=== PATIENT | female | born 1955 | race Caucasian/White ===

== ENCOUNTER 2016-08-07 13:48 | Inpatient (IN) | payer OTHER ==
[~2016-08-07] VITALS: Ht 152.4 cm; Wt 43.2 kg
[~2016-08-07 13:48] MED LIST: ALLERGY PILL; ARTHRITIS PILL; ASPI81CH2 PO; DIPH25CA65 PO; FLV1 PO; FURO40TA3 PO; LCTX PO; LEVO-459 PO; METO50TA7 PO; PRED-301 PO; VNCS125 PO
[2016-08-07] MEDS ORDERED: ALBUT/IPRATROP 3MG/0.5MG NEB 3 ML VIAL INH STA (14:06)
[2016-08-07] MEDS ORDERED: METHYLPREDNISOLONE 125 MG VIAL IV STA (14:06)
[2016-08-07] MEDS ORDERED: SODIUM CHLORIDE 0.9% 1000ML 250 ML IV STA (14:06)
[2016-08-07] MEDS ORDERED: PRED10TA PO (14:14)
[2016-08-07] MEDS ORDERED: NAPR250T3 PO (14:15)
[2016-08-07 14:49] LABS: BASO % 0.4 %; BASO ABS # 0.04 K/uL (0-0.2); COMPLETE YES; IG% 0.1 %; LYMPH % 15.6 %; MEAN CELL VOLUME 88.6 fL (80-100); MEAN CORPUSCULAR HEMOGLOBIN 26.4 pg (25-34); MEAN CORPUSCULAR HGB CONC 29.8 g/dl (32-36); MEAN PLATELET VOLUME 10.6 fL (7.4-10.4); MONO % 9.7 %; NEUT % 71.2 %; PLATELET COUNT 245 K/uL (130-400); RED BLOOD COUNT 5.08 M/uL (4.2-5.4); WHITE BLOOD COUNT 10.25 K/uL (4.8-10.8)
[2016-08-07 14:58] LABS: INR 1.2 (0.9-1.1); PROTHROMBIN TIME (PATIENT) 12.4 SECONDS (9.0-12.0)
--- NOTE | 2016-08-07 15:02 | DIAGNOSTIC IMAGING REPORT ---
HEAD CT NONCONTRAST CT DOSE: 537.48 mGy.cm HISTORY: EVALUATE ALTERED MENTAL STATUS/WEAKNESS TECHNIQUE: Multiaxial CT images of the head were performed without the use of intravenous contrast. Automated exposure control was utilized for this study. Comparison: None. Findings: The paranasal sinuses and mastoid air cells are clear. The calvarium and skull base are intact. There is no mass, hematoma, midline shift, acute infarct. White matter hypodensity is nonspecific but suggestive of microvascular ischemic change. The ventricles and sulci demonstrate mild age-related involutional changes. 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 Impression: No acute intracranial abnormality. Periventricular white matter hypodensity is nonspecific but can be seen in the setting of moderate microvascular ischemic change. Electronically signed by: Alex Castro M.D. 08/07/2016 3:00 PM Dictated Date/Time: 08/07/2016 2:53 PM
[2016-08-07 15:07] LABS: ALT/SGPT 16 U/L (12-78); AST/SGOT 16 U/L (15-37); BLOOD UREA NITROGEN 19 mg/dl (7-18); BUN/CREATININE RATIO 26.2 (10-20); CALCIUM 8.4 mg/dl (8.5-10.1); CARBON DIOXIDE 34 mmol/L (21-32); CHLORIDE 103 mmol/L (98-107); CREATININE 0.72 mg/dl (0.60-1.20); GLUCOSE 102 mg/dl (70-99); MAGNESIUM 1.8 mg/dl (1.8-2.4); POTASSIUM 4.5 mmol/L (3.5-5.1); SODIUM 140 mmol/L (136-145)
[2016-08-07 15:17] LABS: ALB/GLOB RATIO 0.9 (0.9-2); ALKALINE PHOSPHATASE 51 U/L (45-117); THYROID STIMULATING HORMONE 0.604 uIu/ml (0.300-4.500)
--- NOTE | 2016-08-07 15:23 | DIAGNOSTIC IMAGING REPORT ---
CHEST ONE VIEW PORTABLE HISTORY: EVALUATE ALTERED MENTAL STATUS/WEAKNESS COMPARISON: Chest 11/08/2015. FINDINGS: The lungs remain hyperexpanded with apical predominant emphysematous changes. Mild chronic interstitial thickening persists. No new focal lung consolidations. No evidence for pulmonary edema. No pleural effusions. No pneumothorax. The heart is normal in size. Stable prominence of the main pulmonary artery suggesting pulmonary arterial hypertension. Left basilar linear densities suggestive of scarring or atelectasis. This has slightly improved. IMPRESSION: 1. Emphysema. 2. Improved aeration within the left lung base suggesting resolving atelectasis. 3. No acute process within the chest. Electronically signed by: Alex Castro M.D. 08/07/2016 3:21 PM Dictated Date/Time: 08/07/2016 3:20 PM
--- NOTE | 2016-08-07 15:56 | EMERGENCY ROOM VISIT NOTE ---
History Report prepared by Karen: Reece Rios Under the Supervision of: Dr. Jose Alberto Scott M.D. First contact with patient: 13:59 Chief Complaint: DIZZY Stated Complaint: DIZZY, TINGLING IN HEAD/JAW/ARMS, RAPID HEARTBEAT Nursing Triage Summary: triage note: pt reports "i have had intermittent dizzy spells for the past couple months and it got worse today and i felt like i was going to pass out." pulse ox noted to be 77% on room air in triage. pt denies any shortness of breath. when asked if pt has any hx of breathing problems pt states "the dr says i do but i don't think i do." jn nurse to care for pt called and aware of pt pulse ox reading in triage. History of Present Illness The patient is a 60 year old female who presents to the Emergency Room with complaints of intermittent, worsening episodes of dizziness beginning a couple months ago. The patient states that last night, she had symptoms, and fell asleep. She reports that when she woke up, her symptoms were gone, but then started again soon after she woke up about ten hours ago. The patient reports that movement makes her symptoms worse. She states that her episodes typically last about an hour, she takes aspirin, and her symptoms go away. The patient denies nausea, vomiting, shortness of breath, chest pain, cough, diarrhea, urinary symptoms, and weakness to her extremities. She reports that she smokes, and her PCP has mentioned COPD and emphysema, but she has not been diagnosed with them. The patient states that she takes Advair, but she does not have a nebulizer or rescue inhaler. She denies using oxygen at home, and her O2 Sat is 82% on room air, currently. The patient reports that she does not have a history of a CVA. She states that she goes to her PCP as needed. Source of History: patient Onset: few months ago Position: other (global) Quality: other (dizziness) Timing: intermittent, worsening Modifying Factors (Worsening): movement Associated Symptoms: No cough, No chest pain, No SOB, No nausea, No vomiting , No diarrhea, No urinary symptoms, No weakness Review of Systems See HPI for pertinent positives & negatives. A total of 10 systems reviewed and were otherwise negative. Past Medical & Surgical Medical Problems: (1) Emphysema of lung (2) Hypoxia (3) Paroxysmal a-fib (4) Rheumatoid arthritis (5) Tobacco abuse Surgical Problems: (1) [place] teeth extracted Family History Cancer FHx: gallbladder disease Heart disease Lung disease Social History Smoking Status: Current Every Day Smoker Drug Use: none Marital Status: Housing Status: lives alone Occupation Status: unemployed Current/Historical Medications Scheduled Aspirin (Aspirin), 1 TAB PO DAILY Folic Acid (Folic Acid), 1 MG PO DAILY Metoprolol Succ (Toprol Xl) (Toprol-Xl), 50 MG PO DAILY Naproxen Tab (Naprosyn), 250-500 MG PO QAM Prednisone Tab (Prednisone), 10 MG PO QAM Scheduled PRN Diphenhydramine Hcl (Benadryl Allergy), 1 CAP PO HS PRN for allergies Furosemide (Lasix), 20 MG PO UD PRN for FLUID RETENTION Allergies Coded Allergies: Pork (Verified Allergy, Intermediate, HIVES, 08/07/16) Physical Exam Vital Signs Date Time Temp Pulse Resp B/P (MAP) Pulse Ox O2 Delivery O2 Flow Rate FiO2 08/07/16 14:07 80 08/07/16 14:00 96 Nasal Cannula 4.0 08/07/16 14:00 96 Nasal Cannula 4.0 08/07/16 13:54 36.7 81 20 126/74 77 Room Air Physical Exam GENERAL: Patient is in no acute distress. HEENT: No acute trauma, normocephalic atraumatic, mucous membranes moist, no nasal congestion, no scleral icterus. NECK: No stridor, no adenopathy, no meningismus, trachea is midline. LUNGS: Significantly diminished breath sounds bilaterally, no crackles, breath sounds equal, wheezing bilaterally HEART: Without murmurs gallops or rubs, regular rate and rhythm. ABDOMEN: Soft, nontender, bowel sounds positive, no hernias, no peritonitis. EXTREMITIES: No cyanosis or edema, full range of motion of all the joints without pain or difficulty, no signs for acute trauma. NEUROLOGIC: Oriented x 3, no acute motor or sensory deficits, no focal weakness. No pronator drift or facial droop, no cerebellar dysfunction SKIN: No rash, no jaundice, no diaphoresis. Medical Decision & Procedures ER Provider Diagnostic Interpretation: Radiology results as stated below per my review and radiologist interpretation: CHEST ONE VIEW PORTABLE HISTORY: EVALUATE ALTERED MENTAL STATUS/WEAKNESS COMPARISON: Chest 11/08/2015. FINDINGS: The lungs remain hyperexpanded with apical predominant emphysematous changes. Mild chronic interstitial thickening persists. No new focal lung consolidations. No evidence for pulmonary edema. No pleural effusions. No pneumothorax. The heart is normal in size. Stable prominence of the main pulmonary artery suggesting pulmonary arterial hypertension. Left basilar linear densities suggestive of scarring or atelectasis. This has slightly improved. IMPRESSION: 1. Emphysema. 2. Improved aeration within the left lung base suggesting resolving atelectasis. 3. No acute process within the chest. Electronically signed by: Alex Castro M.D. 08/07/2016 3:21 PM Dictated Date/Time: 08/07/2016 3:[address] CT DOSE: 537.48 mGy.cm HISTORY: EVALUATE ALTERED MENTAL STATUS/WEAKNESS TECHNIQUE: Multiaxial CT images of the head were performed without the use of intravenous contrast. Automated exposure control was utilized for this study. Comparison: None. Findings: The paranasal sinuses and mastoid air cells are clear. The calvarium and skull base are intact. There is no mass, hematoma, midline shift, acute infarct. White matter hypodensity is nonspecific but suggestive of microvascular ischemic change. The ventricles and sulci demonstrate mild age-related involutional changes. 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 Impression: No acute intracranial abnormality. Periventricular white matter hypodensity is nonspecific but can be seen in the setting of moderate microvascular ischemic change. Electronically signed by: Alex Castro M.D. 08/07/2016 3:00 PM Dictated Date/Time: 08/07/2016 2:53 PM Laboratory Results 08/07/16 14:36 Red Blood Count 5.08, Mean Corpuscular Volume 88.6, Mean Corpuscular Hemoglobin 26.4, Mean Corpuscular Hemoglobin Concent 29.8, Mean Platelet Volume 10.6, Neutrophils (%) (Auto) 71.2, Lymphocytes (%) (Auto) 15.6, Monocytes (%) (Auto) 9.7, Eosinophils (%) (Auto) 3.0, Basophils (%) (Auto) 0.4, Neutrophils # (Auto) 7.30, Lymphocytes # (Auto) 1.60, Monocytes # (Auto) 0.99, Eosinophils # (Auto) 0.31, Basophils # (Auto) 0.04 08/07/16 14:36 Test 08/07/16 14:36 White Blood Count 10.25 K/uL (4.8-10.8) Red Blood Count 5.08 M/uL (4.2-5.4) Hemoglobin 13.4 g/dL (12.0-16.0) Hematocrit 45.0 % (37-47) Mean Corpuscular Volume 88.6 fL (80-100) Mean Corpuscular Hemoglobin 26.4 pg (25-34) Mean Corpuscular Hemoglobin Concent 29.8 g/dl (32-36) Platelet Count 245 K/uL (130-400) Mean Platelet Volume 10.6 fL (7.4-10.4) Neutrophils (%) (Auto) 71.2 % Lymphocytes (%) (Auto) 15.6 % Monocytes (%) (Auto) 9.7 % Eosinophils (%) (Auto) 3.0 % Basophils (%) (Auto) 0.4 % Neutrophils # (Auto) 7.30 K/uL (1.4-6.5) Lymphocytes # (Auto) 1.60 K/uL (1.2-3.4) Monocytes # (Auto) 0.99 K/uL (0.11-0.59) Eosinophils # (Auto) 0.31 K/uL (0-0.5) Basophils # (Auto) 0.04 K/uL (0-0.2) RDW Standard Deviation 47.1 fL (36.4-46.3) RDW Coefficient of Variation 14.6 % (11.5-14.5) Immature Granulocyte % (Auto) 0.1 % Immature Granulocyte # (Auto) 0.01 K/uL (0.00-0.02) Prothrombin Time 12.4 SECONDS (9.0-12.0) Prothromb Time International Ratio 1.2 (0.9-1.1) Activated Partial Thromboplast Time 26.2 SECONDS (21.0-31.0) Partial Thromboplastin Ratio 1.0 Anion Gap 3.0 mmol/L (3-11) Est Creatinine Clear Calc Drug Dose 46.6 ml/min Estimated GFR () 104.8 Estimated GFR (Non- 90.4 BUN/Creatinine Ratio 26.2 (10-20) Calcium Level 8.4 mg/dl (8.5-10.1) Magnesium Level 1.8 mg/dl (1.8-2.4) Total Bilirubin 0.5 mg/dl (0.2-1) Aspartate Amino Transf (AST/SGOT) 16 U/L (15-37) Alanine Aminotransferase (ALT/SGPT) 16 U/L (12-78) Alkaline Phosphatase 51 U/L (45-117) Troponin I < 0.015 ng/ml (0-0.045) Total Protein 5.6 gm/dl (6.4-8.2) Albumin 2.7 gm/dl (3.4-5.0) Globulin 2.9 gm/dl (2.5-4.0) Albumin/Globulin Ratio 0.9 (0.9-2) Thyroid Stimulating Hormone (TSH) 0.604 uIu/ml (0.300-4.500) Laboratory results reviewed by me. Medications Administered Medications (Trade) Dose Ordered Sig/Denzel Route Start Time Stop Time Status Last Admin Dose Admin Sodium Chloride 250 ml @ 999 mls/hr Q16M STAT IV 08/07/16 14:06 08/07/16 14:21 DC 08/07/16 14:31 999 MLS/HR Methylprednisolone Sodium Succinate (Solu-Medrol IV) 80 mg NOW STAT IV 08/07/16 14:06 08/07/16 14:09 DC 08/07/16 14:31 80 MG Albuterol/ Ipratropium (Duoneb) 3 ml NOW STAT INH 08/07/16 14:06 08/07/16 14:09 DC 08/07/16 14:31 3 ML ECG Indication: weakness Rate (beats per minute): 77 Rhythm: normal sinus Findings: ST depression, no ectopy, other (T-wave change in the anterior and lateral leads) Comparison ECG Date: 10/30/15 Change: no significant change ED Course 1359: The patient was evaluated in room C02. A complete history and physical exam was performed. 1406 Ordered Duoneb 3ml INH, Solu-Medrol IV 80mg IV, Sodium Chloride 250 ml @ 999 mls/hr IV 1536: I discussed the patients case with Dr[facility] Rothman[facility] The patient will be evaluated for further treatment. 1555: Upon reexamination the patient is resting. I discussed results and treatment plan with the patient. She verbalizes agreement and understanding. The patient will be evaluated for further management. Medical Decision Differential diagnosis includes: hypoxia, pneumonia, bronchitis, COPD exacerbation, UTI, anemia, dehydration, CVA, vertigo, electrolyte imbalance Medication Reconciliation: I attest that I have personally reviewed the patient' s current medication list. Blood Pressure Screening: Patient was found to have normal blood pressure on screening and does not require follow-up. There is no leukocytosis or worrisome anemia. No significant electrolyte abnormality, kidney failure or hepatitis. The patient appears to be in a euthyroid state. Chest x-ray shows COPD; no CHF, pneumonia or pneumothorax. EKG shows a normal sinus rhythm with some ST depressions in the anterior and lateral leads, these are unchanged compared to previous EKGs. Cardiac enzyme testing 1 is not consistent with acute cardiac injury. Brain CT shows no acute bleed or mass effect. Urinalysis result is currently pending. The patient received IV saline, a DuoNeb, IV Solu-Medrol. She was placed on nasal cannula O2 supplementation. She is doing well and her O2 saturations have improved. The patient likely has symptoms secondary to hypoxia. She requires care in the hospital. I did speak with case management, I talked with the patient. The on- call hospitalist was consulted. Consults Time Called: 1523 Consulting Physician[facility] Return[facility] Call: 1536 I discussed the patients case with [facility] The patient will be evaluated for further treatment. Impression Primary Impression: Dizziness Additional Impressions: Weakness Hypoxia Scribe Attestation The scribe's documentation has been prepared under my direction and personally reviewed by me in its entirety. I confirm that the note above accurately reflects all work, treatment, procedures, and medical decision making performed by me. Departure Information Dispostion Being Evaluated By Hospitalist Referrals Irene Puente M.D. (MEDICAL) (PCP) Patient Instructions [facility] Problem Qualifiers
[2016-08-07 16:13] VITALS: Ht 152.4 cm; Wt 43.2 kg
[2016-08-07] MEDS ORDERED: NICOTINE 14 MG/24 HR TDSY TD ONE (16:21)
[2016-08-07] MEDS ORDERED: ONDANSETRON INJ 2 MG/ML 2 ML VIAL IV PRN (16:30)
[2016-08-07] MEDS ORDERED: ACETAMINOPHEN 325 MG TAB PO PRN (16:30)
[2016-08-07 16:45] VITALS: BP 150/79; PULSE 73; TEMP 36.7; O2SAT 92
[2016-08-07 16:49] LABS: URINE APPEARANCE CLEAR (CLEAR); URINE BILIRUBIN NEG (NEG); URINE COLOR YELLOW; URINE NITRITE NEG (NEG); URINE PH 6.5 (4.5-7.5); URINE SPECIFIC GRAVITY 1.014 (1.000-1.030); UROBILINOGEN NEG (NEG); ZZUR CULT IF INDIC CLEAN CATCH NO
[2016-08-07 16:52] LABS: MANUAL MICROSCOPIC REQUIRED? NO; REVIEW REQ? NO
--- NOTE | 2016-08-07 16:52 | History and Physical ---
History & Physical Date & Time of Service: Aug 07, 2016 at 16:32 Chief Complaint: Dizzy, Tingling In Head/Jaw/Arms, Rapid Heartbeat Primary Care Physician: Irene Puente M.D. (MEDICAL) History of Present Illness Source: patient, family, clinic records, hospital records 60 year old female with history of COPD, Smoker, RA on Prednisone, Paroxysmal A fib on Aspirin, Hypertension, presenting with episodes of dizziness. Patient follows with Dr. Puente for Primary Care. Patient was apparently doing well until last night around 11pm, patient was watching TV when she suddenly developed dizziness- lightheadedness associated with palpitations. No dyspnea/chest pain/diaphoresis. The episode lasted about an hour before resolving. A few hours later, the same symptoms returned then resolved. Patient again had the same symptoms this morning and around noon, prompting ER consult. She mentions that this episode also occurred 2 months ago. At the ER, patient was noted to be hypoxic at 77%. She was placed on 4 L O2 by nasal cannula, Solumedrol and nebs with improvement. Trop negative, EKG shows non specific t wave inversions in V1-V3. CXR no pneumonia. On exam, patient seen sitting up in bed, comfortable. States she feels improved compared to admission. Denies active symptoms on my exam. No other symptoms. Past Medical/Surgical History Medical Problems: (1) Emphysema of lung Status: Chronic (2) Paroxysmal a-fib Status: Chronic (3) Rheumatoid arthritis Permanent Comment: chronic steroid use Status: Chronic (4) Tobacco abuse Status: Chronic Surgical Problems: (1) [place] teeth extracted Status: Resolved Family History Cancer FHx: gallbladder disease Heart disease Lung disease Social History Smoking Status: Current Every Day Smoker Smokeless Tobacco Use: No Alcohol Use: none Drug Use: none Marital Status: Housing status: lives alone Occupational Status: unemployed Allergies Coded Allergies: Pork (Verified Allergy, Intermediate, HIVES, 08/07/16) Home Medications Scheduled Aspirin (Aspirin), 1 TAB PO DAILY Folic Acid (Folic Acid), 1 MG PO DAILY Metoprolol Succ (Toprol Xl) (Toprol-Xl), 50 MG PO DAILY Naproxen Tab (Naprosyn), 250-500 MG PO QAM Prednisone Tab (Prednisone), 10 MG PO QAM Scheduled PRN Diphenhydramine Hcl (Benadryl Allergy), 1 CAP PO HS PRN for allergies Furosemide (Lasix), 20 MG PO UD PRN for FLUID RETENTION Review of Systems Constitutional- no fever; no weight loss Eyes- no acute visual changes ENT- no sinus drainage; no pharyngitis Pulmonary- no cough, no wheezing, no shortness of breath Cardiac-(+) as noted above GI- no nausea, no vomiting, no diarrhea, no melena, no hematochezia - no dysuria, no hematuria Musculoskeletal- no arthralgias, no myalgias Derm- no rashes, no new skin lesions, no changing skin lesions Hematologic- no unusual bruising, no unusual bleeding Lymphatics- no adenopathy Endocrine- no polyuria or polydipsia; no heat or cold intolerance Neuro- no headaches, no focal neurologic symptoms Psych- no anxiety, no depression Physical Exam Vital Signs Date Time Temp Pulse Resp B/P (MAP) Pulse Ox O2 Delivery O2 Flow Rate FiO2 08/07/16 16:18 36.7 76 17 156/83 95 08/07/16 15:50 76 17 95 08/07/16 15:31 131/80 08/07/16 15:20 71 23 96 08/07/16 15:01 124/94 08/07/16 14:54 146/81 08/07/16 14:07 80 08/07/16 14:00 96 Nasal Cannula 4.0 08/07/16 14:00 96 Nasal Cannula 4.0 08/07/16 13:54 36.7 81 20 126/74 77 Room Air General Appearance: WD/WN, no apparent distress Head: normocephalic, atraumatic Eyes: normal inspection, EOMI, sclerae normal ENT: normal ENT inspection, hearing grossly normal, pharynx normal Neck: supple, no adenopathy, thyroid normal, no JVD, trachea midline Respiratory/Chest: lungs clear, no respiratory distress, no accessory muscle use, + pertinent finding (distant BS bilaterally) Cardiovascular: regular rate, rhythm, no edema, no JVD, no murmur, normal peripheral pulses Abdomen/GI: normal bowel sounds, non tender, soft, no organomegaly Back: normal inspection, no CVA tenderness Extremities/Musculoskelatal: no calf tenderness, no pedal edema, + pertinent finding (mild swelling of joints bilateral big toes, no erythema/tenderness) Neurologic/Psych: bisque finisher II-XII nml as tested, no motor/sensory deficits, alert, normal mood/affect, oriented x 3 Skin: normal color, warm/dry, no rash Lymphatic: no adenopathy Diagnostics Laboratory Results Results Past 24 Hours Test 08/07/16 14:36 Range/Units White Blood Count 10.25 4.8-10.8 K/uL Red Blood Count 5.08 4.2-5.4 M/uL Hemoglobin 13.4 12.0-16.0 g/dL Hematocrit 45.0 37-47 % Mean Corpuscular Volume 88.6 80-100 fL Mean Corpuscular Hemoglobin 26.4 25-34 pg Mean Corpuscular Hemoglobin Concent 29.8 32-36 g/dl Platelet Count 245 130-400 K/uL Mean Platelet Volume 10.6 7.4-10.4 fL Neutrophils (%) (Auto) 71.2 % Lymphocytes (%) (Auto) 15.6 % Monocytes (%) (Auto) 9.7 % Eosinophils (%) (Auto) 3.0 % Basophils (%) (Auto) 0.4 % Neutrophils # (Auto) 7.30 1.4-6.5 K/uL Lymphocytes # (Auto) 1.60 1.2-3.4 K/uL Monocytes # (Auto) 0.99 0.11-0.59 K/uL Eosinophils # (Auto) 0.31 0-0.5 K/uL Basophils # (Auto) 0.04 0-0.2 K/uL RDW Standard Deviation 47.1 36.4-46.3 fL RDW Coefficient of Variation 14.6 11.5-14.5 % Immature Granulocyte % (Auto) 0.1 % Immature Granulocyte # (Auto) 0.01 0.00-0.02 K/uL Prothrombin Time 12.4 9.0-12.0 SECONDS Prothromb Time International Ratio 1.2 0.9-1.1 Activated Partial Thromboplast Time 26.2 21.0-31.0 SECONDS Partial Thromboplastin Ratio 1.0 Sodium Level 140 136-145 mmol/L Potassium Level 4.5 3.5-5.1 mmol/L Chloride Level 103 98-107 mmol/L Carbon Dioxide Level 34 21-32 mmol/L Anion Gap 3.0 3-11 mmol/L Blood Urea Nitrogen 19 7-18 mg/dl Creatinine 0.72 0.60-1.20 mg/dl Est Creatinine Clear Calc Drug Dose 46.6 ml/min Estimated GFR () 104.8 Estimated GFR (Non- 90.4 BUN/Creatinine Ratio 26.2 10-20 Random Glucose 102 70-99 mg/dl Calcium Level 8.4 8.5-10.1 mg/dl Magnesium Level 1.8 1.8-2.4 mg/dl Total Bilirubin 0.5 0.2-1 mg/dl Aspartate Amino Transf (AST/SGOT) 16 15-37 U/L Alanine Aminotransferase (ALT/SGPT) 16 12-78 U/L Alkaline Phosphatase 51 45-117 U/L Troponin I < 0.015 0-0.045 ng/ml Total Protein 5.6 6.4-8.2 gm/dl Albumin 2.7 3.4-5.0 gm/dl Globulin 2.9 2.5-4.0 gm/dl Albumin/Globulin Ratio 0.9 0.9-2 Thyroid Stimulating Hormone (TSH) 0.604 0.300-4.500 uIu/ml Diagnostic Radiology HEAD CT NONCONTRAST CT DOSE: 537.48 mGy.cm HISTORY: EVALUATE ALTERED MENTAL STATUS/WEAKNESS TECHNIQUE: Multiaxial CT images of the head were performed without the use of intravenous contrast. Automated exposure control was utilized for this study. Comparison: None. Findings: The paranasal sinuses and mastoid air cells are clear. The calvarium and skull base are intact. There is no mass, hematoma, midline shift, acute infarct. White matter hypodensity is nonspecific but suggestive of microvascular ischemic change. The ventricles and sulci demonstrate mild age-related involutional changes. 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 Impression: No acute intracranial abnormality. Periventricular white matter hypodensity is nonspecific but can be seen in the setting of moderate microvascular ischemic change. CHEST ONE VIEW PORTABLE HISTORY: EVALUATE ALTERED MENTAL STATUS/WEAKNESS COMPARISON: Chest 11/08/2015. FINDINGS: The lungs remain hyperexpanded with apical predominant emphysematous changes. Mild chronic interstitial thickening persists. No new focal lung consolidations. No evidence for pulmonary edema. No pleural effusions. No pneumothorax. The heart is normal in size. Stable prominence of the main pulmonary artery suggesting pulmonary arterial hypertension. Left basilar linear densities suggestive of scarring or atelectasis. This has slightly improved. IMPRESSION: 1. Emphysema. 2. Improved aeration within the left lung base suggesting resolving atelectasis. 3. No acute process within the chest. EKG HR 77, sinus rhythm, non specific T wave inversion in v1 and v3 Impression Assessment and Plan 60 year old female with history of COPD, Smoker, RA on Prednisone, Paroxysmal A fib on Aspirin, Hypertension, presenting with episodes of dizziness. EPISODES OF DIZZINESS, PALPITATION R/O ARRHYTHMIA HISTORY OF PAROXYSMAL A FIB echo Cardiac markers ekg in AM continue Metoprolol, Aspirin R/O CVA Brain MRI neurochecks ACUTE HYPOXIC RESPIRATORY FAILURE FROM MILD COPD EXACERBATION no pneumonia on CXR Prednisone 40mg daily, Nebs q6h continue Advair R/O P.E. check d dimer OLD RIGHT TEMPORAL LOBE INFARCT based on CT head check Brain MRI already on Aspirin SMOKER nicotine patch cessation counselling HYPERTENSION continue Metoprolol hold Lasix RHEUMATOID ARTHRITIS ON CHRONIC PREDNISONE continue Prednisone, increase dose to 40mg daily ANEMIA stable DVT PROPHYLAXIS SCDs , heparin CODE STATUS Full Code per patient DISPOSITION pending anticipate d/c home when medically stable may need oxygen by Nasal cannula on discharge VTE Prophylaxis VTE Risk Assessment Done? Y/N: Yes Risk Level: Moderate Given or contraindicated: Unfractionated heparin SQ
--- NOTE | 2016-08-07 17:54 | DIAGNOSTIC IMAGING REPORT ---
Brain MRI WITHOUT CONTRAST HISTORY: Dizziness. TECHNIQUE: Multiplanar multisequence MRI of the brain was performed without the use of contrast. COMPARISON STUDY: Head CT 08/07/2016. FINDINGS: There is no mass, hematoma, midline shift, acute infarct. Paranasal sinuses and mastoid air cells are clear. The major vascular flow-voids at the skull base are well-maintained. Prominence of the ventricles favors mild central atrophy. T2 hyperintensity within the lesa and periventricular white matter. The midline structures are intact. IMPRESSION: 1. No acute infarct. 2. No acute intracranial hemorrhage. 3. Periventricular white matter and pontine T2 hyperintensity is nonspecific but may represent moderate microvascular ischemic change. A demyelinating disease could also have a similar appearance in the appropriate clinical setting. Electronically signed by: Alex Castro M.D. 08/07/2016 5:53 PM Dictated Date/Time: 08/07/2016 5:48 PM
[2016-08-07] MEDS: IPRATROPIUM BROMIDE NEB SOLN 0.02% 2.5 ML VIAL INH SCH (19:02)
[2016-08-07] MEDS: LEVALBUTEROL 1.25MG/0.5ML NEB INH SCH (19:02)
[2016-08-07 19:03] VITALS: PULSE 82; O2SAT 95
[2016-08-07 19:24] VITALS: BP 127/70; PULSE 81; TEMP 36.8; O2SAT 95
[2016-08-07] MEDS: SODIUM CHLORIDE 0.9% 1000ML 1,000 ML IV SCH (19:51)
[2016-08-07] MEDS ORDERED: FLUTICASONE/SALMETEROL 250/50 (ADVAIR) 14 PUFF/1 INHALER INH SCH (21:00)
[2016-08-07] MEDS ORDERED: LEVALBUTEROL/IPRATROPIUM NEB INH SCH (21:00)
[2016-08-07 21:19] LABS: CKMB/CK RATIO 5.7 (0-3.0)
[2016-08-07] MEDS ORDERED: OPTIRAY 320 IV PRN (21:30)
--- NOTE | 2016-08-07 21:31 | DIAGNOSTIC IMAGING REPORT ---
BILATERAL LOWER EXTREMITY VENOUS DOPPLER HISTORY: Elevated D dimer. Hypoxia. COMPARISON STUDY: Venous Doppler 11/04/2015. FINDINGS: There is normal compressibility, flow, and augmentation within the bilateral lower extremity deep venous systems. IMPRESSION: No DVT within the right or left lower extremity. Electronically signed by: Alex Castro M.D. 08/07/2016 9:30 PM Dictated Date/Time: 08/07/2016 9:30 PM
--- NOTE | 2016-08-07 21:45 | DIAGNOSTIC IMAGING REPORT ---
CHEST CTA for PULMONARY ARTERIES CT DOSE: 299.36 mGy.cm HISTORY: Hypoxia. TECHNIQUE: Multiaxial CT images of the chest were performed following the intravenous administration of contrast to evaluate the pulmonary arteries. Maximal intensity projection images were also obtained. COMPARISON STUDY: Chest 08/07/2016. FINDINGS: The heart is normal in size. Normal caliber thoracic aorta with no evidence for no filling defects within the pulmonary arteries to suggest pulmonary embolus. The central airways are patent. No pneumothorax. Trace left pleural effusion. Moderate emphysema. Left basilar densities favor compressive atelectasis from the pleural effusion. A 3 mm nodule within the left lower lobe on image 162. The visualized liver and spleen are unremarkable. Right-sided nephrolithiasis. No mediastinal or hilar lymphadenopathy. There is 9 mm peripherally calcified nodule within the left breast IMPRESSION: 1. No evidence for pulmonary embolus. 2. Trace left pleural effusion. 3. Right-sided nephrolithiasis. 4. Emphysema. 5. A 9 mm peripherally calcified nodule within the left breast. This favors a fibroadenoma. However, recommend correlation with mammogram and/or dedicated ultrasound for further evaluation. Electronically signed by: Alex Castro M.D. 08/07/2016 9:43 PM Dictated Date/Time: 08/07/2016 9:34 PM
[2016-08-07] MEDS: HEPARIN SOD 5000 UNIT/0.5 ML CARP SQ SCH (21:47)
[2016-08-08] VITALS (13 sets, daily range): BP systolic 101–138; BP diastolic 55–73; PULSE 71–89; TEMP 36.5–36.8; O2SAT 91–99
[2016-08-08] MEDS: LEVALBUTEROL 1.25MG/0.5ML NEB INH SCH ×4 (01:55→19:29)
[2016-08-08] MEDS: IPRATROPIUM BROMIDE NEB SOLN 0.02% 2.5 ML VIAL INH SCH ×4 (01:55→19:29)
[2016-08-08 02:21] LABS: BASO % 0.1 %; BASO ABS # 0.01 K/uL (0-0.2); COMPLETE YES; HEMATOCRIT 48.7 % (37-47); IG% 0.1 %; LYMPH % 5.5 %; LYMPH ABS # 0.44 K/uL (1.2-3.4); MEAN CELL VOLUME 90.2 fL (80-100); MEAN CORPUSCULAR HEMOGLOBIN 26.5 pg (25-34); MEAN CORPUSCULAR HGB CONC 29.4 g/dl (32-36); MEAN PLATELET VOLUME 10.5 fL (7.4-10.4); MONO % 3.4 %; NEUT % 90.9 %; PLATELET COUNT 254 K/uL (130-400); WHITE BLOOD COUNT 8.04 K/uL (4.8-10.8)
[2016-08-08 02:57] LABS: BLOOD UREA NITROGEN 20 mg/dl (7-18); BUN/CREATININE RATIO 25.5 (10-20); CALCIUM 8.7 mg/dl (8.5-10.1); CARBON DIOXIDE 39 mmol/L (21-32); CHLORIDE 101 mmol/L (98-107); CKMB/CK RATIO 5.3 (0-3.0); GLUCOSE 113 mg/dl (70-99); POTASSIUM 5.5 mmol/L (3.5-5.1); SODIUM 142 mmol/L (136-145)
[2016-08-08] MEDS ORDERED: DEXTROSE 50% 50 ML SYR IV STA (04:18)
[2016-08-08] MEDS ORDERED: INSULIN HUMAN REGULAR PER UNIT 10 UNITS in SYRINGE 9.9 ML IV STA (04:19)
[2016-08-08] MEDS: HEPARIN SOD 5000 UNIT/0.5 ML CARP SQ SCH ×3 (06:00→22:00)
[2016-08-08] MEDS: ASPIRIN 81 MG ECTAB PO SCH (08:35)
[2016-08-08] MEDS: NICOTINE 14 MG/24 HR TDSY TD SCH (09:00)
[2016-08-08] MEDS ORDERED: METOPROLOL SUCC 50MG EXT REL TAB PO SCH (09:00)
[2016-08-08 11:03] LABS: ARTERIAL BLD GAS O2 SATURATION 90.6 % (90-95); ARTERIAL BLOOD GAS BASE EXCESS 8.2 mEq/L (-9-1.8); ARTERIAL BLOOD GAS HCO3 38 mmol/L (19-24); ARTERIAL BLOOD GAS PO2 61 mm/Hg (80-95); ARTERIAL BLOOD GAS pH 7.26 (7.35-7.45)
[2016-08-08 11:04] LABS: ALLEN TEST POS (POS); O2 ADMINISTRATION 2.5
--- NOTE | 2016-08-08 11:06 | Progress Note ---
Medicine Progress Note Date & Time of Visit: Aug 08, 2016 at 10:50. Subjective seen resting in bed, drowsy but easily rousable no recurrence of dizziness spells, no focal neuro symptoms states breathing is fine, no cough no chest pain, palpitations denies other symptoms Objective Last 8 Hrs Date Time Temp Pulse Resp B/P (MAP) Pulse Ox O2 Delivery O2 Flow Rate FiO2 08/08/16 08:11 36.5 87 14 121/63 (82) 98 08/08/16 08:00 Nasal Cannula 3.0 08/08/16 07:05 82 16 95 Nasal Cannula 3.0 08/08/16 04:00 Nasal Cannula 3.0 08/08/16 03:57 36.6 85 17 137/70 (92) 98 Nasal Cannula 3.0 Physical Exam: General- oriented x 3, drowsy, not in distress, speaks in sentences with no effort Eyes- EOMI, anicteric ENT- oropharynx clear Neck- supple, no JVD Lungs- distant breath sounds but clear bilaterally, no rales/wheezes Heart- regular rhythm; no murmur, normal rate Abdomen- normal bowel sounds, non distended, soft, nontender Extremities- no pretibial edema, no calf tenderness Neuro- drowsy, oriented x 3;no gross focal deficits Skin- warm & dry Laboratory Results: Last 24 Hours Test 08/07/16 14:36 08/07/16 16:30 08/07/16 20:38 08/08/16 02:15 White Blood Count 10.25 K/uL 8.04 K/uL Red Blood Count 5.08 M/uL 5.40 M/uL Hemoglobin 13.4 g/dL 14.3 g/dL Hematocrit 45.0 % 48.7 % Mean Corpuscular Volume 88.6 fL 90.2 fL Mean Corpuscular Hemoglobin 26.4 pg 26.5 pg Mean Corpuscular Hemoglobin Concent 29.8 g/dl 29.4 g/dl Platelet Count 245 K/uL 254 K/uL Mean Platelet Volume 10.6 fL 10.5 fL Neutrophils (%) (Auto) 71.2 % 90.9 % Lymphocytes (%) (Auto) 15.6 % 5.5 % Monocytes (%) (Auto) 9.7 % 3.4 % Eosinophils (%) (Auto) 3.0 % 0.0 % Basophils (%) (Auto) 0.4 % 0.1 % Neutrophils # (Auto) 7.30 K/uL 7.31 K/uL Lymphocytes # (Auto) 1.60 K/uL 0.44 K/uL Monocytes # (Auto) 0.99 K/uL 0.27 K/uL Eosinophils # (Auto) 0.31 K/uL 0.00 K/uL Basophils # (Auto) 0.04 K/uL 0.01 K/uL RDW Standard Deviation 47.1 fL 48.9 fL RDW Coefficient of Variation 14.6 % 14.8 % Immature Granulocyte % (Auto) 0.1 % 0.1 % Immature Granulocyte # (Auto) 0.01 K/uL 0.01 K/uL Prothrombin Time 12.4 SECONDS Prothromb Time International Ratio 1.2 Activated Partial Thromboplast Time 26.2 SECONDS Partial Thromboplastin Ratio 1.0 D-Dimer 840 ug/L FEU Sodium Level 140 mmol/L 142 mmol/L Potassium Level 4.5 mmol/L 5.5 mmol/L Chloride Level 103 mmol/L 101 mmol/L Carbon Dioxide Level 34 mmol/L 39 mmol/L Anion Gap 3.0 mmol/L 2.0 mmol/L Blood Urea Nitrogen 19 mg/dl 20 mg/dl Creatinine 0.72 mg/dl 0.80 mg/dl Est Creatinine Clear Calc Drug Dose 46.6 ml/min 42.0 ml/min Estimated GFR () 104.8 92.2 Estimated GFR (Non- 90.4 79.6 BUN/Creatinine Ratio 26.2 25.5 Random Glucose 102 mg/dl 113 mg/dl Calcium Level 8.4 mg/dl 8.7 mg/dl Magnesium Level 1.8 mg/dl Total Bilirubin 0.5 mg/dl Aspartate Amino Transf (AST/SGOT) 16 U/L Alanine Aminotransferase (ALT/SGPT) 16 U/L Alkaline Phosphatase 51 U/L Troponin I < 0.015 ng/ml < 0.015 ng/ml < 0.015 ng/ml Total Protein 5.6 gm/dl Albumin 2.7 gm/dl Globulin 2.9 gm/dl Albumin/Globulin Ratio 0.9 Thyroid Stimulating Hormone (TSH) 0.604 uIu/ml Urine Color YELLOW Urine Appearance CLEAR Urine pH 6.5 Urine Specific Redfox 1.014 Urine Protein NEG Urine Glucose (UA) NEG Urine Ketones NEG Urine Occult Blood TRACE Urine Nitrite NEG Urine Bilirubin NEG Urine Urobilinogen NEG Urine Leukocyte Esterase NEG Urine WBC (Auto) 1-5 /hpf Urine RBC (Auto) 0-4 /hpf Urine Hyaline Casts (Auto) 0 /lpf Urine Epithelial Cells (Auto) 5-10 /lpf Urine Bacteria (Auto) NEG Total Creatine Kinase 35 U/L 38 U/L Creatine Kinase MB 2.0 ng/ml 2.0 ng/ml Creatine Kinase MB Ratio 5.7 5.3 Nucleated RBC Absolute Count (auto) 0.03 K/uL Nucleated Red Blood Cells % 0.4 % Test 08/08/16 04:34 08/08/16 05:52 08/08/16 10:43 Bedside Glucose 132 mg/dl Potassium Level 4.3 mmol/L Assessment & Plan 60 year old female with history of COPD, Smoker, RA on Prednisone, Paroxysmal A fib on Aspirin, Hypertension, presenting with episodes of dizziness. EPISODES OF DIZZINESS, PALPITATION R/O ARRHYTHMIA HISTORY OF PAROXYSMAL A FIB echo: pending Cardiac markers: negative ekg in AM: non specific t wave changes in inferior leads continue Metoprolol, Aspirin ACUTE CVA RULED OUT Brain MRI: IMPRESSION: 1. No acute infarct. 2. No acute intracranial hemorrhage. 3. Periventricular white matter and pontine T2 hyperintensity is nonspecific but may represent moderate microvascular ischemic change. A demyelinating disease could also have a similar appearance in the appropriate clinical setting. -- no focal motor/sensory deficits/symptoms, no changes with vision ACUTE HYPOXIC RESPIRATORY FAILURE FROM MILD COPD EXACERBATION no pneumonia on CXR Prednisone 40mg daily, Nebs q6h continue Advair DROWSINESS -- did not receive benzo, narcotics -- check ABG D DIMER ELEVATION Ct chest: no PE Doppler US legs: no dvt CHEST CT ABNORMAL FINDINGS Left lung nodule: follow up Left Breast nodule: mammogram as outpatient MICROSCOPIC HEMATURIA repeat UA OLD RIGHT TEMPORAL LOBE INFARCT ON CT HEAD based on CT head check Brain MRI: none demonstrated already on Aspirin SMOKER nicotine patch cessation counselling HYPERTENSION continue Metoprolol hold Lasix for now RHEUMATOID ARTHRITIS ON CHRONIC PREDNISONE continue Prednisone, increased dose to 40mg daily ANEMIA stable DVT PROPHYLAXIS SCDs , heparin CODE STATUS Full Code per patient DISPOSITION pending anticipate d/c home when medically stable may need oxygen by Nasal cannula on discharge Current Inpatient Medications: Current Inpatient Medications Medications (Trade) Dose Ordered Sig/Denzel Route Start Time Stop Time Status Last Admin Dose Admin Prednisone (PredniSONE TAB) 40 mg DAILY PO 08/08/16 09:00 09/07/16 08:59 08/08/16 08:36 40 MG Nicotine (Nicoderm Cq 14MG Patch) 1 patch QAM TD 08/08/16 09:00 09/07/16 08:59 Miscellaneous (Remove Nicoderm Patch) 1 ea HS N/A 08/07/16 21:00 09/06/16 20:59 08/07/16 19:51 1 EA Salmeterol Xinafoate/ Fluticasone (Advair Diskus 250/50 Inh) 1 puff BID INH 08/07/16 21:00 09/06/16 20:59 Future Hold Aspirin (Ecotrin Tab) 81 mg QAM PO 08/08/16 09:00 09/07/16 08:59 08/08/16 08:35 81 MG Folic Acid (Folvite Tab) 1 mg DAILY PO 08/08/16 09:00 09/07/16 08:59 08/08/16 08:36 1 MG Metoprolol Succinate (Toprol Xl Tab) 50 mg DAILY PO 08/08/16 09:00 09/07/16 08:59 08/08/16 08:35 50 MG Heparin Sodium (Porcine) (Heparin Sq 5000 Unit/0.5ml) 5,000 unit Q8 SQ 08/07/16 22:00 09/06/16 21:59 Acetaminophen (Tylenol Tab) 650 mg Q4H PRN PO 08/07/16 16:30 09/06/16 16:29 Ondansetron HCl (Zofran Inj) 4 mg Q6H PRN IV 08/07/16 16:30 09/06/16 16:29 Ipratropium Earp (Atrovent 0.02% 0.5MG/2.5ML Neb) 0.5 mg Q6R INH 08/07/16 21:00 09/06/16 20:59 08/08/16 07:05 0.5 MG Levalbuterol (Xopenex 1.25MG/ 0.5ML Neb) 1.25 mg Q6R INH 08/07/16 21:00 09/06/16 20:59 08/08/16 07:05 1.25 MG Sodium Chloride 1,000 ml @ 60 mls/hr [id number] IV 08/07/16 19:00 09/06/16 18:59 08/07/16 19:51 60 MLS/HR Ioversol (Optiray 320) 115 ml UD PRN IV 08/07/16 21:30 08/11/16 21:29
--- NOTE | 2016-08-08 12:00 | ECHOCARDIOGRAM REPORT ---
*NOTICE TO RECEIVING DEMOCRAT AGENCY This information is strictly Confidential and protected under [place] law. [place] law prohibits you from making any further disclosure of this information unless further disclosure is expressly permitted by the written consent of the person to whom it pertains or is authorized by law. A general authorization for the release of medical or other information is not sufficient for this purpose. Hospital accepts no responsibility if the information is made available to any other person, INCLUDING THE PATIENT. Interpretation Summary * Name: BRIAN ROMO Study Date: 08/08/2016 09:25 AM BP: 137/70 mmHg * Patient Location: C.2E\S\E203\S\1 HR: 85 * : 1955 (M/d/yyyy) Gender: Female Height: 60 in * Age: 60 yrs Ethnicity: [place] Weight: 79 lb * Ordering Physician: Sridhar Rothman * Referring Physician: Self, Referred * Performed By: Patty Sanchez RDCS * * Reason For Study: Palpitations * BSA: 1.3 m2 * -- Conclusions -- * The left ventricular cavity is small. * There is mild concentric left ventricular hypertrophy. * Left ventricular systolic function is normal. * The left ventricular wall motion is normal. * Ejection Fraction = 60-65%. * Grade I diastolic dysfunction, (abnormal relaxation pattern). * There is no valvular disease. * Right ventricular systolic pressure is normal. Procedure Details * A complete two-dimensional transthoracic echocardiogram was performed (2D, M-mode, Doppler and color flow Doppler). Left Ventricle * The left ventricular cavity is small. * There is mild concentric left ventricular hypertrophy. * Ejection Fraction = 60-65%. * Left ventricular systolic function is normal. * The left ventricular wall motion is normal. Right Ventricle * The right ventricle is normal in size and function. Atria * The left atrial size is normal. * Right atrial size is normal. * No ASD detected; PFO is not assessed. Mitral Valve * The mitral valve anatomy is normal. * There is no mitral valve stenosis. * There is trace mitral regurgitation. Tricuspid Valve * The tricuspid valve anatomy is normal. * There is no tricuspid stenosis. * There is trace tricuspid regurgitation. * Right ventricular systolic pressure is normal. Aortic Valve * The aortic valve is trileaflet. * No hemodynamically significant valvular aortic stenosis. * No aortic regurgitation is present. Pulmonic Valve * The pulmonic valve is not well visualized. Great Vessels * The aortic root is normal size. Pericardium/Pleural * There is no pericardial effusion. Great Vessels * Normal inferior vena cava diameter and respiratory variation suggests normal central venous pressure. Left Ventricular Diastolic Function * Grade I diastolic dysfunction, (abnormal relaxation pattern). MMode 2D Measurements and Calculations IVSd 0.96 cm LVIDd 3.4 cm LVIDs 2.3 cm LVPWd 0.98 cm IVS/LVPW 0.98 FS 33.4 % EDV(Teich) 47.1 ml ESV(Teich) 17.3 ml EF(Teich) 63.2 % EDV(cubed) 39.0 ml ESV(cubed) 11.5 ml EF(cubed) 70.4 % LV mass(C)d 94.7 grams LV mass(C)dI 75.3 grams/m\S\2 SV(Teich) 29.8 ml SI(Teich) 23.7 ml/m\S\2 SV(cubed) 27.4 ml SI(cubed) 21.8 ml/m\S\2 Ao root diam 2.7 cm Ao root area 5.7 cm\S\2 ACS 1.6 cm LA dimension 2.6 cm asc Aorta Diam 3.0 cm LA/Ao 0.98 LVOT diam 1.9 cm LVOT area 2.8 cm\S\2 LVAd ap4 14.3 cm\S\2 LVLd ap4 6.1 cm EDV(MOD-sp4) 28.1 ml EDV(sp4-el) 28.5 ml LVAs ap4 8.3 cm\S\2 LVLs ap4 5.2 cm ESV(MOD-sp4) 12.4 ml ESV(sp4-el) 11.2 ml EF(MOD-sp4) 55.8 % EF(sp4-el) 60.6 % LVAd ap2 17.3 cm\S\2 LVLd ap2 6.5 cm EDV(MOD-sp2) 38.0 ml EDV(sp2-el) 39.1 ml LVAs ap2 9.9 cm\S\2 LVLs ap2 5.5 cm ESV(MOD-sp2) 16.5 ml ESV(sp2-el) 15.0 ml EF(MOD-sp2) 56.6 % EF(sp2-el) 61.7 % LVLd %diff 6.2 % EDV(MOD-bp) 33.7 ml LVLs %diff 5.4 % ESV(MOD-bp) 14.7 ml EF(MOD-bp) 56.3 % SV(MOD-sp4) 15.7 ml SI(MOD-sp4) 12.5 ml/m\S\2 SV(MOD-sp2) 21.5 ml SI(MOD-sp2) 17.1 ml/m\S\2 SV(MOD-bp) 19.0 ml SI(MOD-bp) 15.1 ml/m\S\2 SV(sp4-el) 17.3 ml SI(sp4-el) 13.7 ml/m\S\2 SV(sp2-el) 24.1 ml SI(sp2-el) 19.1 ml/m\S\2 Doppler Measurements and Calculations MV E max estevan 59.7 cm/sec MV A max estevan 90.3 cm/sec MV E/A 0.66 MV dec time 0.23 sec Ao V2 max 116.4 cm/sec Ao max PG 5.4 mmHg Ao max PG (full) 1.2 mmHg DUSTY(V,A) 2.5 cm\S\2 DUSTY(V,D) 2.5 cm\S\2 LV V1 max PG 4.2 mmHg LV V1 max 102.7 cm/sec PA V2 max 92.9 cm/sec PA max PG 3.5 mmHg PA acc slope 356.1 cm/sec\S\2 PA acc time 0.18 sec TR max estevan 218.9 cm/sec PA pr(Accel) -0.22 mmHg
--- NOTE | 2016-08-08 12:08 | DIAGNOSTIC IMAGING REPORT ---
SINGLE VIEW CHEST CLINICAL HISTORY: Hypoxia. FINDINGS: AP, portable, upright chest radiograph is compared to chest x-ray and chest CT dated 08/07/2016. The examination is degraded by portable technique and patient rotation. The heart is top normal in size and there is atherosclerotic calcification of the thoracic aorta. There is enlargement of the pulmonary trunk suggesting pulmonary artery hypertension. There is no radiographic evidence of congestive failure. Emphysema and chronic interstitial thickening are similar to previous. A small left pleural effusion is identified with left basilar opacities. Biapical scarring is observed. There is no pneumothorax. The skeletal structures are osteopenic. Degenerative changes are noted in the thoracic spine and shoulders. IMPRESSION: 1. Advanced emphysema. 2. Small left pleural effusion and left basilar consolidation. This is similar to slightly progressed from yesterday. Electronically signed by: Jose Alberto Crisostomo M.D. 08/08/2016 12:07 PM Dictated Date/Time: 08/08/2016 12:04 PM
[2016-08-08] MEDS: SODIUM CHLORIDE 0.9% 1000ML 1,000 ML IV SCH (12:26)
[2016-08-08] MEDS ORDERED: LEVOFLOXACIN / D5W 750 MG in PREMIXED IN D5W 150 ML IV SCH (13:00)
--- NOTE | 2016-08-08 13:06 | Pulmonary Consultation ---
History General Date of Service: Aug 08, 2016. Stated Complaint: Hypoxia HPI The patient is a 60 year old female who presents to [facility] with complaints of Hypoxia. The patient's primary care provider is Irene Puente M.D. (MEDICAL). 60-yo female admitted to [facility] through the ER with symptoms of dizziness/light headedness and palpitations Prior records were reviewed. PMHx includes: COPD/emphysema (DATA [employer]SULT[employer] Advair), CVA, paroxysmal atrial fibrillation, rheumatoid arthritis on chronic prednisone, and h/o tobacco. In the ER she was hypoxic requiring 4LPM with exam notable for bilateral wheeze. Exam noted facial flushing per nursing. CXR notable for hyperexpansion consistent with pulmonary emphysema with left basilar linear densities. WBC/Hgb/ Hct/Plts: 10.25/13.4/45/245. D-dimer: 840. CT and MRI Brain consistent with microvascular ischemic change. LE venous doppler bilateral: No DVT CTA 08/07/16: No PE, trace left pleural effusion. 3mm LLL nodule. Moderate emphysema This AM patient notable for increased drowsiness. ABG consistent with partially compensated respiratory acidosis: 7.26/87/61-2.5LPM/38 - she was prescribed BiPAP [id number] H20. CXR with very slight progression of left sided effusion vs infiltrative changes. She initially had difficulty with comfort and this was adjusted to i12/e6cm H20 with improved tolerance. "junky" cough per nursing with facial flushing. Levaquin initiated (first dose this afternoon). Echocardiogram: EF 60-65%, grade I diastolic HF, nL RV pressure CXR this AM 08/08: Advanced emphysema with chronic interstitial thickening, persistent small pleural effusion with left basilar opacities. biapical scaring. Historian: patient, other (Nursing, Chart ) Review of Systems Patient ROS limited by AMS and BiPAP. Denies any pain or dyspnea. Past Medical History Past Medical History: 1. Pulmonary emphysema 2. Paroxysmal atrial fibrillation 3. H/O CVA 4. Rheumatoid arthritis 5. Chronic prednisone Past Surgical History: 1. [place] tooth extraction Family History Cancer FHx: gallbladder disease Heart disease Lung disease Social History Hx Tobacco Use In Past Year?: Yes (Reports 1/2-1 PPD) Smoking Status: Current Every Day Smoker Marital status: Housing status: lives alone Occupational Status: unemployed Allergies Coded Allergies: Pork (Verified Allergy, Intermediate, HIVES, 08/07/16) Current Medications Reported Home Medications Medications Dose Route/Sig Max Daily Dose Days Date Category Naprosyn (Naproxen) 250 Mg Tab 250-500 Mg PO QAM 08/07/16 Reported Prednisone 10 Mg Tab 10 Mg PO QAM 08/07/16 Reported Folic Acid 1 Mg Tab 1 Mg PO DAILY 10/30/15 Reported Benadryl Allergy (Diphenhydramine Hcl) 25 Mg Cap 1 Cap PO HS PRN 30 10/30/15 Reported Aspirin 81 Mg Chw 1 Tab PO DAILY 30 10/30/15 Reported Lasix (Furosemide) 40 Mg Tab 20 Mg PO UD PRN 10/30/15 Reported Toprol-Xl (Metoprolol Succinate) 50 Mg Tabcr 50 Mg PO DAILY 10/30/15 Reported Physical Physical Exam Vital Signs: Date Time Temp Pulse Resp B/P (MAP) Pulse Ox O2 Delivery O2 Flow Rate FiO2 08/08/16 12:22 BiPAP 2.0 08/08/16 11:50 36.8 83 20 138/70 (92) 95 Nasal Cannula 3.0 08/08/16 11:30 78 91 08/08/16 08:11 36.5 87 14 121/63 (82) 98 08/08/16 08:00 Nasal Cannula 3.0 08/08/16 07:05 82 16 95 Nasal Cannula 3.0 08/08/16 04:00 Nasal Cannula 3.0 08/08/16 03:57 36.6 85 17 137/70 (92) 98 Nasal Cannula 3.0 08/08/16 01:55 89 16 95 Nasal Cannula 3.0 08/08/16 00:06 36.8 75 19 105/73 (84) 99 Nasal Cannula 3.0 08/08/16 00:00 Nasal Cannula 3.0 08/07/16 20:00 Nasal Cannula 3.0 08/07/16 19:24 36.8 81 18 127/70 (89) 95 Nasal Cannula 3.0 08/07/16 19:03 82 16 95 Nasal Cannula 3.0 08/07/16 16:45 36.7 73 20 150/79 (102) 92 Nasal Cannula 3.0 08/07/16 16:18 36.7 76 17 156/83 95 08/07/16 16:13 Nasal Cannula 4.0 08/07/16 15:50 76 17 95 08/07/16 15:31 131/80 08/07/16 15:20 71 23 96 08/07/16 15:01 124/94 08/07/16 14:54 146/81 08/07/16 14:07 80 08/07/16 14:00 96 Nasal Cannula 4.0 08/07/16 14:00 96 Nasal Cannula 4.0 08/07/16 13:54 36.7 81 20 126/74 77 Room Air Constitutional: Acutely ill appearing thin elderly female lying in hospital bed. No acute distress Head: + facial symmetry but limited assessment by BiPAP mask - mask with good fit/seal Eyes: Closed but 3-4mm equal pupils bilaterally. No conjunctival injection. Respiratory: non-labored respirations on BiPAP. Rales right base. No wheeze CV: RRR, no MRT. Warm and perfused peripherally GI: Soft, non-tender to touch. 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 LEs moving weakly and spontaneously. No edema. Neurologic: Somnolent. Follows commands to some coaxing. Answers questions and opens eyes only when encouraged then falls back to sleep quickly. Diagnostics Labs Results Past 24 Hours Test 08/07/16 14:36 08/07/16 16:30 08/07/16 20:38 08/08/16 02:15 Range/Units White Blood Count 10.25 8.04 4.8-10.8 K/uL Red Blood Count 5.08 5.40 4.2-5.4 M/uL Hemoglobin 13.4 14.3 12.0-16.0 g/dL Hematocrit 45.0 48.7 37-47 % Mean Corpuscular Volume 88.6 90.2 80-100 fL Mean Corpuscular Hemoglobin 26.4 26.5 25-34 pg Mean Corpuscular Hemoglobin Concent 29.8 29.4 32-36 g/dl Platelet Count 245 254 130-400 K/uL Mean Platelet Volume 10.6 10.5 7.4-10.4 fL Neutrophils (%) (Auto) 71.2 90.9 % Lymphocytes (%) (Auto) 15.6 5.5 % Monocytes (%) (Auto) 9.7 3.4 % Eosinophils (%) (Auto) 3.0 0.0 % Basophils (%) (Auto) 0.4 0.1 % Neutrophils # (Auto) 7.30 7.31 1.4-6.5 K/uL Lymphocytes # (Auto) 1.60 0.44 1.2-3.4 K/uL Monocytes # (Auto) 0.99 0.27 0.11-0.59 K/uL Eosinophils # (Auto) 0.31 0.00 0-0.5 K/uL Basophils # (Auto) 0.04 0.01 0-0.2 K/uL RDW Standard Deviation 47.1 48.9 36.4-46.3 fL RDW Coefficient of Variation 14.6 14.8 11.5-14.5 % Immature Granulocyte % (Auto) 0.1 0.1 % Immature Granulocyte # (Auto) 0.01 0.01 0.00-0.02 K/uL Prothrombin Time 12.4 9.0-12.0 SECONDS Prothromb Time International Ratio 1.2 0.9-1.1 Activated Partial Thromboplast Time 26.2 21.0-31.0 SECONDS Partial Thromboplastin Ratio 1.0 D-Dimer 840 0-500 ug/L FEU Sodium Level 140 142 136-145 mmol/L Potassium Level 4.5 5.5 3.5-5.1 mmol/L Chloride Level 103 101 98-107 mmol/L Carbon Dioxide Level 34 39 21-32 mmol/L Anion Gap 3.0 2.0 3-11 mmol/L Blood Urea Nitrogen 19 20 7-18 mg/dl Creatinine 0.72 0.80 0.60-1.20 mg/dl Est Creatinine Clear Calc Drug Dose 46.6 42.0 ml/min Estimated GFR () 104.8 92.2 Estimated GFR (Non- 90.4 79.6 BUN/Creatinine Ratio 26.2 25.5 10-20 Random Glucose 102 113 70-99 mg/dl Calcium Level 8.4 8.7 8.5-10.1 mg/dl Magnesium Level 1.8 1.8-2.4 mg/dl Total Bilirubin 0.5 0.2-1 mg/dl Aspartate Amino Transf (AST/SGOT) 16 15-37 U/L Alanine Aminotransferase (ALT/SGPT) 16 12-78 U/L Alkaline Phosphatase 51 45-117 U/L Troponin I < 0.015 < 0.015 < 0.015 0-0.045 ng/ml Total Protein 5.6 6.4-8.2 gm/dl Albumin 2.7 3.4-5.0 gm/dl Globulin 2.9 2.5-4.0 gm/dl Albumin/Globulin Ratio 0.9 0.9-2 Thyroid Stimulating Hormone (TSH) 0.604 0.300-4.500 uIu/ml Urine Color YELLOW Urine Appearance CLEAR CLEAR Urine pH 6.5 4.5-7.5 Urine Specific Golden 1.014 1.000-1.030 Urine Protein NEG NEG Urine Glucose (UA) NEG NEG Urine Ketones NEG NEG Urine Occult Blood TRACE NEG Urine Nitrite NEG NEG Urine Bilirubin NEG NEG Urine Urobilinogen NEG NEG Urine Leukocyte Esterase NEG NEG Urine WBC (Auto) 1-5 0-5 /hpf Urine RBC (Auto) 0-4 0-4 /hpf Urine Hyaline Casts (Auto) 0 0-5 /lpf Urine Epithelial Cells (Auto) 5-10 0-5 /lpf Urine Bacteria (Auto) NEG NEG Total Creatine Kinase 35 38 26-192 U/L Creatine Kinase MB 2.0 2.0 0.5-3.6 ng/ml Creatine Kinase MB Ratio 5.7 5.3 0-3.0 Nucleated RBC Absolute Count (auto) 0.03 0-0 K/uL Nucleated Red Blood Cells % 0.4 % Test 08/08/16 04:34 08/08/16 05:52 08/08/16 10:43 Range/Units Bedside Glucose 132 70-90 mg/dl Potassium Level 4.3 3.5-5.1 mmol/L Arterial Blood pH 7.26 7.35-7.45 Arterial Blood Partial Pressure CO2 87 35-46 mmHg Arterial Blood Partial Pressure O2 61 80-95 mm/Hg Arterial Blood HCO3 38 19-24 mmol/L Arterial Blood Oxygen Saturation 90.6 90-95 % Arterial Blood Base Excess 8.2 -9-1.8 mEq/L Arterial Blood Gas Delivery 2.5 Dick Test POS POS Impression Assessment and Plan 60-yo female with h/o emphysema, cough and hypoxic hypercarbic respiratory failure: 1. Repeat ABG pending - agree with BiPAP and adjustment per results PRN 2. Agree with QID duo-nebs. Will add BID budesonide nebulized as well 3. Agree with initiation of levofloxacin and obtain sputum culture if able 4. Steroid: continue 40mg today and tomorrow - if any deterioration increase to repeat CXR for volume and escalate to methylprednisone 50mg IV BID Case discussed with Dr. Elizabeth Patient reviewed and plan agreed with.
[2016-08-08 14:31] LABS: ARTERIAL BLD GAS O2 SATURATION 92.7 % (90-95); ARTERIAL BLOOD GAS BASE EXCESS 8.3 mEq/L (-9-1.8); ARTERIAL BLOOD GAS HCO3 37 mmol/L (19-24); ARTERIAL BLOOD GAS PO2 68 mm/Hg (80-95); ARTERIAL BLOOD GAS pH 7.32 (7.35-7.45)
[2016-08-08 15:13] LABS: ALLEN TEST POS (POS); O2 ADMINISTRATION 2 L
[2016-08-08] MEDS: BUDESONIDE 0.5 MG/2 ML VIAL (PULMICORT) INH SCH (19:29)
[2016-08-09] VITALS (16 sets, daily range): BP systolic 106–146; BP diastolic 62–91; PULSE 67–112; TEMP 36.8–36.9; O2SAT 90–100
[2016-08-09] MEDS: LEVALBUTEROL 1.25MG/0.5ML NEB INH SCH ×4 (02:00→19:07)
[2016-08-09] MEDS: IPRATROPIUM BROMIDE NEB SOLN 0.02% 2.5 ML VIAL INH SCH ×4 (02:00→19:07)
[2016-08-09] MEDS ORDERED: METOPROLOL SUCC 50MG EXT REL TAB PO ONE (02:17)
[2016-08-09] MEDS ORDERED: DILTIAZEM HCL 5 MG/ML 5 ML VIAL IV STA (02:55)
[2016-08-09 02:58] LABS: BUN/CREATININE RATIO 24.5 (10-20); CALCIUM 8.9 mg/dl (8.5-10.1); CREATININE 0.62 mg/dl (0.60-1.20); POTASSIUM 4.7 mmol/L (3.5-5.1)
[2016-08-09] MEDS ORDERED: DILTIAZEM HCL 5 MG/ML 5 ML VIAL ONE (02:59)
[2016-08-09 03:17] LABS: HEMATOCRIT 43.6 % (37-47); MEAN CORPUSCULAR HEMOGLOBIN 26.8 pg (25-34); MEAN CORPUSCULAR HGB CONC 29.1 g/dl (32-36); PLATELET COUNT 224 K/uL (130-400); RED BLOOD COUNT 4.74 M/uL (4.2-5.4); WHITE BLOOD COUNT 11.11 K/uL (4.8-10.8)
[2016-08-09 03:43] LABS: COMPLETE YES; HYPOCHROMIA PRESENT; IG% 0.3 %; LYMPH % 6.3 %; MONO % 8.9 %; NEUT % 84.5 %
[2016-08-09] MEDS: SODIUM CHLORIDE 0.9% 1000ML 1,000 ML IV SCH (04:06)
[2016-08-09] MEDS: HEPARIN SOD 5000 UNIT/0.5 ML CARP SQ SCH ×3 (05:17→21:42)
[2016-08-09] MEDS: BUDESONIDE 0.5 MG/2 ML VIAL (PULMICORT) INH SCH ×2 (06:59→19:06)
[2016-08-09] MEDS: ASPIRIN 81 MG ECTAB PO SCH (08:12)
[2016-08-09] MEDS: NICOTINE 14 MG/24 HR TDSY TD SCH (08:15)
[2016-08-09] MEDS: LEVOFLOXACIN / D5W 750 MG in PREMIXED IN D5W 150 ML IV SCH (12:11)
--- NOTE | 2016-08-09 16:57 | Pulmonology Progress Note ---
Pulmonary Progress Note Date of Service Aug 09, 2016. Attending Dr. Granados Subjective Feels much better today, I observed her during sleep (off BIPAP0, was comfortable, without desaturations) She walks in the room freely. Objective General: NAD, thin female HEENT: NC/AT Lungs: Diminished breath sounds b/l CVS: S1S2 regular Ext: no edema Assessment & Plan 60 year old female, active smoker, with advanced emphysema, presents with acute on chronic hypercarbic respiratory failure Patient is not compliant with BIPAP. Also, she does not seem motivated to quit smoking, I provided counseling. Continue bronchodilators Continue Advair Finish course of Abx Continue Prednisone 40 mg, start taper tomorrow May be discharged home, with O2 from a pulmonary perspective I recommend nocturnal BIPAP as well, but doubt she'll agree Data Medications: Current Inpatient Medications Medications (Trade) Dose Ordered Sig/Denzel Route Start Time Stop Time Status Last Admin Dose Admin Nicotine (Nicoderm Cq 14MG Patch) 1 patch QAM TD 08/08/16 09:00 09/07/16 08:59 Miscellaneous (Remove Nicoderm Patch) 1 ea HS N/A 08/07/16 21:00 09/06/16 20:59 08/07/16 19:51 1 EA Salmeterol Xinafoate/ Fluticasone (Advair Diskus 250/50 Inh) 1 puff BID INH 08/07/16 21:00 09/06/16 20:59 Future Hold Aspirin (Ecotrin Tab) 81 mg QAM PO 08/08/16 09:00 09/07/16 08:59 08/09/16 08:12 81 MG Folic Acid (Folvite Tab) 1 mg DAILY PO 08/08/16 09:00 09/07/16 08:59 08/09/16 08:14 1 MG Heparin Sodium (Porcine) (Heparin Sq 5000 Unit/0.5ml) 5,000 unit Q8 SQ 08/07/16 22:00 09/06/16 21:59 Acetaminophen (Tylenol Tab) 650 mg Q4H PRN PO 08/07/16 16:30 09/06/16 16:29 Ondansetron HCl (Zofran Inj) 4 mg Q6H PRN IV 08/07/16 16:30 09/06/16 16:29 Ipratropium [place] (Atrovent 0.02% 0.5MG/2.5ML Neb) 0.5 mg Q6R INH 08/07/16 21:00 09/06/16 20:59 08/09/16 14:26 0.5 MG Levalbuterol (Xopenex 1.25MG/ 0.5ML Neb) 1.25 mg Q6R INH 08/07/16 21:00 09/06/16 20:59 08/09/16 14:26 1.25 MG Sodium Chloride 1,000 ml @ 60 mls/hr [id number] IV 08/07/16 19:00 09/06/16 18:59 08/09/16 04:06 60 MLS/HR Ioversol (Optiray 320) 115 ml UD PRN IV 08/07/16 21:30 08/11/16 21:29 Prednisone (PredniSONE TAB) 30 mg DAILY PO 08/09/16 09:00 09/07/16 08:59 08/09/16 08:13 30 MG Budesonide (Pulmicort Respules 0.5MG/ 2ML Neb Soln) 0.5 mg BIDR INH 08/08/16 20:00 09/07/16 19:59 08/09/16 06:59 0.5 MG Metoprolol Succinate (Toprol Xl Tab) 50 mg DAILY PO 08/10/16 09:00 09/07/16 08:59 Levofloxacin 750 mg/Prmx 150 ml @ 100 mls/hr Q24H IV 08/09/16 12:00 08/14/16 13:29 08/09/16 12:11 100 MLS/HR I & O: 24-Hour Column 08/10/16 08:00 Intake Total 1307 ml Output Total 300 ml Balance 1007 ml Vital Signs: Date Time Temp Pulse Resp B/P (MAP) Pulse Ox O2 Delivery O2 Flow Rate FiO2 08/09/16 15:23 36.9 81 20 126/70 (88) 94 Nasal Cannula 2.0 08/09/16 14:27 80 18 96 Nasal Cannula 2.0 08/09/16 12:00 36.8 80 19 118/65 (82) 90 Nasal Cannula 2.0 08/09/16 12:00 96 Nasal Cannula 2.0 08/09/16 08:00 Nasal Cannula 2.0 08/09/16 07:01 36.8 70 17 122/74 (90) 95 Nasal Cannula 2.0 08/09/16 07:00 67 18 95 Nasal Cannula 2.0 08/09/16 04:00 Nasal Cannula 2.0 08/09/16 03:43 79 130/68 (88) 95 Nasal Cannula 2.0 08/09/16 03:07 36.8 98 18 106/62 (77) 91 Nasal Cannula 2.0 08/09/16 03:01 91 123/91 (102) 90 Nasal Cannula 2.0 08/09/16 02:56 112 119/71 (87) 91 Nasal Cannula 2.0 08/09/16 02:20 143/76 (98) 93 Nasal Cannula 2.0 08/09/16 02:00 73 18 97 Nasal Cannula 2.0 08/09/16 00:00 36.9 76 19 140/72 (94) 95 Nasal Cannula 2.0 08/09/16 00:00 Nasal Cannula 2.0 08/08/16 20:30 95 Nasal Cannula 2.0 08/08/16 19:29 73 16 93 Nasal Cannula 2.0 08/08/16 19:23 36.7 77 18 101/55 (70) 93 Nasal Cannula 3.0 Humidified Oxygen Laboratory Results: Last 24 Hours Test 08/09/16 02:12 White Blood Count 11.11 K/uL Red Blood Count 4.74 M/uL Hemoglobin 12.7 g/dL Hematocrit 43.6 % Mean Corpuscular Volume 92.0 fL Mean Corpuscular Hemoglobin 26.8 pg Mean Corpuscular Hemoglobin Concent 29.1 g/dl Platelet Count 224 K/uL Mean Platelet Volume 11.0 fL Neutrophils (%) (Auto) 84.5 % Lymphocytes (%) (Auto) 6.3 % Monocytes (%) (Auto) 8.9 % Eosinophils (%) (Auto) 0.0 % Basophils (%) (Auto) 0.0 % Neutrophils # (Auto) 9.39 K/uL Lymphocytes # (Auto) 0.70 K/uL Monocytes # (Auto) 0.99 K/uL Eosinophils # (Auto) 0.00 K/uL Basophils # (Auto) 0.00 K/uL RDW Standard Deviation 50.5 fL RDW Coefficient of Variation 14.8 % Immature Granulocyte % (Auto) 0.3 % Immature Granulocyte # (Auto) 0.03 K/uL Nucleated RBC Absolute Count (auto) 0.02 K/uL Nucleated Red Blood Cells % 0.2 % Hypochromasia PRESENT Sodium Level 141 mmol/L Potassium Level 4.7 mmol/L Chloride Level 102 mmol/L Carbon Dioxide Level 37 mmol/L Anion Gap 2.0 mmol/L Blood Urea Nitrogen 15 mg/dl Creatinine 0.62 mg/dl Est Creatinine Clear Calc Drug Dose 60.8 ml/min Estimated GFR () 112.8 Estimated GFR (Non- 97.3 BUN/Creatinine Ratio 24.5 Random Glucose 97 mg/dl Calcium Level 8.9 mg/dl Magnesium Level 2.0 mg/dl
--- NOTE | 2016-08-09 17:24 | Progress Note ---
Medicine Progress Note Date & Time of Visit: Aug 09, 2016 at 17:19. Subjective patient seen sitting up in bed, having dinner comfortable states she feels improved compared to yesterday coughing improved, no dyspnea denies dizziness, chest pain, palpitations no other symptoms Objective Last 8 Hrs Date Time Temp Pulse Resp B/P (MAP) Pulse Ox O2 Delivery O2 Flow Rate FiO2 08/09/16 15:23 36.9 81 20 126/70 (88) 94 Nasal Cannula 2.0 08/09/16 14:27 80 18 96 Nasal Cannula 2.0 08/09/16 12:00 36.8 80 19 118/65 (82) 90 Nasal Cannula 2.0 08/09/16 12:00 96 Nasal Cannula 2.0 Physical Exam: General- oriented x 3, not in distress, speaks in sentences with no effort Eyes- anicteric Neck- no JVD Lungs- (+) distant breath sounds, no wheezing/rales Heart- regular rhythm; no murmur, no murmurs Abdomen- normal bowel sounds, soft, nontender Extremities- no pretibial edema, no calf tenderness Neuro- alert, oriented x 3; no gross focal deficits Skin- warm & dry Laboratory Results: Last 24 Hours Test 08/09/16 02:12 White Blood Count 11.11 K/uL Red Blood Count 4.74 M/uL Hemoglobin 12.7 g/dL Hematocrit 43.6 % Mean Corpuscular Volume 92.0 fL Mean Corpuscular Hemoglobin 26.8 pg Mean Corpuscular Hemoglobin Concent 29.1 g/dl Platelet Count 224 K/uL Mean Platelet Volume 11.0 fL Neutrophils (%) (Auto) 84.5 % Lymphocytes (%) (Auto) 6.3 % Monocytes (%) (Auto) 8.9 % Eosinophils (%) (Auto) 0.0 % Basophils (%) (Auto) 0.0 % Neutrophils # (Auto) 9.39 K/uL Lymphocytes # (Auto) 0.70 K/uL Monocytes # (Auto) 0.99 K/uL Eosinophils # (Auto) 0.00 K/uL Basophils # (Auto) 0.00 K/uL RDW Standard Deviation 50.5 fL RDW Coefficient of Variation 14.8 % Immature Granulocyte % (Auto) 0.3 % Immature Granulocyte # (Auto) 0.03 K/uL Nucleated RBC Absolute Count (auto) 0.02 K/uL Nucleated Red Blood Cells % 0.2 % Hypochromasia PRESENT Sodium Level 141 mmol/L Potassium Level 4.7 mmol/L Chloride Level 102 mmol/L Carbon Dioxide Level 37 mmol/L Anion Gap 2.0 mmol/L Blood Urea Nitrogen 15 mg/dl Creatinine 0.62 mg/dl Est Creatinine Clear Calc Drug Dose 60.8 ml/min Estimated GFR () 112.8 Estimated GFR (Non- 97.3 BUN/Creatinine Ratio 24.5 Random Glucose 97 mg/dl Calcium Level 8.9 mg/dl Magnesium Level 2.0 mg/dl Assessment & Plan 60 year old female with history of COPD, Smoker, RA on Prednisone, Paroxysmal A fib on Aspirin, Hypertension, presenting with episodes of dizziness. EPISODES OF DIZZINESS, PALPITATION R/O ARRHYTHMIA HISTORY OF PAROXYSMAL A FIB echo: -- Conclusions -- * The left ventricular cavity is small. * There is mild concentric left ventricular hypertrophy. * Left ventricular systolic function is normal. * The left ventricular wall motion is normal. * Ejection Fraction = 60-65%. * Grade I diastolic dysfunction, (abnormal relaxation pattern). * There is no valvular disease. * Right ventricular systolic pressure is normal. Cardiac markers: negative ekg in AM: non specific t wave changes in inferior leads continue Metoprolol, Aspirin ACUTE CVA RULED OUT Brain MRI: IMPRESSION: 1. No acute infarct. 2. No acute intracranial hemorrhage. 3. Periventricular white matter and pontine T2 hyperintensity is nonspecific but may represent moderate microvascular ischemic change. A demyelinating disease could also have a similar appearance in the appropriate clinical setting. -- no focal motor/sensory deficits/symptoms, no changes with vision ACUTE HYPOXIC and HYPERCAPNEIC RESPIRATORY FAILURE SECONDARY TO COPD EXACERBATION, RLL PNEUMONIA repeat CXR: (+) RLL pneumonia -- improving -- continue Levaquin, Prednisone, Nebs continue Advair -- appreciate Pulmonary input DROWSINESS -- did not receive benzo, narcotics -- resolved from Hypercapnea D DIMER ELEVATION Ct chest: no PE Doppler US legs: no dvt CHEST CT ABNORMAL FINDINGS Left lung nodule: follow up Left Breast nodule: mammogram as outpatient MICROSCOPIC HEMATURIA repeat UA OLD RIGHT TEMPORAL LOBE INFARCT ON CT HEAD based on CT head Brain MRI: none demonstrated already on Aspirin SMOKER nicotine patch cessation counselling HYPERTENSION continue Metoprolol hold Lasix for now RHEUMATOID ARTHRITIS ON CHRONIC PREDNISONE continue Prednisone, increased dose to 40mg daily ANEMIA stable DVT PROPHYLAXIS SCDs , heparin CODE STATUS Full Code per patient DISPOSITION pending anticipate d/c home when medically stable may need oxygen by Nasal cannula on discharge Current Inpatient Medications: Current Inpatient Medications Medications (Trade) Dose Ordered Sig/Denzel Route Start Time Stop Time Status Last Admin Dose Admin Nicotine (Nicoderm Cq 14MG Patch) 1 patch QAM TD 08/08/16 09:00 09/07/16 08:59 Miscellaneous (Remove Nicoderm Patch) 1 ea HS N/A 08/07/16 21:00 09/06/16 20:59 08/07/16 19:51 1 EA Salmeterol Xinafoate/ Fluticasone (Advair Diskus 250/50 Inh) 1 puff BID INH 08/07/16 21:00 09/06/16 20:59 Future Hold Aspirin (Ecotrin Tab) 81 mg QAM PO 08/08/16 09:00 09/07/16 08:59 08/09/16 08:12 81 MG Folic Acid (Folvite Tab) 1 mg DAILY PO 08/08/16 09:00 09/07/16 08:59 08/09/16 08:14 1 MG Heparin Sodium (Porcine) (Heparin Sq 5000 Unit/0.5ml) 5,000 unit Q8 SQ 08/07/16 22:00 09/06/16 21:59 Acetaminophen (Tylenol Tab) 650 mg Q4H PRN PO 08/07/16 16:30 09/06/16 16:29 Ondansetron HCl (Zofran Inj) 4 mg Q6H PRN IV 08/07/16 16:30 09/06/16 16:29 Ipratropium [place] (Atrovent 0.02% 0.5MG/2.5ML Neb) 0.5 mg Q6R INH 08/07/16 21:00 09/06/16 20:59 08/09/16 14:26 0.5 MG Levalbuterol (Xopenex 1.25MG/ 0.5ML Neb) 1.25 mg Q6R INH 08/07/16 21:00 09/06/16 20:59 08/09/16 14:26 1.25 MG Sodium Chloride 1,000 ml @ 60 mls/hr [id number] IV 08/07/16 19:00 09/06/16 18:59 08/09/16 04:06 60 MLS/HR Ioversol (Optiray 320) 115 ml UD PRN IV 08/07/16 21:30 08/11/16 21:29 Prednisone (PredniSONE TAB) 30 mg DAILY PO 08/09/16 09:00 09/07/16 08:59 08/09/16 08:13 30 MG Budesonide (Pulmicort Respules 0.5MG/ 2ML Neb Soln) 0.5 mg BIDR INH 08/08/16 20:00 09/07/16 19:59 08/09/16 06:59 0.5 MG Metoprolol Succinate (Toprol Xl Tab) 50 mg DAILY PO 08/10/16 09:00 09/07/16 08:59 Levofloxacin 750 mg/Prmx 150 ml @ 100 mls/hr Q24H IV 08/09/16 12:00 08/14/16 13:29 08/09/16 12:11 100 MLS/HR
[2016-08-10] VITALS (10 sets, daily range): BP systolic 144–160; BP diastolic 76–80; PULSE 75–88; TEMP 36.7–37.6; O2SAT 82–98
[2016-08-10] MEDS: LEVALBUTEROL 1.25MG/0.5ML NEB INH SCH ×3 (02:20→14:36)
[2016-08-10] MEDS: IPRATROPIUM BROMIDE NEB SOLN 0.02% 2.5 ML VIAL INH SCH ×3 (02:20→14:36)
[2016-08-10] MEDS: HEPARIN SOD 5000 UNIT/0.5 ML CARP SQ SCH ×2 (05:50→11:48)
[2016-08-10 06:01] LABS: COMPLETE YES; EOS % 0.3 %; HEMATOCRIT 42.6 % (37-47); IG% 0.2 %; LYMPH % 9.8 %; LYMPH ABS # 1.13 K/uL (1.2-3.4); MEAN CELL VOLUME 91.8 fL (80-100); MEAN CORPUSCULAR HEMOGLOBIN 26.1 pg (25-34); MEAN CORPUSCULAR HGB CONC 28.4 g/dl (32-36); MEAN PLATELET VOLUME 10.5 fL (7.4-10.4); MONO % 9.9 %; NEUT % 79.8 %; PLATELET COUNT 191 K/uL (130-400); RED BLOOD COUNT 4.64 M/uL (4.2-5.4)
[2016-08-10 06:34] LABS: CALCIUM 8.8 mg/dl (8.5-10.1); CREATININE 0.54 mg/dl (0.60-1.20); POTASSIUM 4.2 mmol/L (3.5-5.1)
[2016-08-10] MEDS: BUDESONIDE 0.5 MG/2 ML VIAL (PULMICORT) INH SCH (07:40)
[2016-08-10] MEDS: ASPIRIN 81 MG ECTAB PO SCH (08:29)
[2016-08-10] MEDS: NICOTINE 14 MG/24 HR TDSY TD SCH (08:31)
[2016-08-10] MEDS ORDERED: METOPROLOL SUCC 50MG EXT REL TAB PO SCH (09:00)
[2016-08-10] MEDS ORDERED: NAPROXEN 250 MG TAB PO PRN (10:00)
[2016-08-10] MEDS: LEVOFLOXACIN / D5W 750 MG in PREMIXED IN D5W 150 ML IV SCH (11:05)
--- NOTE | 2016-08-10 14:14 | Progress Note ---
Medicine Progress Note Date & Time of Visit: Aug 10, 2016 at 13:55. Subjective patient seen resting in bed, alert, oriented x 3, comfortable states she feels much better denies dyspnea while on oxygen coughing less, no chest pain no dizziness, palpitations, headache denies other symptoms states she is ready and would like to be discharged today Objective Last 8 Hrs Date Time Temp Pulse Resp B/P (MAP) Pulse Ox O2 Delivery O2 Flow Rate FiO2 08/10/16 12:05 90 Nasal Cannula 2.0 08/10/16 12:00 82 Room Air 08/10/16 11:34 36.8 78 20 156/79 (104) 94 Nasal Cannula 2.0 08/10/16 08:00 Nasal Cannula 2.0 08/10/16 07:12 36.7 88 19 160/76 (104) 92 Nasal Cannula 2.0 08/10/16 06:45 88 18 97 Nasal Cannula 2.0 Physical Exam: General- oriented x 3, not in distress, speaks in sentences with no effort Eyes- anicteric Neck- no JVD Lungs- (+) distant breath sounds, no wheezing/rales ,clear bilaterally Heart- regular rhythm; no murmur, no murmurs Abdomen- normal bowel sounds, soft, nontender Extremities- no pretibial edema, no calf tenderness Neuro- alert, oriented x 3; no gross focal deficits Skin- warm & dry Laboratory Results: Last 24 Hours Test 08/10/16 05:15 White Blood Count 11.50 K/uL Red Blood Count 4.64 M/uL Hemoglobin 12.1 g/dL Hematocrit 42.6 % Mean Corpuscular Volume 91.8 fL Mean Corpuscular Hemoglobin 26.1 pg Mean Corpuscular Hemoglobin Concent 28.4 g/dl Platelet Count 191 K/uL Mean Platelet Volume 10.5 fL Neutrophils (%) (Auto) 79.8 % Lymphocytes (%) (Auto) 9.8 % Monocytes (%) (Auto) 9.9 % Eosinophils (%) (Auto) 0.3 % Basophils (%) (Auto) 0.0 % Neutrophils # (Auto) 9.18 K/uL Lymphocytes # (Auto) 1.13 K/uL Monocytes # (Auto) 1.14 K/uL Eosinophils # (Auto) 0.03 K/uL Basophils # (Auto) 0.00 K/uL RDW Standard Deviation 51.3 fL RDW Coefficient of Variation 15.3 % Immature Granulocyte % (Auto) 0.2 % Immature Granulocyte # (Auto) 0.02 K/uL Nucleated RBC Absolute Count (auto) 0.03 K/uL Nucleated Red Blood Cells % 0.3 % Sodium Level 142 mmol/L Potassium Level 4.2 mmol/L Chloride Level 101 mmol/L Carbon Dioxide Level 39 mmol/L Anion Gap 2.0 mmol/L Blood Urea Nitrogen 16 mg/dl Creatinine 0.54 mg/dl Est Creatinine Clear Calc Drug Dose 72.4 ml/min Estimated GFR () 118.0 Estimated GFR (Non- 101.8 BUN/Creatinine Ratio 29.0 Random Glucose 100 mg/dl Calcium Level 8.8 mg/dl Assessment & Plan 60 year old female with history of COPD, Smoker, RA on Prednisone, Paroxysmal A fib on Aspirin, Hypertension, presenting with episodes of dizziness. EPISODES OF DIZZINESS, PALPITATION likely from UNDERLYING PNEUMONIA, COPD EXACERBATION with HYPOXIC RESPIRATORY FAILURE patient noted to be drowsy on hospital day 2 ABG showed hypercapnea, respiratory acidosis repeat CXR: (+) RLL pneumonia placed on Bipap, which patient did not tolerate started Levaquin, Prednisone taper, Nebs patient improved gradually pulmonary consulted d/c plan: Levaquin 750mg x 2 days Prednisone taper from 40mg, to 30mg etc. then resume usual 10mg po daily continue Advair 1puff BID Nebs with Atrovent and Xopenex q6h and q2-4hr PRN patient requires 2 liters of o2 via nasal cannula at all times,. wean off accordingly if possible r/o ARRHYTHMIA HISTORY OF PAROXYSMAL A FIB echo: -- Conclusions -- * The left ventricular cavity is small. * There is mild concentric left ventricular hypertrophy. * Left ventricular systolic function is normal. * The left ventricular wall motion is normal. * Ejection Fraction = 60-65%. * Grade I diastolic dysfunction, (abnormal relaxation pattern). * There is no valvular disease. * Right ventricular systolic pressure is normal. Cardiac markers: negative repeat ekg: non specific t wave changes in inferior leads no arrhythmia seen on telemetry continue Metoprolol, Aspirin may need outpatient athletic monitor if persistent ACUTE CVA RULED OUT Brain MRI: IMPRESSION: 1. No acute infarct. 2. No acute intracranial hemorrhage. 3. Periventricular white matter and pontine T2 hyperintensity is nonspecific but may represent moderate microvascular ischemic change. A demyelinating disease could also have a similar appearance in the appropriate clinical setting. -- no focal motor/sensory deficits/symptoms, no changes with vision ACUTE HYPOXIC and HYPERCAPNEIC RESPIRATORY FAILURE SECONDARY TO COPD EXACERBATION, RLL PNEUMONIA - management per #1 D DIMER ELEVATION likely from Pneumonia Ct Chest: no PE Doppler US legs: no dvt CHEST CT ABNORMAL FINDINGS: RIGHT BREAST NODULE AND LEFT LUNG NODULE CT chest: The heart is normal in size. Normal caliber thoracic aorta with no evidence for no filling defects within the pulmonary arteries to suggest pulmonary embolus. The central airways are patent. No pneumothorax. Trace left pleural effusion. Moderate emphysema. Left basilar densities favor compressive atelectasis from the pleural effusion. A 3 mm nodule within the left lower lobe on image 162. The visualized liver and spleen are unremarkable. Right-sided nephrolithiasis. No mediastinal or hilar lymphadenopathy. There is 9 mm peripherally calcified nodule within the left breast IMPRESSION: 1. No evidence for pulmonary embolus. 2. Trace left pleural effusion. 3. Right-sided nephrolithiasis. 4. Emphysema. 5. A 9 mm peripherally calcified nodule within the left breast. This favors a fibroadenoma. However, recommend correlation with mammogram and/or dedicated ultrasound for further evaluation. Left lung nodule: follow up CT chest as outpatient Left Breast nodule: mammogram as outpatient MICROSCOPIC HEMATURIA repeat UA on follow up ABNORMAL MRI FINDINGS CT head: old right temporal infarct Brain MRI: no old infarct noted There is no mass, hematoma, midline shift, acute infarct. Paranasal sinuses and mastoid air cells are clear. The major vascular flow-voids at the skull base are well-maintained. Prominence of the ventricles favors mild central atrophy. T2 hyperintensity within the lesa and periventricular white matter. The midline structures are intact. IMPRESSION: 1. No acute infarct. 2. No acute intracranial hemorrhage. 3. Periventricular white matter and pontine T2 hyperintensity is nonspecific but may represent moderate microvascular ischemic change. A demyelinating disease could also have a similar appearance in the appropriate clinical setting. -- no changes with vision, focal motor/sensory deficits -- will need Neurology follow up for T2 hyperintensity within the lesa and periventricular white matter: microvascular ischemic change vs. demyelinating disease SMOKER nicotine patch cessation counselling done patient verbalized understanding HYPERTENSION continue Metoprolol, Lasix RHEUMATOID ARTHRITIS ON CHRONIC PREDNISONE continue Prednisone, increased dose to 40mg daily, then taper to usual 10mg daily ANEMIA stable DVT PROPHYLAXIS SCDs , heparin CODE STATUS Full Code per patient DISPOSITION d/c home today with home health services ff up with PCP in 3-5 days Current Inpatient Medications: Current Inpatient Medications Medications (Trade) Dose Ordered Sig/Denzel Route Start Time Stop Time Status Last Admin Dose Admin Nicotine (Nicoderm Cq 14MG Patch) 1 patch QAM TD 08/08/16 09:00 09/07/16 08:59 Miscellaneous (Remove Nicoderm Patch) 1 ea HS N/A 08/07/16 21:00 09/06/16 20:59 08/07/16 19:51 1 EA Salmeterol Xinafoate/ Fluticasone (Advair Diskus 250/50 Inh) 1 puff BID INH 08/07/16 21:00 09/06/16 20:59 Future Hold Aspirin (Ecotrin Tab) 81 mg QAM PO 08/08/16 09:00 09/07/16 08:59 08/10/16 08:29 81 MG Folic Acid (Folvite Tab) 1 mg DAILY PO 08/08/16 09:00 09/07/16 08:59 08/10/16 08:29 1 MG Heparin Sodium (Porcine) (Heparin Sq 5000 Unit/0.5ml) 5,000 unit Q8 SQ 08/07/16 22:00 09/06/16 21:59 Acetaminophen (Tylenol Tab) 650 mg Q4H PRN PO 08/07/16 16:30 09/06/16 16:29 Ondansetron HCl (Zofran Inj) 4 mg Q6H PRN IV 08/07/16 16:30 09/06/16 16:29 Ipratropium [place] (Atrovent 0.02% 0.5MG/2.5ML Neb) 0.5 mg Q6R INH 08/07/16 21:00 09/06/16 20:59 08/10/16 06:45 0.5 MG Levalbuterol (Xopenex 1.25MG/ 0.5ML Neb) 1.25 mg Q6R INH 08/07/16 21:00 09/06/16 20:59 08/10/16 06:45 1.25 MG Ioversol (Optiray 320) 115 ml UD PRN IV 08/07/16 21:30 08/11/16 21:29 Prednisone (PredniSONE TAB) 30 mg DAILY PO 08/09/16 09:00 09/07/16 08:59 08/10/16 08:29 30 MG Budesonide (Pulmicort Respules 0.5MG/ 2ML Neb Soln) 0.5 mg BIDR INH 08/08/16 20:00 09/07/16 19:59 08/10/16 07:40 0.5 MG Metoprolol Succinate (Toprol Xl Tab) 50 mg DAILY PO 08/10/16 09:00 09/07/16 08:59 08/10/16 08:29 50 MG Levofloxacin 750 mg/Prmx 150 ml @ 100 mls/hr Q24H IV 08/09/16 12:00 08/14/16 13:29 08/10/16 11:05 100 MLS/HR Naproxen (Naprosyn Tab) 250 mg BID PRN PO 08/10/16 10:00 09/09/16 09:59 08/10/16 11:05 250 MG
[2016-08-10] MEDS ORDERED: LEVOFLOXACIN 750 MG TAB PO ONE (14:15)
[2016-08-10] MEDS ORDERED: ADVIN25050 INH (14:26)
[2016-08-10] MEDS ORDERED: NAPR250T3 PO (14:26)
[2016-08-10] MEDS ORDERED: LVQ750 PO (14:26)
[2016-08-10] MEDS ORDERED: ATRINS INH (14:26)
[2016-08-10] MEDS ORDERED: XPNINS1255 INH (14:26)
[2016-08-10] MEDS ORDERED: PRED10TA PO (14:26)
[2016-08-10] MEDS ORDERED: NICO14DI5 TD (14:26)
[2016-08-10] MEDS ORDERED: LEValbuterol HFA 15GM INHALER INH PRN (14:30)
--- NOTE | 2016-08-10 14:37 | Discharge Instructions ---
Discharge Instructions Date of Service Aug 10, 2016. Admission Reason for Admission: Hypoxia Discharge Discharge Diagnosis / Problem: Pneumonia, COPD Exacerbation Discharge Goals Goal(s): Diagnostic testing, Therapeutic intervention Activity Recommendations Activity Limitations: as noted below (no heavy exertion until re-evaluated by Primary Care Physician) Driving or Machine Use: no driving until re-evaluated by Primary Care Physician . Instructions / Follow-Up Instructions / Follow-Up PLEASE REVIEW YOUR NEW MEDICATION LIST AND FOLLOW INSTRUCTIONS CAREFULLY. TAKE MEDICATIONS AND USE OXYGEN SUPPLEMENT DIRECTED. NO SMOKING. CALL PRIMARY CARE PHYSICIAN OR RETURN TO ER IMMEDIATELY IF WITH RECURRENCE OF SYMPTOMS, INCREASING COUGH, FEVER/CHILLS, WEAKNESS. CALL 911 IMMEDIATELY IF WITH PERSISTENT SHORTNESS OF BREATH. PLEASE FOLLOW UP WITH DR. SHELDON ON Monday08/17/16 AT 10:00AM. Current Hospital Diet Patient's current hospital diet: AHA Diet (Heart Healthy), Low Potassium Diet ( 2g K) Discharge Diet Recommended Diet: AHA Diet (Heart Healthy) Pending Studies Studies pending at discharge: yes List of pending studies: repeat CT scan of the Chest, Mammogram Medical Emergencies . Who to Call and When: Medical Emergencies: If at any time you feel your situation is an emergency, please call 911 immediately. . Non-Emergent Contact Non-Emergency issues call your: Primary Care Provider Call Non-Emergent contact if: you have a fever, you have any medication questions . Past History Medical & Surgical History: (1) Anemia (2) Rheumatoid arthritis (3) Emphysema of lung (4) Paroxysmal a-fib (5) Tobacco abuse (6) Hypoxia (7) History of Clostridium difficile colitis (8) Dizziness (9) Osteoarthritis (10) Weakness (11) [place] teeth extracted . "Provider Documentation" section prepared by Sridhar Rothman. . VTE Core Measure Inpt VTE Proph given/why not?: Unfractionated heparin SQ
--- NOTE | 2016-08-10 14:44 | Discharge Summary ---
Discharge Summary Date of Service Aug 10, 2016. Discharge Summary Admission Date: Aug 07, 2016 at 15:51 Discharge Date: Aug 10, 2016 Discharge Disposition: Home with services Principal Diagnosis: RIGHT LOWER LOBE PNEUMONIA, COPD EXACERBATION with HYPOXIC RESPIRATORY FAILURE Secondary Diagnoses/Problems: PLEASE REFER TO HOSPITAL COURSE BELOW. Procedures: CHEST CTA for PULMONARY ARTERIES CT DOSE: 299.36 mGy.cm HISTORY: Hypoxia. TECHNIQUE: Multiaxial CT images of the chest were performed following the intravenous administration of contrast to evaluate the pulmonary arteries. Maximal intensity projection images were also obtained. COMPARISON STUDY: Chest 08/07/2016. FINDINGS: The heart is normal in size. Normal caliber thoracic aorta with no evidence for no filling defects within the pulmonary arteries to suggest pulmonary embolus. The central airways are patent. No pneumothorax. Trace left pleural effusion. Moderate emphysema. Left basilar densities favor compressive atelectasis from the pleural effusion. A 3 mm nodule within the left lower lobe on image 162. The visualized liver and spleen are unremarkable. Right-sided nephrolithiasis. No mediastinal or hilar lymphadenopathy. There is 9 mm peripherally calcified nodule within the left breast IMPRESSION: 1. No evidence for pulmonary embolus. 2. Trace left pleural effusion. 3. Right-sided nephrolithiasis. 4. Emphysema. 5. A 9 mm peripherally calcified nodule within the left breast. This favors a fibroadenoma. However, recommend correlation with mammogram and/or dedicated ultrasound for further evaluation. ECHO: * -- Conclusions -- * The left ventricular cavity is small. * There is mild concentric left ventricular hypertrophy. * Left ventricular systolic function is normal. * The left ventricular wall motion is normal. * Ejection Fraction = 60-65%. * Grade I diastolic dysfunction, (abnormal relaxation pattern). * There is no valvular disease. * Right ventricular systolic pressure is normal. Brain MRI: no old infarct noted There is no mass, hematoma, midline shift, acute infarct. Paranasal sinuses and mastoid air cells are clear. The major vascular flow-voids at the skull base are well-maintained. Prominence of the ventricles favors mild central atrophy. T2 hyperintensity within the lesa and periventricular white matter. The midline structures are intact. IMPRESSION: 1. No acute infarct. 2. No acute intracranial hemorrhage. 3. Periventricular white matter and pontine T2 hyperintensity is nonspecific but may represent moderate microvascular ischemic change. A demyelinating disease could also have a similar appearance in the appropriate clinical setting. Consultations: Pulmonary Dr. Granados Pending Studies/Follow-Up: will need repeat CT chest to follow up left lung nodule, and Mammogram to ff up right breast nodule; repeat Urinalysis (re: Microscopic Hematuria); Neurology follow up (abnormal Brain MRI findings); Please refer to hospital course below for further details. Medication Reconciliation New Medications: Prednisone Tab (Prednisone) 10 Mg Tab 10 MG PO UD, #40 TAB take 4 tabs po daily x 2 days, then take 3 tabs po daily x 2 days, then take 2 tabs po daily x 2 days, then resume taking usual 1 tab (10mg) po daily Fluticasone Prop/Salmeterol (Advair Diskus 250-50 Mcg/Dose) 14 Puff/1 Inhaler Aerp 1 PUFF INH BID for 30 Days, #1 INHALER 2 Refills Ipratropium [place] (Ipratropium [place]) 0.5 Mg/2.5 Ml Nebu 0.5 MG INH Q6R for 7 Days, #40 UNITS 2 Refills may also use every 2-4 hours as needed for shortness of breath/wheezing Levalbuterol (Levalbuterol) 1.25 Mg/0.5 Ml Nebu 1.25 MG INH Q6R for 7 Days, #40 UNITS 2 Refills may also use every 2-4 hours as needed for shortness of breath/wheezing Levofloxacin (Levofloxacin) 750 Mg Tab 750 MG PO DAILY@11 for 2 Days, #2 TAB start on 08/11/16 Nicotine (Nicoderm Cq 14MG Patch) 14 Mg/24 Hr Dis 1 PATCH TD QAM for 7 Days, #7 PATCH 0 Refills Changed Medications: Naproxen Tab (Naprosyn) 250 Mg Tab 250 MG PO BID PRN for Pain for 10 Days (Changed from: 250-500 MG; QAM) Continued Medications: Aspirin (Aspirin) 81 Mg Chw 1 TAB PO DAILY for 30 Days, #30 TAB 3 Refills Diphenhydramine Hcl (Benadryl Allergy) 25 Mg Cap 1 CAP PO HS PRN for allergies for 30 Days, #30 CAP 1 Refill Folic Acid (Folic Acid) 1 Mg Tab 1 MG PO DAILY Furosemide (Lasix) 40 Mg Tab 20 MG PO UD PRN for FLUID RETENTION, TAB Metoprolol Succ (Toprol Xl) (Toprol-Xl) 50 Mg Tabcr 50 MG PO DAILY Prednisone Tab (Prednisone) 10 Mg Tab 10 MG PO QAM Admission Information HPI (per Admitting provider): 60 year old female with history of COPD, Smoker, RA on Prednisone, Paroxysmal A fib on Aspirin, Hypertension, presenting with episodes of dizziness. Patient follows with Dr. Sheldon for Primary Care. Patient was apparently doing well until last night around 11pm, patient was watching TV when she suddenly developed dizziness- lightheadedness associated with palpitations. No dyspnea/chest pain/diaphoresis. The episode lasted about an hour before resolving. A few hours later, the same symptoms returned then resolved. Patient again had the same symptoms this morning and around noon, prompting ER consult. She mentions that this episode also occurred 2 months ago. At the ER, patient was noted to be hypoxic at 77%. She was placed on 4 L O2 by nasal cannula, Solumedrol and nebs with improvement. Trop negative, EKG shows non specific t wave inversions in V1-V3. CXR no pneumonia. On exam, patient seen sitting up in bed, comfortable. States she feels improved compared to admission. Denies active symptoms on my exam. No other symptoms. Physical Exam (per Admitting): General Appearance: WD/WN, no apparent distress Head: normocephalic, atraumatic Eyes: normal inspection, EOMI, sclerae normal ENT: normal ENT inspection, hearing grossly normal, pharynx normal Neck: supple, no adenopathy, thyroid normal, no JVD, trachea midline Respiratory/Chest: lungs clear, no respiratory distress, no accessory muscle use, + pertinent finding (distant BS bilaterally) Cardiovascular: regular rate, rhythm, no edema, no JVD, no murmur, normal peripheral pulses Abdomen/GI: normal bowel sounds, non tender, soft, no organomegaly Back: normal inspection, no CVA tenderness Extremities/Musculoskelatal: no calf tenderness, no pedal edema, + pertinent finding (mild swelling of joints bilateral big toes, no erythema/ tenderness) 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 EPISODES OF DIZZINESS, PALPITATION likely from UNDERLYING RIGHT LOWER LOBE PNEUMONIA, COPD EXACERBATION with HYPOXIC RESPIRATORY FAILURE patient noted to be drowsy on hospital day 2 ABG showed hypercapnea, respiratory acidosis repeat CXR: (+) RLL pneumonia placed on Bipap, which patient did not tolerate started Levaquin, Prednisone taper, Nebs patient improved gradually pulmonary consulted d/c plan: Levaquin 750mg x 2 days Prednisone taper from 40mg, to 30mg etc. then resume usual 10mg po daily continue Advair 1puff BID Nebs with Atrovent and Xopenex q6h and q2-4hr PRN patient requires 2 liters of o2 via nasal cannula at all times,. wean off accordingly if possible r/o ARRHYTHMIA HISTORY OF PAROXYSMAL A FIB echo: -- Conclusions -- * The left ventricular cavity is small. * There is mild concentric left ventricular hypertrophy. * Left ventricular systolic function is normal. * The left ventricular wall motion is normal. * Ejection Fraction = 60-65%. * Grade I diastolic dysfunction, (abnormal relaxation pattern). * There is no valvular disease. * Right ventricular systolic pressure is normal. Cardiac markers: negative repeat ekg: non specific t wave changes in inferior leads no arrhythmia seen on telemetry continue Metoprolol, Aspirin may need outpatient compliance monitor if persistent ACUTE CVA RULED OUT Brain MRI: IMPRESSION: 1. No acute infarct. 2. No acute intracranial hemorrhage. 3. Periventricular white matter and pontine T2 hyperintensity is nonspecific but may represent moderate microvascular ischemic change. A demyelinating disease could also have a similar appearance in the appropriate clinical setting. -- no focal motor/sensory deficits/symptoms, no changes with vision ACUTE HYPOXIC and HYPERCAPNEIC RESPIRATORY FAILURE SECONDARY TO COPD EXACERBATION, RLL PNEUMONIA - management per #1 D DIMER ELEVATION likely from Pneumonia Ct Chest: no PE Doppler US legs: no dvt CHEST CT ABNORMAL FINDINGS: RIGHT BREAST NODULE AND LEFT LUNG NODULE CT chest: The heart is normal in size. Normal caliber thoracic aorta with no evidence for no filling defects within the pulmonary arteries to suggest pulmonary embolus. The central airways are patent. No pneumothorax. Trace left pleural effusion. Moderate emphysema. Left basilar densities favor compressive atelectasis from the pleural effusion. A 3 mm nodule within the left lower lobe on image 162. The visualized liver and spleen are unremarkable. Right-sided nephrolithiasis. No mediastinal or hilar lymphadenopathy. There is 9 mm peripherally calcified nodule within the left breast IMPRESSION: 1. No evidence for pulmonary embolus. 2. Trace left pleural effusion. 3. Right-sided nephrolithiasis. 4. Emphysema. 5. A 9 mm peripherally calcified nodule within the left breast. This favors a fibroadenoma. However, recommend correlation with mammogram and/or dedicated ultrasound for further evaluation. Left lung nodule: follow up CT chest as outpatient Left Breast nodule: mammogram as outpatient MICROSCOPIC HEMATURIA repeat UA on follow up ABNORMAL MRI FINDINGS CT head: old right temporal infarct Brain MRI: no old infarct noted There is no mass, hematoma, midline shift, acute infarct. Paranasal sinuses and mastoid air cells are clear. The major vascular flow-voids at the skull base are well-maintained. Prominence of the ventricles favors mild central atrophy. T2 hyperintensity within the lesa and periventricular white matter. The midline structures are intact. IMPRESSION: 1. No acute infarct. 2. No acute intracranial hemorrhage. 3. Periventricular white matter and pontine T2 hyperintensity is nonspecific but may represent moderate microvascular ischemic change. A demyelinating disease could also have a similar appearance in the appropriate clinical setting. -- no changes with vision, focal motor/sensory deficits -- will need Neurology follow up for T2 hyperintensity within the lesa and periventricular white matter: microvascular ischemic change vs. demyelinating disease SMOKER nicotine patch cessation counselling done patient verbalized understanding HYPERTENSION continue Metoprolol, Lasix RHEUMATOID ARTHRITIS ON CHRONIC PREDNISONE continue Prednisone, increased dose to 40mg daily, then taper to usual 10mg daily DVT PROPHYLAXIS SCDs , heparin CODE STATUS Full Code per patient DISPOSITION d/c home today with home health services ff up with PCP within 1 week Total time spent on discharge = 45 minutes This includes examination of the patient, discharge planning, medication reconciliation, and communication with other providers. Discharge Instructions Discharge Instructions Date of Service Aug 10, 2016. Admission Reason for Admission: Hypoxia Discharge Discharge Diagnosis / Problem: Pneumonia, COPD Exacerbation Discharge Goals Goal(s): Diagnostic testing, Therapeutic intervention Activity Recommendations Activity Limitations: as noted below (no heavy exertion until re-evaluated by Primary Care Physician) Driving or Machine Use: no driving until re-evaluated by Primary Care Physician . Instructions / Follow-Up Instructions / Follow-Up PLEASE REVIEW YOUR NEW MEDICATION LIST AND FOLLOW INSTRUCTIONS CAREFULLY. TAKE MEDICATIONS AND USE OXYGEN SUPPLEMENT DIRECTED. NO SMOKING. CALL PRIMARY CARE PHYSICIAN OR RETURN TO ER IMMEDIATELY IF WITH RECURRENCE OF SYMPTOMS, INCREASING COUGH, FEVER/CHILLS, WEAKNESS. CALL 911 IMMEDIATELY IF WITH PERSISTENT SHORTNESS OF BREATH. PLEASE FOLLOW UP WITH DR. SHELDON ON Monday08/17/16 AT 10:00AM. Current Hospital Diet Patient's current hospital diet: AHA Diet (Heart Healthy), Low Potassium Diet ( 2g K) Discharge Diet Recommended Diet: AHA Diet (Heart Healthy) Pending Studies Studies pending at discharge: yes List of pending studies: repeat CT scan of the Chest, Mammogram Medical Emergencies . Who to Call and When: Medical Emergencies: If at any time you feel your situation is an emergency, please call 911 immediately. . Non-Emergent Contact Non-Emergency issues call your: Primary Care Provider Call Non-Emergent contact if: you have a fever, you have any medication questions . Past History Medical & Surgical History: (1) Anemia (2) Rheumatoid arthritis (3) Emphysema of lung (4) Paroxysmal a-fib (5) Tobacco abuse (6) Hypoxia (7) History of Clostridium difficile colitis (8) Dizziness (9) Osteoarthritis (10) Weakness (11) [place] teeth extracted . "Provider Documentation" section prepared by Sridhar Rothman. . VTE Core Measure Inpt VTE Proph given/why not?: Unfractionated heparin SQ
[2016-08-11] MEDS ORDERED: LEVOFLOXACIN 750 MG TAB PO SCH (11:00)
== END 2016-08-10 18:24 | disposition home health service (06) | DRG 189 ==
LOC: C.EDB 13:51 → C.2E 15:51 → ENRESERV 15:58
PROVIDERS: ADMIT Internal Medicine; ATTEND Internal Medicine
DX: J96.01 Acute respiratory failure with hypoxia (principal); J44.0 Chronic obstructive pulmonary disease with (acute) lower respiratory infection; J44.1 Chronic obstructive pulmonary disease with (acute) exacerbation; J18.9 Pneumonia, unspecified organism; I48.0 Paroxysmal atrial fibrillation; M06.9 Rheumatoid arthritis, unspecified; F17.200 Nicotine dependence, unspecified, uncomplicated; Z79.52 Long term (current) use of systemic steroids; Z79.82 Long term (current) use of aspirin; I10 Essential (primary) hypertension

== ENCOUNTER 2018-11-27 19:13 | Inpatient (IN) ==
[~2018-11-27 19:13] MED LIST changes: -ALLERGY PILL; -ARTHRITIS PILL; -ASPI81CH2 PO; -DIPH25CA65 PO; -FLV1 PO; -FURO40TA3 PO; -LCTX PO; -LEVO-459 PO; -METO50TA7 PO; +PANTOprazole 80 MG in DEXTROSE 5% 100 ML IV ONE; -PRED-301 PO; +SODIUM BICARB 8.4% INJ 50 MEQ/50 ML SYR IV ONE; -VNCS125 PO
--- OUTSIDE RECORDS SUMMARY | 2018-11-27 19:18 | External Medical Summary | Continuity of Care Document ---
:1955 Author Name Leighann Ortiz Address Unavailable Unavailable , Care Team Providers Name Role Phone Unavailable Unavailable Unavailable PCP, UNKNOWN Unavailable Unavailable Problems Active medical history not documented Allergies and Adverse Reactions Allergy history not documented Medications Medications not documented Procedures Procedures not documented Immunizations Immunizations not documented Plan of Treatment Planned Observations Planned Goals not documented Results No Known Results Results not documented
[2018-11-27] MEDS ORDERED: SODIUM CHLORIDE 0.9% 1000ML 1,000 ML IV ONE ×2 (19:46→22:21)
--- NOTE | 2018-11-27 19:51 | Emergency Department Note ---
Entered by Alem Worthy acting as a scribe for History of Present Illness General Chief complaint: Swelling/Edema to Extremity Stated complaint: SWOLLEN FEET, WEAK, TIRED Time Seen by Provider: 11/27/18 19:34 Source: patient History of Present Illness Onset (ago): day(s) (5) Location: head (general) Pain Consistency: + constant Quality: + other (weakness) Associated symptoms: + denies other symptoms (black and bloody stools), + loss of appetite and + other (swelling in legs and feet, left foot pale and cold, abdominal pain) The patient is a 63 year old female who presents to the Emergency Room with complaints of constant weakness beginning five days ago. The patient's daughter reports the patient has swelling in her feet, and has a hard time getting around. The patient reports a significant decrease in eating and drinking. The patient states her left foot has been white and cold for several weeks. She also notes abdominal pain when sitting up. The patient denies any black and bloody stools. The patient's daughter states the patient lives with her. The patient's daughter reports that the patient has a history of osteoporosis, arthritis, and high blood pressure. Home Medications Home Medications Medication Instructions Recorded Confirmed Type aspirin 81 mg PO DAILY 11/27/18 11/27/18 History diphenhydramine HCl [Benadryl 25 mg PO HS PRN 11/27/18 11/27/18 History Allergy] doxycycline hyclate 100 mg PO BID PRN 11/27/18 11/27/18 History fluticasone propion-salmeterol 2 puff INHALATION BID 11/27/18 11/27/18 History [Advair HFA] furosemide See Rx Instructions .ROUTE 11/27/18 11/27/18 History .COMPLEX PRN ipratropium bromide See Rx Instructions .ROUTE .COMPLEX 11/27/18 11/27/18 History levalbuterol tartrate 2 puff INHALATION Q4H PRN 11/27/18 11/27/18 History metoprolol succinate 50 mg PO DAILY 11/27/18 11/27/18 History naproxen sodium 440 mg PO QPM 11/27/18 11/27/18 History prednisone See Rx Instructions .ROUTE 11/27/18 11/27/18 History .COMPLEX PRN Allergies Allergy/AdvReac Type Severity Reaction Status Date / Time Pork/Porcine Containing Allergy Intermediate Hives Verified 11/27/18 20:32 Products Past Med/Surg History Medical History Anemia (Acute) Rheumatoid arthritis (Chronic) "chronic steroid use" Emphysema of lung (Chronic) Paroxysmal a-fib (Chronic) Tobacco abuse (Chronic) Hypoxia History of Clostridium difficile colitis (Chronic) Osteoarthritis (Chronic) Surgical History Sebastian teeth extracted (Resolved) Family History Other Cancer FHx: gallbladder disease Heart disease Kidney disease Social History Feels Safe at Home: Yes Smoking Status: Current every day smoker Review of Systems See HPI for pertinent positives & negatives. and A total of 10 systems reviewed and were otherwise negative Physical Exam Vital Signs Vital Signs - 24 hr 11/27/18 19:25 11/27/18 19:36 11/27/18 19:43 Temperature 36.4 C L Temperature Source Oral Sepsis Recent Fever Within 48 Hours No Sepsis Action Taken by Nursing No Action Required Oxygen Flow Rate - Titration Pulse Oximetry Post Tiitration Pulse Rate 87 85 Pulse Rate from SpO2 Sensor Respiratory Rate 22 23 17 Respiratory Depth Normal Blood Pressure 69/50 L 75/41 L 89/58 L Blood Pressure Mean 56 52 68 Pulse Oximetry Oxygen Delivery Method Oxygen Flow Rate Fraction of Inspired Oxygen 11/27/18 19:44 11/27/18 20:01 11/27/18 20:21 Temperature Temperature Source Sepsis Recent Fever Within 48 Hours Sepsis Action Taken by Nursing Oxygen Flow Rate - Titration Pulse Oximetry Post Tiitration Pulse Rate 86 90 Pulse Rate from SpO2 Sensor Respiratory Rate 15 28 H Respiratory Depth Blood Pressure 111/83 74/53 L Blood Pressure Mean 92 60 Pulse Oximetry Oxygen Delivery Method Room Air Oxygen Flow Rate Fraction of Inspired Oxygen 11/27/18 20:57 11/27/18 21:00 11/27/18 21:01 Temperature Temperature Source Sepsis Recent Fever Within 48 Hours Sepsis Action Taken by Nursing Oxygen Flow Rate - Titration 4 Pulse Oximetry Post Tiitration 95 Pulse Rate 84 84 Pulse Rate from SpO2 Sensor 85 84 Respiratory Rate 26 H 19 Respiratory Depth Blood Pressure 98/74 L 102/50 L Blood Pressure Mean 82 67 Pulse Oximetry 88 L 98 Oxygen Delivery Method Room Air Nasal Cannula Nasal Cannula Oxygen Flow Rate 0 4 Fraction of Inspired Oxygen 70 11/27/18 21:16 11/27/18 21:30 11/27/18 21:45 Temperature Temperature Source Sepsis Recent Fever Within 48 Hours Sepsis Action Taken by Nursing Oxygen Flow Rate - Titration Pulse Oximetry Post Tiitration Pulse Rate 86 86 87 Pulse Rate from SpO2 Sensor 85 86 86 Respiratory Rate 19 19 17 Respiratory Depth Blood Pressure 101/62 105/61 100/60 Blood Pressure Mean 75 75 73 Pulse Oximetry 91 95 85 L Oxygen Delivery Method Nasal Cannula Nasal Cannula Nasal Cannula Oxygen Flow Rate 4 4 4 Fraction of Inspired Oxygen 11/27/18 21:50 11/27/18 22:00 11/27/18 22:15 Temperature Temperature Source Sepsis Recent Fever Within 48 Hours Sepsis Action Taken by Nursing Oxygen Flow Rate - Titration Pulse Oximetry Post Tiitration Pulse Rate 86 88 90 Pulse Rate from SpO2 Sensor 86 88 90 Respiratory Rate 22 16 19 Respiratory Depth Blood Pressure 101/65 110/57 L Blood Pressure Mean 77 74 Pulse Oximetry 94 100 100 Oxygen Delivery Method Oxymask Oxymask Oxymask Oxygen Flow Rate 6 6 4 Fraction of Inspired Oxygen 11/27/18 22:30 11/27/18 23:02 Temperature Temperature Source Sepsis Recent Fever Within 48 Hours Sepsis Action Taken by Nursing Oxygen Flow Rate - Titration Pulse Oximetry Post Tiitration Pulse Rate 90 75 Pulse Rate from SpO2 Sensor 90 Respiratory Rate 16 20 Respiratory Depth Blood Pressure 111/72 Blood Pressure Mean 85 Pulse Oximetry 97 93 Oxygen Delivery Method Oxymask Oxygen Flow Rate 2 Fraction of Inspired Oxygen 40 CONSTITUTIONAL/VITAL SIGNS: Reviewed / noted above. GENERAL: Non-toxic in appearance. Cachectic, unkempt, generally weak. INTEGUMENTARY: Warm, dry, and [place]. HEAD: Normocephalic. EYES: without scleral icterus or trauma. ENT/OROPHARYNX: clear and moist. LYMPHADENOPATHY/NECK: Is supple without lymphadenopathy or meningismus. RESPIRATORY: Lungs clear and equal. CARDIOVASCULAR: Regular rate and rhythm. GI/ABDOMEN: Soft and nontender. No organomegaly or pulsatile mass. No rebound or guarding. Normal bowel sounds. EXTREMITIES: Warm and well perfused. Legs distal to knees are cool and pale bilaterally. Good femoral pulses. BACK: No CVA tenderness. NEUROLOGICAL: Intact without focal deficits. PSYCHIATRIC: normal affect. MUSCULOSKELETAL: Normally developed with good muscle tone. RECTAL: Small amount of light brown stool, guaiac positive. Course 193: Past medical records reviewed. The patient was evaluated in room A11B. A complete history and physical exam was performed. 2199: Upon reevaluation, I discussed findings and results with the patient and her family. They verbalized agreement of the treatment plan. I spoke with Dr. Mendosa of the [facility]. The patient will be evaluated for further management and care. Administered Medications Sodium Chloride (Nss 1000ml) 1,000 mls @ 999 mls/hr IV .Q1H1M ONE Stop: 11/27/18 23:21 Last Admin: 11/27/18 22:32 Dose: 999 mls/hr Documented by: [id number] Discontinued Medications Sodium Chloride (Nss 1000ml) 1,000 mls @ 999 mls/hr IV .Q1H1M ONE Stop: 11/27/18 20:46 Last Infusion: 11/27/18 21:06 Dose: 0 mls/hr Documented by: [id number] Admin: 11/27/18 20:12 Dose: 999 mls/hr Documented by: [id number] Medical Decision Making Differential Diagnosis Differential Diagnosis includes but is not limited to dehydration, stroke, anemia, hypoglycemia, hyponatremia, hypernatremia, urinary tract infection, pneumonia, bronchitis, sepsis, gastroenteritis, additional abdominal pathology, metabolic abnormalities and infections. Medical Records Attestation: I reviewed the patient's medical records. Home Medications Current Medication List: was personally reviewed by me Laboratory Data Attestation: I reviewed the patient's lab results. Result diagrams: 11/27/18 21:22 11/27/18 21:22 Lab Results 11/27/18 11/27/18 11/27/18 Range/Units 20:00 21:00 21:22 WBC (4.8-10.8) K/uL RBC (4.2-5.4) M/uL Hgb (12.0-16.0) g/dL Hct (37-47) % MCV (80-100) fL MCH (25-34) pg MCHC (32-36) g/dL RDW Std Deviation (36.4-46.3) fL RDW Coeff of Melecio (11.5-14.5) % Plt Count (130-400) K/uL MPV (7.4-10.4) fL Immature Gran % (Auto) % Neut % (Auto) % Lymph % (Auto) % Ware % (Auto) % Eos % (Auto) % Baso % (Auto) % Immature Gran # (Auto) (0.00-0.02) K/uL Neut # (Auto) (1.4-6.5) K/uL Lymph # (Auto) (1.2-3.4) K/uL Ware # (Auto) (0.11-0.59) K/uL Eos # (Auto) (0-0.5) K/uL Baso # (Auto) (0-0.2) K/uL Absolute Nucleated RBC (0-0) K/uL Nucleated RBC % (auto) % Polychromasia Hypochromasia Anisocytosis PT 14.1 H (9.0-12.0) Seconds INR 1.4 H (0.9-1.1) ABG pH 7.18 L* (7.35-7.45) ABG pCO2 71 H (35-46) mmHg ABG pO2 65 L (80-95) mm/Hg ABG HCO3 26 H (19-24) mmol/L ABG O2 Saturation 84.4 L (90-95) % ABG Base Excess -2.8 (-9-1.8) mEq/L Dick Test POS (Pos) Barometric Pressure 738.4 mm/Hg Oxygen Given 4L O2 Sodium (136-145) mmol/L Potassium (3.5-5.1) mmol/L Chloride (98-107) mmol/L Carbon Dioxide (21-32) mmol/L Anion Gap (3-11) BUN (7-18) mg/dl Creatinine (0.6-1.2) mg/dl Est Cr Clr Drug Dosing Est GFR ( Amer) Est GFR (Non-Af Amer) BUN/Creatinine Ratio (10-20) Glucose (70-99) mg/dl POC Lactic Acid Patrice (0.90-1.70) mmol/L Calcium (8.5-10.1) mg/dl Magnesium (1.8-2.4) mg/dl Total Bilirubin (0.2-1) mg/dl AST (15-37) U/L ALT (12-78) U/L Alkaline Phosphatase (45-117) U/L Total Creatine Kinase (26-192) U/L Troponin I (0-0.045) ng/ml Total Protein (6.4-8.2) gm/dl Albumin (3.4-5.0) gm/dl Globulin (2.5-4.0) gm/dl Albumin/Globulin Ratio (0.9-2) TSH (0.300-4.500) uIu/ml Urine Color Dark Yellow Urine Appearance Clear (Clear) Urine pH 5.0 (4.5-7.5) Ur Specific [place] 1.018 (1.000-1.030) Urine Protein Trace H (Negative) Urine Glucose (UA) Negative (Negative) Urine Ketones Negative (Negative) Urine Blood Trace H (Negative) Urine Nitrite Negative (Negative) Urine Bilirubin Negative (Negative) Urine Urobilinogen Negative (Negative) Ur Leukocyte Esterase Negative (Negative) Urine WBC (Auto) 5-10 H (0-5) /hpf Urine RBC (Auto) 5-10 H (0-4) /hpf U Hyaline Cast (Auto) 10-30 H (0-5) /lpf U Epithel Cells (Auto) 10-20 H (0-5) /lpf Urine Bacteria (Auto) Negative (Negative) Granular Casts 1-5 H (0) /lpf Blood Type Antibody Screen 11/27/18 11/27/18 11/27/18 Range/Units 21:22 21:22 21:22 WBC 22.90 H (4.8-10.8) K/uL RBC 3.48 L (4.2-5.4) M/uL Hgb 8.4 L (12.0-16.0) g/dL Hct 29.9 L (37-47) % MCV 85.9 (80-100) fL MCH 24.1 L (25-34) pg MCHC 28.1 L (32-36) g/dL RDW Std Deviation 54.4 H (36.4-46.3) fL RDW Coeff of Melecio 17.4 H (11.5-14.5) % Plt Count 298 (130-400) K/uL MPV 11.3 H (7.4-10.4) fL Immature Gran % (Auto) 0.4 % Neut % (Auto) 91.8 % Lymph % (Auto) 1.4 % Ware % (Auto) 6.4 % Eos % (Auto) 0.0 % Baso % (Auto) 0.0 % Immature Gran # (Auto) 0.10 H (0.00-0.02) K/uL Neut # (Auto) 21.01 H (1.4-6.5) K/uL Lymph # (Auto) 0.31 L (1.2-3.4) K/uL Ware # (Auto) 1.46 H (0.11-0.59) K/uL Eos # (Auto) 0.01 (0-0.5) K/uL Baso # (Auto) 0.01 (0-0.2) K/uL Absolute Nucleated RBC 0.70 H (0-0) K/uL Nucleated RBC % (auto) 3.0 % Polychromasia 1+ Hypochromasia Present Anisocytosis Present PT (9.0-12.0) Seconds INR (0.9-1.1) ABG pH (7.35-7.45) ABG pCO2 (35-46) mmHg ABG pO2 (80-95) mm/Hg ABG HCO3 (19-24) mmol/L ABG O2 Saturation (90-95) % ABG Base Excess (-9-1.8) mEq/L Dick Test (Pos) Barometric Pressure mm/Hg Oxygen Given Sodium 143 (136-145) mmol/L Potassium 5.2 H (3.5-5.1) mmol/L Chloride 107 (98-107) mmol/L Carbon Dioxide 27 (21-32) mmol/L Anion Gap 9.0 (3-11) BUN 98 H (7-18) mg/dl Creatinine 2.47 H (0.6-1.2) mg/dl Est Cr Clr Drug Dosing Not Reportable Est GFR ( Amer) 23.1 Est GFR (Non-Af Amer) 19.9 BUN/Creatinine Ratio 39.7 H (10-20) Glucose 96 (70-99) mg/dl POC Lactic Acid Patrice (0.90-1.70) mmol/L Calcium 8.7 (8.5-10.1) mg/dl Magnesium 2.4 (1.8-2.4) mg/dl Total Bilirubin 0.8 (0.2-1) mg/dl AST 495 H (15-37) U/L ALT 475 H (12-78) U/L Alkaline Phosphatase 70 (45-117) U/L Total Creatine Kinase 116 (26-192) U/L Troponin I 0.074 H* (0-0.045) ng/ml Total Protein 5.0 L (6.4-8.2) gm/dl Albumin 2.5 L (3.4-5.0) gm/dl Globulin 2.5 (2.5-4.0) gm/dl Albumin/Globulin Ratio 1.0 (0.9-2) TSH 0.345 (0.300-4.500) uIu/ml Urine Color Urine Appearance (Clear) Urine pH (4.5-7.5) Ur Specific [place] (1.000-1.030) Urine Protein (Negative) Urine Glucose (UA) (Negative) Urine Ketones (Negative) Urine Blood (Negative) Urine Nitrite (Negative) Urine Bilirubin (Negative) Urine Urobilinogen (Negative) Ur Leukocyte Esterase (Negative) Urine WBC (Auto) (0-5) /hpf Urine RBC (Auto) (0-4) /hpf U Hyaline Cast (Auto) (0-5) /lpf U Epithel Cells (Auto) (0-5) /lpf Urine Bacteria (Auto) (Negative) Granular Casts (0) /lpf Blood Type B Positive Antibody Screen NEGATIVE 11/27/18 Range/Units 21:29 WBC (4.8-10.8) K/uL RBC (4.2-5.4) M/uL Hgb (12.0-16.0) g/dL Hct (37-47) % MCV (80-100) fL MCH (25-34) pg MCHC (32-36) g/dL RDW Std Deviation (36.4-46.3) fL RDW Coeff of Melecio (11.5-14.5) % Plt Count (130-400) K/uL MPV (7.4-10.4) fL Immature Gran % (Auto) % Neut % (Auto) % Lymph % (Auto) % Ware % (Auto) % Eos % (Auto) % Baso % (Auto) % Immature Gran # (Auto) (0.00-0.02) K/uL Neut # (Auto) (1.4-6.5) K/uL Lymph # (Auto) (1.2-3.4) K/uL Ware # (Auto) (0.11-0.59) K/uL Eos # (Auto) (0-0.5) K/uL Baso # (Auto) (0-0.2) K/uL Absolute Nucleated RBC (0-0) K/uL Nucleated RBC % (auto) % Polychromasia Hypochromasia Anisocytosis PT (9.0-12.0) Seconds INR (0.9-1.1) ABG pH (7.35-7.45) ABG pCO2 (35-46) mmHg ABG pO2 (80-95) mm/Hg ABG HCO3 (19-24) mmol/L ABG O2 Saturation (90-95) % ABG Base Excess (-9-1.8) mEq/L Dick Test (Pos) Barometric Pressure mm/Hg Oxygen Given Sodium (136-145) mmol/L Potassium (3.5-5.1) mmol/L Chloride (98-107) mmol/L Carbon Dioxide (21-32) mmol/L Anion Gap (3-11) BUN (7-18) mg/dl Creatinine (0.6-1.2) mg/dl Est Cr Clr Drug Dosing Est GFR ( Amer) Est GFR (Non-Af Amer) BUN/Creatinine Ratio (10-20) Glucose (70-99) mg/dl POC Lactic Acid Patrice 1.70 (0.90-1.70) mmol/L Calcium (8.5-10.1) mg/dl Magnesium (1.8-2.4) mg/dl Total Bilirubin (0.2-1) mg/dl AST (15-37) U/L ALT (12-78) U/L Alkaline Phosphatase (45-117) U/L Total Creatine Kinase (26-192) U/L Troponin I (0-0.045) ng/ml Total Protein (6.4-8.2) gm/dl Albumin (3.4-5.0) gm/dl Globulin (2.5-4.0) gm/dl Albumin/Globulin Ratio (0.9-2) TSH (0.300-4.500) uIu/ml Urine Color Urine Appearance (Clear) Urine pH (4.5-7.5) Ur Specific [place] (1.000-1.030) Urine Protein (Negative) Urine Glucose (UA) (Negative) Urine Ketones (Negative) Urine Blood (Negative) Urine Nitrite (Negative) Urine Bilirubin (Negative) Urine Urobilinogen (Negative) Ur Leukocyte Esterase (Negative) Urine WBC (Auto) (0-5) /hpf Urine RBC (Auto) (0-4) /hpf U Hyaline Cast (Auto) (0-5) /lpf U Epithel Cells (Auto) (0-5) /lpf Urine Bacteria (Auto) (Negative) Granular Casts (0) /lpf Blood Type Antibody Screen Imaging Data Radiologist's Impression: Radiology results as stated below per my review and the radiologist's interpretation: XR chest 1V portable CLINICAL HISTORY: 63 years-old Female presenting with weakness. TECHNIQUE: Portable upright AP view of the chest was obtained. COMPARISON: 08/08/2016. FINDINGS: Atherosclerosis of the aortic arch. Cardiac silhouette normal in size. The main pulmonary artery may be enlarged. Lungs are hyperinflated. Chronic changes at the left lung base. No focal opacity. No pleural effusion or pneumothorax. Osteopenia. Advanced degenerative changes of the left glenohumeral joint. Upper abdomen normal. IMPRESSION: 1. Findings suggest emphysema. No focal infiltrate to suggest pneumonia. 2. Main pulmonary artery enlargement suggests pulmonary artery hypertension. Electronically signed by: Jeff Moore M.D. 11/27/2018 8:37 PM ECG Data Attestation: I personally reviewed and interpreted this ECG as follows: Indication: weakness Rate (beats per minute): 85 Rhythm: sinus rhythm Findings: + ST depression (Lateral); no PAC, no PVC, no ST elevation and no ectopy Comparison ECG Date: from (08/09/2016) Change: no significant change Blood Pressure Blood Pressure Findings: Normal blood pressure MDM Narrative This is a 63-year-old female who presents to the ED with a chief complaint of fatigue, weakness, decreased p.o. intake and edema to the lower extremities. Patient has not eaten for several days. The patient's family gives most of the history. The patient is able to answer some basic questions. Her symptoms have been ongoing for the past 4 to 5 days. The patient's legs are cool and pale on my exam. The patient states that they have been that way for a couple of weeks. The patient's initial blood pressure was noted to be 69/50. She is afebrile. The patient's positive findings on exam as she is cachectic in appearance and looks unkempt. She, according to the daughter just lays in bed most of the time. She lives with her daughter. The patient is in no distress. Her lungs are mostly clear. Abdomen is soft and nontender. Rectal exam did not reveal any decubitus ulcers but the patient did have guaiac positive light brown stools. The patient's lower extremities are cool to touch and pale left greater than right from the knee down. She does have palpable strong femoral pulses but distal pulses are not appreciated. The patient's white blood cell count is 22.9. Her hemoglobin is 8.4. BUN is 98 and creatinine is 2.47. Her potassium is 5.2. Troponin is slightly elevated at 0.079. AST and ALT are elevated in the 400s. A chest x-ray reveals COPD. EKG reveals normal sinus rhythm. Urine did not show obvious infection. ABG reveals an acidosis with a pH of 7.18. The re is a respiratory component with a PCO2 of 71 and some hypoxia with a PaO2 of 65. The patient was treated with 2 L normal saline IV. She was provided with BiPAP. The patient does not appear to have an obvious infection despite the elevated white blood cell count. This could be reflective of a stress response related to multiorgan failure from dehydration and hypoxia and failure to thrive. Her lactic acid level was normal. Impression & Plan Acidosis, Anemia, MOF (multiple organ failure), GI (gastrointestinal bleed) Critical Care Time Critical Care Time: Yes Total Critical Care Time: 35 Discharge Plan Visit Data Chief Complaint: Swelling/Edema to Extremity Stated Complaint: SWOLLEN FEET, WEAK, TIRED ED Provider: Hussain Barragan Discharge Problem: Acidosis, Anemia, MOF (multiple organ failure), GI (gastrointestinal bleed) Patient Disposition: Being Evaluated by Hospitalist Forms Stand Alone Forms: My [facility] Prescriptions Prescriptions: No Action prednisone 10 mg tablet See Rx Instructions .ROUTE .COMPLEX PRN (Reason: Rescue Kit) RF: 0 doxycycline hyclate 100 mg capsule 100 mg PO BID PRN (Reason: Rescue Kit) RF: 0 metoprolol succinate 50 mg tablet extended release 24 hr 50 mg PO DAILY RF: 0 aspirin 81 mg Tablet,Delayed Release (Dr/Ec) 81 mg PO DAILY RF: 0 naproxen sodium 220 mg Tablet 440 mg PO QPM RF: 0 furosemide 20 mg tablet See Rx Instructions .ROUTE .COMPLEX PRN (Reason: Edema) RF: 0 ipratropium bromide 0.02 % solution See Rx Instructions .ROUTE .COMPLEX RF: 0 levalbuterol tartrate 45 mcg/actuation HFA aerosol inhaler 2 puff inhalation Q4H PRN (Reason: Wheezing) RF: 0 Advair HFA 115-21 mcg/actuation HFA aerosol inhaler 2 puff inhalation BID RF: 0 diphenhydramine HCl [Benadryl Allergy] 25 mg Tablet 25 mg PO HS PRN (Reason: Allergy Symptoms) RF: 0 Referrals Referrals: PCP,NO [Primary Care Provider] - Discharge Problem: Anemia Qualifiers: Anemia type: unspecified type Qualified Code(s): D64.9 - Anemia, unspecified GI (gastrointestinal bleed) Qualifiers: GI bleed type/associated pathology: unspecified gastrointestinal hemorrhage type Qualified Code(s): K92.2 - Gastrointestinal hemorrhage, unspecified The scribe's documentation has been prepared under my direction and personally reviewed by me in its entirety. I confirm that the note above accurately reflects all work, treatment, procedures, and medical decision making performed by me.
[2018-11-27 20:26] LABS: Appearance Urine Clear (Clear); Bacteria Urine Automated Negative (Negative); Bilirubin Urine Negative (Negative); Blood Urine Trace (Negative); Color Urine Dark Yellow; Glucose Urine UA Negative (Negative); Ketones Urine Negative (Negative); Leukocyte Esterase Urine Negative (Negative); Nitrite Urine Negative (Negative); Protein Urine Trace (Negative); Specific Gravity Urine 1.018 (1.000-1.030); Urobilinogen Urine Negative (Negative)
--- NOTE | 2018-11-27 20:38 | XRay Report ---
XR chest 1V portable CLINICAL HISTORY: 63 years-old Female presenting with weakness. TECHNIQUE: Portable upright AP view of the chest was obtained. COMPARISON: 08/08/2016. FINDINGS: Atherosclerosis of the aortic arch. Cardiac silhouette normal in size. The main pulmonary artery may be enlarged. Lungs are hyperinflated. Chronic changes at the left lung base. No focal opacity. No ple ural effusion or pneumothorax. Osteopenia. Advanced degenerative changes of the left glenohumeral buster nt. Upper abdomen normal. IMPRESSION: 1. Findings suggest emphysema. No focal infiltrate to suggest pneumonia. 2. Main pulmonary artery enlargement suggests pulmonary artery hypertension. Electronically signed by: Jeff Moore M.D. 11/27/2018 8:37 PM
[2018-11-27 21:37] LABS: Base Excess ABG -2.8 mEq/L (-9-1.8); HCO3 ABG 26 mmol/L (19-24); Oxygen Saturation ABG 84.4 % (90-95); PCO2 ABG 71 mmHg (35-46); PO2 ABG 65 mm/Hg (80-95)
[2018-11-27 21:44] LABS: Allen Test POS (Pos); pH ABG 7.18 (7.35-7.45)
[2018-11-27 21:44] LABS: INR 1.4 (0.9-1.1); Prothrombin Time 14.1 Seconds (9.0-12.0)
[2018-11-27 21:53] LABS: Alanine Aminotransferase 475 U/L (12-78); Albumin Level 2.5 gm/dl (3.4-5.0); Aspartate Aminotransferase 495 U/L (15-37); BUN Creatinine Ratio 39.7 (10-20); Blood Urea Nitrogen 98 mg/dl (7-18); Calcium 8.7 mg/dl (8.5-10.1); Carbon Dioxide 27 mmol/L (21-32); Chloride 107 mmol/L (98-107); Est GFR (African American) 23.1; Est GFR (Non-African American) 19.9; Glucose 96 mg/dl (70-99); Magnesium 2.4 mg/dl (1.8-2.4); Potassium 5.2 mmol/L (3.5-5.1); Sodium 143 mmol/L (136-145)
[2018-11-27 22:03] LABS: Hematocrit (blood only) 29.9 % (37-47); Hemoglobin 8.4 g/dL (12.0-16.0); Mean Corpuscular Hemoglobin 24.1 pg (25-34); Mean Corpuscular Hgb Conc 28.1 g/dL (32-36); Mean Corpuscular Volume 85.9 fL (80-100); Mean Platelet Volume 11.3 fL (7.4-10.4); Platelet Count 298 K/uL (130-400); RDW Coefficient of Variation 17.4 % (11.5-14.5); RDW Standard Deviation 54.4 fL (36.4-46.3); Red Blood Count 3.48 M/uL (4.2-5.4)
[2018-11-27 22:05] LABS: Anisocytosis Present; Basophils # (auto) 0.01 K/uL (0-0.2); Eosinophils # (auto) 0.01 K/uL (0-0.5); Hypochromasia Present; Immature Granulocytes % (auto) 0.4 %; Lymphocytes # (auto) 0.31 K/uL (1.2-3.4); Lymphocytes % (auto) 1.4 %; Monocytes # (auto) 1.46 K/uL (0.11-0.59); Monocytes % (auto) 6.4 %; Neutrophils # (auto) 21.01 K/uL (1.4-6.5); Neutrophils % (auto) 91.8 %; Polychromasia 1+
[2018-11-27 22:17] LABS: Alkaline Phosphatase 70 U/L (45-117); Bilirubin,Total 0.8 mg/dl (0.2-1); Creatine Kinase 116 U/L (26-192); Globulin 2.5 gm/dl (2.5-4.0); Thyroid Stimulating Hormone 0.345 uIu/ml (0.300-4.500); Troponin I 0.074 ng/ml (0-0.045)
[2018-11-28] MEDS ORDERED: ONDANSETRON INJ 2 MG/ML 2 ML VIAL IV PRN (00:44)
[2018-11-28] MEDS ORDERED: PIPERACILL/TAZOBAC CONSULT ACTIVE PRN (00:44)
[2018-11-28] MEDS ORDERED: XOPENEX/ATROVENT 1.25mg/0.5MG NEB COMBO NEB PRN (00:44)
[2018-11-28] MEDS ORDERED: VANCOMYCIN CONSULT ACTIVE PRN (00:44)
[2018-11-28] MEDS ORDERED: NITROGLYCERIN SL 0.4 MG/TAB TAB SL PRN (00:44)
[2018-11-28] MEDS ORDERED: LEVALBUTEROL TARTRATE 15 GM HFA.AER.AD INH PRN (00:44)
[2018-11-28] MEDS ORDERED: PATIENT'S HEIGHT AND/OR WEIGHT NEEDED SCH (01:00)
[2018-11-28] MEDS ORDERED: PIPERACILLIN/TAZOBACTAM 4.5 GM in DEXTROSE 5% 100 ML IV STA (01:01)
[2018-11-28] MEDS ORDERED: VANCOMYCIN HCL 750 MG in SODIUM CHLORIDE 0.9% 250 ML IV ONE (02:00)
--- NOTE | 2018-11-28 02:16 | History and Physical Report ---
DATE OF ADMISSION: 11/27/2018 CHIEF COMPLAINT: Lethargy, hypotension, poor appetite. HISTORY OF PRESENT ILLNESS: A 63-year-old female with past medical history significant for COPD, left pulmonary nodule, left ventricular hypertrophy, diastolic dysfunction, cerebral microvascular disease, chronic kidney disease stage III, generalized osteoarthritis, rheumatoid arthritis, tobacco use disorder, lump of the right breast, underweight, colonoscopy refused, who lives with her daughter, who was brought in because she was not getting up from the bed for the last few days. As per daughter for the last 4 days, every day morning she sees her mother sleeping and when she comes from work, she is still sleeping and she does not think that she is eating and drinking much, not getting up from the bed. She generally walks to the bathroom and comes back, but seems to be not getting around and she also noticed some leg swelling for last 2 days and there are some erythematous changes in the right lower extremity and that seems to be most likely chronic changes with elongated nails. Daughter says that the patient smokes and the last few days she did not smoke. So she thought something is wrong and she brought her to the hospital. When the patient came to the hospital, systolic blood pressure was 60s. Received 2 liters of fluids and blood pressure came up. Random lactic acid was normal. White count was 22,000, but last month she received prednisone.He hemoglobin is 8.4. In the ER, the hemoccult was positive and creatinine was 2.4, baseline around 1. Troponin 0.074. UA is negative. Chest x-ray, no obvious infiltrates. AST and ALT was in 400s. ABG was done and showed pH of 7.1, pCO2 of 71, pO2 of 85% on 4 liters. The patient is currently placed on BiPAP. Daughter thinks her lower extremities are cold to touch, they are cold for the last couple of days, but to the ER the patient told they are cold for the last couple of weeks. The patient is somewhat lethargic and drowsy but currently on BiPAP, but able to tell her name, is able to tell her date of , knows that she is in the hospital, knows today's month and year, but voice is feeble .Daughter thought that her voice was feeble at home today also.As per daughter patient was fine 4 days ago, she was talking fine and eating fine. She eats a regular diet. No obvious cough. The patient denies any chest pain. Currently she is feeling better. Denies any shortness of breath. Denies any abdominal pain. When asked about any leg pain says not much. Denies any diarrhea, denies any burning micturition. Could not get much history from the patient as the patient was mostly drowsy. ALLERGIES: ENVIRONMENTAL, PORK ALLERGY. PAST MEDICAL HISTORY: As mentioned above. PAST SURGICAL HISTORY: Dental surgery, right femur surgery. MEDICATIONS: The patient is on ipratropium nebulization every 6 hours p.r.n., Lasix 20 mg p.o. 3-7 days a week based on leg edema. The patient is supposed to take prednisone 10 mg daily, but currently seems to be not taking, Xopenex 2 puffs every 4 hours p.r.n., aspirin 81 mg p.o. daily, Advair 115/21 mcg 2 puffs b.i.d., Toprol-XL 50 mg p.o. daily, naproxen 220 mg p.o. 2 tablets at bedtime, oxygen 2 liters at nighttime, but currently patient is not using it. FAMILY HISTORY: Significant for father has asthma and SD. Mother has lung cancer. Maternal grandmother had stroke. SOCIAL HISTORY: , currently living with her daughter. Smoked 0.5 packs a day for 45 years. No alcohol use, no drug use. REVIEW OF SYSTEMS: Could not get complete review of systems as the patient is somewhat lethargic. PHYSICAL EXAMINATION: GENERAL: The patient is thin and frail, lethargic. VITAL SIGNS: Temperature 36.4, pulse 75, blood pressure when she came in was 69/50, currently 111/72, oxygen when she came in was 88%, currently 93% on BiPAP. HEENT: No pallor, no icterus. Pupils equal, round, reactive to light. NECK: No JVD, no neck masses, no carotid bruits. CARDIOVASCULAR: S1, S2 heard, regular rate and rhythm, no murmur, no gallop. RESPIRATORY SYSTEM: Normal AP diameter. No accessory muscle use. No wheezing, no crackles. ABDOMEN: Soft, bowel sounds present, nontender. No distention. CENTRAL NERVOUS SYSTEM: Lethargic, but alert and oriented x3. On command, tries to move extremities, but there is minimal movement. EXTREMITIES: Bilateral lower extremities are cold on palpation and +2 edema present and right lower extremity is somewhat erythematous.Elongated nails seen and poor hygiene of lower extremities. LABORATORY DATA: WBC 22, hemoglobin 8.4, hematocrit 29.9, platelets 298. PT 14.1, INR 1.4, pH of 7.1, pCO2 of 71, pO2 of 65, bicarbonate 26. Sodium 143, potassium 5.2, chloride 107, bicarbonate 27, BUN 98, creatinine 2.4, AST 495, ALT 475. Troponin 1 0.074. Urinalysis, trace blood and trace protein. IMAGING DATA: Chest x-ray findings showed emphysema, no focal infiltrates to suggest pneumonia. EKG: Normal sinus rhythm with rate of 85. No ST-T wave abnormalities seen, poor tracing. ASSESSMENT AND PLAN: This is a 63-year-old female who lives with her daughter, history of chronic obstructive pulmonary disease, diastolic dysfunction, tobacco use disorder, presents with altered mental status. 1. Altered mental status and lethargy, metabolic encephalopathy, mostly secondary to CO2 narcosis and also could be uremic encephalopathy because her BUN is 98. Currently, patient is placed on BiPAP. White count is also 22, possible infectious process, but no obvious infections seen currently, but recently on prednisone course too. We will empirically place on vancomycin and Zosyn,as she also has possible right lower extremity cellulitis. Received 2 L of fluids in the ER as she was hypotensive when she came in. With the 2 L of fluids in the ER Blood pressure improved.Will continue fluids with IV normal saline 125 mL per hour. Follow the cultures. Follow the response. Follow the repeat labs and repeat ABGs. The patient also is not eating for the last few days dehydration playing a role. Question of being on scheduled prednisone dose. Consider adrenal insufficiency but currently BP improved with fluids.Also will follow CT chest and abdomen for any infectious process. 2. Acute kidney injury on chronic kidney disease stage III. Baseline creatinine of 1 and BUN around 20.Currently creatinine is 2.4 and BUN is 98. Getting fluids. The patient was hypotensive on presentation, We will follow the repeat labs and also get a CT of the abdomen and pelvis. Will follow the CAT scan results. If not improving or any concerns, we will consult nephrology. 3. Chronic obstructive pulmonary disease. No wheezing on exam. No accessory muscle use. But pH is 7.18, is retaining CO2. Placed on BiPAP. She is supposed to be on nocturnal oxygen, but is not using as per daughter. Continue her home inhalers and nebs p.r.n. and antibiotics as above. We will follow the repeat ABG. 4. History of chronic obstructive pulmonary disease and lung nodule. We will follow the CAT scan results. 5. Transaminitis, most likely secondary to hypotension. We will follow the repeat labs. 6. Elevated troponin, most likely from above. We will follow the repeat troponins and also echocardiogram. 7. History of diastolic congestive heart failure, left ventricular hypertrophy, on Lasix 20 mg 3-7 tablets a week. Currently holding the Lasix because of hypotension. Getting fluids. Monitor for fluid overload. Follow the echocardiogram. 7. Anemia. Hemoglobin 8.4. Hemoccult positive stools in the ER, but there are no signs of obvious bleeding. We will consult GI in the a.m. Currently n.p.o. We will also place on IV PPPI drip for now.Will monitor for H and H. Labs shows hemoglobin 13.7 in June 2018..Will Follow Ct abd/pelvis. Blood consent obtained with daughter. 8. Hyperkalemia. Potassium 5.2. Will follow the repeat labs. 9. Lower extremity edema, is cool on palpation. As per daughter, she notes that for the last couple of days they are cold, but as per patient they are cold for last couple of weeks. Will follow the arterial ultrasound report. 10. Possible lower extremity cellulitis, right lower extremity cellulitis. Antibiotics as above. Follow the cultures. 11. History of breast lesion a couple of years ago. I do not see any mammogram. We will follow the CAT chest scan results. 12. Malnutrition. The patient is thin and frail. Nutrition consult when patient is stable. 13. osteoarthritis/RA. We will hold the naproxen for now. 14. Hypertension. Hold the Toprol XL for now, hold diuretics for now. 15. Tobacco abuse disorder, needs counseling. 16. Deep venous thrombosis prophylaxis, sequential compression devices for now. 17. Disposition: Closely monitor in the tele floor. Code status full code as per my discussion with the daughter. PT and OT prior to discharge. Social service to help with discharge planning. Addendum: Patient was still lethargic and repeat ABG no improvement. Transferred to ICU and intubated. Daughter notified about intubation and got consent for Central and A line. Also lot lice found as pr ICU staff. MTDD
[2018-11-28] MEDS: PANTOprazole 40 MG in DEXTROSE 5% 100 ML IV SCH ×3 (03:01→13:12)
[2018-11-28] MEDS: SODIUM CHLORIDE 0.9% 1000ML 1,000 ML IV SCH ×2 (03:01→08:27)
[2018-11-28 04:35] LABS: iSTAT Allen Test Pass; iSTAT Arterial Blood Gas HCO3 29 meg/L (19-24); iSTAT Arterial Blood Gas pCO2 85 mmHg (35-46); iSTAT Arterial Blood Gas pH 7.14 (7.35-7.45); iSTAT Arterial Blood Gas pO2 > 420 mmHg (80-95); iSTAT Carbon Dioxide 31 mEq/l (24-31); iSTAT FiO2 100 %; iSTAT Site R Radial
[2018-11-28] MEDS ORDERED: RAPID SEQUENCE INDUCTION BAG ONE (05:07)
[2018-11-28] MEDS ORDERED: PNEUMOCOCCAL POLYSACCHARIDES 25 MCG/0.5 ML VIAL/SYR IM ONE (05:45)
[2018-11-28] MEDS ORDERED: INFLUENZA VIRUS QUAD VACCINE 0.5 ML SYR IM ONE (05:45)
[2018-11-28] MEDS ORDERED: PNEUMOCOCCAL ADMINISTRATION CHARGE ONE (05:45)
[2018-11-28] MEDS ORDERED: INFLUENZA ADMINISTRATION CHARGE ONE (05:45)
[2018-11-28] MEDS ORDERED: SODIUM CHLORIDE 0.9% 1000ML 500 ML IV ONE (05:55)
[2018-11-28] MEDS ORDERED: ICU PROTOCOL FOR HYPERGLYCEMIA PRN (05:55)
[2018-11-28 06:05] LABS: Hematocrit (blood only) 28.6 % (37-47); Hemoglobin 7.9 g/dL (12.0-16.0); Mean Corpuscular Hemoglobin 24.1 pg (25-34); Mean Corpuscular Hgb Conc 27.6 g/dL (32-36); Mean Corpuscular Volume 87.2 fL (80-100); Mean Platelet Volume 10.7 fL (7.4-10.4); Nucleated RBC # (auto) 1.03 K/uL (0-0); Nucleated RBC % (auto) 3.9 %; Platelet Count 253 K/uL (130-400); RDW Coefficient of Variation 17.4 % (11.5-14.5); Red Blood Count 3.28 M/uL (4.2-5.4); White Blood Count 26.79 K/uL (4.8-10.8)
--- NOTE | 2018-11-28 06:07 | Critical Care Consultation ---
Date of Consultation November 28, 2018 Assessment & Plan (1) Admitted to intensive care unit: Reason Critically Ill: 63-year-old female with acute respiratory failure with hypercapnia requiring emergent endotracheal intubation for airway protection. GI bleed with heme positive stools. Also with KATHERINE and presumed sepsis from lower extremity wounds. NEURO - * [facility] ICU: POSITIVE * Sedation: Fentanyl and Versed PRN * AMS: * No focal neurological deficits appreciated. * Likely multifactorial in the setting of renal failure with uremia as well as hypercapnia. * Consider imaging modalities of the brain once patient stabilizes and is able to tolerate being off unit for a short period of time. * Monitor for any other changes acutely. CARDIAC/VASCULAR - * Hypotension: * Likely secondary to hypovolemia and degree of sepsis. * Responding well to IV fluids at this point. * Additional pressors if necessary. * Hold antihypertensive medications at this time. * Peripheral arterial disease with new findings of RIGHT popliteal DVT. * Monitor on telemetry. RESPIRATORY - * Acute respiratory failure with hypercapnia: * Chronic COPD with exacerbation. * Requiring endotracheal intubation secondary to severe respiratory acidosis. * Failed noninvasive techniques previously. * Aggressive pulmonary toilet. GI/NUTRITION - * GI bleed: * Currently on Protonix drip. * Appreciate GI recommendations. RENAL/LYTES - * Acute kidney injury: * Likely secondary to hypovolemia from poor p.o. intake. * Continue with aggressive IV fluid resuscitation. * IVF: NSS at 125/hour - * Noonan in place - Strict I&Os. ENDO - * No history of diabetes or thyroid disease. * BSGs per unit protocol. ISS --> gtt per unit policy. HEME - * Anemia: * We will continue to trend in the setting of GI bleed. ID - * Concerns for sepsis secondary to possible cellulitis of the lower extremity. * Currently on vancomycin and Zosyn. LINES/IV ACCESS - * PIVs x2 * RIGHT IJ * LEFT radial arterial line * ET tube * [place]onan DVT PROPHYLAXIS - * Hold secondary to GI bleed * SCDs I have personally spent 60 minutes of critical care time in the direct management of this patient. This is a life/limb threatening event. This includes time spent evaluating patient, direct bedside care, chart review, placing orders, interpretation of diagnostic studies, discussion with consultants, patient, and family members, as well as other required patient management activities. This time is exclusive of all separately billable procedures, and teaching time and separate from and in addition to any other critical care service time. Thank you for allowing us to participate in the care of this patient. Please refer to my attending physician's documentation for any further recommendations. (2) Acute respiratory failure with hypercapnia: (3) COPD (chronic obstructive pulmonary disease): (4) GI (gastrointestinal bleed): (5) Anemia: (6) Acidosis: Supervising Physician Co-Signing Physician Notes I discussed this patient with Linda Lancaster via telephone I agree with the docume ntation. History of Present Illness Attending Physician: Sridhar Rothman MD History of Present Illness Patient is a 63-year-old female with significant past medical history of tobacco abuse, COPD, hypertension, and osteoarthritis who initially presented to the emergency department last evening with generalized weakness and fatigue as well as confusion. Patient is unable to provide historical information secondary to current mental status. Per previous records, the patient's daughter, with whom the patient lives, reports that the patient has been increasingly confused recently. In addition, she has not been eating or drinking. She was found to have cool extremities bilaterally with concerns for cellulitis. She was started on vancomycin and Zosyn. She was placed on BiPAP secondary to an acute respiratory acidosis with altered level of consciousness. Patient was noted to have an KATHERINE with likely component of uremia as well. Throughout the night, despite aggressive BiPAP measures, the patient continued to have accumulation of CO2 and worsening somnolence requiring endotracheal intubation for airway protection. Upon arrival in the ICU, the patient is somnolent. She is nonsensical. No focal motor neurological deficits noted otherwise. Allergies Allergy/AdvReac Type Severity Reaction Status Date / Time Pork/Porcine Containing Allergy Intermediate Hives Verified 11/27/18 20:32 Products Home Medications Home Medications Medication Instructions Recorded Confirmed Type aspirin 81 mg PO DAILY 11/27/18 11/27/18 History diphenhydramine HCl [Benadryl 25 mg PO HS PRN 11/27/18 11/27/18 History Allergy] doxycycline hyclate 100 mg PO BID PRN 11/27/18 11/27/18 History fluticasone propion-salmeterol 2 puff INHALATION BID 11/27/18 11/27/18 History [Advair HFA] furosemide See Rx Instructions .ROUTE 11/27/18 11/27/18 History .COMPLEX PRN ipratropium bromide See Rx Instructions .ROUTE .COMPLEX 11/27/18 11/27/18 History levalbuterol tartrate 2 puff INHALATION Q4H PRN 11/27/18 11/27/18 History metoprolol succinate 50 mg PO DAILY 11/27/18 11/27/18 History naproxen sodium 440 mg PO QPM 11/27/18 11/27/18 History prednisone See Rx Instructions .ROUTE 11/27/18 11/27/18 History .COMPLEX PRN Patient History Medical History Anemia (Acute) Rheumatoid arthritis (Chronic) "chronic steroid use" Emphysema of lung (Chronic) Paroxysmal a-fib (Chronic) Tobacco abuse (Chronic) Hypoxia History of Clostridium difficile colitis (Chronic) Osteoarthritis (Chronic) Surgical History [place] teeth extracted (Resolved) Family History Other Cancer FHx: gallbladder disease Heart disease Kidney disease Social History Communication Ability: Unable Beliefs That Will Affect Care: None Current Living Situation: Family Other Information That Helps Us Care for You: No Feels Safe at Home: Yes Smoking Status: Current every day smoker Tobacco Type: cigarettes ; Cigarettes Per Day: 20 ; Hx Alcohol Use: No Hx Substance Use: No Review of Systems Review of Systems: Unobtainable due to cognitive status Physical Exam Physical Exam: VITAL SIGNS - Vital signs and nursing notes were reviewed. GENERAL - 63-year-old female appearing much older than her stated age. Somnolent. SKIN - Dry, scaling skin. Multiple nits and lice noted in the hair. HEAD - NC/AT. EYES - PERRL with EOMI bilaterally. Sclera anicteric. EARS - No deformities of external structures noted on gross examination bilaterally. NOSE - Midline and without cyanosis. No epistaxis or purulent drainage noted. MOUTH/OROPHARYNX - Without perioral cyanosis. Buccal mucosa pink and dry. NECK - Neck with FROM. Supple to palpation. No lymphadenopathy noted. No nuchal rigidity. LUNGS - Chest wall symmetric without accessory muscle use, intercostals retractions, or central cyanosis. Distant breath sounds. No wheezes, rales, or rhonchi appreciated. CARDIAC - RRR with S1/S2. No murmur, rubs, or gallops appreciated. ABDOMEN - Abdominal contour flat without pulsations or visible masses. BS normoactive all four quadrants. No tenderness, palpable masses, hepatosplenomegaly, or ascites noted. EXTREMITIES - No clubbing or peripheral cyanosis. No pretibial edema present. +3/5 radial and dorsalis pedis pulses palpated throughout. NEUROLOGIC - Cranial nerves II through XII grossly intact. Unable to assess further secondary to mental status. Results & Data Vital Signs (Past 12 Hours) Vital Signs Temp Pulse Pulse Resp BP BP Pulse Ox 11/28/18 04:22 36.3 C L 81 22 92/61 L 11/28/18 00:30 36.4 C L 93 H 62 16 105/57 L 94 11/28/18 00:01 90 16 113/67 100 11/27/18 23:46 92 H 15 108/67 11/27/18 23:30 89 19 116/67 100 11/27/18 23:15 87 19 109/67 100 11/27/18 23:02 75 20 93 11/27/18 23:01 99 H 18 113/65 100 11/27/18 22:30 90 16 111/72 97 11/27/18 22:15 90 19 110/57 L 100 11/27/18 22:00 88 16 101/65 100 11/27/18 21:50 86 22 94 11/27/18 21:45 87 17 100/60 85 L 11/27/18 21:30 86 19 105/61 95 11/27/18 21:16 86 19 101/62 91 11/27/18 21:01 84 19 102/50 L 98 11/27/18 20:57 84 26 H 98/74 L 88 L 11/27/18 20:21 90 28 H 74/53 L 11/27/18 20:01 86 15 111/83 11/27/18 19:43 85 17 89/58 L 11/27/18 19:36 87 23 75/41 L 11/27/18 19:25 36.4 C L 22 69/50 L PG Care Time/CCT Total # of Minutes Spent Total Time Spent with Patient: Total time spent is greater than 50% in coordination of care (as documented) at patient's floor/unit and/or counseling patient: Critical Care Time: Yes Total Critical Care Time: 60 (1) GI (gastrointestinal bleed) GI bleed type/associated pathology: unspecified gastrointestinal hemorrhage type Qualified Code(s): K92.2 - Gastrointestinal hemorrhage, unspecified (2) Anemia Anemia type: unspecified type Qualified Code(s): D64.9 - Anemia, unspecified
--- NOTE | 2018-11-28 06:15 | Procedure Note ---
Procedure Note Date of Service November 28, 2018 Procedure: Arterial Line Placement Attending: Dr. Mcdowell APC: Alonso Lancaster PA-C Indication: Monitoring on Pressors Anesthesia: None Given the patient's rapidly declining status and need for frequent ABGs, close blood pressure monitoring, and frequent laboratory analyses, emergent consent implied. I was able to speak to the patient's daughter, Lisandro, by phone. She verbally consents to procedures including endotracheal intubation, arterial line placement, and central line placement. Risks versus benefits versus alternatives were discussed. She acknowledges all these and agrees to proceed. A time-out was completed verifying correct patient, procedure, site, positioning, and implant(s) or special equipment if applicable. Allens test was performed to ensure adequate perfusion. Patients LEFT wrist was prepped and draped in the usual sterile fashion. Ultrasound guidance was used to aid needle placement. A 20g Arrow arterial line was introduced into the LEFT Radial artery. Catheter was threaded, and the needle was removed with appropriate blood return. Good waveform was observed. The patient tolerated the procedure well. Confirmation of placement with ultrasound. Blood Loss: Minimal Complications: None Procedural Ultrasound Guidance: Procedure Date: 11/28/2018 Indication: ABGs, BP monitoring, Frequent Labs. Attending: Dr. Mcdowell APC: Alonso Lancaster PA-C Artery Identified: YES Line confirmed in Artery with ultrasound: YES Complications: NONE Patient tolerated procedure: WELL Coding CPT Codes Tubes, Drains, and Vasc Access - Tubes, Drains, and Vasc Access: Place Catheter In Artery ([id number])
[2018-11-28 06:16] LABS: Basophils # (auto) 0.02 K/uL (0-0.2); Basophils % (auto) 0.1 %; Hypochromasia Present; Immature Granulocytes # (auto) 0.19 K/uL (0.00-0.02); Immature Granulocytes % (auto) 0.7 %; Lymphocytes # (auto) 0.56 K/uL (1.2-3.4); Lymphocytes % (auto) 2.1 %; Monocytes # (auto) 1.79 K/uL (0.11-0.59); Monocytes % (auto) 6.7 %; Neutrophils # (auto) 24.23 K/uL (1.4-6.5); Neutrophils % (auto) 90.4 %; Polychromasia 1+
[2018-11-28 06:19] LABS: Albumin Level 2.5 gm/dl (3.4-5.0); BUN Creatinine Ratio 36.6 (10-20); Bilirubin Direct 0.3 mg/dl (0-0.2); Creatinine Clr Calc Pharmacy 13.1 ml/min; Est GFR (African American) 23.2; Magnesium 2.3 mg/dl (1.8-2.4); Potassium 5.4 mmol/L (3.5-5.1)
[2018-11-28 06:22] LABS: Bilirubin,Total 0.6 mg/dl (0.2-1); Phosphorus 7.3 mg/dl (2.5-4.9); Total Protein 4.8 gm/dl (6.4-8.2)
[2018-11-28 06:24] LABS: iSTAT Art Bld Gas pCO2 Correct 90 mmHg (35-46); iSTAT Art Bld Gas pH Corrected 7.116 (7.35-7.45); iSTAT Arterial Blood Gas HCO3 29 meg/L (19-24); iSTAT Arterial Blood Gas pCO2 92 mmHg (35-46); iSTAT Arterial Blood Gas pH 7.11 (7.35-7.45); iSTAT Arterial Blood Gas pO2 410 mmHg (80-95); iSTAT Arterial Blood Gas pO2 C 407; iSTAT Carbon Dioxide 32 mEq/l (24-31); iSTAT FiO2 40 %; iSTAT Site Art Line
--- NOTE | 2018-11-28 06:27 | Procedure Note ---
Procedure Note Date of Service November 28, 2018 APC: Alonso Lancaster PA-C. Attending: Jeremias Jimenez time-out was completed verifying correct patient, procedure, site, positioning. Patient was evaluated and required intubation for acute respiratory failure with hypercapnia. Sedative agent used: Versed, Fentanyl Paralysis agent used: None Emergent consent was implied given patients rapidly declining clinical status and need for airway protection. Given the patient's rapidly declining status and need for frequent ABGs, close blood pressure monitoring, and frequent laboratory analyses, emergent consent implied. I was able to speak to the patient's daughter, Lisandro, by phone. She verbally consents to procedures including endotracheal intubation, arterial line placement, and central line placement. Risks versus benefits versus alternatives were discussed. She acknowledges all these and agrees to proceed. The patient was prepared in the appropriate fashion. Sedation was achieved utilizing Versed for induction. The patient was easily ventilated using [id number] to achieve adequate oxygenation. A 7.5 [place] endotracheal tube was placed under [facility] video laryngoscope view to 23 cm at the lip. The stylette was removed and balloon was inflated with 10mL of air. Appropriate Colorimetric change was appreciated. Bilateral breath sounds were heard without air sounds in the abdomen. Dr. Alvarado was present for the entire procedure. Post Intubation Chest X-ray confirms placement without pneumothorax. Patient tolerated the procedure well and there were no immediate complications. Coding CPT Codes Resuscitation - Resuscitation: Endotracheal Intubation, emergency ([id number])
--- NOTE | 2018-11-28 06:31 | XRay Report ---
XR chest 1V portable CLINICAL HISTORY: Respiratory failure. COMPARISON STUDY: 11/27/2018 FINDINGS: There has been interval placement of endotracheal tube 4 cm above the abi. There has bee n placement of nasogastric tube which passes to the stomach. Patient remains hyperinflated. There is no focal pulmonary consolidation.[ IMPRESSION: 1. Interval placement of a nasogastric tube which passes into the stomach 2. Endotracheal tube 4 cm above the abi 3. Hyperinflation. No focal parenchymal consolidation. Electronically signed by: Zeferino Jeffries M.D. 11/28/2018 6:30 AM
[2018-11-28] MEDS ORDERED: DEXTROSE 50% 50 ML SYRINGE IV ONE ×2 (06:34→16:23)
[2018-11-28] MEDS ORDERED: DEXTROSE 50% 50 ML SYRINGE IV STA (06:43)
--- NOTE | 2018-11-28 07:05 | CT Scan Report ---
CT chest wo con CLINICAL HISTORY: Pulmonary nodules. Respiratory failure. COMPARISON STUDY: Chest x-ray dated 11/27/2018, chest CT dated 08/07/2016 CT DOSE: TECHNIQUE: CT of the thorax was performed from the thoracic inlet to the lung bases. Images are revi ewed in the axial, sagittal, and coronal planes. IV contrast was not administered for this examinatio n. A dose lowering technique was utilized adhering to the principles of ALARA. FINDINGS: Thyroid: Imaged portions of the thyroid gland are normal in appearance. Thoracic aorta: The thoracic aorta is normal in course and caliber, noting standard 3 vessel arch alejo sd. Heart: The heart is normal in size. There are coronary artery calcifications. There is no significant pericardial fluid. Lungs and pleural spaces: There is pulmonary emphysema. There is no focal pulmonary consolidation. Th ere are no pleural effusions. There is a stable solid 3 mm right lower lobe pulmonary nodule. There i s a stable solid 3 mm left lower lobe pulmonary nodule. A few additional micronodules are visualized. Mediastinum: There is a precarinal lymph node the upper limits of normal in size Rhonda: There is no evidence of pathologic hilar adenopathy given the limitations of a noncontrast stud y. Axilla: There is no evidence of pathologic axillary lymphadenopathy Upper abdomen: Partially visualized upper abdominal viscera is within normal limits. Skeletal structures: There are old left-sided rib fractures. There are severe T11 and L1 vertebral deep dy compression fractures. These are new when compared the prior study. There is mild retropulsion. IMPRESSION: 1. Pulmonary emphysema 2. No evidence of focal pulmonary consolidation 3. No evidence of pathologic adenopathy 4. Severe T11 and L1 vertebral body compression fractures, new when compared with the prior July [address] Electronically signed by: Zeferino Jeffries M.D. 11/28/2018 7:03 AM
--- NOTE | 2018-11-28 07:24 | Procedure Note ---
Procedure Note Date of Service November 28, 2018 Procedure: Internal Jugular Central Line Placement Attending: Dr. Mcdowell APC: Alonso Lancaster PA-C Indication: Central Drug Administration, Poor Venous Access, Multiple Lab Draws Necessary, etc. Anesthesia: Lidocaine 1% Given the patient's rapidly declining status and need for frequent ABGs, close blood pressure monitoring, and frequent laboratory analyses, emergent consent implied. I was able to speak to the patient's daughter, Lisandro, by phone. She verbally consents to procedures including endotracheal intubation, arterial line placement, and central line placement. Risks versus benefits versus alternatives were discussed. She acknowledges all these and agrees to proceed. A time-out was completed verifying correct patient, procedure, site, positioning, and implants(s) or special equipment if applicable. Patients RIGHT Neck was cleansed and draped in the typical sterile fashion using Chloraprep. The Internal Jugular Vein and Carotid Artery were identified using ultrasound. The superficial tissue was anesthetized using 3.0 mL of 1% lidocaine without epinephrine under direct visualization with the ultrasound. After adequate anesthetization was achieved, the Internal Jugular vein was cannulated under direct ultrasound guidance using an introducer needle on a syringe. Good venous blood return was maintained prior to removal of syringe from introducer needle. Using Seldinger Technique, a guide wire was advanced through the introducer needle without resistance. The introducer needle was removed and ultrasound images were obtained of the guide wire within the Internal Jugular Vein and saved to the patients medical record. No incision was made. The dilator was advanced to the vessel without resistance. The dilator was exchanged for the triple lumen catheter which was advanced into the vessel without resistance. The guide wire was removed intact from the catheter without issue. Claves were placed on each catheter tip with confirmation of good blood flow from each lumen. Each port was easily flushed with sterile saline. The catheter was placed at 15 cm and sut[address] in place. BioPatch was applied to the catheter and a sterile Tegaderm dressing was applied over the catheter with careful attention to sterility. Patient tolerated procedure well. No immediate complications were met. Post procedure x-ray was completed, placement was appropriate and no pneumothorax was noted. Images obtained are saved for permanent record Procedural Ultrasound Guidance: Procedure Date: 11/28/2018 Indication: Poor access, frequent lab draws, multiple medications Attending: Dr. Mcdowell APC: Alonso Tonny, PA-C Artery AND Vein visualized: YES Compressible Vein: YES Guidewire or Short Catheter seen in vein prior to dilation: YES Line confirmed in Vein with ultrasound: YES Images obtained are saved for permanent record. Coding CPT Codes Tubes, Drains, and Vasc Access - Tubes, Drains, and Vasc Access: Ultrasound Guidance For Vascular ([id number]) Tubes, Drains, and Vasc Access - Tubes, Drains, and Vasc Access: Place catheter in vein superior or inferior vena cava ([id number])
--- NOTE | 2018-11-28 07:35 | Ultrasound Report ---
US arterial duplex LE BI HISTORY: 63 years-old Female pvd? lower extremity cold on palpation cold lower extremities with frances pheral arterial disease COMPARISON: None available TECHNIQUE: Multiple real-time sonographic images of the bilateral lower extremity arterial structures were obtained assessing grayscale appearance, color and spectral flow FINDINGS: Segmental blood pressures on the right were unable to be conducted secondary to thrombus of the right popliteal vein. Segmental blood pressures on the left were as follows. Brachial 108 (index); posteri or tibial of 54 (0.49); dorsalis pedis of 51 (0.46).. RIGHT: Patent common femoral, profunda femoris and superficial femoral arteries with biphasic waveforms. Ade vated peak systolic velocities noted within the profunda femoris artery measuring up to 207 cm/s sugg est luminal narrowing. Calcified plaque of the superficial femoral artery. Nonocclusive thrombus of t he popliteal vein. Anterior tibial artery is not diagnostically visualized. Biphasic waveforms noted within the patent dorsalis pedis and posterior tibial arteries. LEFT: No elevated peak systolic velocities to suggest high-grade stenosis within the left lower extremity. Biphasic waveforms noted within the common femoral, profunda femoris and superficial femoral arteries . Moderate calcified plaque noted probably within the superficial femoral artery. Blunted monophasic waveforms with spectral broadening noted within the posterior tibial artery. Monophasic waveforms wit hin the dorsalis pedis artery. Biphasic waveforms within the peroneal artery. IMPRESSION: 1. Decreased ankle brachial indices of the left lower extremity compatible with moderate to severe pe ripheral arterial disease. 2. Segmental pressures of the right lower extremity were not conducted secondary to deep venous throm bosis of the popliteal vein. 3. Elevated peak systolic velocities within the right profunda femoris vein are suggestive of luminal narrowing secondary to atherosclerotic vascular disease. The above report was generated using voice recognition software. It may contain grammatical, syntax o r spelling errors. Electronically signed by: Jose Luis Gutierrez M.D. 11/28/2018 7:34 AM
[2018-11-28] MEDS ORDERED: PERMETHRIN 5% CR 60 GM TUBE EXT STA (07:39)
[2018-11-28] MEDS: FLUTICASONE/SALMETEROL 250/50 (ADVAIR) 14 PUFF/1 INHALER INH SCH ×2 (07:46→18:21)
[2018-11-28] MEDS: ASPIRIN 81 MG ECTAB PO SCH (07:47)
--- NOTE | 2018-11-28 07:47 | CT Scan Report ---
ABDOMEN AND PELVIS CT WITHOUT CONTRAST CT DOSE: 786.78 mGy.cm HISTORY: Acute hypotension with leukocytosis hypotension, leukocytois, any infectious source? TECHNIQUE: Multiaxial CT images of the abdomen and pelvis were performed without contrast. A dose lo wering technique was utilized adhering to the principles of ALARA. COMPARISON STUDY: Chest CT of same day, CTA chest 08/07/2016 FINDINGS: Emphysema. States limited secondary to positioning of the upper extremities and motion artifact. Imag ed inferior cardiac chambers are enlarged. Trace pericardial effusion. The unenhanced solid abdominal organs including the liver, spleen, pancreas and right adrenal gland are unremarkable. Left adrenal gland thickening suggests hyperplasia. There is suggestion of horseshoe kidney with bilateral nonobst ructing renal calculi measuring up to 5 mm on the right. No ureteral calculi or obstructive uropathy. Partial distention of the bladder with mild wall thickening. Uterus and adnexa appear unremarkable. Aorta and IVC are unremarkable. No adenopathy identified. No bowel obstruction or bowel wall thickening. The appendix is not diagnostically visualized. Bones a ppear to be intact. Tarlov cysts of the sacrum. Degenerative changes of the spine, pelvis and hips. H ealed remote left-sided rib fractures. Age-indeterminate compression deformity at L1 with 4 mm retrop ulsion. There is greater than 50% loss of the central vertebral body height. This finding is new from 08/07/2016. IMPRESSION: 1. 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 No ureteral calculi or obstructive uropathy identified. 2. No bowel obstruction or bowel wall thickening. 3. Nonvisualization of the appendix. 4. Mild wall thickening with partial distention of the urinary bladder. Correlate with urinalysis. 5. L1 compression deformity with greater than 50% loss of the central vertebral body height demonstra hesham 4 mm retropulsion. This is age-indeterminate, new from 08/07/2016. Correlate clinically. 6. Additional findings as above. Electronically signed by: Jose Luis Gutierrez M.D. 11/28/2018 7:46 AM
--- NOTE | 2018-11-28 07:48 | XRay Report ---
XR chest 1V portable CLINICAL HISTORY: Chest x-ray status post central line placement COMPARISON STUDY: 11/28/2018 FINDINGS: There has been interval placement of a right internal jugular central venous catheter. The tip projects over the superior vena cava. There is no pneumothorax. There is a nasogastric tube which passes into the stomach. There is an endotracheal tube 3 cm above the abi. The patient is hyperin flated. There is no focal pulmonary consolidation.[ IMPRESSION: No evidence of pneumothorax status post placement of a right internal jugular central anitha ous catheter. Electronically signed by: Zeferino Jeffries M.D. 11/28/2018 7:46 AM
[2018-11-28] MEDS: PIPERACILLIN/TAZOBACTAM 3.375 GM in DEXTROSE 5% 100 ML IV SCH ×2 (08:26→22:01)
[2018-11-28] MEDS: fentaNYL citrate 100 MCG/2 ML VIAL IV PRN ×9 (08:27→23:58)
[2018-11-28] MEDS: MIDAZOLAM HCL 1 MG/ML 2ML VIAL IV PRN ×6 (08:28→23:58)
--- NOTE | 2018-11-28 08:29 | Procedure Note ---
Procedure Note Date of Service November 28, 2018 I was contacted by Alonso Lancaster PA-C regarding assistance with sedation and intubation of this patient who was brought to the intensive care unit after failing BiPAP while being monitored on the floor. Patient with long-standing history of COPD and now septic. Patient was achieving adequate oxygenation while on BiPAP, however on ABG was found to be hypercapnic and had deterioration of her mentation. Patient unable to answer questions of my brief bedside exam and had markedly diminished breath sounds bilaterally. No evidence of acute pulmonary edema. Given patient's somnolence already, as well as Mr. Lancaster's description of patient's other comorbid conditions, patient given Versed IV under my supervision and Mr. Lancaster used a [facility] video laryngoscopy to visualize the patient's airway including vocal cords and pass a 7.5 ET tube without difficulty. No significant distortion of patient's anatomy, no airway edema, no significant discharge or blood was noted. Color change noted on capnometry, breath sounds heard bilaterally, no adventitious sounds with auscultation over the patient's stomach. Equal chest rise and fall noted with bagging. Mr. Lancaster then gave additional orders for post intubation sedation. Patient remained hemodynamically stable throughout. Chest x-ray ordered by Mr. Lancaster. Coding
[2018-11-28] MEDS ORDERED: ASPIRIN 81 MG ECTAB PO SCH (09:00)
--- NOTE | 2018-11-28 09:29 | Gastrointestinal Consultation ---
Date of Consultation November 28, 2018 Assessment & Plan (1) Acute respiratory failure with hypercapnia: 63 year old female admitted from ED to ICU w/ acute respiratory failure with hypercapnia requiring emergent endotracheal intubation for airway protection, KATHERINE and presumed sepsis from lower extremity wounds, right lower extremity DVT, anemia and heme positive stools. - NG to low, intermittent suction without any evidence of UGI source of heme positive stools - Trend HGB - Monitor and document all GI output - Transfuse PRN - IV PPI BID - Trend LFTs - No current plan for EGD/Colonoscopy given prior acute respiratory failure but will re-evaluate tomorrow. Thank you for allowing us to participate in the care of this patient. Please call with any acute changes, questions or concerns. Please see addendum below with additional recommendation from my supervising physician. Present on Admission?: Yes (2) COPD (chronic obstructive pulmonary disease): Present on Admission?: Yes (3) Admitted to intensive care unit: Present on Admission?: Yes (4) Anemia: Present on Admission?: Yes Supervising Physician Co-Signing Physician Notes I have seen and discussed the management with JANIYA Choe. 63 yo fm admitted with lethargy and respiratory failure now intubated. Reportedly heme + not active GI bleeding. PE - intubated, sedated, skin lesions all over that appear to be excoriations Labs reviewed, imaging reviewed IV PPI is fine. No current indication for scopes at this time. History of Present Illness Reason for Consultation: anemia, heme + stools Requesting Physician: Stephan Attending Physician: Sridhar Rothman MD History of Present Illness 63 year old female with history of CKD-3, COPD, left pulmonary nodule, left ventricular hypertrophy,diastolic dysfunction, cerebral microvascular disease, OA, RA previously refused colonoscopy admitted to the ICU from the ED w/ hypotension, acidosis, failure to thrive and organ dysfunction. Pt was seen and evaluated, chart reviewed. No family at bedside. Pt is intubated, unable to provide any history. Per nursing, report of heme + stools. They deny any black/bloody stools. She does have a NG to intermittent suction without any evidence of UGI bleed. EGD/Colon: none Duplex: Decreased ankle brachial indices of the left lower extremity compatible with moderate to severe peripheral arterial disease. Segmental pressures of the right lower extremity were not conducted secondary to deep venous thrombosis of the popliteal vein. Elevated peak systolic velocities within the right profunda femoris vein are suggestive of luminal narrowing secondary to atherosclerotic vascular disease. Chest XR: Interval placement of a nasogastric tube which passes into the stomach Endotracheal tube 4 cm above the abi Hyperinflation. No focal parenchymal consolidation Chest CT: Pulmonary emphysemaNo evidence of focal pulmonary consolidationNo evidence of pathologic adenopathySevere T11 and L1 vertebral body compression fractures, new when compared with the prior July [address] ABD: Horseshoe kidney with nonobstructing bilateral nephrolithiasis. No ureteral calculi or obstructive uropathy identified.No bowel obstruction or bowel wall thickening. Nonvisualization of the appendix. Mild wall thickening with partial distention of the urinary bladder. Correlate with urinalysis.L1 compression deformity with greater than 50% loss of the central vertebral body height demonstrates 4 mm retropulsion. This is age-indeterminate, new from 08/07/2016. Correlate clinically. Additional findings as above. Allergies Allergy/AdvReac Type Severity Reaction Status Date / Time Pork/Porcine Containing Allergy Intermediate Hives Verified 11/27/18 20:32 Products Home Medications Home Medications Medication Instructions Recorded Confirmed Type aspirin 81 mg PO DAILY 11/27/18 11/27/18 History diphenhydramine HCl [Benadryl 25 mg PO HS PRN 11/27/18 11/27/18 History Allergy] doxycycline hyclate 100 mg PO BID PRN 11/27/18 11/27/18 History fluticasone propion-salmeterol 2 puff INHALATION BID 11/27/18 11/27/18 History [Advair HFA] furosemide See Rx Instructions .ROUTE 11/27/18 11/27/18 History .COMPLEX PRN ipratropium bromide See Rx Instructions .ROUTE .COMPLEX 11/27/18 11/27/18 History levalbuterol tartrate 2 puff INHALATION Q4H PRN 11/27/18 11/27/18 History metoprolol succinate 50 mg PO DAILY 11/27/18 11/27/18 History naproxen sodium 440 mg PO QPM 11/27/18 11/27/18 History prednisone See Rx Instructions .ROUTE 11/27/18 11/27/18 History .COMPLEX PRN Patient History Medical History Anemia (Acute) Rheumatoid arthritis (Chronic) "chronic steroid use" Emphysema of lung (Chronic) Paroxysmal a-fib (Chronic) Tobacco abuse (Chronic) Hypoxia History of Clostridium difficile colitis (Chronic) Osteoarthritis (Chronic) Surgical History [place] teeth extracted (Resolved) Family History Other Cancer FHx: gallbladder disease Heart disease Kidney disease Social History Beliefs That Will Affect Care: None Current Living Situation: Family Other Information That Helps Us Care for You: No Feels Safe at Home: Yes Smoking Status: Current every day smoker Tobacco Type: cigarettes ; Cigarettes Per Day: 20 ; Hx Alcohol Use: No Hx Substance Use: No Review of Systems Review of Systems: Unobtainable due to cognitive status and Unobtainable due to endotracheal tube Physical Exam Constitutional: + acute distress, + ill appearing and + thin Neck: trachea midline Respiratory: normal respiratory effort, lungs clear to auscultation Cardiovascular: Rate/Rhythm: regular rate and regular rhythm Gastrointestinal (Abdomen): Inspection/Auscultation: normal bowel sounds Percussion/Palpation: abdomen soft; no guarding and abdomen not rigid Results & Data Vital Signs (Past 12 Hours) Vital Signs Temp Pulse Pulse Resp BP BP Pulse Ox 11/28/18 07:40 91 H 15 11/28/18 06:55 84 16 11/28/18 06:11 84 11/28/18 06:06 84 105/55 L 11/28/18 06:00 88 11/28/18 05:59 90 72/55 L 11/28/18 05:57 87 102/47 L 11/28/18 05:54 86 92/52 L 11/28/18 05:52 87 86/63 L 11/28/18 05:50 91 H 62/46 L 11/28/18 05:48 91 H 97/56 L 11/28/18 05:47 89 91/49 L 11/28/18 05:46 93 H 100/68 11/28/18 05:45 91 H 11/28/18 05:44 87 113/43 L 11/28/18 05:42 90 95/61 L 11/28/18 05:40 87 101/56 L 11/28/18 05:38 87 107/60 11/28/18 05:30 36.5 C 87 11/28/18 05:16 88 94/49 L 11/28/18 04:22 36.3 C L 81 22 92/61 L 11/28/18 03:10 86 20 11/28/18 00:30 36.4 C L 93 H 62 16 105/57 L 94 11/28/18 00:01 90 16 113/67 100 11/27/18 23:46 92 H 15 108/67 11/27/18 23:30 89 19 116/67 100 11/27/18 23:15 87 19 109/67 100 11/27/18 23:02 75 20 93 11/27/18 23:01 99 H 18 113/65 100 11/27/18 22:30 90 16 111/72 97 11/27/18 22:15 90 19 110/57 L 100 11/27/18 22:00 88 16 101/65 100 11/27/18 21:50 86 22 94 11/27/18 21:45 87 17 100/60 85 L 11/27/18 21:30 86 19 105/61 95 (1) Anemia Anemia type: unspecified type Qualified Code(s): D64.9 - Anemia, unspecified
[2018-11-28] MEDS ORDERED: PHYTONADIONE 2.5 MG in SODIUM CHLORIDE 0.9% 50 ML IV STA (10:27)
[2018-11-28] MEDS ORDERED: NORMOSOL-R 1,000 ML IV SCH (10:45)
[2018-11-28] MEDS ORDERED: HEPARIN IV BOLUS 3,000 UNITS in SYRINGE 0 ML IV ONE (11:00)
[2018-11-28 11:19] LABS: Hematocrit (blood only) 24.8 % (37-47)
[2018-11-28 11:27] LABS: Troponin I 0.095 ng/ml (0-0.045)
[2018-11-28 11:34] LABS: iSTAT Art Bld Gas pCO2 Correct 40 mmHg (35-46); iSTAT Art Bld Gas pH Corrected 7.358 (7.35-7.45); iSTAT Arterial Blood Gas HCO3 22 meg/L (19-24); iSTAT Arterial Blood Gas pCO2 41 mmHg (35-46); iSTAT Arterial Blood Gas pH 7.35 (7.35-7.45); iSTAT Arterial Blood Gas pO2 141 mmHg (80-95); iSTAT Arterial Blood Gas pO2 C 138; iSTAT Carbon Dioxide 24 mEq/l (24-31); iSTAT Hematocrit 21 % (37-47); iSTAT Hemoglobin 7.1 g/dl (12.0-16.0); iSTAT Potassium 4.3 mEq/L (3.3-5.0); iSTAT Site Art Line; iSTAT Sodium 142 mEq/L (135-144)
--- NOTE | 2018-11-28 13:05 | Pharmacy Report ---
Pharmacy Abx Dose Short Note - Date of Service November 28, 2018 - Assessment & Plan Assessment * 63 year old F receiving VANCOMYCIN + ZOSYN for treatment of sepsis, possibly due to cellulitis of lower extremity w/ open weeping wound * Day # 1 of antimicrobial therapy. * Pt is now intubated for worsening resp fxn. Pt presented w/ hypotension, KATHERINE and transaminitis including elevated INR * Pt has h/o malnutrition, CKD3, COPD and RA with frequent prednisone use * MRSA nasal swab was negative however this does not r/o MRSA in wound/cellulitis * BLCX's pending, MAPs trending in the 60s-70s range this AM, currently afebrile Plan Vancomycin * Dosing will be challenging in the patient with underlying malnutrition and uncertain baseline SCr * Urine output poor at this time, would estimate eCrCl < 20cc/min at this time * She did receive ~21mg/kg load of vancomycin overnight (750mg IV x 1) * Will check random level with AM labs tomorrow to determine if redosing required as estimated half life > 24 hrs * Goal trough level for sepsis : 15 to 20 mcg/mL Zosyn * BMI 15.5, eCrCl < 20cc/min * continue 3.375gm ext-infusion Q 12 hrs Pharmacy will continue to follow and will adjust dose/frequency as necessary. Thank you.
[2018-11-28] MEDS: Heparin Adult STANDARD Wt-Based Dextrose 5% 25,000 units/500 mL IV SCH ×2 (13:11→13:55)
[2018-11-28] MEDS: NORMOSOL-R 1,000 ML IV SCH ×2 (13:11→23:59)
[2018-11-28 13:45] LABS: Partial Thromboplastin Ratio 1.1; Partial Thromboplastin Time 30.8 Seconds (21.0-31.0)
[2018-11-28 14:05] LABS: Albumin Level 2.2 gm/dl (3.4-5.0); BUN Creatinine Ratio 39.9 (10-20); Creatinine Clr Calc Pharmacy 15.6 ml/min; Est GFR (African American) 28.6; Est GFR (Non-African American) 24.7; Potassium 4.6 mmol/L (3.5-5.1)
[2018-11-28 14:13] LABS: Albumin Globulin Ratio 1.1 (0.9-2); Bilirubin,Total 0.7 mg/dl (0.2-1); Total Protein 4.2 gm/dl (6.4-8.2)
--- NOTE | 2018-11-28 16:23 | Critical Care Progress Note ---
Date of Service November 28, 2018 Assessment & Plan (1) Admitted to intensive care unit: Reason Critically Ill: Acute respiratory failure with hypercapnia requiring emergent endotracheal intubation for airway protection. GI bleed with heme positive stools. Also with KATHERINE and presumed sepsis from lower extremity wounds. NEURO - CAM ICU: POSITIVE Sedation: Fentanyl and Versed PRN AMS- Likely multifactorial in the setting of renal failure with uremia as well as hypercapnia. L1 compression deformity- Ortho consulted Spinal Precautions DTR intact along with bulbocavernosus reflex CARDIAC/VASCULAR - Hypotension: Likely secondary to hypovolemia and degree of sepsis. Normosol at 80- seems to be responding appropriately Have not needed pressors yet Severe PVD Peripheral arterial disease with new findings of RIGHT popliteal DVT. RESPIRATORY - Acute respiratory failure with hypercapnia: resolved Chronic COPD with exacerbation. Requiring endotracheal intubation secondary to severe respiratory acidosis- resolved acidosis Aggressive pulmonary toilet. GI/NUTRITION - Anemia and heme positive stools: Currently on IV Protonix 40 mg BID NG to low, intermittent suction without any evidence of UGI source of heme positive stools Cont trend Hgb and transfuse prn Appreciate GI recommendations RENAL/LYTES - Acute kidney injury: Likely secondary to hypovolemia from poor p.o. intake. Normosol at 80 - Noonan in place - Strict I&Os. ENDO - No history of diabetes or thyroid disease. BSGs per unit protocol. ISS --> gtt per unit policy. HEME - Anemia- We will continue to trend in the setting of GI bleed. ID - Concerns for sepsis secondary to possible cellulitis of the lower extremity. Currently on vancomycin and Zosyn. Lactate normal LINES/IV ACCESS -PIVs x2, RIGHT IJ, LEFT radial arterial line, ET tube, Noonan DVT PROPHYLAXIS -Hold secondary to GI bleed, SCDs FULL CODE DISPO: ICU Supervising Physician Co-Signing Physician Notes Dr. Magallanes was resident physician during care of patient. I separately evaluated patient for van portions of the history and the exam. I was present during the critical portion of medical decision making, and I discussed the case with the resident. I generally agree with the findings and plan. We are starting a heparin infusion as the patient has what is presumptively an acute DVT, there was report of the ED of heme positive stools however rectal exam did not demonstrate guaiac positive. I feel the risks of gastrointestinal hemorrhage versus the risk of clot extension are outweighed by clot extension we will continue with heparin anticoagulation. Clinical update. The patient's H&H continued to downtrend we transfused 2 units of packed red blood cells was more than adequate response. Patient is requiring isolation for a severe case of lice. Office of aging has been notified. Subjective 63 yo F found in bed this AM. No family at bedside. Pt is intubated, unable to provide any history. No other acute concerns or complaints. Review of Systems Review of Systems: Unobtainable due to endotracheal tube Physical Exam Constitutional: + frail appearing and + mechanically ventilated Hair with abundant lice Respiratory: normal respiratory effort, lungs clear to auscultation Cardiovascular: RRR, no murmur, no edema Gastrointestinal (Abdomen): normal bowel sounds, soft, nontender, no hepatosplenomegaly Skin: Cold LE b/l R LE slight erythema Results & Data Vital Signs (Past 12 Hours) Vital Signs Temp Pulse Pulse Resp BP BP Pulse Ox 11/28/18 15:00 85 100 11/28/18 14:00 79 11/28/18 13:31 98 H 14 100 11/28/18 13:00 88 100 11/28/18 12:01 80 83/42 L 100 11/28/18 11:25 92 H 14 100 11/28/18 11:00 86 102/44 L 100 11/28/18 10:02 85 11/28/18 10:00 84 99 11/28/18 09:49 87 90/50 L 11/28/18 09:00 88 11/28/18 08:30 90 91/41 L 11/28/18 08:15 92 H 89/43 L 11/28/18 08:01 107 H 86/56 L 11/28/18 07:45 90 93/55 L 11/28/18 07:40 91 H 15 11/28/18 07:31 92 H 98/54 L 11/28/18 07:15 90 116/52 L 11/28/18 07:02 92 H 104/53 L 11/28/18 06:55 84 16 11/28/18 06:11 84 11/28/18 06:06 84 105/55 L 11/28/18 06:00 88 11/28/18 05:59 90 72/55 L 11/28/18 05:57 87 102/47 L 11/28/18 05:54 86 92/52 L 11/28/18 05:52 87 86/63 L 11/28/18 05:50 91 H 62/46 L 11/28/18 05:48 91 H 97/56 L 11/28/18 05:47 89 91/49 L 11/28/18 05:46 93 H 100/68 11/28/18 05:45 91 H 11/28/18 05:44 87 113/43 L 11/28/18 05:42 90 95/61 L 11/28/18 05:40 87 101/56 L 11/28/18 05:38 87 107/60 11/28/18 05:30 36.5 C 87 11/28/18 05:16 88 94/49 L 11/28/18 04:22 36.3 C L 81 22 92/61 L Laboratory Results Laboratory Results - last 24 hr 11/27/18 11/27/18 11/27/18 20:00 21:00 21:22 WBC RBC Hgb POC Hgb Hct POC Hct MCV MCH MCHC RDW Std Deviation RDW Coeff of Melecio Plt Count MPV Immature Gran % (Auto) Neut % (Auto) Lymph % (Auto) Terry % (Auto) Eos % (Auto) Baso % (Auto) Immature Gran # (Auto) Neut # (Auto) Lymph # (Auto) Terry # (Auto) Eos # (Auto) Baso # (Auto) Absolute Nucleated RBC Nucleated RBC % (auto) Polychromasia Hypochromasia Anisocytosis PT 14.1 H INR 1.4 H APTT PTT Ratio Sample Site POC pH POC pCO2 POC pO2 POC HCO3 POC Total CO2 POC Base Excess ABG pH 7.18 L* ABG pH (Temp Correct) ABG pCO2 71 H ABG pCO2 (Temp Corrct ABG pO2 65 L POC ABG pO2 at Pt Temp ABG HCO3 26 H POC ABG O2 Sat ABG O2 Saturation 84.4 L ABG Base Excess -2.8 Dick Test POS Barometric Pressure 738.4 Oxygen Given 4L O2 O2 Delivery Device POC O2 Rate POC FiO2 Tidal Volume PEEP IPAP POC Sodium Sodium POC Potassium Potassium Chloride Carbon Dioxide Anion Gap BUN Creatinine Est Cr Clr Drug Dosing Est GFR ( Amer) Est GFR (Non-Af Amer) BUN/Creatinine Ratio Glucose POC Glucose POC Lactic Acid Patrice Lactate Calcium Ionized Calcium Phosphorus Magnesium Total Bilirubin Direct Bilirubin AST ALT Alkaline Phosphatase Total Creatine Kinase Troponin I Total Protein Albumin Globulin Albumin/Globulin Ratio TSH Random Cortisol Urine Color Dark Yellow Urine Appearance Clear Urine pH 5.0 Ur Specific [place] 1.018 Urine Protein Trace H Urine Glucose (UA) Negative Urine Ketones Negative Urine Blood Trace H Urine Nitrite Negative Urine Bilirubin Negative Urine Urobilinogen Negative Ur Leukocyte Esterase Negative Urine WBC (Auto) 5-10 H Urine RBC (Auto) 5-10 H U Hyaline Cast (Auto) 10-30 H U Epithel Cells (Auto) 10-20 H Urine Bacteria (Auto) Negative Granular Casts 1-5 H Nasal Screen MRSA (PCR) Hepatitis C Ab Screen Blood Type Blood Type Recheck Antibody Screen 11/27/18 11/27/18 11/27/18 21:22 21:22 21:22 WBC 22.90 H RBC 3.48 L Hgb 8.4 L POC Hgb Hct 29.9 L POC Hct MCV 85.9 MCH 24.1 L MCHC 28.1 L RDW Std Deviation 54.4 H RDW Coeff of Melecio 17.4 H Plt Count 298 MPV 11.3 H Immature Gran % (Auto) 0.4 Neut % (Auto) 91.8 Lymph % (Auto) 1.4 Terry % (Auto) 6.4 Eos % (Auto) 0.0 Baso % (Auto) 0.0 Immature Gran # (Auto) 0.10 H Neut # (Auto) 21.01 H Lymph # (Auto) 0.31 L Terry # (Auto) 1.46 H Eos # (Auto) 0.01 Baso # (Auto) 0.01 Absolute Nucleated RBC 0.70 H Nucleated RBC % (auto) 3.0 Polychromasia 1+ Hypochromasia Present Anisocytosis Present PT INR APTT PTT Ratio Sample Site POC pH POC pCO2 POC pO2 POC HCO3 POC Total CO2 POC Base Excess ABG pH ABG pH (Temp Correct) ABG pCO2 ABG pCO2 (Temp Corrct ABG pO2 POC ABG pO2 at Pt Temp ABG HCO3 POC ABG O2 Sat ABG O2 Saturation ABG Base Excess Dick Test Barometric Pressure Oxygen Given O2 Delivery Device POC O2 Rate POC FiO2 Tidal Volume PEEP IPAP POC Sodium Sodium 143 POC Potassium Potassium 5.2 H Chloride 107 Carbon Dioxide 27 Anion Gap 9.0 BUN 98 H Creatinine 2.47 H Est Cr Clr Drug Dosing Not Reportable Est GFR ( Amer) 23.1 Est GFR (Non-Af Amer) 19.9 BUN/Creatinine Ratio 39.7 H Glucose 96 POC Glucose POC Lactic Acid Patrice Lactate Calcium 8.7 Ionized Calcium Phosphorus Magnesium 2.4 Total Bilirubin 0.8 Direct Bilirubin AST 495 H ALT 475 H Alkaline Phosphatase 70 Total Creatine Kinase 116 Troponin I 0.074 H* Total Protein 5.0 L Albumin 2.5 L Globulin 2.5 Albumin/Globulin Ratio 1.0 TSH 0.345 Random Cortisol Urine Color Urine Appearance Urine pH Ur Specific [place] Urine Protein Urine Glucose (UA) Urine Ketones Urine Blood Urine Nitrite Urine Bilirubin Urine Urobilinogen Ur Leukocyte Esterase Urine WBC (Auto) Urine RBC (Auto) U Hyaline Cast (Auto) U Epithel Cells (Auto) Urine Bacteria (Auto) Granular Casts Nasal Screen MRSA (PCR) Hepatitis C Ab Screen Blood Type B Positive Blood Type Recheck Antibody Screen NEGATIVE 11/27/18 11/28/18 11/28/18 21:29 01:22 04:04 WBC RBC Hgb POC Hgb Hct POC Hct MCV MCH MCHC RDW Std Deviation RDW Coeff of Melecio Plt Count MPV Immature Gran % (Auto) Neut % (Auto) Lymph % (Auto) Terry % (Auto) Eos % (Auto) Baso % (Auto) Immature Gran # (Auto) Neut # (Auto) Lymph # (Auto) Terry # (Auto) Eos # (Auto) Baso # (Auto) Absolute Nucleated RBC Nucleated RBC % (auto) Polychromasia Hypochromasia Anisocytosis PT INR APTT PTT Ratio Sample Site R Radial POC pH 7.14 L* POC pCO2 85 H POC pO2 > 420 H POC HCO3 29 H POC Total CO2 31 POC Base Excess 0.0 ABG pH ABG pH (Temp Correct) ABG pCO2 ABG pCO2 (Temp Corrct ABG pO2 POC ABG pO2 at Pt Temp ABG HCO3 POC ABG O2 Sat 100.0 H ABG O2 Saturation ABG Base Excess Dick Test Pass Barometric Pressure Oxygen Given O2 Delivery Device BIPAP POC O2 Rate 19 POC FiO2 100 Tidal Volume PEEP IPAP 14 POC Sodium Sodium POC Potassium Potassium Chloride Carbon Dioxide Anion Gap BUN Creatinine Est Cr Clr Drug Dosing Est GFR ( Amer) Est GFR (Non-Af Amer) BUN/Creatinine Ratio Glucose POC Glucose POC Lactic Acid Patrice 1.70 Lactate Calcium Ionized Calcium Phosphorus Magnesium Total Bilirubin Direct Bilirubin AST ALT Alkaline Phosphatase Total Creatine Kinase Troponin I 0.070 H* Total Protein Albumin Globulin Albumin/Globulin Ratio TSH Random Cortisol Urine Color Urine Appearance Urine pH Ur Specific [place] Urine Protein Urine Glucose (UA) Urine Ketones Urine Blood Urine Nitrite Urine Bilirubin Urine Urobilinogen Ur Leukocyte Esterase Urine WBC (Auto) Urine RBC (Auto) U Hyaline Cast (Auto) U Epithel Cells (Auto) Urine Bacteria (Auto) Granular Casts Nasal Screen MRSA (PCR) Hepatitis C Ab Screen Blood Type Blood Type Recheck Antibody Screen 11/28/18 11/28/18 11/28/18 05:34 05:34 05:34 WBC 26.79 H RBC 3.28 L Hgb 7.9 L POC Hgb Hct 28.6 L POC Hct MCV 87.2 MCH 24.1 L MCHC 27.6 L RDW Std Deviation 56.0 H RDW Coeff of Melecio 17.4 H Plt Count 253 MPV 10.7 H Immature Gran % (Auto) 0.7 Neut % (Auto) 90.4 Lymph % (Auto) 2.1 Terry % (Auto) 6.7 Eos % (Auto) 0.0 Baso % (Auto) 0.1 Immature Gran # (Auto) 0.19 H Neut # (Auto) 24.23 H Lymph # (Auto) 0.56 L Terry # (Auto) 1.79 H Eos # (Auto) 0.00 Baso # (Auto) 0.02 Absolute Nucleated RBC 1.03 H Nucleated RBC % (auto) 3.9 Polychromasia 1+ Hypochromasia Present Anisocytosis PT INR APTT PTT Ratio Sample Site POC pH POC pCO2 POC pO2 POC HCO3 POC Total CO2 POC Base Excess ABG pH ABG pH (Temp Correct) ABG pCO2 ABG pCO2 (Temp Corrct ABG pO2 POC ABG pO2 at Pt Temp ABG HCO3 POC ABG O2 Sat ABG O2 Saturation ABG Base Excess Dick Test Barometric Pressure Oxygen Given O2 Delivery Device POC O2 Rate POC FiO2 Tidal Volume PEEP IPAP POC Sodium Sodium 143 POC Potassium Potassium 5.4 H Chloride 108 H Carbon Dioxide 25 Anion Gap 10.0 BUN 90 H Creatinine 2.46 H Est Cr Clr Drug Dosing 13.1 Est GFR ( Amer) 23.2 Est GFR (Non-Af Amer) 20.0 BUN/Creatinine Ratio 36.6 H Glucose 82 POC Glucose POC Lactic Acid Patrice Lactate Calcium 8.0 L Ionized Calcium Phosphorus 7.3 H Magnesium 2.3 Total Bilirubin 0.6 Direct Bilirubin 0.3 H AST 573 H ALT 585 H Alkaline Phosphatase 70 Total Creatine Kinase Troponin I 0.078 H* Total Protein 4.8 L Albumin 2.5 L Globulin Albumin/Globulin Ratio TSH Random Cortisol Urine Color Urine Appearance Urine pH Ur Specific [place] Urine Protein Urine Glucose (UA) Urine Ketones Urine Blood Urine Nitrite Urine Bilirubin Urine Urobilinogen Ur Leukocyte Esterase Urine WBC (Auto) Urine RBC (Auto) U Hyaline Cast (Auto) U Epithel Cells (Auto) Urine Bacteria (Auto) Granular Casts Nasal Screen MRSA (PCR) Hepatitis C Ab Screen Blood Type Blood Type Recheck Antibody Screen 11/28/18 11/28/18 11/28/18 05:34 05:34 05:35 WBC RBC Hgb POC Hgb Hct POC Hct MCV MCH MCHC RDW Std Deviation RDW Coeff of Melecio Plt Count MPV Immature Gran % (Auto) Neut % (Auto) Lymph % (Auto) Terry % (Auto) Eos % (Auto) Baso % (Auto) Immature Gran # (Auto) Neut # (Auto) Lymph # (Auto) Terry # (Auto) Eos # (Auto) Baso # (Auto) Absolute Nucleated RBC Nucleated RBC % (auto) Polychromasia Hypochromasia Anisocytosis PT INR APTT PTT Ratio Sample Site Art Line POC pH 7.11 L* POC pCO2 92 H POC pO2 410 H POC HCO3 29 H POC Total CO2 32 H POC Base Excess 0.0 ABG pH ABG pH (Temp Correct) 7.116 L* ABG pCO2 ABG pCO2 (Temp Corrct 90 H ABG pO2 POC ABG pO2 at Pt Temp 407 ABG HCO3 POC ABG O2 Sat 100.0 H ABG O2 Saturation ABG Base Excess Dick Test NA Barometric Pressure Oxygen Given O2 Delivery Device BIPAP POC O2 Rate 12 POC FiO2 40 Tidal Volume PEEP IPAP 14 POC Sodium Sodium POC Potassium Potassium Chloride Carbon Dioxide Anion Gap BUN Creatinine Est Cr Clr Drug Dosing Est GFR ( Amer) Est GFR (Non-Af Amer) BUN/Creatinine Ratio Glucose POC Glucose POC Lactic Acid Patrice Lactate Calcium Ionized Calcium Phosphorus Magnesium Total Bilirubin Direct Bilirubin AST ALT Alkaline Phosphatase Total Creatine Kinase Troponin I Total Protein Albumin Globulin Albumin/Globulin Ratio TSH Random Cortisol 42.54 Urine Color Urine Appearance Urine pH Ur Specific [place] Urine Protein Urine Glucose (UA) Urine Ketones Urine Blood Urine Nitrite Urine Bilirubin Urine Urobilinogen Ur Leukocyte Esterase Urine WBC (Auto) Urine RBC (Auto) U Hyaline Cast (Auto) U Epithel Cells (Auto) Urine Bacteria (Auto) Granular Casts Nasal Screen MRSA (PCR) Hepatitis C Ab Screen Neg Blood Type Blood Type Recheck Antibody Screen 11/28/18 11/28/18 11/28/18 06:15 06:32 06:57 WBC RBC Hgb POC Hgb Hct POC Hct MCV MCH MCHC RDW Std Deviation RDW Coeff of Melecio Plt Count MPV Immature Gran % (Auto) Neut % (Auto) Lymph % (Auto) Terry % (Auto) Eos % (Auto) Baso % (Auto) Immature Gran # (Auto) Neut # (Auto) Lymph # (Auto) Terry # (Auto) Eos # (Auto) Baso # (Auto) Absolute Nucleated RBC Nucleated RBC % (auto) Polychromasia Hypochromasia Anisocytosis PT INR APTT PTT Ratio Sample Site POC pH POC pCO2 POC pO2 POC HCO3 POC Total CO2 POC Base Excess ABG pH ABG pH (Temp Correct) ABG pCO2 ABG pCO2 (Temp Corrct ABG pO2 POC ABG pO2 at Pt Temp ABG HCO3 POC ABG O2 Sat ABG O2 Saturation ABG Base Excess Dick Test Barometric Pressure Oxygen Given O2 Delivery Device POC O2 Rate POC FiO2 Tidal Volume PEEP IPAP POC Sodium Sodium POC Potassium Potassium Chloride Carbon Dioxide Anion Gap BUN Creatinine Est Cr Clr Drug Dosing Est GFR ( Amer) Est GFR (Non-Af Amer) BUN/Creatinine Ratio Glucose POC Glucose 60 L* 147 H POC Lactic Acid Patrice Lactate Calcium Ionized Calcium Phosphorus Magnesium Total Bilirubin Direct Bilirubin AST ALT Alkaline Phosphatase Total Creatine Kinase Troponin I Total Protein Albumin Globulin Albumin/Globulin Ratio TSH Random Cortisol Urine Color Urine Appearance Urine pH Ur Specific [place] Urine Protein Urine Glucose (UA) Urine Ketones Urine Blood Urine Nitrite Urine Bilirubin Urine Urobilinogen Ur Leukocyte Esterase Urine WBC (Auto) Urine RBC (Auto) U Hyaline Cast (Auto) U Epithel Cells (Auto) Urine Bacteria (Auto) Granular Casts Nasal Screen MRSA (PCR) Negative Hepatitis C Ab Screen Blood Type Blood Type Recheck Antibody Screen 11/28/18 11/28/18 11/28/18 10:44 10:44 10:44 WBC RBC Hgb 7.0 L POC Hgb Hct 24.8 L POC Hct MCV MCH MCHC RDW Std Deviation RDW Coeff of Melecio Plt Count MPV Immature Gran % (Auto) Neut % (Auto) Lymph % (Auto) Terry % (Auto) Eos % (Auto) Baso % (Auto) Immature Gran # (Auto) Neut # (Auto) Lymph # (Auto) Terry # (Auto) Eos # (Auto) Baso # (Auto) Absolute Nucleated RBC Nucleated RBC % (auto) Polychromasia Hypochromasia Anisocytosis PT INR APTT PTT Ratio Sample Site POC pH POC pCO2 POC pO2 POC HCO3 POC Total CO2 POC Base Excess ABG pH ABG pH (Temp Correct) ABG pCO2 ABG pCO2 (Temp Corrct ABG pO2 POC ABG pO2 at Pt Temp ABG HCO3 POC ABG O2 Sat ABG O2 Saturation ABG Base Excess Dick Test Barometric Pressure Oxygen Given O2 Delivery Device POC O2 Rate POC FiO2 Tidal Volume PEEP IPAP POC Sodium Sodium POC Potassium Potassium Chloride Carbon Dioxide Anion Gap BUN Creatinine Est Cr Clr Drug Dosing Est GFR ( Amer) Est GFR (Non-Af Amer) BUN/Creatinine Ratio Glucose POC Glucose POC Lactic Acid Patrice Lactate 1.4 Calcium Ionized Calcium Phosphorus Magnesium Total Bilirubin Direct Bilirubin AST ALT Alkaline Phosphatase Total Creatine Kinase 635 H Troponin I 0.095 H* Total Protein Albumin Globulin Albumin/Globulin Ratio TSH Random Cortisol Urine Color Urine Appearance Urine pH Ur Specific [place] Urine Protein Urine Glucose (UA) Urine Ketones Urine Blood Urine Nitrite Urine Bilirubin Urine Urobilinogen Ur Leukocyte Esterase Urine WBC (Auto) Urine RBC (Auto) U Hyaline Cast (Auto) U Epithel Cells (Auto) Urine Bacteria (Auto) Granular Casts Nasal Screen MRSA (PCR) Hepatitis C Ab Screen Blood Type Blood Type Recheck Antibody Screen 11/28/18 11/28/18 11/28/18 10:44 10:44 10:44 WBC RBC Hgb POC Hgb Hct POC Hct MCV MCH MCHC RDW Std Deviation RDW Coeff of Melecio Plt Count MPV Immature Gran % (Auto) Neut % (Auto) Lymph % (Auto) Terry % (Auto) Eos % (Auto) Baso % (Auto) Immature Gran # (Auto) Neut # (Auto) Lymph # (Auto) Terry # (Auto) Eos # (Auto) Baso # (Auto) Absolute Nucleated RBC Nucleated RBC % (auto) Polychromasia Hypochromasia Anisocytosis PT INR APTT PTT Ratio Sample Site POC pH POC pCO2 POC pO2 POC HCO3 POC Total CO2 POC Base Excess ABG pH ABG pH (Temp Correct) ABG pCO2 ABG pCO2 (Temp Corrct ABG pO2 POC ABG pO2 at Pt Temp ABG HCO3 POC ABG O2 Sat ABG O2 Saturation ABG Base Excess Dick Test Barometric Pressure Oxygen Given O2 Delivery Device POC O2 Rate POC FiO2 Tidal Volume PEEP IPAP POC Sodium Sodium POC Potassium Potassium Chloride Carbon Dioxide Anion Gap BUN Creatinine Est Cr Clr Drug Dosing Est GFR ( Amer) Est GFR (Non-Af Amer) BUN/Creatinine Ratio Glucose POC Glucose POC Lactic Acid Patrice Lactate Calcium Ionized Calcium 1.04 L Phosphorus Magnesium Total Bilirubin Direct Bilirubin AST ALT Alkaline Phosphatase Total Creatine Kinase Troponin I Total Protein Albumin Globulin Albumin/Globulin Ratio TSH Random Cortisol Urine Color Urine Appearance Urine pH Ur Specific [place] Urine Protein Urine Glucose (UA) Urine Ketones Urine Blood Urine Nitrite Urine Bilirubin Urine Urobilinogen Ur Leukocyte Esterase Urine WBC (Auto) Urine RBC (Auto) U Hyaline Cast (Auto) U Epithel Cells (Auto) Urine Bacteria (Auto) Granular Casts Nasal Screen MRSA (PCR) Hepatitis C Ab Screen Blood Type Cancelled Blood Type Recheck B Positive Antibody Screen Cancelled 11/28/18 11/28/18 11/28/18 11:19 13:24 13:24 WBC RBC Hgb POC Hgb 7.1 L Hct POC Hct 21 L MCV MCH MCHC RDW Std Deviation RDW Coeff of Melecio Plt Count MPV Immature Gran % (Auto) Neut % (Auto) Lymph % (Auto) Terry % (Auto) Eos % (Auto) Baso % (Auto) Immature Gran # (Auto) Neut # (Auto) Lymph # (Auto) Terry # (Auto) Eos # (Auto) Baso # (Auto) Absolute Nucleated RBC Nucleated RBC % (auto) Polychromasia Hypochromasia Anisocytosis PT INR APTT 30.8 PTT Ratio 1.1 Sample Site Art Line POC pH 7.35 POC pCO2 41 POC pO2 141 H POC HCO3 22 POC Total CO2 24 POC Base Excess -3.0 ABG pH ABG pH (Temp Correct) 7.358 ABG pCO2 ABG pCO2 (Temp Corrct 40 ABG pO2 POC ABG pO2 at Pt Temp 138 ABG HCO3 POC ABG O2 Sat ABG O2 Saturation ABG Base Excess Dick Test NA Barometric Pressure Oxygen Given O2 Delivery Device Ventilator POC O2 Rate 14 POC FiO2 Tidal Volume 400 PEEP 5 IPAP POC Sodium 142 Sodium 144 POC Potassium 4.3 Potassium 4.6 Chloride 112 H Carbon Dioxide 22 Anion Gap 10.0 BUN 83 H Creatinine 2.07 H D Est Cr Clr Drug Dosing 15.6 Est GFR ( Amer) 28.6 Est GFR (Non-Af Amer) 24.7 BUN/Creatinine Ratio 39.9 H Glucose 69 L POC Glucose POC Lactic Acid Patrice Lactate Calcium 8.0 L Ionized Calcium Phosphorus Magnesium Total Bilirubin 0.7 Direct Bilirubin AST 417 H ALT 514 H Alkaline Phosphatase 65 Total Creatine Kinase Troponin I Total Protein 4.2 L Albumin 2.2 L Globulin 2.0 L Albumin/Globulin Ratio 1.1 TSH Random Cortisol Urine Color Urine Appearance Urine pH Ur Specific [place] Urine Protein Urine Glucose (UA) Urine Ketones Urine Blood Urine Nitrite Urine Bilirubin Urine Urobilinogen Ur Leukocyte Esterase Urine WBC (Auto) Urine RBC (Auto) U Hyaline Cast (Auto) U Epithel Cells (Auto) Urine Bacteria (Auto) Granular Casts Nasal Screen MRSA (PCR) Hepatitis C Ab Screen Blood Type Blood Type Recheck Antibody Screen Medications Administered Current Inpatient Medications Acetaminophen (Tylenol) 650 mg PO Q4H PRN PRN Reason: Pain or Fever Stop: 12/28/18 00:43 Aspirin (Ecotrin Ectab) 81 mg PO DAILY JHONY Stop: 12/28/18 08:59 Last Admin: 11/28/18 07:47 Dose: Not Given Documented by: Diphenhydramine HCl (Benadryl Capsule) 25 mg PO HS PRN PRN Reason: Allergy Symptoms Fentanyl Citrate (Fentanyl Citrate) 25 mcg IV Q2H PRN PRN Reason: Moderate Pain (4,5,6) Stop: 12/12/18 05:54 Last Admin: 11/28/18 16:28 Dose: 25 mcg Documented by: Piperacillin Sod/Tazobactam (Sod 3.375 gm/ Dextrose) 115 mls @ 28.75 mls/hr IV Q12H JHONY; Protocol Stop: 12/08/18 09:59 Last Infusion: 11/28/18 12:30 Dose: Infused Documented by: Heparin Sodium/Dextrose (Heparin Sodium/Dextrose) 25,000 units in 500 mls @ 13 mls/hr IV .Q24H JHONY; Protocol Stop: 12/28/18 10:59 Last Admin: 11/28/18 13:55 Dose: 650 units/hr, 13 mls/hr Documented by: Parenteral Electrolytes (Normosol-R) 1,000 mls @ 80 mls/hr IV .[id number] [facility] Stop: 12/28/18 10:44 Last Admin: 11/28/18 13:11 Dose: 80 mls/hr Documented by: Pantoprazole Sodium 40 mg/ (Syringe) 10 mls @ 5 mls/min IV BID@0900,2100 [facility] Stop: 12/28/18 20:59 Ipratropium Aptos (Atrovent 0.02% 0.5mg/2.5ml) 0.5 mg INH Q4R PRN PRN Reason: Shortness Of Breath Or Wheezing Stop: 12/28/18 00:43 Levalbuterol HCl (Xopenex 1.25mg/0.5ml Neb) 1.25 mg INH Q4R PRN PRN Reason: Shortness Of Breath Or Wheezing Stop: 12/28/18 00:43 Levalbuterol HCl (Xopenex Hfa) 2 puffs INH Q4H PRN PRN Reason: Wheezing Stop: 12/28/18 00:43 Midazolam HCl (Versed) 1 mg IV Q2H PRN PRN Reason: agitation/anxiety Stop: 12/28/18 05:54 Last Admin: 11/28/18 15:20 Dose: 1 mg Documented by: Miscellaneous (Icu Protocol For Hyperglycemia) 1 ea N/A PRN PRN; Protocol PRN Reason: Hyperglycemia Protocol Stop: 11/30/18 05:54 Miscellaneous Information (Consult) 1 ea N/A UD PRN PRN Reason: Consult Stop: 12/28/18 00:43 Miscellaneous Information (Consult) 1 ea N/A UD PRN PRN Reason: Consult Stop: 12/28/18 00:43 Nitroglycerin (Nitrostat) 0.4 mg SL UD PRN PRN Reason: Chest Pain Stop: 12/28/18 00:43 Ondansetron HCl (Zofran) 4 mg IV Q6H PRN PRN Reason: Nausea Stop: 12/28/18 00:43 Fluticasone/Salmeterol (Advair Diskus 250/50) 1 puffs INH BID [facility] Stop: 12/28/18 08:59 Last Admin: 11/28/18 07:46 Dose: Not Given Documented by: PG Care Time/CCT Total # of Minutes Spent Total Time Spent with Patient: Total time spent is greater than 50% in coordination of care (as documented) at patient's floor/unit and/or counseling patient: Critical Care Time: Yes Total Critical Care Time: 45 Resident Activity Tracking Resident Involvement: Resident Care Provided Care Provided: Adult Hospital Medicine
--- NOTE | 2018-11-28 17:06 | Hospitalist Progress Note ---
Date of Service November 28, 2018 Assessment & Plan (1) Acute respiratory failure with hypercapnia: ASSESSMENT AND PLAN: This is a 63-year-old female who lives with her daughter, history of chronic obstructive pulmonary disease, diastolic dysfunction, tobacco use disorder, presents with altered mental status. Altered mental status and lethargy, metabolic encephalopathy, mostly secondary to CO2 narcosis and also could be uremic encephalopathy because her BUN is 98. --History of COPD --Currently intubated ABG improved, respiratory acidosis resolved Hypotension --Possible component of sepsis --Cultures: Pending --Empiric Zosyn Acute kidney injury on chronic kidney disease stage III. Baseline creatinine of 1 and BUN around 20.Currently creatinine is 2.4 and BUN is 98. Getting fluids. --Continue Normosol Transaminitis, most likely secondary to hypotension. --Monitor LFTs Elevated troponin, most likely from above. -- 0.07, 0.07, 0.09 Anemia. Hemoglobin 8.4. Hemoccult positive stools in the ER, but there are no signs of obvious bleeding. -- ff up Hg trend Protonix drip GI consulted, no plans for EGD/Colonosopy at this time Right popliteal DVT --Heparin drip ordered History of diastolic congestive heart failure, left ventricular hypertrophy, on Lasix 20 mg 3-7 tablets a week. -- Currently holding the Lasix because of hypotension. repeat Echo ordered Lower extremity edema, is cool on palpation. As per daughter, she notes that for the last couple of days they are cold, but as per patient they are cold for last couple of weeks. Will follow the arterial ultrasound report. Possible lower extremity cellulitis, right lower extremity cellulitis. Antibiotics as above. Follow the cultures. History of breast lesion a couple of years ago. I do not see any mammogram. We will follow the CAT chest scan results. Malnutrition. The patient is thin and frail. Nutrition consult when patient is stable. osteoarthritis/RA. We will hold the naproxen for now. Hypertension. Hold the Toprol XL for now, hold diuretics for now. Tobacco abuse disorder, needs counseling. Deep venous thrombosis prophylaxis,heparin drip Disposition: Closely monitor in the tele floor. Code status full code as per my discussion with the daughter. PT and OT prior to discharge. Social service to help with discharge planning. Subjective Follow-up for acute respiratory failure, hypercapnia Intubated, sedated Nondistressed, not in respiratory distress NG tube in place with minimal bilious fluid output No hematochezia per RN No other signs noted Review of Systems Review of Systems: Unobtainable due to endotracheal tube Physical Exam Physical Exam: General-sedated, not in distress, no accessory muscle use Head- atraumatic Eyes- PERRL, EOMI, anicteric ENT-ET tube in place NG tube in place with scant bilious fluid output Neck- supple, no JVD, no adenopathy, no thyromegaly; carotids +2/2, no bruits appreciated Lungs- clear to auscultation bilaterally, no rales/wheezes Heart- normal rate, regular rhythm; no murmur, no gallop, no rub appreciated Abdomen- normal bowel sounds, nondistended, soft, nontender, no masses or hepatosplenomegaly Extremities- no pretibial edema, no calf tenderness; peripheral pulses intact Neuro-sedated Skin- warm & dry Results & Data Vital Signs (Past 12 Hours) Vital Signs Temp Pulse Resp BP Pulse Ox 11/28/18 16:37 105 H 14 100 11/28/18 16:19 88 82/42 L 99 11/28/18 15:00 85 100 11/28/18 14:00 79 11/28/18 13:31 98 H 14 100 11/28/18 13:00 88 100 11/28/18 12:01 80 83/42 L 100 11/28/18 11:25 92 H 14 100 11/28/18 11:00 86 102/44 L 100 11/28/18 10:02 85 11/28/18 10:00 84 99 11/28/18 09:49 87 90/50 L 11/28/18 09:00 88 11/28/18 08:30 90 91/41 L 11/28/18 08:15 92 H 89/43 L 11/28/18 08:01 107 H 86/56 L 11/28/18 07:45 90 93/55 L 11/28/18 07:40 91 H 15 11/28/18 07:31 92 H 98/54 L 11/28/18 07:15 90 116/52 L 11/28/18 07:02 92 H 104/53 L 11/28/18 06:55 84 16 11/28/18 06:11 84 11/28/18 06:06 84 105/55 L 11/28/18 06:00 88 11/28/18 05:59 90 72/55 L 11/28/18 05:57 87 102/47 L 11/28/18 05:54 86 92/52 L 11/28/18 05:52 87 86/63 L 11/28/18 05:50 91 H 62/46 L 11/28/18 05:48 91 H 97/56 L 11/28/18 05:47 89 91/49 L 11/28/18 05:46 93 H 100/68 11/28/18 05:45 91 H 11/28/18 05:44 87 113/43 L 11/28/18 05:42 90 95/61 L 11/28/18 05:40 87 101/56 L 11/28/18 05:38 87 107/60 11/28/18 05:30 36.5 C 87 11/28/18 05:16 88 94/49 L Laboratory Results Laboratory Results - last 24 hr 11/27/18 11/27/18 11/27/18 20:00 21:00 21:22 WBC RBC Hgb POC Hgb Hct POC Hct MCV MCH MCHC RDW Std Deviation RDW Coeff of Melecio Plt Count MPV Immature Gran % (Auto) Neut % (Auto) Lymph % (Auto) [place] % (Auto) Eos % (Auto) Baso % (Auto) Immature Gran # (Auto) Neut # (Auto) Lymph # (Auto) [place] # (Auto) Eos # (Auto) Baso # (Auto) Absolute Nucleated RBC Nucleated RBC % (auto) Polychromasia Hypochromasia Anisocytosis PT 14.1 H INR 1.4 H APTT PTT Ratio Sample Site POC pH POC pCO2 POC pO2 POC HCO3 POC Total CO2 POC Base Excess ABG pH 7.18 L* ABG pH (Temp Correct) ABG pCO2 71 H ABG pCO2 (Temp Corrct ABG pO2 65 L POC ABG pO2 at Pt Temp ABG HCO3 26 H POC ABG O2 Sat ABG O2 Saturation 84.4 L ABG Base Excess -2.8 Dick Test POS Barometric Pressure 738.4 Oxygen Given 4L O2 O2 Delivery Device POC O2 Rate POC FiO2 Tidal Volume PEEP IPAP POC Sodium Sodium POC Potassium Potassium Chloride Carbon Dioxide Anion Gap BUN Creatinine Est Cr Clr Drug Dosing Est GFR ( Amer) Est GFR (Non-Af Amer) BUN/Creatinine Ratio Glucose POC Glucose POC Lactic Acid Patrice Lactate Calcium Ionized Calcium Phosphorus Magnesium Total Bilirubin Direct Bilirubin AST ALT Alkaline Phosphatase Total Creatine Kinase Troponin I Total Protein Albumin Globulin Albumin/Globulin Ratio TSH Random Cortisol Urine Color Dark Yellow Urine Appearance Clear Urine pH 5.0 Ur Specific Tobias 1.018 Urine Protein Trace H Urine Glucose (UA) Negative Urine Ketones Negative Urine Blood Trace H Urine Nitrite Negative Urine Bilirubin Negative Urine Urobilinogen Negative Ur Leukocyte Esterase Negative Urine WBC (Auto) 5-10 H Urine RBC (Auto) 5-10 H U Hyaline Cast (Auto) 10-30 H U Epithel Cells (Auto) 10-20 H Urine Bacteria (Auto) Negative Granular Casts 1-5 H Nasal Screen MRSA (PCR) Hepatitis C Ab Screen Blood Type Blood Type Recheck Antibody Screen 11/27/18 11/27/18 11/27/18 21:22 21:22 21:22 WBC 22.90 H RBC 3.48 L Hgb 8.4 L POC Hgb Hct 29.9 L POC Hct MCV 85.9 MCH 24.1 L MCHC 28.1 L RDW Std Deviation 54.4 H RDW Coeff of Melecio 17.4 H Plt Count 298 MPV 11.3 H Immature Gran % (Auto) 0.4 Neut % (Auto) 91.8 Lymph % (Auto) 1.4 [place] % (Auto) 6.4 Eos % (Auto) 0.0 Baso % (Auto) 0.0 Immature Gran # (Auto) 0.10 H Neut # (Auto) 21.01 H Lymph # (Auto) 0.31 L [place] # (Auto) 1.46 H Eos # (Auto) 0.01 Baso # (Auto) 0.01 Absolute Nucleated RBC 0.70 H Nucleated RBC % (auto) 3.0 Polychromasia 1+ Hypochromasia Present Anisocytosis Present PT INR APTT PTT Ratio Sample Site POC pH POC pCO2 POC pO2 POC HCO3 POC Total CO2 POC Base Excess ABG pH ABG pH (Temp Correct) ABG pCO2 ABG pCO2 (Temp Corrct ABG pO2 POC ABG pO2 at Pt Temp ABG HCO3 POC ABG O2 Sat ABG O2 Saturation ABG Base Excess Dick Test Barometric Pressure Oxygen Given O2 Delivery Device POC O2 Rate POC FiO2 Tidal Volume PEEP IPAP POC Sodium Sodium 143 POC Potassium Potassium 5.2 H Chloride 107 Carbon Dioxide 27 Anion Gap 9.0 BUN 98 H Creatinine 2.47 H Est Cr Clr Drug Dosing Not Reportable Est GFR ( Amer) 23.1 Est GFR (Non-Af Amer) 19.9 BUN/Creatinine Ratio 39.7 H Glucose 96 POC Glucose POC Lactic Acid Patrice Lactate Calcium 8.7 Ionized Calcium Phosphorus Magnesium 2.4 Total Bilirubin 0.8 Direct Bilirubin AST 495 H ALT 475 H Alkaline Phosphatase 70 Total Creatine Kinase 116 Troponin I 0.074 H* Total Protein 5.0 L Albumin 2.5 L Globulin 2.5 Albumin/Globulin Ratio 1.0 TSH 0.345 Random Cortisol Urine Color Urine Appearance Urine pH Ur Specific Tobias Urine Protein Urine Glucose (UA) Urine Ketones Urine Blood Urine Nitrite Urine Bilirubin Urine Urobilinogen Ur Leukocyte Esterase Urine WBC (Auto) Urine RBC (Auto) U Hyaline Cast (Auto) U Epithel Cells (Auto) Urine Bacteria (Auto) Granular Casts Nasal Screen MRSA (PCR) Hepatitis C Ab Screen Blood Type B Positive Blood Type Recheck Antibody Screen NEGATIVE 11/27/18 11/28/18 11/28/18 21:29 01:22 04:04 WBC RBC Hgb POC Hgb Hct POC Hct MCV MCH MCHC RDW Std Deviation RDW Coeff of Melecio Plt Count MPV Immature Gran % (Auto) Neut % (Auto) Lymph % (Auto) [place] % (Auto) Eos % (Auto) Baso % (Auto) Immature Gran # (Auto) Neut # (Auto) Lymph # (Auto) [place] # (Auto) Eos # (Auto) Baso # (Auto) Absolute Nucleated RBC Nucleated RBC % (auto) Polychromasia Hypochromasia Anisocytosis PT INR APTT PTT Ratio Sample Site R Radial POC pH 7.14 L* POC pCO2 85 H POC pO2 > 420 H POC HCO3 29 H POC Total CO2 31 POC Base Excess 0.0 ABG pH ABG pH (Temp Correct) ABG pCO2 ABG pCO2 (Temp Corrct ABG pO2 POC ABG pO2 at Pt Temp ABG HCO3 POC ABG O2 Sat 100.0 H ABG O2 Saturation ABG Base Excess Dick Test Pass Barometric Pressure Oxygen Given O2 Delivery Device BIPAP POC O2 Rate 19 POC FiO2 100 Tidal Volume PEEP IPAP 14 POC Sodium Sodium POC Potassium Potassium Chloride Carbon Dioxide Anion Gap BUN Creatinine Est Cr Clr Drug Dosing Est GFR ( Amer) Est GFR (Non-Af Amer) BUN/Creatinine Ratio Glucose POC Glucose POC Lactic Acid Patrice 1.70 Lactate Calcium Ionized Calcium Phosphorus Magnesium Total Bilirubin Direct Bilirubin AST ALT Alkaline Phosphatase Total Creatine Kinase Troponin I 0.070 H* Total Protein Albumin Globulin Albumin/Globulin Ratio TSH Random Cortisol Urine Color Urine Appearance Urine pH Ur Specific Tobias Urine Protein Urine Glucose (UA) Urine Ketones Urine Blood Urine Nitrite Urine Bilirubin Urine Urobilinogen Ur Leukocyte Esterase Urine WBC (Auto) Urine RBC (Auto) U Hyaline Cast (Auto) U Epithel Cells (Auto) Urine Bacteria (Auto) Granular Casts Nasal Screen MRSA (PCR) Hepatitis C Ab Screen Blood Type Blood Type Recheck Antibody Screen 11/28/18 11/28/18 11/28/18 05:34 05:34 05:34 WBC 26.79 H RBC 3.28 L Hgb 7.9 L POC Hgb Hct 28.6 L POC Hct MCV 87.2 MCH 24.1 L MCHC 27.6 L RDW Std Deviation 56.0 H RDW Coeff of Melecio 17.4 H Plt Count 253 MPV 10.7 H Immature Gran % (Auto) 0.7 Neut % (Auto) 90.4 Lymph % (Auto) 2.1 [place] % (Auto) 6.7 Eos % (Auto) 0.0 Baso % (Auto) 0.1 Immature Gran # (Auto) 0.19 H Neut # (Auto) 24.23 H Lymph # (Auto) 0.56 L [place] # (Auto) 1.79 H Eos # (Auto) 0.00 Baso # (Auto) 0.02 Absolute Nucleated RBC 1.03 H Nucleated RBC % (auto) 3.9 Polychromasia 1+ Hypochromasia Present Anisocytosis PT INR APTT PTT Ratio Sample Site POC pH POC pCO2 POC pO2 POC HCO3 POC Total CO2 POC Base Excess ABG pH ABG pH (Temp Correct) ABG pCO2 ABG pCO2 (Temp Corrct ABG pO2 POC ABG pO2 at Pt Temp ABG HCO3 POC ABG O2 Sat ABG O2 Saturation ABG Base Excess Dick Test Barometric Pressure Oxygen Given O2 Delivery Device POC O2 Rate POC FiO2 Tidal Volume PEEP IPAP POC Sodium Sodium 143 POC Potassium Potassium 5.4 H Chloride 108 H Carbon Dioxide 25 Anion Gap 10.0 BUN 90 H Creatinine 2.46 H Est Cr Clr Drug Dosing 13.1 Est GFR ( Amer) 23.2 Est GFR (Non-Af Amer) 20.0 BUN/Creatinine Ratio 36.6 H Glucose 82 POC Glucose POC Lactic Acid Patrice Lactate Calcium 8.0 L Ionized Calcium Phosphorus 7.3 H Magnesium 2.3 Total Bilirubin 0.6 Direct Bilirubin 0.3 H AST 573 H ALT 585 H Alkaline Phosphatase 70 Total Creatine Kinase Troponin I 0.078 H* Total Protein 4.8 L Albumin 2.5 L Globulin Albumin/Globulin Ratio TSH Random Cortisol Urine Color Urine Appearance Urine pH Ur Specific Tobias Urine Protein Urine Glucose (UA) Urine Ketones Urine Blood Urine Nitrite Urine Bilirubin Urine Urobilinogen Ur Leukocyte Esterase Urine WBC (Auto) Urine RBC (Auto) U Hyaline Cast (Auto) U Epithel Cells (Auto) Urine Bacteria (Auto) Granular Casts Nasal Screen MRSA (PCR) Hepatitis C Ab Screen Blood Type Blood Type Recheck Antibody Screen 11/28/18 11/28/18 11/28/18 05:34 05:34 05:35 WBC RBC Hgb POC Hgb Hct POC Hct MCV MCH MCHC RDW Std Deviation RDW Coeff of Melecio Plt Count MPV Immature Gran % (Auto) Neut % (Auto) Lymph % (Auto) [place] % (Auto) Eos % (Auto) Baso % (Auto) Immature Gran # (Auto) Neut # (Auto) Lymph # (Auto) [place] # (Auto) Eos # (Auto) Baso # (Auto) Absolute Nucleated RBC Nucleated RBC % (auto) Polychromasia Hypochromasia Anisocytosis PT INR APTT PTT Ratio Sample Site Art Line POC pH 7.11 L* POC pCO2 92 H POC pO2 410 H POC HCO3 29 H POC Total CO2 32 H POC Base Excess 0.0 ABG pH ABG pH (Temp Correct) 7.116 L* ABG pCO2 ABG pCO2 (Temp Corrct 90 H ABG pO2 POC ABG pO2 at Pt Temp 407 ABG HCO3 POC ABG O2 Sat 100.0 H ABG O2 Saturation ABG Base Excess Dick Test NA Barometric Pressure Oxygen Given O2 Delivery Device BIPAP POC O2 Rate 12 POC FiO2 40 Tidal Volume PEEP IPAP 14 POC Sodium Sodium POC Potassium Potassium Chloride Carbon Dioxide Anion Gap BUN Creatinine Est Cr Clr Drug Dosing Est GFR ( Amer) Est GFR (Non-Af Amer) BUN/Creatinine Ratio Glucose POC Glucose POC Lactic Acid Patrcie Lactate Calcium Ionized Calcium Phosphorus Magnesium Total Bilirubin Direct Bilirubin AST ALT Alkaline Phosphatase Total Creatine Kinase Troponin I Total Protein Albumin Globulin Albumin/Globulin Ratio TSH Random Cortisol 42.54 Urine Color Urine Appearance Urine pH Ur Specific Tobias Urine Protein Urine Glucose (UA) Urine Ketones Urine Blood Urine Nitrite Urine Bilirubin Urine Urobilinogen Ur Leukocyte Esterase Urine WBC (Auto) Urine RBC (Auto) U Hyaline Cast (Auto) U Epithel Cells (Auto) Urine Bacteria (Auto) Granular Casts Nasal Screen MRSA (PCR) Hepatitis C Ab Screen Neg Blood Type Blood Type Recheck Antibody Screen 11/28/18 11/28/18 11/28/18 06:15 06:32 06:57 WBC RBC Hgb POC Hgb Hct POC Hct MCV MCH MCHC RDW Std Deviation RDW Coeff of Melecio Plt Count MPV Immature Gran % (Auto) Neut % (Auto) Lymph % (Auto) [place] % (Auto) Eos % (Auto) Baso % (Auto) Immature Gran # (Auto) Neut # (Auto) Lymph # (Auto) [place] # (Auto) Eos # (Auto) Baso # (Auto) Absolute Nucleated RBC Nucleated RBC % (auto) Polychromasia Hypochromasia Anisocytosis PT INR APTT PTT Ratio Sample Site POC pH POC pCO2 POC pO2 POC HCO3 POC Total CO2 POC Base Excess ABG pH ABG pH (Temp Correct) ABG pCO2 ABG pCO2 (Temp Corrct ABG pO2 POC ABG pO2 at Pt Temp ABG HCO3 POC ABG O2 Sat ABG O2 Saturation ABG Base Excess Dick Test Barometric Pressure Oxygen Given O2 Delivery Device POC O2 Rate POC FiO2 Tidal Volume PEEP IPAP POC Sodium Sodium POC Potassium Potassium Chloride Carbon Dioxide Anion Gap BUN Creatinine Est Cr Clr Drug Dosing Est GFR ( Amer) Est GFR (Non-Af Amer) BUN/Creatinine Ratio Glucose POC Glucose 60 L* 147 H POC Lactic Acid Patrice Lactate Calcium Ionized Calcium Phosphorus Magnesium Total Bilirubin Direct Bilirubin AST ALT Alkaline Phosphatase Total Creatine Kinase Troponin I Total Protein Albumin Globulin Albumin/Globulin Ratio TSH Random Cortisol Urine Color Urine Appearance Urine pH Ur Specific Tobias Urine Protein Urine Glucose (UA) Urine Ketones Urine Blood Urine Nitrite Urine Bilirubin Urine Urobilinogen Ur Leukocyte Esterase Urine WBC (Auto) Urine RBC (Auto) U Hyaline Cast (Auto) U Epithel Cells (Auto) Urine Bacteria (Auto) Granular Casts Nasal Screen MRSA (PCR) Negative Hepatitis C Ab Screen Blood Type Blood Type Recheck Antibody Screen 11/28/18 11/28/18 11/28/18 10:02 10:44 10:44 WBC RBC Hgb 7.0 L POC Hgb Hct 24.8 L POC Hct MCV MCH MCHC RDW Std Deviation RDW Coeff of Melecio Plt Count MPV Immature Gran % (Auto) Neut % (Auto) Lymph % (Auto) [place] % (Auto) Eos % (Auto) Baso % (Auto) Immature Gran # (Auto) Neut # (Auto) Lymph # (Auto) [place] # (Auto) Eos # (Auto) Baso # (Auto) Absolute Nucleated RBC Nucleated RBC % (auto) Polychromasia Hypochromasia Anisocytosis PT INR APTT PTT Ratio Sample Site POC pH POC pCO2 POC pO2 POC HCO3 POC Total CO2 POC Base Excess ABG pH ABG pH (Temp Correct) ABG pCO2 ABG pCO2 (Temp Corrct ABG pO2 POC ABG pO2 at Pt Temp ABG HCO3 POC ABG O2 Sat ABG O2 Saturation ABG Base Excess Dick Test Barometric Pressure Oxygen Given O2 Delivery Device POC O2 Rate POC FiO2 Tidal Volume PEEP IPAP POC Sodium Sodium POC Potassium Potassium Chloride Carbon Dioxide Anion Gap BUN Creatinine Est Cr Clr Drug Dosing Est GFR ( Amer) Est GFR (Non-Af Amer) BUN/Creatinine Ratio Glucose POC Glucose 114 H POC Lactic Acid Patrice Lactate Calcium Ionized Calcium Phosphorus Magnesium Total Bilirubin Direct Bilirubin AST ALT Alkaline Phosphatase Total Creatine Kinase 635 H Troponin I 0.095 H* Total Protein Albumin Globulin Albumin/Globulin Ratio TSH Random Cortisol Urine Color Urine Appearance Urine pH Ur Specific Tobias Urine Protein Urine Glucose (UA) Urine Ketones Urine Blood Urine Nitrite Urine Bilirubin Urine Urobilinogen Ur Leukocyte Esterase Urine WBC (Auto) Urine RBC (Auto) U Hyaline Cast (Auto) U Epithel Cells (Auto) Urine Bacteria (Auto) Granular Casts Nasal Screen MRSA (PCR) Hepatitis C Ab Screen Blood Type Blood Type Recheck Antibody Screen 11/28/18 11/28/18 11/28/18 10:44 10:44 10:44 WBC RBC Hgb POC Hgb Hct POC Hct MCV MCH MCHC RDW Std Deviation RDW Coeff of Melecio Plt Count MPV Immature Gran % (Auto) Neut % (Auto) Lymph % (Auto) [place] % (Auto) Eos % (Auto) Baso % (Auto) Immature Gran # (Auto) Neut # (Auto) Lymph # (Auto) [place] # (Auto) Eos # (Auto) Baso # (Auto) Absolute Nucleated RBC Nucleated RBC % (auto) Polychromasia Hypochromasia Anisocytosis PT INR APTT PTT Ratio Sample Site POC pH POC pCO2 POC pO2 POC HCO3 POC Total CO2 POC Base Excess ABG pH ABG pH (Temp Correct) ABG pCO2 ABG pCO2 (Temp Corrct ABG pO2 POC ABG pO2 at Pt Temp ABG HCO3 POC ABG O2 Sat ABG O2 Saturation ABG Base Excess Dick Test Barometric Pressure Oxygen Given O2 Delivery Device POC O2 Rate POC FiO2 Tidal Volume PEEP IPAP POC Sodium Sodium POC Potassium Potassium Chloride Carbon Dioxide Anion Gap BUN Creatinine Est Cr Clr Drug Dosing Est GFR ( Amer) Est GFR (Non-Af Amer) BUN/Creatinine Ratio Glucose POC Glucose POC Lactic Acid Patrice Lactate 1.4 Calcium Ionized Calcium 1.04 L Phosphorus Magnesium Total Bilirubin Direct Bilirubin AST ALT Alkaline Phosphatase Total Creatine Kinase Troponin I Total Protein Albumin Globulin Albumin/Globulin Ratio TSH Random Cortisol Urine Color Urine Appearance Urine pH Ur Specific Tobias Urine Protein Urine Glucose (UA) Urine Ketones Urine Blood Urine Nitrite Urine Bilirubin Urine Urobilinogen Ur Leukocyte Esterase Urine WBC (Auto) Urine RBC (Auto) U Hyaline Cast (Auto) U Epithel Cells (Auto) Urine Bacteria (Auto) Granular Casts Nasal Screen MRSA (PCR) Hepatitis C Ab Screen Blood Type Cancelled Blood Type Recheck Antibody Screen Cancelled 11/28/18 11/28/18 11/28/18 10:44 11:19 13:24 WBC RBC Hgb POC Hgb 7.1 L Hct POC Hct 21 L MCV MCH MCHC RDW Std Deviation RDW Coeff of Melecio Plt Count MPV Immature Gran % (Auto) Neut % (Auto) Lymph % (Auto) [place] % (Auto) Eos % (Auto) Baso % (Auto) Immature Gran # (Auto) Neut # (Auto) Lymph # (Auto) [place] # (Auto) Eos # (Auto) Baso # (Auto) Absolute Nucleated RBC Nucleated RBC % (auto) Polychromasia Hypochromasia Anisocytosis PT INR APTT PTT Ratio Sample Site Art Line POC pH 7.35 POC pCO2 41 POC pO2 141 H POC HCO3 22 POC Total CO2 24 POC Base Excess -3.0 ABG pH ABG pH (Temp Correct) 7.358 ABG pCO2 ABG pCO2 (Temp Corrct 40 ABG pO2 POC ABG pO2 at Pt Temp 138 ABG HCO3 POC ABG O2 Sat ABG O2 Saturation ABG Base Excess Dick Test NA Barometric Pressure Oxygen Given O2 Delivery Device Ventilator POC O2 Rate 14 POC FiO2 Tidal Volume 400 PEEP 5 IPAP POC Sodium 142 Sodium 144 POC Potassium 4.3 Potassium 4.6 Chloride 112 H Carbon Dioxide 22 Anion Gap 10.0 BUN 83 H Creatinine 2.07 H D Est Cr Clr Drug Dosing 15.6 Est GFR ( Amer) 28.6 Est GFR (Non-Af Amer) 24.7 BUN/Creatinine Ratio 39.9 H Glucose 69 L POC Glucose POC Lactic Acid Patrice Lactate Calcium 8.0 L Ionized Calcium Phosphorus Magnesium Total Bilirubin 0.7 Direct Bilirubin AST 417 H ALT 514 H Alkaline Phosphatase 65 Total Creatine Kinase Troponin I Total Protein 4.2 L Albumin 2.2 L Globulin 2.0 L Albumin/Globulin Ratio 1.1 TSH Random Cortisol Urine Color Urine Appearance Urine pH Ur Specific Tobias Urine Protein Urine Glucose (UA) Urine Ketones Urine Blood Urine Nitrite Urine Bilirubin Urine Urobilinogen Ur Leukocyte Esterase Urine WBC (Auto) Urine RBC (Auto) U Hyaline Cast (Auto) U Epithel Cells (Auto) Urine Bacteria (Auto) Granular Casts Nasal Screen MRSA (PCR) Hepatitis C Ab Screen Blood Type Blood Type Recheck B Positive Antibody Screen 11/28/18 11/28/18 11/28/18 13:24 16:21 16:41 WBC RBC Hgb POC Hgb Hct POC Hct MCV MCH MCHC RDW Std Deviation RDW Coeff of Melecio Plt Count MPV Immature Gran % (Auto) Neut % (Auto) Lymph % (Auto) [place] % (Auto) Eos % (Auto) Baso % (Auto) Immature Gran # (Auto) Neut # (Auto) Lymph # (Auto) [place] # (Auto) Eos # (Auto) Baso # (Auto) Absolute Nucleated RBC Nucleated RBC % (auto) Polychromasia Hypochromasia Anisocytosis PT INR APTT 30.8 PTT Ratio 1.1 Sample Site POC pH POC pCO2 POC pO2 POC HCO3 POC Total CO2 POC Base Excess ABG pH ABG pH (Temp Correct) ABG pCO2 ABG pCO2 (Temp Corrct ABG pO2 POC ABG pO2 at Pt Temp ABG HCO3 POC ABG O2 Sat ABG O2 Saturation ABG Base Excess Dikc Test Barometric Pressure Oxygen Given O2 Delivery Device POC O2 Rate POC FiO2 Tidal Volume PEEP IPAP POC Sodium Sodium POC Potassium Potassium Chloride Carbon Dioxide Anion Gap BUN Creatinine Est Cr Clr Drug Dosing Est GFR ( Amer) Est GFR (Non-Af Amer) BUN/Creatinine Ratio Glucose POC Glucose 54 L* 104 H POC Lactic Acid Patrice Lactate Calcium Ionized Calcium Phosphorus Magnesium Total Bilirubin Direct Bilirubin AST ALT Alkaline Phosphatase Total Creatine Kinase Troponin I Total Protein Albumin Globulin Albumin/Globulin Ratio TSH Random Cortisol Urine Color Urine Appearance Urine pH Ur Specific Tobias Urine Protein Urine Glucose (UA) Urine Ketones Urine Blood Urine Nitrite Urine Bilirubin Urine Urobilinogen Ur Leukocyte Esterase Urine WBC (Auto) Urine RBC (Auto) U Hyaline Cast (Auto) U Epithel Cells (Auto) Urine Bacteria (Auto) Granular Casts Nasal Screen MRSA (PCR) Hepatitis C Ab Screen Blood Type Blood Type Recheck Antibody Screen
[2018-11-28 18:00] LABS: Hematocrit (blood only) 22.3 % (37-47); Hemoglobin 6.6 g/dL (12.0-16.0)
[2018-11-28] MEDS ORDERED: SODIUM CHLORIDE 0.9% 250 ML IV PRN (18:12)
--- NOTE | 2018-11-28 18:42 | Consultation Report ---
DATE OF CONSULTATION: 11/27/2018 CHIEF COMPLAINT: Lethargy hypertension. Orthopedic consultation in regard to a compression fracture of the spine picked up on an abdominal CT scan and indeed is a compression fracture of the L1 vertebral body. There is some loss of height. There is some retropulsion of 4 mm. It is age indeterminate. It is new from 07/2016. It has the appearance in my opinion of being an older injury versus something that has been relatively acute. PAST MEDICAL HISTORY: Significant diseases including COPD, diastolic dysfunction of the heart, chronic kidney disease, general arthritis, rheumatoid, severe tobacco disorder, amongst other issues. SURGICAL HISTORY: Right femur surgery and dental surgery. ALLERGIES: Listed. MEDICATIONS: Numerous. The patient is on the ventilator at the time of my consultation. I was unable to do much of an examination on her. Radiographically I reviewed the pictures and the CT scan; looks like a stable injury. IMPRESSION: Spine orthopedic evaluation is that of a stable L1 compression fracture. PLAN: I would not let this get in the way of her care. She needs hygiene pulmonary toilet along with other medical support. She does not need a brace. She does not need surgery and full speed ahead for her medical diseases.
[2018-11-28] MEDS ORDERED: MIDAZOLAM HCL 5 MG/ML VIAL IV ONE (19:55)
[2018-11-28] MEDS ORDERED: fentaNYL citrate 100 MCG/2 ML VIAL IV ONE (19:55)
[2018-11-28 21:28] LABS: Partial Thromboplastin Ratio > 5.1
[2018-11-28 21:30] LABS: Partial Thromboplastin Time > 139.0 Seconds (21.0-31.0)
[2018-11-28] MEDS: PANTOprazole 40 MG in SYRINGE 0 ML IV SCH (22:01)
[2018-11-28 22:25] LABS: Partial Thromboplastin Ratio 3.9
[2018-11-28 22:27] LABS: Partial Thromboplastin Time 104.8 Seconds (21.0-31.0)
[2018-11-28 23:29] LABS: Partial Thromboplastin Ratio 1.9
[2018-11-28 23:32] LABS: Partial Thromboplastin Time 50.9 Seconds (21.0-31.0)
[2018-11-29] MEDS: fentaNYL citrate 100 MCG/2 ML VIAL IV PRN ×5 (02:46→19:33)
[2018-11-29] MEDS: MIDAZOLAM HCL 1 MG/ML 2ML VIAL IV PRN ×2 (02:46→05:27)
[2018-11-29 03:10] LABS: Echinocytes 1+; Eosinophils # (auto) 0.08 K/uL (0-0.5); Eosinophils % (auto) 0.5 %; Hematocrit (blood only) 39.3 % (37-47); Hemoglobin 12.5 g/dL (12.0-16.0); Hypochromasia Present; Immature Granulocytes # (auto) 0.08 K/uL (0.00-0.02); Immature Granulocytes % (auto) 0.5 %; Lymphocytes # (auto) 0.26 K/uL (1.2-3.4); Lymphocytes % (auto) 1.5 %; Mean Corpuscular Hemoglobin 26.4 pg (25-34); Mean Corpuscular Hgb Conc 31.8 g/dL (32-36); Mean Corpuscular Volume 82.9 fL (80-100); Mean Platelet Volume 10.8 fL (7.4-10.4); Monocytes # (auto) 0.83 K/uL (0.11-0.59); Monocytes % (auto) 4.8 %; Neutrophils # (auto) 16.06 K/uL (1.4-6.5); Neutrophils % (auto) 92.7 %; Nucleated RBC # (auto) 0.29 K/uL (0-0); Nucleated RBC % (auto) 1.7 %; Platelet Count 117 K/uL (130-400); Platelet Estimate Decreased (Normal); RDW Coefficient of Variation 15.7 % (11.5-14.5); RDW Standard Deviation 47.3 fL (36.4-46.3); Red Blood Count 4.74 M/uL (4.2-5.4); White Blood Count 17.31 K/uL (4.8-10.8)
[2018-11-29 05:40] LABS: Allen Test Pos (Pos); HCO3 ABG 22 mmol/L (19-24); PCO2 ABG 33 mmHg (35-46); PO2 ABG 87 mm/Hg (80-95); pH ABG 7.43 (7.35-7.45)
[2018-11-29 06:13] LABS: Partial Thromboplastin Ratio 5.1
[2018-11-29 06:27] LABS: Partial Thromboplastin Time 138.3 Seconds (21.0-31.0)
--- NOTE | 2018-11-29 07:03 | CT Scan Report ---
CT SCAN OF THE BRAIN WITHOUT IV CONTRAST CLINICAL HISTORY: Change in mental status. COMPARISON STUDY: CT of the brain dated 08/07/2016. TECHNIQUE: Unenhanced axial CT scan of the brain is performed from the vertex to the skull base. A do se lowering technique was utilized adhering to the principles of ALARA. CT DOSE: 729.78 mGycm FINDINGS: An endotracheal tube is noted on the cnc specialist tomogram. Brain parenchyma: There are age-related involutional changes noting moderate to advanced confluent s ubcortical and periventricular microangiopathic change. There is no hemorrhage, mass effect, or evide nce of acute territorial ischemia by CT criteria. Velez-white matter differentiation is preserved. No extra-axial fluid collection is seen. Ventricles, sulci, cisterns: Prominent secondary to involutional change. Intracranial vasculature: There is atherosclerotic calcification of the cavernous carotid arteries. Calvarium: Unremarkable. Sinuses and mastoids: The visualized paranasal sinuses are clear. The mastoid air cells are well pneu matized. Orbits: The bony orbits are grossly intact. IMPRESSION: There is no hemorrhage, mass effect, or evidence of acute territorial ischemia by CT tommie ferrell. Electronically signed by: Jose Alberto Crisostomo M.D. 11/29/2018 7:02 AM
[2018-11-29] MEDS ORDERED: VANCOMYCIN HCL 1,000 MG in SODIUM CHLORIDE 0.9% 250 ML IV STA (07:16)
[2018-11-29] MEDS ORDERED: VANCOMYCIN PEAK REMINDER 0.1 ML IV STA (07:18)
[2018-11-29 07:32] LABS: Partial Thromboplastin Ratio 1.8
--- NOTE | 2018-11-29 07:47 | CT Scan Report ---
CT cervical spine wo con CLINICAL HISTORY: 63 years-old Female presenting with altered mental status, history of chronic fract ures, concern for acute fracture. TECHNIQUE: Multidetector CT of the cervical spine was performed without the use of intravenous contra st. IV contrast: None. One or more dose lowering techniques were used consistent with the principles of ALARA (as low as reasonably achievable), including automatic exposure control, mA or kV adjustment to individual patient size, and/or use of iterative reconstruction. COMPARISON: None. CT DOSE (mGy.cm): The estimated cumulative dose is 501.36 mGycm. FINDINGS: Digital Imager topogram: Unremarkable. Exaggerated cervical lordosis. Vertebral bodies maintain normal height and alignment. Intervertebral disc height loss to a moderate to severe degree at C5-6 and to a lesser degree at several additional levels. Small disc osteophyte complexes noted at several levels most notably at C3-4, C5-6, and C6-7. Mild posterior bony spurring greatest at C5-6. Disc bulge at this level also further effaces the spi nal canal to a moderate degree. Mild facet arthropathy. Varying degrees of osseous neural foraminal n arrowing. No acute fracture or subluxation. Visualized portion of the skull base intact. An endotrach eal tube and nasogastric tube are visualized. Paraspinal soft tissues within normal limits. Severe em physema. A right internal jugular central venous catheter is also in place. IMPRESSION: 1. No acute osseous injury of the cervical spine. 2. Multilevel degenerative changes. Electronically signed by: Jeff Moore M.D. 11/29/2018 7:45 AM
--- NOTE | 2018-11-29 07:47 | CT Scan Report ---
CT thoracic spine wo con CT DOSE: 656.49 mGycm CLINICAL HISTORY: Back pain status post trauma TECHNIQUE: Helical images were acquired in the transverse plane. Sagittal and coronal reformatted chao ges were acquired. A dose lowering technique was utilized adhering to the principles of ALARA. COMPARISON STUDY: Chest CT dated 11/28/2018 FINDINGS: There is a severe T11 compression fracture demonstrating greater than 90% loss in height. T here is 4 mm of retropulsion. There is a severe L1 compression fracture demonstrating greater than 90 % loss in height. There is 4 mm of retropulsion. There is no paraspinal hematoma. There are small bilateral pleural effusions. There is an old left-si ded rib fracture. There is severe pulmonary emphysema. IMPRESSION: 1. Severe T11 and L1 compression fractures. Each compression fracture demonstrates greater than 90% l oss in height and demonstrates 4 mm of retropulsion 2. Small bilateral pleural effusions Electronically signed by: Zeferino Jeffries M.D. 11/29/2018 7:45 AM
--- NOTE | 2018-11-29 07:51 | CT Scan Report ---
CT chest wo con CLINICAL HISTORY: Respiratory failure. COMPARISON STUDY: 11/28/2018 CT DOSE: 592.36 mGycm TECHNIQUE: CT of the thorax was performed from the thoracic inlet to the lung bases. Images are revi ewed in the axial, sagittal, and coronal planes. IV contrast was not administered for this examinatio n. A dose lowering technique was utilized adhering to the principles of ALARA. FINDINGS: Thyroid: There is a thyroid goiter unchanged from the prior study Thoracic aorta: The thoracic aorta is normal in course and caliber, noting standard 3 vessel arch alejo sd. Heart: The heart is normal in size. There are coronary artery calcifications. Lungs and pleural spaces: There is severe pulmonary emphysema. There are small bilateral pleural effu sions. There is no focal pulmonary consolidation. There is mild lower lobe bronchial wall thickening. There are left lower lobe dependent atelectatic changes. Mediastinum: There is a minimally enlarged precarinal lymph node measuring 11 mm Rhonda: There is no evidence of pathologic hilar adenopathy given the limitations of a noncontrast stud y Axilla: There is no evidence of pathologic axillary lymphadenopathy Upper abdomen: Partially visualized upper abdominal viscera is within normal limits. Skeletal structures: There are severe T11 and L1 vertebral body compression fractures. There is an ol d ununited left rib fracture. There is a nasogastric tube which passes into the stomach. There is an endotracheal tube positioned 1 cm above the abi IMPRESSION: 1. Severe pulmonary emphysema 2. Small bilateral pleural effusions 3. Mild left basilar atelectasis 4. Minor bronchial wall thickening 5. Interval placement of an endotracheal tube 1 cm above the abi 6. Interval placement of a nasogastric tube passing to the stomach 7. Severe T11 and L1 compression fractures Electronically signed by: Zeferino Jeffries M.D. 11/29/2018 7:50 AM
--- NOTE | 2018-11-29 07:56 | Critical Care Progress Note ---
Date of Service November 29, 2018 Assessment & Plan (1) Admitted to intensive care unit: Reason Critically Ill: Acute respiratory failure with hypercapnia causing AMS requiring emergent endotracheal intubation for airway protection. GI bleed with heme positive stools. Also with KATHERINE and presumed sepsis from lower extremity wounds. NEURO - CAM ICU: POSITIVE Sedation: Fentanyl and Versed PRN AMS- Likely multifactorial in the setting of renal failure with uremia as well as hypercapnia. Ammonia WNL CT Head- unremarkable MRI Brain- pending Peripheral Smear and Lyme testing pending Severe T11 and L1 compression fractures (likely old injury)- Ortho consulted- no sx indicated at present Spinal Precautions removed today DTR intact along with bulbocavernosus reflex CARDIAC/VASCULAR - Hypotension: resolving Likely secondary to hypovolemia and degree of sepsis. Normosol at 80- seems to be responding appropriately Have not needed pressors yet Severe PVD Peripheral arterial disease with new findings of RIGHT popliteal DVT. Elevated trop- likely 2/2 hypotension/demand Diastolic congestive heart failure - Holding Lasix 2/2 hypotension, KATHERINE Repeat Echo- pending Hypertension- Hold Toprol XL and diuretics as above RESPIRATORY - Acute respiratory failure with hypercapnia: resolved Chronic COPD with exacerbation. Requiring endotracheal intubation secondary to severe respiratory acidosis- resolved acidosis Aggressive pulmonary toilet. On Mech Vent GI/NUTRITION - Anemia and heme positive stools: resolving s/p 2 units Currently on IV Protonix 40 mg BID NG to low, intermittent suction without any evidence of UGI source of heme positive stools Cont trend Hgb and transfuse prn Appreciate GI recommendations- no plans for EGD/Colonosopy at this time Malnutrition- nutrition following. Start Tube Feeds- Trickle Transaminitis, most likely secondary to hypotension -Monitor LFTs. Biliary US ordered RENAL/LYTES - Acute kidney injury: Baseline Cr ~1. Cr improving Likely secondary to hypovolemia from poor p.o. intake. Normosol at 80 - Noonan in place - Strict I&Os. ENDO - No history of diabetes or thyroid disease. BSGs per unit protocol. ISS --> gtt per unit policy. HEME - Anemia- We will continue to trend in the setting of GI bleed. Resolving Right popliteal DVT-Heparin drip ordered ID - Concerns for sepsis secondary to possible cellulitis of the lower extremity. Currently on Zosyn. DC'd Vancomycin Blood Cx- NGTD Lactate normal LINES/IV ACCESS -PIVs x2, RIGHT IJ, LEFT radial arterial line, ET tube, Noonan DVT PROPHYLAXIS - Heparin, SCDs FULL CODE DISPO: ICU Supervising Physician Co-Signing Physician Notes Dr. Magallanes was resident physician during care of patient. I separately evaluated patient for van portions of the history and the exam. I was present during the critical portion of medical decision making, and I discussed the case with the resident. I generally agree with the findings and plan. Differential diagnosis also includes hemolytic uremic syndrome given the KATHERINE and elevation of liver enzymes. I do believe both of those are secondary to hypotension from the prehospital setting, we will also check a peripheral smear to evaluate for parasitic diseases as well as schistocytes. We will continue the heparin at this time also check for heparin-induced thrombocytopenia, however, it does not appear that the patient has had previous exposure to heparin. We will attempt to obtain a MRI of the brain to further evaluate the patient's persistent thick encephalopathy, however I do believe this is metabolic in nature. I contacted the patient's daughter via telephone and we discussed the rather severe case of lice. She is undergone one treatment, we have attempted to remove nits, there is still significant lice burden at this time. In consideration of the severity of the lice burden the patient's daughter agreed with hair removal to facilitate treatment. We will proceed with clipping of the patient's scalp hair and continue to perform industrial hygiene to the room. Patient still has rather dense encephalopathy. On rather minimal vent settings. Subjective 63 yo F found in bed this AM. No reported overnight events. Still on Mech Vent. No family at bedside. Lice still present. No bloody stools noted. No other acute concerns or complaints. Review of Systems Review of Systems: Unobtainable due to endotracheal tube Physical Exam Constitutional: + frail appearing and + mechanically ventilated Respiratory: normal respiratory effort, lungs clear to auscultation mech vent Cardiovascular: RRR, no murmur, no edema Gastrointestinal (Abdomen): normal bowel sounds, soft, nontender, no hepatosplenomegaly Skin: cold LE b/l R LE slightly red Results & Data Vital Signs (Past 12 Hours) Vital Signs Temp Pulse Resp BP Pulse Ox 11/29/18 06:00 84 83/56 L 100 11/29/18 05:01 87 100 11/29/18 05:00 102 H 99/63 L 95 11/29/18 04:24 107 H 93/41 L 11/29/18 04:11 98 H 14 96 11/29/18 04:02 94 H 11/29/18 04:00 82 11/29/18 03:00 89 84/44 L 99 11/29/18 02:00 104 H 11/29/18 01:40 91 H 15 97 11/29/18 00:57 37.2 C 86 14 109/66 100 11/28/18 23:57 37.2 C 91 H 14 140/39 L 100 11/28/18 23:49 84 11/28/18 23:15 86 96/59 L 11/28/18 23:00 88 87/53 L 11/28/18 22:57 37.2 C 87 14 134/50 L 100 11/28/18 22:27 37.2 C 84 14 145/58 H 100 11/28/18 22:17 80 14 100 11/28/18 22:12 37.3 C 78 14 134/50 L 100 11/28/18 22:08 37.3 C 80 14 133/50 L 100 11/28/18 21:34 37.4 C 84 14 143/57 H 100 11/28/18 20:45 90 93/58 L 100 11/28/18 20:34 37.4 C 90 14 128/52 L 100 11/28/18 20:30 95 H 88/53 L 11/28/18 20:15 88 84/52 L 100 11/28/18 20:04 37.4 C 85 14 127/50 L 100 11/28/18 20:00 91 H 73/52 L 100 Laboratory Results Laboratory Results - last 24 hr 11/27/18 11/28/18 11/28/18 21:22 10:02 13:24 WBC RBC Hgb Hct MCV MCH MCHC RDW Std Deviation RDW Coeff of Melecio Plt Count MPV Immature Gran % (Auto) Neut % (Auto) Lymph % (Auto) Armstrong % (Auto) Eos % (Auto) Baso % (Auto) Immature Gran # (Auto) Neut # (Auto) Lymph # (Auto) Armstrong # (Auto) Eos # (Auto) Baso # (Auto) Absolute Nucleated RBC Nucleated RBC % (auto) Platelet Estimate Hypochromasia Echinocytes PT INR APTT PTT Ratio Fibrinogen ABG pH ABG pCO2 ABG pO2 ABG HCO3 ABG O2 Saturation ABG Base Excess Dick Test Barometric Pressure Oxygen Given Sodium 144 Potassium 4.6 Chloride 112 H Carbon Dioxide 22 Anion Gap 10.0 BUN 83 H Creatinine 2.07 H D Est Cr Clr Drug Dosing 15.6 Est GFR ( Amer) 28.6 Est GFR (Non-Af Amer) 24.7 BUN/Creatinine Ratio 39.9 H Glucose 69 L POC Glucose 114 H Calcium 8.0 L Phosphorus Magnesium Total Bilirubin 0.7 Direct Bilirubin GGT AST 417 H ALT 514 H Alkaline Phosphatase 65 Ammonia Troponin I Total Protein 4.2 L Albumin 2.2 L Globulin 2.0 L Albumin/Globulin Ratio 1.1 Lipase Vitamin B12 Vancomycin Peak Random Vancomycin Heparin Dep Plt Ab React Heparin Dep Plt Ab OD Anaplasma Smear A. phagocytophilum DNA Lyme Disease IgG Ab Lyme Disease IgM Ab Blood Type B Positive Antibody Screen NEGATIVE Crossmatch See Detail 11/28/18 11/28/18 11/28/18 13:24 16:21 16:41 WBC RBC Hgb Hct MCV MCH MCHC RDW Std Deviation RDW Coeff of Melecio Plt Count MPV Immature Gran % (Auto) Neut % (Auto) Lymph % (Auto) Armstrong % (Auto) Eos % (Auto) Baso % (Auto) Immature Gran # (Auto) Neut # (Auto) Lymph # (Auto) Armstrong # (Auto) Eos # (Auto) Baso # (Auto) Absolute Nucleated RBC Nucleated RBC % (auto) Platelet Estimate Hypochromasia Echinocytes PT INR APTT 30.8 PTT Ratio 1.1 Fibrinogen ABG pH ABG pCO2 ABG pO2 ABG HCO3 ABG O2 Saturation ABG Base Excess Dick Test Barometric Pressure Oxygen Given Sodium Potassium Chloride Carbon Dioxide Anion Gap BUN Creatinine Est Cr Clr Drug Dosing Est GFR ( Amer) Est GFR (Non-Af Amer) BUN/Creatinine Ratio Glucose POC Glucose 54 L* 104 H Calcium Phosphorus Magnesium Total Bilirubin Direct Bilirubin GGT AST ALT Alkaline Phosphatase Ammonia Troponin I Total Protein Albumin Globulin Albumin/Globulin Ratio Lipase Vitamin B12 Vancomycin Peak Random Vancomycin Heparin Dep Plt Ab React Heparin Dep Plt Ab OD Anaplasma Smear A. phagocytophilum DNA Lyme Disease IgG Ab Lyme Disease IgM Ab Blood Type Antibody Screen Crossmatch 11/28/18 11/28/18 11/28/18 16:54 19:49 20:55 WBC RBC Hgb 6.6 L* Hct 22.3 L MCV MCH MCHC RDW Std Deviation RDW Coeff of Melecio Plt Count MPV Immature Gran % (Auto) Neut % (Auto) Lymph % (Auto) Armstrong % (Auto) Eos % (Auto) Baso % (Auto) Immature Gran # (Auto) Neut # (Auto) Lymph # (Auto) Armstrong # (Auto) Eos # (Auto) Baso # (Auto) Absolute Nucleated RBC Nucleated RBC % (auto) Platelet Estimate Hypochromasia Echinocytes PT INR APTT Cancelled > 139.0 H* PTT Ratio Cancelled > 5.1 Fibrinogen ABG pH ABG pCO2 ABG pO2 ABG HCO3 ABG O2 Saturation ABG Base Excess Dick Test Barometric Pressure Oxygen Given Sodium Potassium Chloride Carbon Dioxide Anion Gap BUN Creatinine Est Cr Clr Drug Dosing Est GFR ( Amer) Est GFR (Non-Af Amer) BUN/Creatinine Ratio Glucose POC Glucose Calcium Phosphorus Magnesium Total Bilirubin Direct Bilirubin GGT AST ALT Alkaline Phosphatase Ammonia Troponin I Total Protein Albumin Globulin Albumin/Globulin Ratio Lipase Vitamin B12 Vancomycin Peak Random Vancomycin Heparin Dep Plt Ab React Heparin Dep Plt Ab OD Anaplasma Smear A. phagocytophilum DNA Lyme Disease IgG Ab Lyme Disease IgM Ab Blood Type Antibody Screen Crossmatch 11/28/18 11/28/18 11/29/18 22:00 22:53 00:11 WBC RBC Hgb Hct MCV MCH MCHC RDW Std Deviation RDW Coeff of Melecio Plt Count MPV Immature Gran % (Auto) Neut % (Auto) Lymph % (Auto) Armstrong % (Auto) Eos % (Auto) Baso % (Auto) Immature Gran # (Auto) Neut # (Auto) Lymph # (Auto) Armstrong # (Auto) Eos # (Auto) Baso # (Auto) Absolute Nucleated RBC Nucleated RBC % (auto) Platelet Estimate Hypochromasia Echinocytes PT INR APTT 104.8 H* 50.9 H* PTT Ratio 3.9 1.9 Fibrinogen ABG pH ABG pCO2 ABG pO2 ABG HCO3 ABG O2 Saturation ABG Base Excess Dick Test Barometric Pressure Oxygen Given Sodium Potassium Chloride Carbon Dioxide Anion Gap BUN Creatinine Est Cr Clr Drug Dosing Est GFR ( Amer) Est GFR (Non-Af Amer) BUN/Creatinine Ratio Glucose POC Glucose 84 Calcium Phosphorus Magnesium Total Bilirubin Direct Bilirubin GGT AST ALT Alkaline Phosphatase Ammonia Troponin I Total Protein Albumin Globulin Albumin/Globulin Ratio Lipase Vitamin B12 Vancomycin Peak Random Vancomycin Heparin Dep Plt Ab React Heparin Dep Plt Ab OD Anaplasma Smear A. phagocytophilum DNA Lyme Disease IgG Ab Lyme Disease IgM Ab Blood Type Antibody Screen Crossmatch 11/29/18 11/29/18 11/29/18 02:39 05:27 05:27 WBC 17.31 H RBC 4.74 Hgb 12.5 D Hct 39.3 MCV 82.9 MCH 26.4 MCHC 31.8 L RDW Std Deviation 47.3 H RDW Coeff of Melecio 15.7 H Plt Count 117 L D MPV 10.8 H Immature Gran % (Auto) 0.5 Neut % (Auto) 92.7 Lymph % (Auto) 1.5 Armstrong % (Auto) 4.8 Eos % (Auto) 0.5 Baso % (Auto) 0.0 Immature Gran # (Auto) 0.08 H Neut # (Auto) 16.06 H Lymph # (Auto) 0.26 L Armstrong # (Auto) 0.83 H Eos # (Auto) 0.08 Baso # (Auto) 0.00 Absolute Nucleated RBC 0.29 H Nucleated RBC % (auto) 1.7 Platelet Estimate Decreased L Hypochromasia Present Echinocytes 1+ PT INR APTT PTT Ratio Fibrinogen ABG pH ABG pCO2 ABG pO2 ABG HCO3 ABG O2 Saturation ABG Base Excess Dick Test Barometric Pressure Oxygen Given Sodium Cancelled Potassium Cancelled Chloride Cancelled Carbon Dioxide Cancelled Anion Gap Cancelled BUN Cancelled Creatinine Cancelled Est Cr Clr Drug Dosing Cancelled Est GFR ( Amer) Cancelled Est GFR (Non-Af Amer) Cancelled BUN/Creatinine Ratio Cancelled Glucose Cancelled POC Glucose Calcium Cancelled Phosphorus Cancelled Magnesium Cancelled Total Bilirubin Cancelled Direct Bilirubin Cancelled GGT AST Cancelled ALT Cancelled Alkaline Phosphatase Cancelled Ammonia Troponin I Cancelled Total Protein Cancelled Albumin Cancelled Globulin Albumin/Globulin Ratio Lipase Vitamin B12 Vancomycin Peak Random Vancomycin 2.8 Heparin Dep Plt Ab React Heparin Dep Plt Ab OD Anaplasma Smear A. phagocytophilum DNA Lyme Disease IgG Ab Lyme Disease IgM Ab Blood Type Antibody Screen Crossmatch 11/29/18 11/29/18 11/29/18 05:27 05:27 05:30 WBC RBC Hgb Hct MCV MCH MCHC RDW Std Deviation RDW Coeff of Melecio Plt Count MPV Immature Gran % (Auto) Neut % (Auto) Lymph % (Auto) Armstrong % (Auto) Eos % (Auto) Baso % (Auto) Immature Gran # (Auto) Neut # (Auto) Lymph # (Auto) Armstrong # (Auto) Eos # (Auto) Baso # (Auto) Absolute Nucleated RBC Nucleated RBC % (auto) Platelet Estimate Hypochromasia Echinocytes PT INR APTT 138.3 H* PTT Ratio 5.1 Fibrinogen ABG pH 7.43 ABG pCO2 33 L ABG pO2 87 ABG HCO3 22 ABG O2 Saturation 97.0 H ABG Base Excess -2.0 Dick Test Pos Barometric Pressure 739.1 Oxygen Given 30% Sodium Potassium Chloride Carbon Dioxide Anion Gap BUN Creatinine Est Cr Clr Drug Dosing Est GFR ( Amer) Est GFR (Non-Af Amer) BUN/Creatinine Ratio Glucose POC Glucose 77 Calcium Phosphorus Magnesium Total Bilirubin Direct Bilirubin GGT AST ALT Alkaline Phosphatase Ammonia Troponin I Total Protein Albumin Globulin Albumin/Globulin Ratio Lipase Vitamin B12 Vancomycin Peak Random Vancomycin Heparin Dep Plt Ab React Heparin Dep Plt Ab OD Anaplasma Smear A. phagocytophilum DNA Lyme Disease IgG Ab Lyme Disease IgM Ab Blood Type Antibody Screen Crossmatch 11/29/18 11/29/18 11/29/18 06:50 06:50 10:21 WBC RBC Hgb 11.9 L Hct 37.8 MCV MCH MCHC RDW Std Deviation RDW Coeff of Melecio Plt Count MPV Immature Gran % (Auto) Neut % (Auto) Lymph % (Auto) Armstrong % (Auto) Eos % (Auto) Baso % (Auto) Immature Gran # (Auto) Neut # (Auto) Lymph # (Auto) Armstrong # (Auto) Eos # (Auto) Baso # (Auto) Absolute Nucleated RBC Nucleated RBC % (auto) Platelet Estimate Hypochromasia Echinocytes PT INR APTT 48.1 H* PTT Ratio 1.8 Fibrinogen ABG pH ABG pCO2 ABG pO2 ABG HCO3 ABG O2 Saturation ABG Base Excess Dick Test Barometric Pressure Oxygen Given Sodium 145 Potassium 3.8 D Chloride 114 H Carbon Dioxide 22 Anion Gap 9.0 BUN 63 H Creatinine 1.66 H D Est Cr Clr Drug Dosing 22.9 Est GFR ( Amer) 37.4 Est GFR (Non-Af Amer) 32.2 BUN/Creatinine Ratio 37.9 H Glucose 65 L POC Glucose Calcium 7.9 L Phosphorus 3.2 D Magnesium 2.1 Total Bilirubin 2.2 H D Direct Bilirubin 0.7 H D GGT AST 318 H ALT 495 H Alkaline Phosphatase 76 Ammonia Troponin I 0.115 H* Total Protein 4.6 L Albumin 2.2 L Globulin Albumin/Globulin Ratio Lipase Vitamin B12 Vancomycin Peak Random Vancomycin Heparin Dep Plt Ab React Heparin Dep Plt Ab OD Anaplasma Smear A. phagocytophilum DNA Lyme Disease IgG Ab Lyme Disease IgM Ab Blood Type Antibody Screen Crossmatch 11/29/18 11/29/18 11/29/18 10:21 11:41 11:41 WBC RBC Hgb Hct MCV MCH MCHC RDW Std Deviation RDW Coeff of Melecio Plt Count MPV Immature Gran % (Auto) Neut % (Auto) Lymph % (Auto) Armstrong % (Auto) Eos % (Auto) Baso % (Auto) Immature Gran # (Auto) Neut # (Auto) Lymph # (Auto) Armstrong # (Auto) Eos # (Auto) Baso # (Auto) Absolute Nucleated RBC Nucleated RBC % (auto) Platelet Estimate Hypochromasia Echinocytes PT 12.8 H INR 1.3 H APTT PTT Ratio Fibrinogen ABG pH ABG pCO2 ABG pO2 ABG HCO3 ABG O2 Saturation ABG Base Excess Dick Test Barometric Pressure Oxygen Given Sodium Potassium Chloride Carbon Dioxide Anion Gap BUN Creatinine Est Cr Clr Drug Dosing Est GFR ( Amer) Est GFR (Non-Af Amer) BUN/Creatinine Ratio Glucose POC Glucose Calcium Phosphorus Magnesium Total Bilirubin Direct Bilirubin GGT AST ALT Alkaline Phosphatase Ammonia Troponin I Total Protein Albumin Globulin Albumin/Globulin Ratio Lipase Vitamin B12 Vancomycin Peak 45.7 H Random Vancomycin Heparin Dep Plt Ab React Pending Heparin Dep Plt Ab OD Pending Anaplasma Smear A. phagocytophilum DNA Pending Lyme Disease IgG Ab Lyme Disease IgM Ab Blood Type Antibody Screen Crossmatch 11/29/18 11/29/18 11/29/18 11:41 11:42 11:42 WBC RBC Hgb Hct MCV MCH MCHC RDW Std Deviation RDW Coeff of Melecio Plt Count MPV Immature Gran % (Auto) Neut % (Auto) Lymph % (Auto) Armstrong % (Auto) Eos % (Auto) Baso % (Auto) Immature Gran # (Auto) Neut # (Auto) Lymph # (Auto) Armstrong # (Auto) Eos # (Auto) Baso # (Auto) Absolute Nucleated RBC Nucleated RBC % (auto) Platelet Estimate Hypochromasia Echinocytes PT INR APTT PTT Ratio Fibrinogen 208 ABG pH ABG pCO2 ABG pO2 ABG HCO3 ABG O2 Saturation ABG Base Excess Dick Test Barometric Pressure Oxygen Given Sodium Potassium Chloride Carbon Dioxide Anion Gap BUN Creatinine Est Cr Clr Drug Dosing Est GFR ( Amer) Est GFR (Non-Af Amer) BUN/Creatinine Ratio Glucose POC Glucose Calcium Phosphorus Magnesium Total Bilirubin Direct Bilirubin GGT AST ALT Alkaline Phosphatase Ammonia 13.0 Troponin I Total Protein Albumin Globulin Albumin/Globulin Ratio Lipase Pending Vitamin B12 Vancomycin Peak Random Vancomycin Heparin Dep Plt Ab React Heparin Dep Plt Ab OD Anaplasma Smear A. phagocytophilum DNA Lyme Disease IgG Ab Lyme Disease IgM Ab Blood Type Antibody Screen Crossmatch 11/29/18 11/29/18 11/29/18 11:42 11:42 11:42 WBC RBC Hgb Hct MCV MCH MCHC RDW Std Deviation RDW Coeff of Melecio Plt Count MPV Immature Gran % (Auto) Neut % (Auto) Lymph % (Auto) Armstrong % (Auto) Eos % (Auto) Baso % (Auto) Immature Gran # (Auto) Neut # (Auto) Lymph # (Auto) Armstrong # (Auto) Eos # (Auto) Baso # (Auto) Absolute Nucleated RBC Nucleated RBC % (auto) Platelet Estimate Hypochromasia Echinocytes PT INR APTT PTT Ratio Fibrinogen ABG pH ABG pCO2 ABG pO2 ABG HCO3 ABG O2 Saturation ABG Base Excess Dick Test Barometric Pressure Oxygen Given Sodium Potassium Chloride Carbon Dioxide Anion Gap BUN Creatinine Est Cr Clr Drug Dosing Est GFR ( Amer) Est GFR (Non-Af Amer) BUN/Creatinine Ratio Glucose POC Glucose Calcium Phosphorus Magnesium Total Bilirubin Direct Bilirubin GGT Pending AST ALT Alkaline Phosphatase Ammonia Troponin I Total Protein Albumin Globulin Albumin/Globulin Ratio Lipase Vitamin B12 Vancomycin Peak Random Vancomycin Heparin Dep Plt Ab React Heparin Dep Plt Ab OD Anaplasma Smear Pending A. phagocytophilum DNA Lyme Disease IgG Ab Pending Lyme Disease IgM Ab Pending Blood Type Antibody Screen Crossmatch 11/29/18 11/29/18 11:42 12:12 WBC RBC Hgb Hct MCV MCH MCHC RDW Std Deviation RDW Coeff of Melecio Plt Count MPV Immature Gran % (Auto) Neut % (Auto) Lymph % (Auto) Armstrong % (Auto) Eos % (Auto) Baso % (Auto) Immature Gran # (Auto) Neut # (Auto) Lymph # (Auto) Armstrong # (Auto) Eos # (Auto) Baso # (Auto) Absolute Nucleated RBC Nucleated RBC % (auto) Platelet Estimate Hypochromasia Echinocytes PT INR APTT PTT Ratio Fibrinogen ABG pH ABG pCO2 ABG pO2 ABG HCO3 ABG O2 Saturation ABG Base Excess Dick Test Barometric Pressure Oxygen Given Sodium Potassium Chloride Carbon Dioxide Anion Gap BUN Creatinine Est Cr Clr Drug Dosing Est GFR ( Amer) Est GFR (Non-Af Amer) BUN/Creatinine Ratio Glucose POC Glucose 71 Calcium Phosphorus Magnesium Total Bilirubin Direct Bilirubin GGT AST ALT Alkaline Phosphatase Ammonia Troponin I Total Protein Albumin Globulin Albumin/Globulin Ratio Lipase Vitamin B12 Pending Vancomycin Peak Random Vancomycin Heparin Dep Plt Ab React Heparin Dep Plt Ab OD Anaplasma Smear A. phagocytophilum DNA Lyme Disease IgG Ab Lyme Disease IgM Ab Blood Type Antibody Screen Crossmatch Medications Administered Current Inpatient Medications Acetaminophen (Tylenol) 650 mg PO Q4H PRN PRN Reason: Pain or Fever Stop: 12/28/18 00:43 Aspirin (Aspirin Chew) 81 mg PO DAILY JHONY Stop: 12/30/18 08:59 Cyanocobalamin (Vitamin B-12) 1,000 mcg SC DAILY@1200 JHONY Stop: 12/05/18 12:01 Last Admin: 11/29/18 12:02 Dose: 1,000 mcg Documented by: Diphenhydramine HCl (Benadryl Capsule) 25 mg PO HS PRN PRN Reason: Allergy Symptoms Enteral Nutritional Formula (Impact 1.0 Serjio) 1,000 ml NG UD JHONY; Protocol Stop: 12/29/18 12:14 Fentanyl Citrate (Fentanyl Citrate) 25 mcg IV Q2H PRN PRN Reason: Moderate Pain (4,5,6) Stop: 12/12/18 05:54 Last Admin: 11/29/18 10:35 Dose: 25 mcg Documented by: Piperacillin Sod/Tazobactam (Sod 3.375 gm/ Dextrose) 115 mls @ 28.75 mls/hr IV Q12H JHONY; Protocol Stop: 12/08/18 09:59 Last Admin: 11/29/18 10:36 Dose: 28.8 mls/hr Documented by: Heparin Sodium/Dextrose (Heparin Sodium/Dextrose) 25,000 units in 500 mls @ 8 mls/hr IV .Q24H JHONY; Protocol Stop: 12/28/18 10:59 Last Titration: 11/29/18 08:30 Dose: 400 units/hr, 8 mls/hr Documented by: Parenteral Electrolytes (Normosol-R) 1,000 mls @ 80 mls/hr IV .[id number] JHONY Stop: 12/28/18 10:44 Last Admin: 11/28/18 23:59 Dose: 80 mls/hr Documented by: Pantoprazole Sodium 40 mg/ (Syringe) 10 mls @ 5 mls/min IV BID@0900,2100 [facility] Stop: 12/28/18 20:59 Last Admin: 11/29/18 08:24 Dose: 5 mls/min Documented by: Sodium Chloride (Nss) 250 mls @ 15 mls/hr IV .[id number] PRN PRN Reason: For Transfusion Stop: 12/28/18 18:11 Folic Acid 1 mg/ Syringe 10 mls @ 5 mls/min IV Q24H [facility] Stop: 12/29/18 12:59 Ipratropium [place] (Atrovent 0.02% 0.5mg/2.5ml) 0.5 mg INH Q4R PRN PRN Reason: Shortness Of Breath Or Wheezing Stop: 12/28/18 00:43 Levalbuterol HCl (Xopenex 1.25mg/0.5ml Neb) 1.25 mg INH Q4R PRN PRN Reason: Shortness Of Breath Or Wheezing Stop: 12/28/18 00:43 Levalbuterol HCl (Xopenex Hfa) 2 puffs INH Q4H PRN PRN Reason: Wheezing Stop: 12/28/18 00:43 Midazolam HCl (Versed) 1 mg IV Q2H PRN PRN Reason: agitation/anxiety Stop: 12/28/18 05:54 Last Admin: 11/29/18 05:27 Dose: 1 mg Documented by: Miscellaneous (Icu Protocol For Hyperglycemia) 1 ea N/A PRN PRN; Protocol PRN Reason: Hyperglycemia Protocol Stop: 11/30/18 05:54 Miscellaneous Information (Consult) 1 ea N/A UD PRN PRN Reason: Consult Stop: 12/28/18 00:43 Nitroglycerin (Nitrostat) 0.4 mg SL UD PRN PRN Reason: Chest Pain Stop: 12/28/18 00:43 Ondansetron HCl (Zofran) 4 mg IV Q6H PRN PRN Reason: Nausea Stop: 12/28/18 00:43 Prednisone (Prednisone) 5 mg NG DAILY [facility] Stop: 12/29/18 12:59 Fluticasone/Salmeterol (Advair Diskus 250/50) 1 puffs INH BID JHONY Stop: 12/28/18 08:59 Last Admin: 11/29/18 08:39 Dose: Not Given Documented by: PG Care Time/CCT Total # of Minutes Spent Total Time Spent with Patient: Total time spent is greater than 50% in coordination of care (as documented) at patient's floor/unit and/or counseling patient: Critical Care Time: Yes Total Critical Care Time: 40 Resident Activity Tracking Resident Involvement: Resident Care Provided Care Provided: Adult Hospital Medicine
[2018-11-29 08:00] LABS: Partial Thromboplastin Time 48.1 Seconds (21.0-31.0)
[2018-11-29 08:08] LABS: Albumin Level 2.2 gm/dl (3.4-5.0); BUN Creatinine Ratio 37.9 (10-20); Bilirubin Direct 0.7 mg/dl (0-0.2); Bilirubin,Total 2.2 mg/dl (0.2-1); Calcium 7.9 mg/dl (8.5-10.1); Creatinine Clr Calc Pharmacy 22.9 ml/min; Est GFR (African American) 37.4; Est GFR (Non-African American) 32.2; Magnesium 2.1 mg/dl (1.8-2.4); Phosphorus 3.2 mg/dl (2.5-4.9); Potassium 3.8 mmol/L (3.5-5.1); Total Protein 4.6 gm/dl (6.4-8.2); Troponin I 0.115 ng/ml (0-0.045)
--- NOTE | 2018-11-29 08:08 | CT Scan Report ---
CT abd pelvis wo con CLINICAL HISTORY: 63 years-old Female presenting with AMS, GIB. TECHNIQUE: Multidetector CT of the abdomen and pelvis was performed without the use of intravenous co ntrast. IV contrast: None. One or more dose lowering techniques were used consistent with the princip les of ALARA (as low as reasonably achievable), including automatic exposure control, mA or kV adjust ment to individual patient size, and/or use of iterative reconstruction. COMPARISON: 11/28/2018. CT DOSE (mGy.cm): The estimated cumulative dose is 696.91 mGycm. FINDINGS: Rn Urgent Care topogram: Unremarkable. Lung bases: Normal heart size. Small bilateral pleural effusions. Centrilobular emphysema. Minimal de pendent changes in the left lower lobe possibly atelectasis. Liver: Normal morphology. Normal density. Periportal edema noted. Biliary: Mild central intrahepatic and extra hepatic ductal prominence. The gallbladder is distended with high density intraluminal contents possibly biliary sludge. Pancreas: Normal noncontrast appearance. Spleen: Normal noncontrast appearance. Adrenal glands: Thickening of the adrenal glands, nonspecific. Kidneys and ureters: Horseshoe kidney configuration. Several nonobstructing calculi noted in both riley eties. No hydronephrosis. Ureters are not well delineated. Bladder: Noonan catheter partially decompresses the urinary bladder. The gas within the bladder likely related to the catheter. Pelvic organs: Normal noncontrast appearance. Bowel: A rectal temperature probe is in place terminating in the upper rectum or distal sigmoid colon . Limited evaluation of the bowel given the lack of intravenous and oral contrast. Bowel wall thicken ing is not excluded though the appearance is likely due to underdistention and small abdominopelvic a scites. No bowel obstruction. A nasogastric tube terminates in the gastric body. Peritoneal cavity: Small amount of abdominal pelvic ascites. No free intraperitoneal gas. Lymph nodes: No gross lymphadenopathy allowing for noncontrast technique. Vasculature: Atherosclerosis of the normal caliber abdominal aorta. Abdominal wall: Mild to moderate diffuse body wall edema. There may be skin thickening and infiltrati on overlying the sacrum. Musculoskeletal: Osteopenia. Degenerative changes of the spine. Multiple old bilateral rib fractures. Compression deformity of L1, which is severe and unchanged from prior. IMPRESSION: 1. Small amount of nonspecific abdominopelvic ascites. Ascites is likely related to volume overload. The presence of bilateral small pleural effusions and anasarca. An inflammatory etiology is consider ed unlikely. 2. Distended gallbladder. This may be on a physiologic basis, however, correlate for right upper keyur drant symptoms and consider ultrasound for further evaluation. 3. 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 No hydronephrosis. 4. Lines and tubes appropriately positioned. 5. Emphysema. Electronically signed by: Jeff Moore M.D. 11/29/2018 8:06 AM
--- NOTE | 2018-11-29 08:09 | Gastroenterology Progress Note ---
Date of Service November 29, 2018 Assessment & Plan (1) Acute respiratory failure with hypercapnia: 63 year old female admitted from ED to ICU w/ acute respiratory failure with hypercapnia requiring emergent endotracheal intubation for airway protection, KATHERINE and presumed sepsis from lower extremity wounds, right lower extremity DVT, anemia and heme positive stools. She is s/p RBC x 2 units w/ repeat HGB this AM 12.5 No evidence of black/bloody stools and she has green/brown NG output - No current indication or plan for endoscopy - NG to low, intermittent suction without any evidence of UGI source of heme positive stools - Trend HGB - Monitor and document all GI output - Transfuse PRN - IV PPI BID - Trend LFTs - Send acute hep - No current plan for EGD/Colonoscopy given prior acute respiratory failure Thank you for allowing us to participate in the care of this patient. Please call with any acute changes, questions or concerns. Please see addendum below with additional recommendation from my supervising physician. (2) COPD (chronic obstructive pulmonary disease): (3) Admitted to intensive care unit: (4) Anemia: Supervising Physician Co-Signing Physician Notes I have seen the patient and discussed the management with JANIYA Choe. No acute sign of gi bleeding. Drop in hgb though responded to prbc's. Has received a lot of IV fluid. No indication for scopes at this time as she has asymptomatic anemia. GI will sign off. Subjective 63 year old female In bed this AM No family at bedside. Pt is intubated, unable to provide any history Discussed with nursing No evidence of black/bloody stools NG to intermittent suction without any evidence of UGI bleed She is s/p RBCs x 2 units HGB this A< 12.[address] imaging pending Review of Systems Review of Systems: Unobtainable due to endotracheal tube Physical Exam Constitutional: + ill appearing and + thin; no acute distress Sedated, intubated. Frail appearing. Neck: trachea midline Respiratory: Auscultation: lungs clear to auscultation bilaterally Sedated, intubated Cardiovascular: Rate/Rhythm: regular rate and regular rhythm Gastrointestinal (Abdomen): Inspection/Auscultation: normal bowel sounds Percussion/Palpation: abdomen soft; no guarding and abdomen not rigid Results & Data Vital Signs (Past 12 Hours) Vital Signs Temp Pulse Resp BP Pulse Ox 10/10/19 07:14 83 14 100 11/29/18 06:00 84 83/56 L 100 11/29/18 05:01 87 100 11/29/18 05:00 102 H 99/63 L 95 11/29/18 04:24 107 H 93/41 L 11/29/18 04:11 98 H 14 96 11/29/18 04:02 94 H 11/29/18 04:00 82 11/29/18 03:00 89 84/44 L 99 11/29/18 02:00 104 H 11/29/18 01:40 91 H 15 97 11/29/18 00:57 37.2 C 86 14 109/66 100 11/28/18 23:57 37.2 C 91 H 14 140/39 L 100 11/28/18 23:49 84 11/28/18 23:15 86 96/59 L 11/28/18 23:00 88 87/53 L 11/28/18 22:57 37.2 C 87 14 134/50 L 100 11/28/18 22:27 37.2 C 84 14 145/58 H 100 11/28/18 22:17 80 14 100 11/28/18 22:12 37.3 C 78 14 134/50 L 100 11/28/18 22:08 37.3 C 80 14 133/50 L 100 11/28/18 21:34 37.4 C 84 14 143/57 H 100 11/28/18 20:45 90 93/58 L 100 11/28/18 20:34 37.4 C 90 14 128/52 L 100 11/28/18 20:30 95 H 88/53 L 11/28/18 20:15 88 84/52 L 100 (1) Anemia Anemia type: unspecified type Qualified Code(s): D64.9 - Anemia, unspecified
[2018-11-29] MEDS: PANTOprazole 40 MG in SYRINGE 0 ML IV SCH ×2 (08:24→19:40)
[2018-11-29] MEDS: FLUTICASONE/SALMETEROL 250/50 (ADVAIR) 14 PUFF/1 INHALER INH SCH ×2 (08:39→19:28)
--- NOTE | 2018-11-29 09:02 | CT Scan Report ---
CT SCAN OF THE LUMBAR SPINE WITHOUT IV CONTRAST CLINICAL HISTORY: Change in mental status. Low back pain. COMPARISON STUDY: Abdominal CT dated 11/28/2018. Chest CT dated 08/07/2016. TECHNIQUE: CT scan of the lumbar spine is performed from the lower thoracic spine to the sacrum. Imag es are reviewed in the axial, sagittal, and coronal planes. IV contrast was not missed report for thi s examination. A dose lowering technique was utilized adhering to the principles of ALARA. CT DOSE: 512.48 mGycm FINDINGS: The skeletal structures are osteopenic. There is a moderate to severe compression deformity of L1. This is age indeterminate, unchanged yesterday, but new from the [address] Fragments are retropulsed by up to 5 mm and this contributes to mild central canal stenosis at this level. There i s a minimal age indeterminate superior endplate compression deformity of L5. Vertebral body height is otherwise maintained throughout the lumbar spine. There is minimal retrolisthesis at L2-L3. Alignmen t is otherwise preserved. Anterior and lateral marginal osteophytes are seen throughout. The transver se and spinous processes appear intact. There is no spondylolysis. No lytic or blastic lesion is seen . Mild facet arthropathy is noted in the lower lumbar region. There is advanced disc space narrowing at L5-S1. Moderate disc space narrowing is seen at L1-L2, L2-L3, and L3-L4. Posterior disc osteophyte complexes are seen at all levels from L2 to L3 through L5-S1. This likely contributes to mild multil evel acquired compromise of the central canal. The visualized sacrum and bony pelvis appear intact. 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 There is fatty atrophy of the paraspinous and psoas muscul ature. An enteric tube is present in the stomach. A horseshoe kidney is noted. Small nonobstructing r enal calculi are seen bilaterally. There is mild atherosclerotic calcification of the abdominal aorta . Emphysematous change is noted at the lung bases. There are small pleural effusions with associated atelectasis. IMPRESSION: 1. There has been no significant change from yesterday's abdominal CT. 2. There is a moderate to severe and age indeterminate compression deformity of L1 as detailed above. This is unchanged from yesterday but new from 2017. This may be acute to subacute. Correlate for poi nt tenderness. 3. There is a minimal and age indeterminate superior endplate compression deformity of L5. 4. Osteopenia with multilevel lumbosacral spondylosis as above. There is likely mild multilevel acqui red compromise of the central canal. 5. Bilateral nephrolithiasis. 6. Emphysema and small pleural effusions. Dictated: 11/29/2018 7:34 AM Transcribed: 11/29/2018 8:44 AM Yris [id number] [email or web address] Electronically signed by: Jose Alberto Crisostomo M.D. 11/29/2018 9:01 AM
[2018-11-29] MEDS: PIPERACILLIN/TAZOBACTAM 3.375 GM in DEXTROSE 5% 100 ML IV SCH ×2 (10:36→17:25)
[2018-11-29 10:42] LABS: Hematocrit (blood only) 37.8 % (37-47); Hemoglobin 11.9 g/dL (12.0-16.0)
[2018-11-29] MEDS ORDERED: CYANOCOBALAMIN 1000 MCG/ML VIAL SC SCH (12:00)
[2018-11-29 12:02] LABS: Fibrinogen 208 mg/dl (184-400)
[2018-11-29 12:04] LABS: INR 1.3 (0.9-1.1); Prothrombin Time 12.8 Seconds (9.0-12.0)
[2018-11-29] MEDS: ASPIRIN 81 MG ECTAB PO SCH (12:14)
[2018-11-29 13:06] LABS: Lyme Ab IgG w/WB Rflx Negative (Negative); Lyme Ab IgM w/WB Rflx Negative (Negative)
[2018-11-29] MEDS: FOLIC ACID 1 MG in SYRINGE 9.8 ML IV SCH (13:20)
[2018-11-29] MEDS: IMPACT LIQD 1.0 CAL 1,000 ML BAG NG SCH (13:21)
[2018-11-29] MEDS: NORMOSOL-R 1,000 ML IV SCH ×2 (13:22→17:25)
[2018-11-29] MEDS: predniSONE 5 MG TAB NG SCH (13:41)
[2018-11-29 14:59] LABS: Albumin Level 1.9 gm/dl (3.4-5.0); BUN Creatinine Ratio 43.2 (10-20); Calcium 7.6 mg/dl (8.5-10.1); Creatinine Clr Calc Pharmacy 30.4 ml/min; Est GFR (African American) 52.6; Est GFR (Non-African American) 45.4; Potassium 3.5 mmol/L (3.5-5.1)
[2018-11-29 15:06] LABS: Albumin Globulin Ratio 0.9 (0.9-2); Bilirubin,Total 1.6 mg/dl (0.2-1); Globulin 2.2 gm/dl (2.5-4.0); Total Protein 4.1 gm/dl (6.4-8.2)
[2018-11-29 15:10] LABS: Partial Thromboplastin Ratio 2.2
[2018-11-29 15:16] LABS: Partial Thromboplastin Time 60.4 Seconds (21.0-31.0)
--- NOTE | 2018-11-29 16:18 | Hospitalist Progress Note ---
Date of Service November 29, 2018 Assessment & Plan (1) Acute respiratory failure with hypercapnia: ASSESSMENT AND PLAN: This is a 63-year-old female who lives with her daughter, history of chronic obstructive pulmonary disease, diastolic dysfunction, tobacco use disorder, presents with altered mental status. Acute respiratory failure with hypercapnia and hypoxemia, POA Altered mental status and lethargy, metabolic encephalopathy mostly secondary to CO2 narcosis and also could be uremic encephalopathy because her --History of COPD --CT chest: 1. Pulmonary emphysema 2. No evidence of focal pulmonary consolidation 3. No evidence of pathologic adenopathy 4. Severe T11 and L1 vertebral body compression fractures, new when compared with the prior July [address] --Remains intubated ABG improved, respiratory acidosis resolved Mechanical ventilator management per ICU team Appreciate bmet recommendations Hypotension Possible Sepsis due to lower extremity cellulitis, POA --Blood cultures: Negative so far Urine culture: Pending --Empiric Zosyn day #2 --Blood pressure improved with IV fluids Monitor Acute kidney injury on chronic kidney disease stage III. Baseline creatinine of 1 and BUN around 20.Currently creatinine is 2.4 and BUN is 98. -- crea further improved -- Continue Normosol Anemia possible GI Bleed -- further decreased to 7 2 units pRBC given -- Hg improved to 11 -- Hemoccult positive stools in the ER, but there are no signs of obvious bleeding. -- ff up Hg trend Protonix drip GI consulted, no plans for EGD/Colonosopy at this time Right popliteal DVT --Heparin drip ordered Transaminitis, most likely secondary to hypotension. --Monitor LFTs Elevated troponin, most likely from above. -- 0.07, 0.07, 0.09 History of diastolic congestive heart failure, left ventricular hypertrophy, on Lasix 20 mg 3-7 tablets a week. -- Currently holding the Lasix because of hypotension , acute renal failure repeat Echo ordered Lower extremity edema -- Arterial Doppler US: 1. Decreased ankle brachial indices of the left lower extremity compatible with moderate to severe peripheral arterial disease. 2. Segmental pressures of the right lower extremity were not conducted secondary to deep venous thrombosis of the popliteal vein. 3. Elevated peak systolic velocities within the right profunda femoris vein are suggestive of luminal narrowing secondary to atherosclerotic vascular disease. -- will need Vascular Surgery evaluation continue ASA, also on Heparin drip History of breast lesion a couple of years ago -- will need outpatient ff up Malnutrition. The patient is thin and frail. Nutrition consult. osteoarthritis/RA. We will hold the naproxen for now. Hypertension. Hold the Toprol XL for now, hold diuretics for now. Tobacco abuse disorder, needs counseling. Deep venous thrombosis prophylaxis,heparin drip Disposition: pending will need PT/OT evaluation Subjective Follow-up for respiratory failure Seen intubated, sedated Not in distress NG tube in place, tube feeding Status post 2 units packed RBC transfusion overnight No signs of overt bleeding so far No other signs noted Review of Systems Review of Systems: Unobtainable due to cognitive status and Unobtainable due to endotracheal tube Physical Exam Physical Exam: General-sedated, intubated, no accessory muscle use, not in distress Eyes- anicteric Neck- no JVD Lungs- clear breath sounds bilaterally Heart- normal rate, regular rhythm; no murmurs Abdomen- normal bowel sounds, nondistended, soft, nontender Extremities-bilateral lower legs with dressing in place, surrounding erythema noted Neuro-sedated, intubated Skin- warm & dry Results & Data Vital Signs (Past 12 Hours) Vital Signs Pulse Resp BP Pulse Ox 11/29/18 15:00 86 12 107/65 98 11/29/18 14:29 120 H 18 108/69 93 11/29/18 14:15 90 19 93 11/29/18 13:30 96 H 14 100 11/29/18 13:01 90 99 11/29/18 13:00 97 H 101/59 L 100 11/29/18 12:04 14 11/29/18 12:01 90 99/54 L 100 11/29/18 12:00 88 99 11/29/18 11:01 81 99 11/29/18 11:00 86 104/61 100 11/29/18 10:30 105 H 100 11/29/18 10:15 90 97 11/29/18 10:01 85 100 11/29/18 10:00 92 H 109/65 100 11/29/18 09:45 81 100 11/29/18 09:30 77 100 11/29/18 09:15 75 100 11/29/18 09:01 82 100 11/29/18 09:00 84 93/55 L 100 11/29/18 08:45 81 100 11/29/18 08:30 86 100 11/29/18 08:15 76 100 11/29/18 08:01 79 100 11/29/18 08:00 79 106/61 100 11/29/18 07:45 83 100 11/29/18 07:30 78 100 11/29/18 07:15 79 100 11/29/18 07:14 83 14 100 11/29/18 07:01 111 H 100 11/29/18 07:00 90 91/60 L 100 11/29/18 06:00 84 83/56 L 100 11/29/18 05:01 87 100 11/29/18 05:00 102 H 99/63 L 95 11/29/18 04:24 107 H 93/41 L Laboratory Results Laboratory Results - last 24 hr 11/27/18 11/28/18 11/28/18 21:22 10:02 16:21 WBC RBC Hgb Hct MCV MCH MCHC RDW Std Deviation RDW Coeff of Melecio Plt Count MPV Immature Gran % (Auto) Neut % (Auto) Lymph % (Auto) [place] % (Auto) Eos % (Auto) Baso % (Auto) Immature Gran # (Auto) Neut # (Auto) Lymph # (Auto) [place] # (Auto) Eos # (Auto) Baso # (Auto) Absolute Nucleated RBC Nucleated RBC % (auto) Platelet Estimate Hypochromasia Echinocytes PT INR APTT PTT Ratio Fibrinogen ABG pH ABG pCO2 ABG pO2 ABG HCO3 ABG O2 Saturation ABG Base Excess Dick Test Barometric Pressure Oxygen Given Sodium Potassium Chloride Carbon Dioxide Anion Gap BUN Creatinine Est Cr Clr Drug Dosing Est GFR ( Amer) Est GFR (Non-Af Amer) BUN/Creatinine Ratio Glucose POC Glucose 114 H 54 L* Calcium Phosphorus Magnesium Total Bilirubin Direct Bilirubin GGT AST ALT Alkaline Phosphatase Ammonia Troponin I Total Protein Albumin Globulin Albumin/Globulin Ratio Lipase Vitamin B12 Vancomycin Peak Random Vancomycin Heparin Dep Plt Ab React Heparin Dep Plt Ab OD Anaplasma Smear A. phagocytophilum DNA Lyme Disease IgG Ab Lyme Disease IgM Ab Blood Type B Positive Antibody Screen NEGATIVE Crossmatch See Detail 11/28/18 11/28/18 11/28/18 16:41 16:54 19:49 WBC RBC Hgb 6.6 L* Hct 22.3 L MCV MCH MCHC RDW Std Deviation RDW Coeff of Melecio Plt Count MPV Immature Gran % (Auto) Neut % (Auto) Lymph % (Auto) [place] % (Auto) Eos % (Auto) Baso % (Auto) Immature Gran # (Auto) Neut # (Auto) Lymph # (Auto) [place] # (Auto) Eos # (Auto) Baso # (Auto) Absolute Nucleated RBC Nucleated RBC % (auto) Platelet Estimate Hypochromasia Echinocytes PT INR APTT Cancelled PTT Ratio Cancelled Fibrinogen ABG pH ABG pCO2 ABG pO2 ABG HCO3 ABG O2 Saturation ABG Base Excess Dick Test Barometric Pressure Oxygen Given Sodium Potassium Chloride Carbon Dioxide Anion Gap BUN Creatinine Est Cr Clr Drug Dosing Est GFR ( Amer) Est GFR (Non-Af Amer) BUN/Creatinine Ratio Glucose POC Glucose 104 H Calcium Phosphorus Magnesium Total Bilirubin Direct Bilirubin GGT AST ALT Alkaline Phosphatase Ammonia Troponin I Total Protein Albumin Globulin Albumin/Globulin Ratio Lipase Vitamin B12 Vancomycin Peak Random Vancomycin Heparin Dep Plt Ab React Heparin Dep Plt Ab OD Anaplasma Smear A. phagocytophilum DNA Lyme Disease IgG Ab Lyme Disease IgM Ab Blood Type Antibody Screen Crossmatch 11/28/18 11/28/18 11/28/18 20:55 22:00 22:53 WBC RBC Hgb Hct MCV MCH MCHC RDW Std Deviation RDW Coeff of Melecio Plt Count MPV Immature Gran % (Auto) Neut % (Auto) Lymph % (Auto) [place] % (Auto) Eos % (Auto) Baso % (Auto) Immature Gran # (Auto) Neut # (Auto) Lymph # (Auto) [place] # (Auto) Eos # (Auto) Baso # (Auto) Absolute Nucleated RBC Nucleated RBC % (auto) Platelet Estimate Hypochromasia Echinocytes PT INR APTT > 139.0 H* 104.8 H* 50.9 H* PTT Ratio > 5.1 3.9 1.9 Fibrinogen ABG pH ABG pCO2 ABG pO2 ABG HCO3 ABG O2 Saturation ABG Base Excess Dick Test Barometric Pressure Oxygen Given Sodium Potassium Chloride Carbon Dioxide Anion Gap BUN Creatinine Est Cr Clr Drug Dosing Est GFR ( Amer) Est GFR (Non-Af Amer) BUN/Creatinine Ratio Glucose POC Glucose Calcium Phosphorus Magnesium Total Bilirubin Direct Bilirubin GGT AST ALT Alkaline Phosphatase Ammonia Troponin I Total Protein Albumin Globulin Albumin/Globulin Ratio Lipase Vitamin B12 Vancomycin Peak Random Vancomycin Heparin Dep Plt Ab React Heparin Dep Plt Ab OD Anaplasma Smear A. phagocytophilum DNA Lyme Disease IgG Ab Lyme Disease IgM Ab Blood Type Antibody Screen Crossmatch 11/29/18 11/29/18 11/29/18 00:11 02:39 05:27 WBC 17.31 H RBC 4.74 Hgb 12.5 D Hct 39.3 MCV 82.9 MCH 26.4 MCHC 31.8 L RDW Std Deviation 47.3 H RDW Coeff of Melecio 15.7 H Plt Count 117 L D MPV 10.8 H Immature Gran % (Auto) 0.5 Neut % (Auto) 92.7 Lymph % (Auto) 1.5 [place] % (Auto) 4.8 Eos % (Auto) 0.5 Baso % (Auto) 0.0 Immature Gran # (Auto) 0.08 H Neut # (Auto) 16.06 H Lymph # (Auto) 0.26 L [place] # (Auto) 0.83 H Eos # (Auto) 0.08 Baso # (Auto) 0.00 Absolute Nucleated RBC 0.29 H Nucleated RBC % (auto) 1.7 Platelet Estimate Decreased L Hypochromasia Present Echinocytes 1+ PT INR APTT PTT Ratio Fibrinogen ABG pH ABG pCO2 ABG pO2 ABG HCO3 ABG O2 Saturation ABG Base Excess Dick Test Barometric Pressure Oxygen Given Sodium Cancelled Potassium Cancelled Chloride Cancelled Carbon Dioxide Cancelled Anion Gap Cancelled BUN Cancelled Creatinine Cancelled Est Cr Clr Drug Dosing Cancelled Est GFR ( Amer) Cancelled Est GFR (Non-Af Amer) Cancelled BUN/Creatinine Ratio Cancelled Glucose Cancelled POC Glucose 84 Calcium Cancelled Phosphorus Cancelled Magnesium Cancelled Total Bilirubin Cancelled Direct Bilirubin Cancelled GGT AST Cancelled ALT Cancelled Alkaline Phosphatase Cancelled Ammonia Troponin I Cancelled Total Protein Cancelled Albumin Cancelled Globulin Albumin/Globulin Ratio Lipase Vitamin B12 Vancomycin Peak Random Vancomycin Heparin Dep Plt Ab React Heparin Dep Plt Ab OD Anaplasma Smear A. phagocytophilum DNA Lyme Disease IgG Ab Lyme Disease IgM Ab Blood Type Antibody Screen Crossmatch 11/29/18 11/29/18 11/29/18 05:27 05:27 05:27 WBC RBC Hgb Hct MCV MCH MCHC RDW Std Deviation RDW Coeff of Melecio Plt Count MPV Immature Gran % (Auto) Neut % (Auto) Lymph % (Auto) [place] % (Auto) Eos % (Auto) Baso % (Auto) Immature Gran # (Auto) Neut # (Auto) Lymph # (Auto) [place] # (Auto) Eos # (Auto) Baso # (Auto) Absolute Nucleated RBC Nucleated RBC % (auto) Platelet Estimate Hypochromasia Echinocytes PT INR APTT 138.3 H* PTT Ratio 5.1 Fibrinogen ABG pH 7.43 ABG pCO2 33 L ABG pO2 87 ABG HCO3 22 ABG O2 Saturation 97.0 H ABG Base Excess -2.0 Dick Test Pos Barometric Pressure 739.1 Oxygen Given 30% Sodium Potassium Chloride Carbon Dioxide Anion Gap BUN Creatinine Est Cr Clr Drug Dosing Est GFR ( Amer) Est GFR (Non-Af Amer) BUN/Creatinine Ratio Glucose POC Glucose Calcium Phosphorus Magnesium Total Bilirubin Direct Bilirubin GGT AST ALT Alkaline Phosphatase Ammonia Troponin I Total Protein Albumin Globulin Albumin/Globulin Ratio Lipase Vitamin B12 Vancomycin Peak Random Vancomycin 2.8 Heparin Dep Plt Ab React Heparin Dep Plt Ab OD Anaplasma Smear A. phagocytophilum DNA Lyme Disease IgG Ab Lyme Disease IgM Ab Blood Type Antibody Screen Crossmatch 11/29/18 11/29/18 11/29/18 05:30 06:50 06:50 WBC RBC Hgb Hct MCV MCH MCHC RDW Std Deviation RDW Coeff of Melecio Plt Count MPV Immature Gran % (Auto) Neut % (Auto) Lymph % (Auto) [place] % (Auto) Eos % (Auto) Baso % (Auto) Immature Gran # (Auto) Neut # (Auto) Lymph # (Auto) [place] # (Auto) Eos # (Auto) Baso # (Auto) Absolute Nucleated RBC Nucleated RBC % (auto) Platelet Estimate Hypochromasia Echinocytes PT INR APTT 48.1 H* PTT Ratio 1.8 Fibrinogen ABG pH ABG pCO2 ABG pO2 ABG HCO3 ABG O2 Saturation ABG Base Excess Dick Test Barometric Pressure Oxygen Given Sodium 145 Potassium 3.8 D Chloride 114 H Carbon Dioxide 22 Anion Gap 9.0 BUN 63 H Creatinine 1.66 H D Est Cr Clr Drug Dosing 22.9 Est GFR ( Amer) 37.4 Est GFR (Non-Af Amer) 32.2 BUN/Creatinine Ratio 37.9 H Glucose 65 L POC Glucose 77 Calcium 7.9 L Phosphorus 3.2 D Magnesium 2.1 Total Bilirubin 2.2 H D Direct Bilirubin 0.7 H D GGT AST 318 H ALT 495 H Alkaline Phosphatase 76 Ammonia Troponin I 0.115 H* Total Protein 4.6 L Albumin 2.2 L Globulin Albumin/Globulin Ratio Lipase Vitamin B12 Vancomycin Peak Random Vancomycin Heparin Dep Plt Ab React Heparin Dep Plt Ab OD Anaplasma Smear A. phagocytophilum DNA Lyme Disease IgG Ab Lyme Disease IgM Ab Blood Type Antibody Screen Crossmatch 11/29/18 11/29/18 11/29/18 10:21 10:21 11:41 WBC RBC Hgb 11.9 L Hct 37.8 MCV MCH MCHC RDW Std Deviation RDW Coeff of Melecio Plt Count MPV Immature Gran % (Auto) Neut % (Auto) Lymph % (Auto) [place] % (Auto) Eos % (Auto) Baso % (Auto) Immature Gran # (Auto) Neut # (Auto) Lymph # (Auto) [place] # (Auto) Eos # (Auto) Baso # (Auto) Absolute Nucleated RBC Nucleated RBC % (auto) Platelet Estimate Hypochromasia Echinocytes PT INR APTT PTT Ratio Fibrinogen ABG pH ABG pCO2 ABG pO2 ABG HCO3 ABG O2 Saturation ABG Base Excess Dick Test Barometric Pressure Oxygen Given Sodium Potassium Chloride Carbon Dioxide Anion Gap BUN Creatinine Est Cr Clr Drug Dosing Est GFR ( Amer) Est GFR (Non-Af Amer) BUN/Creatinine Ratio Glucose POC Glucose Calcium Phosphorus Magnesium Total Bilirubin Direct Bilirubin GGT AST ALT Alkaline Phosphatase Ammonia Troponin I Total Protein Albumin Globulin Albumin/Globulin Ratio Lipase Vitamin B12 Vancomycin Peak 45.7 H Random Vancomycin Heparin Dep Plt Ab React Pending Heparin Dep Plt Ab OD Pending Anaplasma Smear A. phagocytophilum DNA Pending Lyme Disease IgG Ab Lyme Disease IgM Ab Blood Type Antibody Screen Crossmatch 11/29/18 11/29/18 11/29/18 11:41 11:41 11:42 WBC RBC Hgb Hct MCV MCH MCHC RDW Std Deviation RDW Coeff of Melecio Plt Count MPV Immature Gran % (Auto) Neut % (Auto) Lymph % (Auto) [place] % (Auto) Eos % (Auto) Baso % (Auto) Immature Gran # (Auto) Neut # (Auto) Lymph # (Auto) [place] # (Auto) Eos # (Auto) Baso # (Auto) Absolute Nucleated RBC Nucleated RBC % (auto) Platelet Estimate Hypochromasia Echinocytes PT 12.8 H INR 1.3 H APTT PTT Ratio Fibrinogen 208 ABG pH ABG pCO2 ABG pO2 ABG HCO3 ABG O2 Saturation ABG Base Excess Dick Test Barometric Pressure Oxygen Given Sodium Potassium Chloride Carbon Dioxide Anion Gap BUN Creatinine Est Cr Clr Drug Dosing Est GFR ( Amer) Est GFR (Non-Af Amer) BUN/Creatinine Ratio Glucose POC Glucose Calcium Phosphorus Magnesium Total Bilirubin Direct Bilirubin GGT AST ALT Alkaline Phosphatase Ammonia 13.0 Troponin I Total Protein Albumin Globulin Albumin/Globulin Ratio Lipase Vitamin B12 Vancomycin Peak Random Vancomycin Heparin Dep Plt Ab React Heparin Dep Plt Ab OD Anaplasma Smear A. phagocytophilum DNA Lyme Disease IgG Ab Lyme Disease IgM Ab Blood Type Antibody Screen Crossmatch 11/29/18 11/29/18 11/29/18 11:42 11:42 11:42 WBC RBC Hgb Hct MCV MCH MCHC RDW Std Deviation RDW Coeff of Melecio Plt Count MPV Immature Gran % (Auto) Neut % (Auto) Lymph % (Auto) [place] % (Auto) Eos % (Auto) Baso % (Auto) Immature Gran # (Auto) Neut # (Auto) Lymph # (Auto) [place] # (Auto) Eos # (Auto) Baso # (Auto) Absolute Nucleated RBC Nucleated RBC % (auto) Platelet Estimate Hypochromasia Echinocytes PT INR APTT PTT Ratio Fibrinogen ABG pH ABG pCO2 ABG pO2 ABG HCO3 ABG O2 Saturation ABG Base Excess Dick Test Barometric Pressure Oxygen Given Sodium Potassium Chloride Carbon Dioxide Anion Gap BUN Creatinine Est Cr Clr Drug Dosing Est GFR ( Amer) Est GFR (Non-Af Amer) BUN/Creatinine Ratio Glucose POC Glucose Calcium Phosphorus Magnesium Total Bilirubin Direct Bilirubin GGT Pending AST ALT Alkaline Phosphatase Ammonia Troponin I Total Protein Albumin Globulin Albumin/Globulin Ratio Lipase 233 Vitamin B12 Vancomycin Peak Random Vancomycin Heparin Dep Plt Ab React Heparin Dep Plt Ab OD Anaplasma Smear See Comment A. phagocytophilum DNA Lyme Disease IgG Ab Lyme Disease IgM Ab Blood Type Antibody Screen Crossmatch 11/29/18 11/29/18 11/29/18 11:42 11:42 12:12 WBC RBC Hgb Hct MCV MCH MCHC RDW Std Deviation RDW Coeff of Melecio Plt Count MPV Immature Gran % (Auto) Neut % (Auto) Lymph % (Auto) [place] % (Auto) Eos % (Auto) Baso % (Auto) Immature Gran # (Auto) Neut # (Auto) Lymph # (Auto) [place] # (Auto) Eos # (Auto) Baso # (Auto) Absolute Nucleated RBC Nucleated RBC % (auto) Platelet Estimate Hypochromasia Echinocytes PT INR APTT PTT Ratio Fibrinogen ABG pH ABG pCO2 ABG pO2 ABG HCO3 ABG O2 Saturation ABG Base Excess Dick Test Barometric Pressure Oxygen Given Sodium Potassium Chloride Carbon Dioxide Anion Gap BUN Creatinine Est Cr Clr Drug Dosing Est GFR ( Amer) Est GFR (Non-Af Amer) BUN/Creatinine Ratio Glucose POC Glucose 71 Calcium Phosphorus Magnesium Total Bilirubin Direct Bilirubin GGT AST ALT Alkaline Phosphatase Ammonia Troponin I Total Protein Albumin Globulin Albumin/Globulin Ratio Lipase Vitamin B12 1321 H Vancomycin Peak Random Vancomycin Heparin Dep Plt Ab React Heparin Dep Plt Ab OD Anaplasma Smear A. phagocytophilum DNA Lyme Disease IgG Ab Negative Lyme Disease IgM Ab Negative Blood Type Antibody Screen Crossmatch 11/29/18 11/29/18 14:30 14:30 WBC RBC Hgb Hct MCV MCH MCHC RDW Std Deviation RDW Coeff of Melecio Plt Count MPV Immature Gran % (Auto) Neut % (Auto) Lymph % (Auto) [place] % (Auto) Eos % (Auto) Baso % (Auto) Immature Gran # (Auto) Neut # (Auto) Lymph # (Auto) [place] # (Auto) Eos # (Auto) Baso # (Auto) Absolute Nucleated RBC Nucleated RBC % (auto) Platelet Estimate Hypochromasia Echinocytes PT INR APTT 60.4 H* PTT Ratio 2.2 Fibrinogen ABG pH ABG pCO2 ABG pO2 ABG HCO3 ABG O2 Saturation ABG Base Excess Dick Test Barometric Pressure Oxygen Given Sodium 147 H Potassium 3.5 Chloride 115 H Carbon Dioxide 24 Anion Gap 8.0 BUN 54 H Creatinine 1.25 H D Est Cr Clr Drug Dosing 30.4 Est GFR ( Amer) 52.6 Est GFR (Non-Af Amer) 45.4 BUN/Creatinine Ratio 43.2 H Glucose 73 POC Glucose Calcium 7.6 L Phosphorus Magnesium Total Bilirubin 1.6 H Direct Bilirubin GGT AST 245 H ALT 406 H Alkaline Phosphatase 68 Ammonia Troponin I Total Protein 4.1 L Albumin 1.9 L Globulin 2.2 L Albumin/Globulin Ratio 0.9 Lipase Vitamin B12 Vancomycin Peak Random Vancomycin Heparin Dep Plt Ab React Heparin Dep Plt Ab OD Anaplasma Smear A. phagocytophilum DNA Lyme Disease IgG Ab Lyme Disease IgM Ab Blood Type Antibody Screen Crossmatch
[2018-11-29] MEDS: ACETAMINOPHEN 325 MG TAB PO PRN (19:47)
[2018-11-29 20:15] LABS: Appearance Urine Cloudy (Clear); Bacteria Urine Automated Negative (Negative); Bilirubin Urine Negative (Negative); Blood Urine 2+ (Negative); Color Urine Yellow; Glucose Urine UA Negative (Negative); Ketones Urine Negative (Negative); Leukocyte Esterase Urine Negative (Negative); Nitrite Urine Negative (Negative); Protein Urine Negative (Negative); Specific Gravity Urine 1.021 (1.000-1.030); Urobilinogen Urine Negative (Negative)
--- NOTE | 2018-11-29 21:24 | Ultrasound Report ---
US liver HISTORY: 63 years-old Female biliary distended gallbladder. COMPARISON: CT abdomen and pelvis of same day TECHNIQUE: Multiple real-time sonographic images of the abdominal right upper quadrant were obtained assessing grayscale appearance and color flow FINDINGS: Imaged pancreas is unremarkable. Liver is unremarkable. Trace ascites of the abdominal right upper qu adrant. Small right pleural effusion. Dilated common bile duct measures up to 1.1 cm transversely. No intrahepatic biliary ductal dilation identified. No obstructing biliary stone or lesion. Mild gallbl adder distention measures up to 7.0 cm. Trace layering gallbladder sludge without shadowing cholelith iasis. Gallbladder wall measures the upper limits of normal at 3 mm. Sonographic Chahal sign reported as negative. Horseshoe kidney with nonobstructing calculi measuring up to 4 mm. No hydronephrosis. IMPRESSION: 1. Distended gallbladder with gallbladder wall measuring in the upper limits of normal. No cholelithi asis or definite sonographic evidence of acute cholecystitis. Correlate clinically. 2. Distended common bile duct measuring 1.1 cm is noted without obstructing biliary stone or lesion i dentified. 3. Horseshoe kidney with nonobstructing nephrolithiasis. 4. Trace abdominal ascites redemonstrated. The above report was generated using voice recognition software. It may contain grammatical, syntax o r spelling errors. Electronically signed by: Jose Luis Gutierrez M.D. 11/29/2018 9:23 PM
[2018-11-29] MEDS: Heparin Adult STANDARD Wt-Based Dextrose 5% 25,000 units/500 mL IV SCH (22:09)
[2018-11-30] MEDS: PIPERACILLIN/TAZOBACTAM 3.375 GM in DEXTROSE 5% 100 ML IV SCH ×2 (01:43→09:35)
[2018-11-30] MEDS: MIDAZOLAM HCL 1 MG/ML 2ML VIAL IV PRN ×7 (03:26→23:17)
[2018-11-30 05:49] LABS: iSTAT Allen Test Pass; iSTAT Art Bld Gas pCO2 Correct 45 mmHg (35-46); iSTAT Art Bld Gas pH Corrected 7.326 (7.35-7.45); iSTAT Arterial Blood Gas HCO3 24 meg/L (19-24); iSTAT Arterial Blood Gas pCO2 46 mmHg (35-46); iSTAT Arterial Blood Gas pH 7.32 (7.35-7.45); iSTAT Arterial Blood Gas pO2 87 mmHg (80-95); iSTAT Arterial Blood Gas pO2 C 85; iSTAT Carbon Dioxide 25 mEq/l (24-31); iSTAT FiO2 30 %; iSTAT Site R Radial
[2018-11-30 05:51] LABS: Mean Corpuscular Hgb Conc 32.6 g/dL (32-36); Nucleated RBC # (auto) 0.08 K/uL (0-0); Nucleated RBC % (auto) 0.5 %
[2018-11-30 06:03] LABS: Hematocrit (blood only) 34.7 % (37-47); Hemoglobin 11.3 g/dL (12.0-16.0); Mean Corpuscular Hemoglobin 26.3 pg (25-34); Mean Corpuscular Volume 80.9 fL (80-100); RDW Coefficient of Variation 16.7 % (11.5-14.5); RDW Standard Deviation 48.8 fL (36.4-46.3); Red Blood Count 4.29 M/uL (4.2-5.4); White Blood Count 15.67 K/uL (4.8-10.8)
[2018-11-30 06:10] LABS: Partial Thromboplastin Ratio 2.6
[2018-11-30 06:25] LABS: Albumin Level 1.8 gm/dl (3.4-5.0); BUN Creatinine Ratio 43.1 (10-20); Bilirubin Direct 0.4 mg/dl (0-0.2); Bilirubin,Total 0.8 mg/dl (0.2-1); Calcium 7.6 mg/dl (8.5-10.1); Creatinine Clr Calc Pharmacy 37.8 ml/min; Est GFR (African American) 68.1; Est GFR (Non-African American) 58.8; Magnesium 2.1 mg/dl (1.8-2.4); Phosphorus 2.9 mg/dl (2.5-4.9); Potassium 3.3 mmol/L (3.5-5.1)
[2018-11-30 06:28] LABS: Mean Platelet Volume 10.5 fL (7.4-10.4); Platelet Count 102 K/uL (130-400)
[2018-11-30 06:29] LABS: Eosinophils # (auto) 0.11 K/uL (0-0.5); Eosinophils % (auto) 0.7 %; Immature Granulocytes # (auto) 0.03 K/uL (0.00-0.02); Immature Granulocytes % (auto) 0.2 %; Lymphocytes # (auto) 0.31 K/uL (1.2-3.4); Monocytes # (auto) 0.93 K/uL (0.11-0.59); Monocytes % (auto) 5.9 %; Neutrophils # (auto) 14.29 K/uL (1.4-6.5); Neutrophils % (auto) 91.2 %; Platelet Estimate Decreased (Normal); Poikilocytosis Present; Polychromasia 1+
[2018-11-30] MEDS: FLUTICASONE/SALMETEROL 250/50 (ADVAIR) 14 PUFF/1 INHALER INH SCH (07:18)
[2018-11-30] MEDS: NORMOSOL-R 1,000 ML IV SCH (07:19)
--- NOTE | 2018-11-30 07:32 | XRay Report ---
SINGLE VIEW CHEST CLINICAL HISTORY: Respiratory failure. FINDINGS: An AP, portable, upright chest radiograph is compared to study dated 11/28/2018 and correlat ed with chest CT dated 11/29/2018. The examination is degraded by portable technique and patient rota tion. A right internal jugular central venous catheter, an enteric tube, and endotracheal tube are u nchanged in position. The cardiomediastinal silhouette is unremarkable noting atherosclerotic calcifi cation of the thoracic aorta. Enlargement of the pulmonary trunk suggests pulmonary artery hypertensi on. Advanced emphysema and chronic interstitial thickening are similar to previous. There is a small left pleural effusion with left basilar opacities. Apical scarring is observed. No pneumothorax is se en. The skeletal structures are osteopenic. The bony thorax is grossly intact. Advanced degenerative changes noted in the shoulders. IMPRESSION: 1. Stable lines and tubes. 2. Advanced emphysema. 3. There is a small left pleural effusion with left basilar opacities. This is similar to previous. Electronically signed by: Jose Alberto Crisostomo M.D. 11/30/2018 7:31 AM
[2018-11-30] MEDS: PANTOprazole 40 MG in SYRINGE 0 ML IV SCH ×2 (07:36→22:21)
[2018-11-30] MEDS: predniSONE 5 MG TAB NG SCH (07:37)
[2018-11-30] MEDS: ASPIRIN 81 MG CHEW PO SCH (07:37)
--- NOTE | 2018-11-30 07:39 | Magnetic Resonance Report ---
Brain MRI WITHOUT CONTRAST HISTORY: Altered mental status. TECHNIQUE: Multiplanar multisequence MRI of the brain was performed without the use of contrast. COMPARISON STUDY: Head CT 11/29/2018. Brain MRI 08/07/2016. FINDINGS: There is no mass, hematoma, midline shift, acute infarct. The paranasal sinuses are clear. The major vascular flow voids at the skull base are well-maintained. Moderate atrophic changes within the brain. Small bilateral mastoid effusions are noted. Extensive periventricular white matter T2 hy perintensity remains unchanged. This is nonspecific but favors advanced microvascular ischemic change . The midline structures are intact. IMPRESSION: No significant change compared to the prior study. No acute intracranial abnormality. Atrophy and adv anced microvascular ischemic changes are again noted. Electronically signed by: Alex Castro M.D. 11/30/2018 7:37 AM
--- NOTE | 2018-11-30 08:41 | Critical Care Progress Note ---
Date of Service November 30, 2018 Assessment & Plan (1) Admitted to intensive care unit: Reason Critically Ill: Acute respiratory failure with hypercapnia causing AMS requiring emergent endotracheal intubation for airway protection. GI bleed with heme positive stools. Also with KATHERINE and presumed sepsis from lower extremity wounds. NEURO - CAM ICU: POSITIVE Sedation: Fentanyl and Versed PRN AMS- Likely multifactorial in the setting of renal failure with uremia as well as hypercapnia. Improved Ammonia WNL CT Head- unremarkable MRI Brain- No acute intracranial abnormality Lyme testing unremarkable Severe T11 and L1 compression fractures (likely old injury)- Ortho consulted- no sx indicated at present Spinal Precautions removed 11/29 DTR intact along with bulbocavernosus reflex CARDIAC/VASCULAR - Hypotension: resolving Likely secondary to hypovolemia and degree of sepsis. Normosol at 80- seems to be responding appropriately Have not needed pressors yet Severe PVD Peripheral arterial disease with new findings of RIGHT popliteal DVT. Elevated trop- likely 2/2 hypotension/demand Diastolic congestive heart failure - Holding Lasix 2/2 hypotension, KATHERINE Repeat Echo- pending Hypertension- Hold Toprol XL and diuretics as above Thrombocytopenia- Schistocytes, Peripheral Smear- negative RESPIRATORY - Acute respiratory failure with hypercapnia: resolved Chronic COPD with exacerbation. Requiring endotracheal intubation secondary to severe respiratory acidosis- resolved acidosis Aggressive pulmonary toilet[facility] GI/NUTRITION - Anemia and heme positive stools: resolved s/p 2 units Currently on IV Protonix 40 mg BID Without any evidence of UGI source of heme positive stools Cont trend Hgb and transfuse prn Appreciate GI recommendations- no plans for EGD/Colonosopy at this time Protein Deficiency/Malnutrition- nutrition following. Start Tube Feeds- at goal now Transaminitis, most likely secondary to hypotension -Monitor LFTs. Biliary US ordered RENAL/LYTES - Acute kidney injury: Baseline Cr ~1. Cr improving Likely secondary to hypovolemia from poor p.o. intake. Normosol at 80 - Noonan in place - Strict I&Os. ENDO - No history of diabetes or thyroid disease. BSGs per unit protocol. ISS --> gtt per unit policy. HEME - Anemia- We will continue to trend in the setting of GI bleed. Resolving Right popliteal DVT-Heparin drip ordered ID - Concerns for sepsis secondary to possible cellulitis of the lower extremity. DC'd Zosyn/Vancomycin. Start IV Rocephin 11/30 for 7 days Blood Cx- NGTD Lactate normal LINES/IV ACCESS -PIVs x2, RIGHT IJ, LEFT radial arterial line, ET tube, Noonan DVT PROPHYLAXIS - Heparin, SCDs FULL CODE DISPO: ICU Supervising Physician Co-Signing Physician Notes Dr. Magallanes was resident physician during care of patient. I separately evaluated patient for van portions of the history and the exam. I was present during the critical portion of medical decision making, and I discussed the case with the resident. I generally agree with the findings and plan. Patient's heparin antibody was negative, I believe thrombocytopenia secondary to the disease process. We have de-escalated her antibiotics, her encephalopathy has significantly improved however she did not meet extubation criteria neph was less than 15 cm of water and her RSBI was greater than 105. We are starting to progress her tube feed nutrition. We will continue her current management and proceed with an additional spontaneous breathing trial tomorrow in hopes of liberating the patient from the ventilator. Subjective 63 yo F found in bed this AM. No reported overnight events. Still on Mech Vent. No family at bedside. No bloody stools noted. Could not attempt extubation today. No other acute concerns or complaints. Review of Systems Review of Systems: Unobtainable due to endotracheal tube Physical Exam Constitutional: + frail appearing and + mechanically ventilated Respiratory: normal respiratory effort, lungs clear to auscultation Cardiovascular: RRR, no murmur, no edema Gastrointestinal (Abdomen): normal bowel sounds, soft, nontender, no hepatosplenomegaly Skin: RLE slight erythema Results & Data Vital Signs (Past 12 Hours) Vital Signs Temp Pulse Resp BP Pulse Ox 11/30/18 08:01 82 97 11/30/18 08:00 36.6 C 80 91/49 L 98 11/30/18 07:33 90 22 96 11/30/18 07:01 76 97 11/30/18 07:00 74 103/65 97 11/30/18 06:00 71 108/59 L 99 11/30/18 05:01 96 H 108/62 99 11/30/18 04:59 94 H 119/69 100 11/30/18 04:55 79 18 98 11/30/18 03:01 71 101/61 100 11/30/18 02:09 73 14 97 11/30/18 02:00 85 94/64 L 100 11/30/18 01:00 83 93/61 L 100 11/30/18 00:00 98 H 101/54 L 99 11/29/18 23:15 79 14 99 11/29/18 23:00 96 H 111/75 99 11/29/18 22:01 69 100 11/29/18 22:00 67 88/57 L 100 11/29/18 21:01 70 106/66 100 11/29/18 21:00 72 100 Laboratory Results Laboratory Results - last 24 hr 11/29/18 11/29/18 11/29/18 10:21 11:41 11:41 WBC RBC Hgb Hct MCV MCH MCHC RDW Std Deviation RDW Coeff of Melecio Plt Count MPV Immature Gran % (Auto) Neut % (Auto) Lymph % (Auto) Gonzales % (Auto) Eos % (Auto) Baso % (Auto) Immature Gran # (Auto) Neut # (Auto) Lymph # (Auto) Gonzales # (Auto) Eos # (Auto) Baso # (Auto) Absolute Nucleated RBC Nucleated RBC % (auto) Platelet Estimate Polychromasia Poikilocytosis PT 12.8 H INR 1.3 H APTT PTT Ratio Fibrinogen Sample Site POC pH POC pCO2 POC pO2 POC HCO3 POC Total CO2 POC Base Excess ABG pH (Temp Correct) ABG pCO2 (Temp Corrct POC ABG pO2 at Pt Temp POC ABG O2 Sat Dick Test O2 Delivery Device POC FiO2 PEEP Sodium Potassium Chloride Carbon Dioxide Anion Gap BUN Creatinine Est Cr Clr Drug Dosing Est GFR ( Amer) Est GFR (Non-Af Amer) BUN/Creatinine Ratio Glucose POC Glucose Calcium Phosphorus Magnesium Total Bilirubin Direct Bilirubin GGT AST ALT Alkaline Phosphatase Ammonia Total Protein Albumin Globulin Albumin/Globulin Ratio Lipase Vitamin B12 Urine Color Urine Appearance Urine pH Ur Specific [place] Urine Protein Urine Glucose (UA) Urine Ketones Urine Blood Urine Nitrite Urine Bilirubin Urine Urobilinogen Ur Leukocyte Esterase Urine WBC (Auto) Urine RBC (Auto) U Hyaline Cast (Auto) U Epithel Cells (Auto) Urine Bacteria (Auto) Vancomycin Peak 45.7 H Heparin Dep Plt Ab React Pending Heparin Dep Plt Ab OD Pending Anaplasma Smear A. phagocytophilum DNA Pending Lyme Disease IgG Ab Lyme Disease IgM Ab 11/29/18 11/29/18 11/29/18 11:41 11:42 11:42 WBC RBC Hgb Hct MCV MCH MCHC RDW Std Deviation RDW Coeff of Melecio Plt Count MPV Immature Gran % (Auto) Neut % (Auto) Lymph % (Auto) Gonzales % (Auto) Eos % (Auto) Baso % (Auto) Immature Gran # (Auto) Neut # (Auto) Lymph # (Auto) Gonzales # (Auto) Eos # (Auto) Baso # (Auto) Absolute Nucleated RBC Nucleated RBC % (auto) Platelet Estimate Polychromasia Poikilocytosis PT INR APTT PTT Ratio Fibrinogen 208 Sample Site POC pH POC pCO2 POC pO2 POC HCO3 POC Total CO2 POC Base Excess ABG pH (Temp Correct) ABG pCO2 (Temp Corrct POC ABG pO2 at Pt Temp POC ABG O2 Sat Dick Test O2 Delivery Device POC FiO2 PEEP Sodium Potassium Chloride Carbon Dioxide Anion Gap BUN Creatinine Est Cr Clr Drug Dosing Est GFR ( Amer) Est GFR (Non-Af Amer) BUN/Creatinine Ratio Glucose POC Glucose Calcium Phosphorus Magnesium Total Bilirubin Direct Bilirubin GGT AST ALT Alkaline Phosphatase Ammonia 13.0 Total Protein Albumin Globulin Albumin/Globulin Ratio Lipase 233 Vitamin B12 Urine Color Urine Appearance Urine pH Ur Specific [place] Urine Protein Urine Glucose (UA) Urine Ketones Urine Blood Urine Nitrite Urine Bilirubin Urine Urobilinogen Ur Leukocyte Esterase Urine WBC (Auto) Urine RBC (Auto) U Hyaline Cast (Auto) U Epithel Cells (Auto) Urine Bacteria (Auto) Vancomycin Peak Heparin Dep Plt Ab React Heparin Dep Plt Ab OD Anaplasma Smear A. phagocytophilum DNA Lyme Disease IgG Ab Lyme Disease IgM Ab 11/29/18 11/29/18 11/29/18 11:42 11:42 11:42 WBC RBC Hgb Hct MCV MCH MCHC RDW Std Deviation RDW Coeff of Melecio Plt Count MPV Immature Gran % (Auto) Neut % (Auto) Lymph % (Auto) Gonzales % (Auto) Eos % (Auto) Baso % (Auto) Immature Gran # (Auto) Neut # (Auto) Lymph # (Auto) Gonzales # (Auto) Eos # (Auto) Baso # (Auto) Absolute Nucleated RBC Nucleated RBC % (auto) Platelet Estimate Polychromasia Poikilocytosis PT INR APTT PTT Ratio Fibrinogen Sample Site POC pH POC pCO2 POC pO2 POC HCO3 POC Total CO2 POC Base Excess ABG pH (Temp Correct) ABG pCO2 (Temp Corrct POC ABG pO2 at Pt Temp POC ABG O2 Sat Dick Test O2 Delivery Device POC FiO2 PEEP Sodium Potassium Chloride Carbon Dioxide Anion Gap BUN Creatinine Est Cr Clr Drug Dosing Est GFR ( Amer) Est GFR (Non-Af Amer) BUN/Creatinine Ratio Glucose POC Glucose Calcium Phosphorus Magnesium Total Bilirubin Direct Bilirubin GGT 9 AST ALT Alkaline Phosphatase Ammonia Total Protein Albumin Globulin Albumin/Globulin Ratio Lipase Vitamin B12 Urine Color Urine Appearance Urine pH Ur Specific [place] Urine Protein Urine Glucose (UA) Urine Ketones Urine Blood Urine Nitrite Urine Bilirubin Urine Urobilinogen Ur Leukocyte Esterase Urine WBC (Auto) Urine RBC (Auto) U Hyaline Cast (Auto) U Epithel Cells (Auto) Urine Bacteria (Auto) Vancomycin Peak Heparin Dep Plt Ab React Heparin Dep Plt Ab OD Anaplasma Smear See Comment A. phagocytophilum DNA Lyme Disease IgG Ab Negative Lyme Disease IgM Ab Negative 11/29/18 11/29/18 11/29/18 11:42 12:12 14:30 WBC RBC Hgb Hct MCV MCH MCHC RDW Std Deviation RDW Coeff of Melecio Plt Count MPV Immature Gran % (Auto) Neut % (Auto) Lymph % (Auto) Gonzales % (Auto) Eos % (Auto) Baso % (Auto) Immature Gran # (Auto) Neut # (Auto) Lymph # (Auto) Gonzales # (Auto) Eos # (Auto) Baso # (Auto) Absolute Nucleated RBC Nucleated RBC % (auto) Platelet Estimate Polychromasia Poikilocytosis PT INR APTT 60.4 H* PTT Ratio 2.2 Fibrinogen Sample Site POC pH POC pCO2 POC pO2 POC HCO3 POC Total CO2 POC Base Excess ABG pH (Temp Correct) ABG pCO2 (Temp Corrct POC ABG pO2 at Pt Temp POC ABG O2 Sat Dick Test O2 Delivery Device POC FiO2 PEEP Sodium Potassium Chloride Carbon Dioxide Anion Gap BUN Creatinine Est Cr Clr Drug Dosing Est GFR ( Amer) Est GFR (Non-Af Amer) BUN/Creatinine Ratio Glucose POC Glucose 71 Calcium Phosphorus Magnesium Total Bilirubin Direct Bilirubin GGT AST ALT Alkaline Phosphatase Ammonia Total Protein Albumin Globulin Albumin/Globulin Ratio Lipase Vitamin B12 1321 H Urine Color Urine Appearance Urine pH Ur Specific [place] Urine Protein Urine Glucose (UA) Urine Ketones Urine Blood Urine Nitrite Urine Bilirubin Urine Urobilinogen Ur Leukocyte Esterase Urine WBC (Auto) Urine RBC (Auto) U Hyaline Cast (Auto) U Epithel Cells (Auto) Urine Bacteria (Auto) Vancomycin Peak Heparin Dep Plt Ab React Heparin Dep Plt Ab OD Anaplasma Smear A. phagocytophilum DNA Lyme Disease IgG Ab Lyme Disease IgM Ab 11/29/18 11/29/18 11/29/18 14:30 20:05 20:23 WBC RBC Hgb Hct MCV MCH MCHC RDW Std Deviation RDW Coeff of Melecio Plt Count MPV Immature Gran % (Auto) Neut % (Auto) Lymph % (Auto) Gonzales % (Auto) Eos % (Auto) Baso % (Auto) Immature Gran # (Auto) Neut # (Auto) Lymph # (Auto) Gonzales # (Auto) Eos # (Auto) Baso # (Auto) Absolute Nucleated RBC Nucleated RBC % (auto) Platelet Estimate Polychromasia Poikilocytosis PT INR APTT PTT Ratio Fibrinogen Sample Site POC pH POC pCO2 POC pO2 POC HCO3 POC Total CO2 POC Base Excess ABG pH (Temp Correct) ABG pCO2 (Temp Corrct POC ABG pO2 at Pt Temp POC ABG O2 Sat Dick Test O2 Delivery Device POC FiO2 PEEP Sodium 147 H Potassium 3.5 Chloride 115 H Carbon Dioxide 24 Anion Gap 8.0 BUN 54 H Creatinine 1.25 H D Est Cr Clr Drug Dosing 30.4 Est GFR ( Amer) 52.6 Est GFR (Non-Af Amer) 45.4 BUN/Creatinine Ratio 43.2 H Glucose 73 POC Glucose 87 Calcium 7.6 L Phosphorus Magnesium Total Bilirubin 1.6 H Direct Bilirubin GGT AST 245 H ALT 406 H Alkaline Phosphatase 68 Ammonia Total Protein 4.1 L Albumin 1.9 L Globulin 2.2 L Albumin/Globulin Ratio 0.9 Lipase Vitamin B12 Urine Color Yellow Urine Appearance Cloudy A Urine pH 5.0 Ur Specific [place] 1.021 Urine Protein Negative Urine Glucose (UA) Negative Urine Ketones Negative Urine Blood 2+ H Urine Nitrite Negative Urine Bilirubin Negative Urine Urobilinogen Negative Ur Leukocyte Esterase Negative Urine WBC (Auto) 1-5 Urine RBC (Auto) 10-30 H U Hyaline Cast (Auto) 1-5 U Epithel Cells (Auto) 5-10 H Urine Bacteria (Auto) Negative Vancomycin Peak Heparin Dep Plt Ab React Heparin Dep Plt Ab OD Anaplasma Smear A. phagocytophilum DNA Lyme Disease IgG Ab Lyme Disease IgM Ab 11/30/18 11/30/18 11/30/18 00:10 05:34 05:43 WBC RBC Hgb Hct MCV MCH MCHC RDW Std Deviation RDW Coeff of Melecio Plt Count MPV Immature Gran % (Auto) Neut % (Auto) Lymph % (Auto) Gonzales % (Auto) Eos % (Auto) Baso % (Auto) Immature Gran # (Auto) Neut # (Auto) Lymph # (Auto) Gonzales # (Auto) Eos # (Auto) Baso # (Auto) Absolute Nucleated RBC Nucleated RBC % (auto) Platelet Estimate Polychromasia Poikilocytosis PT INR APTT PTT Ratio Fibrinogen Sample Site R Radial POC pH 7.32 L POC pCO2 46 POC pO2 87 POC HCO3 24 POC Total CO2 25 POC Base Excess -3.0 ABG pH (Temp Correct) 7.326 L ABG pCO2 (Temp Corrct 45 POC ABG pO2 at Pt Temp 85 POC ABG O2 Sat 96.0 H Dick Test Pass O2 Delivery Device Ventilator POC FiO2 30 PEEP 5 Sodium 144 Potassium 3.3 L Chloride 112 H Carbon Dioxide 27 Anion Gap 5.0 BUN 44 H Creatinine 1.01 Est Cr Clr Drug Dosing 37.8 Est GFR ( Amer) 68.1 Est GFR (Non-Af Amer) 58.8 BUN/Creatinine Ratio 43.1 H Glucose 94 POC Glucose 99 Calcium 7.6 L Phosphorus 2.9 Magnesium 2.1 Total Bilirubin 0.8 D Direct Bilirubin 0.4 H GGT AST 173 H ALT 351 H Alkaline Phosphatase 74 Ammonia Total Protein 4.0 L Albumin 1.8 L Globulin Albumin/Globulin Ratio Lipase Vitamin B12 Urine Color Urine Appearance Urine pH Ur Specific [place] Urine Protein Urine Glucose (UA) Urine Ketones Urine Blood Urine Nitrite Urine Bilirubin Urine Urobilinogen Ur Leukocyte Esterase Urine WBC (Auto) Urine RBC (Auto) U Hyaline Cast (Auto) U Epithel Cells (Auto) Urine Bacteria (Auto) Vancomycin Peak Heparin Dep Plt Ab React Heparin Dep Plt Ab OD Anaplasma Smear A. phagocytophilum DNA Lyme Disease IgG Ab Lyme Disease IgM Ab 11/30/18 11/30/18 05:43 05:43 WBC 15.67 H RBC 4.29 Hgb 11.3 L Hct 34.7 L MCV 80.9 MCH 26.3 MCHC 32.6 RDW Std Deviation 48.8 H RDW Coeff of Melecio 16.7 H Plt Count 102 L MPV 10.5 H Immature Gran % (Auto) 0.2 Neut % (Auto) 91.2 Lymph % (Auto) 2.0 Gonzales % (Auto) 5.9 Eos % (Auto) 0.7 Baso % (Auto) 0.0 Immature Gran # (Auto) 0.03 H Neut # (Auto) 14.29 H Lymph # (Auto) 0.31 L Gonzales # (Auto) 0.93 H Eos # (Auto) 0.11 Baso # (Auto) 0.00 Absolute Nucleated RBC 0.08 H Nucleated RBC % (auto) 0.5 Platelet Estimate Decreased L Polychromasia 1+ Poikilocytosis Present PT INR APTT 70.0 H* PTT Ratio 2.6 Fibrinogen Sample Site POC pH POC pCO2 POC pO2 POC HCO3 POC Total CO2 POC Base Excess ABG pH (Temp Correct) ABG pCO2 (Temp Corrct POC ABG pO2 at Pt Temp POC ABG O2 Sat Dick Test O2 Delivery Device POC FiO2 PEEP Sodium Potassium Chloride Carbon Dioxide Anion Gap BUN Creatinine Est Cr Clr Drug Dosing Est GFR ( Amer) Est GFR (Non-Af Amer) BUN/Creatinine Ratio Glucose POC Glucose Calcium Phosphorus Magnesium Total Bilirubin Direct Bilirubin GGT AST ALT Alkaline Phosphatase Ammonia Total Protein Albumin Globulin Albumin/Globulin Ratio Lipase Vitamin B12 Urine Color Urine Appearance Urine pH Ur Specific [place] Urine Protein Urine Glucose (UA) Urine Ketones Urine Blood Urine Nitrite Urine Bilirubin Urine Urobilinogen Ur Leukocyte Esterase Urine WBC (Auto) Urine RBC (Auto) U Hyaline Cast (Auto) U Epithel Cells (Auto) Urine Bacteria (Auto) Vancomycin Peak Heparin Dep Plt Ab React Heparin Dep Plt Ab OD Anaplasma Smear A. phagocytophilum DNA Lyme Disease IgG Ab Lyme Disease IgM Ab Medications Administered Current Inpatient Medications Acetaminophen (Tylenol) 650 mg PO Q4H PRN PRN Reason: Pain or Fever Stop: 12/28/18 00:43 Last Admin: 11/29/18 19:47 Dose: 650 mg Documented by: Aspirin (Aspirin Chew) 81 mg PO DAILY JHONY Stop: 12/30/18 08:59 Last Admin: 11/30/18 07:37 Dose: 81 mg Documented by: Diphenhydramine HCl (Benadryl Capsule) 25 mg PO HS PRN PRN Reason: Allergy Symptoms Enteral Nutritional Formula (Impact 1.0 Serjio) 1,000 ml NG UD JHONY; Protocol Stop: 12/29/18 12:14 Last Admin: 11/29/18 13:21 Dose: 1,000 ml Documented by: Fentanyl Citrate (Fentanyl Citrate) 25 mcg IV Q2H PRN PRN Reason: Moderate Pain (4,5,6) Stop: 12/12/18 05:54 Last Admin: 11/30/18 09:08 Dose: 25 mcg Documented by: Heparin Sodium/Dextrose (Heparin Sodium/Dextrose) 25,000 units in 500 mls @ 7 mls/hr IV .Q24H [facility]; Protocol Stop: 12/28/18 10:59 Last Admin: 11/30/18 10:21 Dose: 350 units/hr, 7 mls/hr Documented by: Parenteral Electrolytes (Normosol-R) 1,000 mls @ 30 mls/hr IV .Q24H [facility] Stop: 12/28/18 10:44 Last Infusion: 11/30/18 10:15 Dose: 30 mls/hr Documented by: Pantoprazole Sodium 40 mg/ (Syringe) 10 mls @ 5 mls/min IV BID@0900,2100 [facility] Stop: 12/28/18 20:59 Last Admin: 11/30/18 07:36 Dose: 5 mls/min Documented by: Sodium Chloride (Nss) 250 mls @ 15 mls/hr IV .[id number] PRN PRN Reason: For Transfusion Stop: 12/28/18 18:11 Folic Acid 1 mg/ Syringe 10 mls @ 5 mls/min IV Q24H [facility] Stop: 12/29/18 12:59 Last Admin: 11/29/18 13:20 Dose: 5 mls/min Documented by: Ceftriaxone Sodium 1,000 mg/ (Dextrose) 60 mls @ 120 mls/hr IV Q24H [facility] Stop: 12/03/18 23:59 Ipratropium [place] (Atrovent 0.02% 0.5mg/2.5ml) 0.5 mg INH Q4R PRN PRN Reason: Shortness Of Breath Or Wheezing Stop: 12/28/18 00:43 Levalbuterol HCl (Xopenex 1.25mg/0.5ml Neb) 1.25 mg INH Q4R PRN PRN Reason: Shortness Of Breath Or Wheezing Stop: 12/28/18 00:43 Levalbuterol HCl (Xopenex Hfa) 2 puffs INH Q4H PRN PRN Reason: Wheezing Stop: 12/28/18 00:43 Midazolam HCl (Versed) 1 mg IV Q2H PRN PRN Reason: agitation/anxiety Stop: 12/28/18 05:54 Last Admin: 11/30/18 09:07 Dose: 1 mg Documented by: Nitroglycerin (Nitrostat) 0.4 mg SL UD PRN PRN Reason: Chest Pain Stop: 12/28/18 00:43 Ondansetron HCl (Zofran) 4 mg IV Q6H PRN PRN Reason: Nausea Stop: 12/28/18 00:43 Potassium Chloride (Analilia Ciel Elix) 40 meq NG TODAY@1045 [facility] Stop: 11/30/18 19:00 Last Admin: 11/30/18 10:21 Dose: 40 meq Documented by: Prednisone (Prednisone) 5 mg NG DAILY [facility] Stop: 12/29/18 12:59 Last Admin: 11/30/18 07:37 Dose: 5 mg Documented by: Fluticasone/Salmeterol (Advair Diskus 250/50) 1 puffs INH BID [facility] Stop: 12/28/18 08:59 Last Admin: 11/30/18 07:18 Dose: Not Given Documented by: PG Care Time/CCT Total # of Minutes Spent Total Time Spent with Patient: Total time spent is greater than 50% in coordination of care (as documented) at patient's floor/unit and/or counseling patient: Critical Care Time: Yes Total Critical Care Time: 35 Resident Activity Tracking Resident Involvement: Resident Care Provided Care Provided: Adult Hospital Medicine
[2018-11-30] MEDS: fentaNYL citrate 100 MCG/2 ML VIAL IV PRN ×6 (09:08→23:17)
[2018-11-30] MEDS: Heparin Adult STANDARD Wt-Based Dextrose 5% 25,000 units/500 mL IV SCH (10:21)
[2018-11-30] MEDS ORDERED: POTASSIUM CHLORIDE 20 MEQ/15 ML UDC NG SCH (10:45)
[2018-11-30] MEDS: cefTRIAXone SODIUM 1,000 MG in DEXTROSE 5% 50 ML IV SCH (11:48)
[2018-11-30] MEDS: FOLIC ACID 1 MG in SYRINGE 9.8 ML IV SCH (11:49)
[2018-11-30 13:04] LABS: Partial Thromboplastin Time 53.4 Seconds (21.0-31.0)
--- NOTE | 2018-11-30 16:53 | Hospitalist Progress Note ---
Date of Service November 30, 2018 Assessment & Plan (1) Acute respiratory failure with hypercapnia: ASSESSMENT AND PLAN: This is a 63-year-old female who lives with her daughter, history of chronic obstructive pulmonary disease, diastolic dysfunction, tobacco use disorder, presents with altered mental status. Acute respiratory failure with hypercapnia and hypoxemia, POA Altered mental status and lethargy, metabolic encephalopathy mostly secondary to CO2 narcosis and also could be uremic encephalopathy because her --History of COPD --CT chest: 1. Pulmonary emphysema 2. No evidence of focal pulmonary consolidation 3. No evidence of pathologic adenopathy 4. Severe T11 and L1 vertebral body compression fractures, new when compared with the prior July [address] --Remains intubated ABG improved, respiratory acidosis resolved weaning trial in progress Mechanical ventilator management per ICU team Appreciate sales and marketing agent recommendations Hypotension Possible Sepsis due to lower extremity cellulitis, POA --Blood cultures: Negative so far Urine culture:Negative -- received Empiric Zosyn x 2 days, transitioned to Ceftriaxone IV Day 1 --Blood pressure on the low normal side Continue to Monitor Acute kidney injury on chronic kidney disease stage III. Baseline creatinine of 1 and BUN around 20.Currently creatinine is 2.4 and BUN is 98. -- crea further improved -- Continue Normosol Anemia possible GI Bleed -- further decreased to 7 2 units pRBC given -- Hg improved to 11, stable overall -- Hemoccult positive stools in the ER, but there are no signs of obvious bleed ing. -- ff up Hg trend Protonix drip GI consulted, no plans for EGD/Colonosopy at this time Right popliteal DVT --Heparin drip ordered Transaminitis, most likely secondary to hypotension. --Improving, Monitor LFTs Elevated troponin, most likely from above. -- 0.07, 0.07, 0.09 History of diastolic congestive heart failure, left ventricular hypertrophy, on Lasix 20 mg 3-7 tablets a week. -- Currently holding the Lasix because of hypotension , acute renal failure repeat Echo ordered Lower extremity edema, PAD -- Arterial Doppler US: 1. Decreased ankle brachial indices of the left lower extremity compatible with moderate to severe peripheral arterial disease. 2. Segmental pressures of the right lower extremity were not conducted secondary to deep venous thrombosis of the popliteal vein. 3. Elevated peak systolic velocities within the right profunda femoris vein are suggestive of luminal narrowing secondary to atherosclerotic vascular disease. -- will need Vascular Surgery evaluation continue ASA, also on Heparin drip History of breast lesion a couple of years ago -- will need outpatient ff up Malnutrition. The patient is thin and frail. Nutrition consult. osteoarthritis/RA. We will hold the naproxen for now. Hypertension. Hold the Toprol XL for now, hold diuretics for now. Tobacco abuse disorder, needs counseling. Deep venous thrombosis prophylaxis,heparin drip Disposition: pending will need PT/OT evaluation Subjective ff up for acute respiratory failure still intubated, sedated trial of extubation unsuccessful today not in distress, no accessory muscle use no signs of GI bleed per RN no other symptoms Review of Systems Review of Systems: All systems reviewed & are unremarkable except as noted in HPI & below Physical Exam Physical Exam: General- sedated, intubated, no accessory muscle use Eyes- anicteric Neck- no JVD ET tube in place Lungs- clear breath sounds bilaterally, no rales/wheezes Heart- normal rate, regular rhythm; no murmurs Abdomen- normal bowel sounds, nondistended, soft, nontender Extremities- no pretibial edema, no calf tenderness lower leg with heavy dressing in place, minimal surrounding erythema Neuro- sedated, intubated Skin- warm & dry Results & Data Vital Signs (Past 12 Hours) Vital Signs Temp Pulse Resp BP Pulse Ox 11/30/18 16:18 72 14 100 11/30/18 14:01 83 98 11/30/18 14:00 84 84/66 L 99 11/30/18 13:00 82 83/63 L 94 11/30/18 12:00 36.4 C L 93 H 109/65 93 11/30/18 11:00 72 99/63 L 99 11/30/18 10:01 70 100 11/30/18 10:00 68 92/61 L 100 11/30/18 09:00 89 112/68 92 11/30/18 08:01 82 97 11/30/18 08:00 36.6 C 80 91/49 L 98 11/30/18 07:33 90 22 96 11/30/18 07:01 76 97 11/30/18 07:00 74 103/65 97 11/30/18 06:00 71 108/59 L 99 11/30/18 05:01 96 H 108/62 99 11/30/18 04:59 94 H 119/69 100 11/30/18 04:55 79 18 98
[2018-11-30] MEDS: IMPACT LIQD 1.0 CAL 1,000 ML BAG NG SCH (17:44)
[2018-11-30] MEDS: BUDESONIDE 0.5 MG/2 ML VIAL (PULMICORT) INH SCH (19:47)
[2018-11-30] MEDS: ARFORMOTEROL TART 15MCG/2ML VIAL INH SCH (19:48)
[2018-11-30] MEDS ORDERED: NURSING DECISION MEDICATION ONE (22:55)
[2018-11-30] MEDS ORDERED: LICE KILLING SHAMPOO ONE (23:15)
[2018-12-01] MEDS: fentaNYL citrate 100 MCG/2 ML VIAL IV PRN (02:59)
[2018-12-01] MEDS: MIDAZOLAM HCL 1 MG/ML 2ML VIAL IV PRN (02:59)
[2018-12-01 05:08] LABS: BUN Creatinine Ratio 49.9 (10-20); Calcium 7.8 mg/dl (8.5-10.1); Creatinine Clr Calc Pharmacy 56.9 ml/min; Est GFR (African American) 107.7; Est GFR (Non-African American) 92.9; Magnesium 2.2 mg/dl (1.8-2.4); Potassium 4.1 mmol/L (3.5-5.1)
[2018-12-01 05:16] LABS: Partial Thromboplastin Time 53.2 Seconds (21.0-31.0)
[2018-12-01 05:23] LABS: Acanthocytes 1+; Echinocytes 2+; Eosinophils # (auto) 0.26 K/uL (0-0.5); Eosinophils % (auto) 1.9 %; Hemoglobin 10.5 g/dL (12.0-16.0); Immature Granulocytes # (auto) 0.03 K/uL (0.00-0.02); Immature Granulocytes % (auto) 0.2 %; Lymphocytes # (auto) 0.34 K/uL (1.2-3.4); Lymphocytes % (auto) 2.4 %; Mean Corpuscular Hgb Conc 31.8 g/dL (32-36); Mean Corpuscular Volume 81.7 fL (80-100); Mean Platelet Volume 10.6 fL (7.4-10.4); Monocytes # (auto) 0.85 K/uL (0.11-0.59); Monocytes % (auto) 6.1 %; Neutrophils # (auto) 12.43 K/uL (1.4-6.5); Neutrophils % (auto) 89.4 %; Nucleated RBC # (auto) 0.07 K/uL (0-0); Nucleated RBC % (auto) 0.5 %; Platelet Count 87 K/uL (130-400); Platelet Estimate Decreased (Normal); RDW Coefficient of Variation 16.8 % (11.5-14.5); RDW Standard Deviation 50.2 fL (36.4-46.3); Red Blood Count 4.04 M/uL (4.2-5.4); Target Cells 1+; White Blood Count 13.91 K/uL (4.8-10.8)
[2018-12-01 05:30] LABS: Phosphorus 1.4 mg/dl (2.5-4.9)
[2018-12-01] MEDS ORDERED: SODIUM PHOSPHATE 3 MMOL/1 ML 5 ML VIAL IV SCH (05:45)
[2018-12-01 05:58] LABS: iSTAT Allen Test Pass; iSTAT Art Bld Gas pCO2 Correct 42 mmHg (35-46); iSTAT Arterial Blood Gas HCO3 26 meg/L (19-24); iSTAT Arterial Blood Gas pCO2 43 mmHg (35-46); iSTAT Arterial Blood Gas pH 7.39 (7.35-7.45); iSTAT Arterial Blood Gas pO2 105 mmHg (80-95); iSTAT Arterial Blood Gas pO2 C 104; iSTAT Carbon Dioxide 27 mEq/l (24-31); iSTAT Site R Radial
[2018-12-01] MEDS ORDERED: SODIUM PHOSPHATE 21 MMOL in SODIUM CHLORIDE 0.9% 500 ML IV ONE (06:00)
[2018-12-01] MEDS: BUDESONIDE 0.5 MG/2 ML VIAL (PULMICORT) INH SCH ×2 (07:26→19:13)
[2018-12-01] MEDS: ARFORMOTEROL TART 15MCG/2ML VIAL INH SCH ×2 (07:26→19:13)
[2018-12-01] MEDS: predniSONE 5 MG TAB NG SCH (07:43)
[2018-12-01] MEDS: ASPIRIN 81 MG CHEW PO SCH (07:43)
--- NOTE | 2018-12-01 08:06 | Critical Care Progress Note ---
Date of Service December 01, 2018 Assessment & Plan (1) Admitted to intensive care unit: Reason Critically Ill: Acute respiratory failure with hypercapnia causing AMS requiring emergent endotracheal intubation for airway protection NEURO - CAM ICU: POSITIVE Sedation: Fentanyl and Versed PRN AMS- Likely multifactorial in the setting of renal failure with uremia as well as hypercapnia. Improved Ammonia WNL CT Head- unremarkable MRI Brain- No acute intracranial abnormality Lyme testing unremarkable Severe T11 and L1 compression fractures (likely old injury)- Ortho consulted- no sx indicated at present Spinal Precautions removed 10 DTR intact along with bulbocavernosus reflex CARDIAC/VASCULAR - Hypotension: resolved Likely secondary to hypovolemia and degree of sepsis. Normosol at 80- seems to be responding appropriately Have not needed pressors yet Severe PVD Peripheral arterial disease with new findings of RIGHT popliteal DVT. Elevated trop- likely 2/2 hypotension/demand Diastolic congestive heart failure - Holding Lasix 2/2 hypotension, KATHERINE Repeat Echo- pending Hypertension- Hold Toprol XL and diuretics as above Thrombocytopenia- Schistocytes, Peripheral Smear- negative. Heparin Antibody negative. Likely 2/2 disease process. RESPIRATORY - Acute respiratory failure with hypercapnia: resolved Chronic COPD with exacerbation. Requiring endotracheal intubation secondary to severe respiratory acidosis- resolved acidosis Aggressive pulmonary toilet. On [facility] Vent- will transition from assist control ventilation to a pressure support ventilation and slowly decrease pressure support hopefully allowing for extubation GI/NUTRITION - Anemia and heme positive stools: resolved s/p 2 units Currently on IV Protonix 40 mg BID Without any evidence of UGI source of heme positive stools Cont trend Hgb and transfuse prn Appreciate GI recommendations- no plans for EGD/Colonosopy at this time Protein Deficiency/Malnutrition- nutrition following. Start Tube Feeds- at goal now Transaminitis, most likely secondary to hypotension -Monitor LFTs. Biliary US reviewed RENAL/LYTES - Acute kidney injury: Baseline Cr ~1. Cr improving Likely secondary to hypovolemia from poor p.o. intake. Normosol at 80 Repleting lytes as needed - Noonan in place - Strict I&Os. ENDO - No history of diabetes or thyroid disease. BSGs per unit protocol. ISS --> gtt per unit policy. HEME - Anemia- We will continue to trend in the setting of GI bleed. Resolving Right popliteal DVT-Heparin drip ordered ID - Concerns for sepsis secondary to possible cellulitis of the lower extremity. DC'd Zosyn/Vancomycin. Start IV Rocephin 11/30 for 7 days Blood Cx- NGTD Lactate normal LINES/IV ACCESS -PIVs x2, RIGHT IJ, LEFT radial arterial line, ET tube, [place] DVT PROPHYLAXIS - Heparin, SCDs FULL CODE DISPO: ICU Supervising Physician Co-Signing Physician Notes Dr. Magallanes was resident physician during care of patient. I separately evaluated patient for van portions of the history and the exam. I was present during the critical portion of medical decision making, and I discussed the case with the resident. I generally agree with the findings and plan. Patient is alert and able to follow complex commands, however as we attempts to wean the ventilator from full support she becomes very tachypneic and has a poor negative inspiratory force. I believe this is secondary to general deconditioning. At this time we will transition from assist control ventilation to a pressure support ventilation and slowly decrease pressure support hopefully allowing her to be extubated, this may require bridging with noninvasive mechanical ventilation. We are continuing artificial nutrition at this point, she is experiencing episodes of hypophosphatemia this may be an aspect of refeeding we will supplement her with potassium phosphorus. Subjective 63 yo F found in bed this AM. No reported overnight events. Still on Mech Vent. No family at bedside. No bloody stools noted. Pt alert and able to follow complex commands. Failed attempts to wean the ventilator from full support she becomes very tachypneic. No other acute concerns or complaints. Review of Systems Review of Systems: All systems reviewed & are unremarkable except as noted in HPI & below Physical Exam Constitutional: + frail appearing and + mechanically ventilated Respiratory: normal respiratory effort, lungs clear to auscultation Cardiovascular: RRR, no murmur, no edema Gastrointestinal (Abdomen): normal bowel sounds, soft, nontender, no hepatosplenomegaly Skin: R LE slight erythema Psychiatric: Orientation: alert Results & Data Vital Signs (Past 12 Hours) Vital Signs Temp Pulse Resp BP Pulse Ox 12/01/18 05:55 84 15 99 12/01/18 04:00 36.8 C 74 93/50 L 100 12/01/18 03:37 81 17 100 12/01/18 03:19 78 89/53 L 100 12/01/18 03:01 82 100 12/01/18 03:00 81 80/49 L 100 12/01/18 02:27 80 102/53 L 98 12/01/18 02:01 79 100 12/01/18 02:00 81 88/52 L 100 12/01/18 01:00 77 96/58 L 99 12/01/18 00:15 80 14 100 12/01/18 00:01 82 99 12/01/18 00:00 36.8 C 82 93/59 L 99 11/30/18 23:01 88 99 11/30/18 23:00 92 H 119/66 100 11/30/18 22:01 85 97 11/30/18 22:00 86 103/65 98 11/30/18 21:00 82 95/71 L 99 Laboratory Results Laboratory Results - last 24 hr 11/30/18 11/30/18 12/01/18 12:21 12:21 04:22 WBC RBC Hgb Hct MCV MCH MCHC RDW Std Deviation RDW Coeff of Melecio Plt Count MPV Immature Gran % (Auto) Neut % (Auto) Lymph % (Auto) [place] % (Auto) Eos % (Auto) Baso % (Auto) Immature Gran # (Auto) Neut # (Auto) Lymph # (Auto) [place] # (Auto) Eos # (Auto) Baso # (Auto) Absolute Nucleated RBC Nucleated RBC % (auto) Platelet Estimate Target Cells Echinocytes Acanthocytes (Spur) APTT 53.4 H* PTT Ratio 2.0 Sample Site POC pH POC pCO2 POC pO2 POC HCO3 POC Total CO2 POC Base Excess ABG pH (Temp Correct) ABG pCO2 (Temp Corrct POC ABG pO2 at Pt Temp POC ABG O2 Sat Dick Test O2 Delivery Device POC O2 Rate Minute Ventilation Tidal Volume PEEP Sodium 147 H Potassium 4.1 D Chloride 116 H Carbon Dioxide 29 Anion Gap 2.0 L BUN 33 H Creatinine 0.67 D Est Cr Clr Drug Dosing 56.9 Est GFR ( Amer) 107.7 Est GFR (Non-Af Amer) 92.9 BUN/Creatinine Ratio 49.9 H Glucose 149 H POC Glucose Calcium 7.8 L Phosphorus 1.4 L* D Magnesium 2.2 Heparin-PF4 Ab Screen Negative 12/01/18 12/01/18 12/01/18 04:22 04:22 05:43 WBC 13.91 H RBC 4.04 L Hgb 10.5 L Hct 33.0 L MCV 81.7 MCH 26.0 MCHC 31.8 L RDW Std Deviation 50.2 H RDW Coeff of Melecio 16.8 H Plt Count 87 L MPV 10.6 H Immature Gran % (Auto) 0.2 Neut % (Auto) 89.4 Lymph % (Auto) 2.4 [place] % (Auto) 6.1 Eos % (Auto) 1.9 Baso % (Auto) 0.0 Immature Gran # (Auto) 0.03 H Neut # (Auto) 12.43 H Lymph # (Auto) 0.34 L [place] # (Auto) 0.85 H Eos # (Auto) 0.26 Baso # (Auto) 0.00 Absolute Nucleated RBC 0.07 H Nucleated RBC % (auto) 0.5 Platelet Estimate Decreased L Target Cells 1+ Echinocytes 2+ Acanthocytes (Spur) 1+ APTT 53.2 H* PTT Ratio 2.0 Sample Site R Radial POC pH 7.39 POC pCO2 43 POC pO2 105 H POC HCO3 26 H POC Total CO2 27 POC Base Excess 1.0 ABG pH (Temp Correct) 7.390 ABG pCO2 (Temp Corrct 42 POC ABG pO2 at Pt Temp 104 POC ABG O2 Sat 98.0 H Dick Test Pass O2 Delivery Device Ventilator POC O2 Rate 14 Minute Ventilation 6.6 Tidal Volume 400 PEEP 5 Sodium Potassium Chloride Carbon Dioxide Anion Gap BUN Creatinine Est Cr Clr Drug Dosing Est GFR ( Amer) Est GFR (Non-Af Amer) BUN/Creatinine Ratio Glucose POC Glucose Calcium Phosphorus Magnesium Heparin-PF4 Ab Screen 12/01/18 09:56 WBC RBC Hgb Hct MCV MCH MCHC RDW Std Deviation RDW Coeff of Melecio Plt Count MPV Immature Gran % (Auto) Neut % (Auto) Lymph % (Auto) [place] % (Auto) Eos % (Auto) Baso % (Auto) Immature Gran # (Auto) Neut # (Auto) Lymph # (Auto) [place] # (Auto) Eos # (Auto) Baso # (Auto) Absolute Nucleated RBC Nucleated RBC % (auto) Platelet Estimate Target Cells Echinocytes Acanthocytes (Spur) APTT PTT Ratio Sample Site POC pH POC pCO2 POC pO2 POC HCO3 POC Total CO2 POC Base Excess ABG pH (Temp Correct) ABG pCO2 (Temp Corrct POC ABG pO2 at Pt Temp POC ABG O2 Sat Dick Test O2 Delivery Device POC O2 Rate Minute Ventilation Tidal Volume PEEP Sodium Potassium Chloride Carbon Dioxide Anion Gap BUN Creatinine Est Cr Clr Drug Dosing Est GFR ( Amer) Est GFR (Non-Af Amer) BUN/Creatinine Ratio Glucose POC Glucose 165 H Calcium Phosphorus Magnesium Heparin-PF4 Ab Screen Medications Administered Current Inpatient Medications Acetaminophen (Tylenol) 650 mg PO Q4H PRN PRN Reason: Pain or Fever Stop: 12/28/18 00:43 Last Admin: 11/29/18 19:47 Dose: 650 mg Documented by: Arformoterol Tartrate (Brovana Neb) 15 mcg INH BIDR JHONY Stop: 12/30/18 18:59 Last Admin: 12/01/18 07:26 Dose: 15 mcg Documented by: Aspirin (Aspirin Chew) 81 mg PO DAILY [facility] Stop: 12/30/18 08:59 Last Admin: 12/01/18 07:43 Dose: 81 mg Documented by: Budesonide (Pulmicort Respules) 0.5 mg INH BIDR JHONY Stop: 12/30/18 18:59 Last Admin: 12/01/18 07:26 Dose: 0.5 mg Documented by: Diphenhydramine HCl (Benadryl Capsule) 25 mg PO HS PRN PRN Reason: Allergy Symptoms Enteral Nutritional Formula (Impact 1.0 Serjio) 1,000 ml NG [facility]; Protocol Stop: 12/29/18 12:14 Last Admin: 11/30/18 17:44 Dose: 1,000 ml Documented by: Fentanyl Citrate (Fentanyl Citrate) 25 mcg IV Q2H PRN PRN Reason: Moderate Pain (4,5,6) Stop: 12/12/18 05:54 Last Admin: 12/01/18 02:59 Dose: 25 mcg Documented by: Heparin Sodium/Dextrose (Heparin Sodium/Dextrose) 25,000 units in 500 mls @ 7 mls/hr IV .Q24H JHONY; Protocol Stop: 12/28/18 10:59 Last Titration: 12/01/18 07:07 Dose: 350 units/hr, 7 mls/hr Documented by: Parenteral Electrolytes (Normosol-R) 1,000 mls @ 30 mls/hr IV .Q24H JHONY Stop: 12/28/18 10:44 Last Admin: 12/01/18 09:50 Dose: 30 mls/hr Documented by: Pantoprazole Sodium 40 mg/ (Syringe) 10 mls @ 5 mls/min IV BID@0900,2100 [facility] Stop: 12/28/18 20:59 Last Admin: 12/01/18 08:28 Dose: 5 mls/min Documented by: Sodium Chloride (Nss) 250 mls @ 15 mls/hr IV .[id number] PRN PRN Reason: For Transfusion Stop: 12/28/18 18:11 Folic Acid 1 mg/ Syringe 10 mls @ 5 mls/min IV Q24H [facility] Stop: 12/29/18 12:59 Last Admin: 11/30/18 11:49 Dose: 5 mls/min Documented by: Ceftriaxone Sodium 1,000 mg/ (Dextrose) 60 mls @ 120 mls/hr IV Q24H [facility] Stop: 12/03/18 23:59 Last Infusion: 11/30/18 12:16 Dose: Infused Documented by: Potassium Phosphate 21 mmol/ (Sodium Chloride) 507 mls @ 144.857 mls/hr IV TODAY@1100 ONE Stop: 12/01/18 14:29 Ipratropium [place] (Atrovent 0.02% 0.5mg/2.5ml) 0.5 mg INH Q4R PRN PRN Reason: Shortness Of Breath Or Wheezing Stop: 12/28/18 00:43 Levalbuterol HCl (Xopenex 1.25mg/0.5ml Neb) 1.25 mg INH Q4R PRN PRN Reason: Shortness Of Breath Or Wheezing Stop: 12/28/18 00:43 Levalbuterol HCl (Xopenex Hfa) 2 puffs INH Q4H PRN PRN Reason: Wheezing Stop: 12/28/18 00:43 Midazolam HCl (Versed) 1 mg IV Q2H PRN PRN Reason: agitation/anxiety Stop: 12/28/18 05:54 Last Admin: 12/01/18 02:59 Dose: 1 mg Documented by: Nitroglycerin (Nitrostat) 0.4 mg SL UD PRN PRN Reason: Chest Pain Stop: 12/28/18 00:43 Ondansetron HCl (Zofran) 4 mg IV Q6H PRN PRN Reason: Nausea Stop: 12/28/18 00:43 Prednisone (Prednisone) 5 mg NG DAILY JHONY Stop: 12/29/18 12:59 Last Admin: 12/01/18 07:43 Dose: 5 mg Documented by: Fluticasone/Salmeterol (Advair Diskus 250/50) 1 puffs INH BID JHONY Stop: 12/28/18 08:59 Last Admin: 11/30/18 07:18 Dose: Not Given Documented by: PG Care Time/CCT Total # of Minutes Spent Total Time Spent with Patient: Total time spent is greater than 50% in coordination of care (as documented) at patient's floor/unit and/or counseling patient: Critical Care Time: Yes Total Critical Care Time: 35 Resident Activity Tracking Resident Involvement: Resident Care Provided Care Provided: Adult Hospital Medicine
[2018-12-01] MEDS: PANTOprazole 40 MG in SYRINGE 0 ML IV SCH ×2 (08:28→20:48)
[2018-12-01] MEDS: NORMOSOL-R 1,000 ML IV SCH (09:50)
[2018-12-01] MEDS ORDERED: POTASSIUM PHOS 3 MMOL/1 ML INFUSION IV STA (10:23)
[2018-12-01] MEDS ORDERED: POTASSIUM PHOSPHATE 21 MMOL in SODIUM CHLORIDE 0.9% 500 ML IV ONE (11:00)
[2018-12-01] MEDS: FOLIC ACID 1 MG in SYRINGE 9.8 ML IV SCH (11:23)
[2018-12-01] MEDS: cefTRIAXone SODIUM 1,000 MG in DEXTROSE 5% 50 ML IV SCH (11:23)
[2018-12-01] MEDS: Heparin Adult STANDARD Wt-Based Dextrose 5% 25,000 units/500 mL IV SCH (11:24)
--- NOTE | 2018-12-01 17:03 | Hospitalist Progress Note ---
Date of Service December 01, 2018 Assessment & Plan (1) Acute respiratory failure with hypercapnia: ASSESSMENT AND PLAN: This is a 63-year-old female who lives with her daughter, history of chronic obstructive pulmonary disease, diastolic dysfunction, tobacco use disorder, presents with altered mental status. Acute respiratory failure with hypercapnia and hypoxemia, POA Altered mental status and lethargy, metabolic encephalopathy mostly secondary to CO2 narcosis and also could be uremic encephalopathy because her --History of COPD --CT chest: 1. Pulmonary emphysema 2. No evidence of focal pulmonary consolidation 3. No evidence of pathologic adenopathy 4. Severe T11 and L1 vertebral body compression fractures, new when compared with the prior July [address] --Remains intubated ABG improved, respiratory acidosis resolved --Extubated 12/01/2018 Continue to monitor closely --on Chronic prednisone, continue Hypotension Possible Sepsis due to lower extremity cellulitis, POA --Blood cultures: Negative so far Urine culture:Negative -- received Empiric Zosyn x 2 days, transitioned to Ceftriaxone IV Day 2 --Blood pressure on the low normal side Continue to Monitor Acute kidney injury on chronic kidney disease stage III. Baseline creatinine of 1 and BUN around 20.Currently creatinine is 2.4 and BUN is 98. -- crea further improved -- Continue Normosol Anemia possible GI Bleed -- further decreased to 7 2 units pRBC given -- Hg improved to 11, stable overall -- Hemoccult positive stools in the ER, but there are no signs of obvious bleeding. -- ff up Hg trend Protonix twice daily GI consulted, no plans for EGD/Colonosopy at this time Right popliteal DVT --Heparin drip ordered Will need to transition to Coumadin Transaminitis, most likely secondary to hypotension. --Improving, Monitor LFTs Elevated troponin, most likely from above. -- 0.07, 0.07, 0.09 History of diastolic congestive heart failure, left ventricular hypertrophy, on Lasix 20 mg 3-7 tablets a week -- Currently holding the Lasix because of hypotension , acute renal failure repeat Echo ordered Lower extremity edema, PAD -- Arterial Doppler US: 1. Decreased ankle brachial indices of the left lower extremity compatible with moderate to severe peripheral arterial disease. 2. Segmental pressures of the right lower extremity were not conducted secondary to deep venous thrombosis of the popliteal vein. 3. Elevated peak systolic velocities within the right profunda femoris vein are suggestive of luminal narrowing secondary to atherosclerotic vascular disease. -- will need Vascular Surgery evaluation continue ASA, also on Heparin drip History of breast lesion a couple of years ago -- will need outpatient ff up Malnutrition. The patient is thin and frail. Nutrition consult. osteoarthritis/RA. We will hold the naproxen for now. Hypertension. Hold the Toprol XL for now, hold diuretics for now. Tobacco abuse disorder, needs counseling. Deep venous thrombosis prophylaxis,heparin drip Disposition: pending will need PT/OT evaluation Subjective ff up for respiratory failure seen s/p extubation Sitting up in bed, comfortable, watching TV next Oriented x3, answers all questions appropriately States she feels fine overall Denies shortness of breath or coughing Denies abdominal pain, nausea Does report bilateral lower extremity pain with minimal ambulation No other symptoms Review of Systems Review of Systems: All systems reviewed & are unremarkable except as noted in HPI & below Physical Exam Physical Exam: General- oriented x 3, not in distress, speaks in sentences with no effort or accessory muscle use Eyes- anicteric Neck- no JVD Lungs- clear breath sounds bilaterally, no wheezing, crackles Heart- normal rate, regular rhythm; no murmurs Abdomen- normal bowel sounds, nondistended, soft, nontender Extremities- Dressing in place on lower leg, erythema resolving, no tenderness no pretibial edema, no calf tenderness Neuro- alert, oriented x 3; no gross focal neurologic deficits Skin- warm & dry Results & Data Vital Signs (Past 12 Hours) Vital Signs Pulse Resp BP Pulse Ox 12/01/18 11:01 117 H 92 12/01/18 11:00 114 H 124/80 94 12/01/18 10:01 96 H 114/61 98 12/01/18 10:00 105 H 97 12/01/18 09:01 97 H 98 12/01/18 09:00 92 H 97/56 L 98 12/01/18 08:01 104 H 95 12/01/18 08:00 104 H 117/69 96 12/01/18 07:30 107 H 18 92 12/01/18 07:01 82 99 12/01/18 07:00 86 113/65 99 12/01/18 06:45 103 H 94 12/01/18 05:55 84 15 99 Laboratory Results Laboratory Results - last 24 hr 12/01/18 12/01/18 12/01/18 04:22 04:22 04:22 WBC 13.91 H RBC 4.04 L Hgb 10.5 L Hct 33.0 L MCV 81.7 MCH 26.0 MCHC 31.8 L RDW Std Deviation 50.2 H RDW Coeff of Melecio 16.8 H Plt Count 87 L MPV 10.6 H Immature Gran % (Auto) 0.2 Neut % (Auto) 89.4 Lymph % (Auto) 2.4 [place] % (Auto) 6.1 Eos % (Auto) 1.9 Baso % (Auto) 0.0 Immature Gran # (Auto) 0.03 H Neut # (Auto) 12.43 H Lymph # (Auto) 0.34 L [place] # (Auto) 0.85 H Eos # (Auto) 0.26 Baso # (Auto) 0.00 Absolute Nucleated RBC 0.07 H Nucleated RBC % (auto) 0.5 Platelet Estimate Decreased L Target Cells 1+ Echinocytes 2+ Acanthocytes (Spur) 1+ APTT 53.2 H* PTT Ratio 2.0 Sample Site POC pH POC pCO2 POC pO2 POC HCO3 POC Total CO2 POC Base Excess ABG pH (Temp Correct) ABG pCO2 (Temp Corrct POC ABG pO2 at Pt Temp POC ABG O2 Sat Dick Test O2 Delivery Device POC O2 Rate Minute Ventilation Tidal Volume PEEP Sodium 147 H Potassium 4.1 D Chloride 116 H Carbon Dioxide 29 Anion Gap 2.0 L BUN 33 H Creatinine 0.67 D Est Cr Clr Drug Dosing 56.9 Est GFR ( Amer) 107.7 Est GFR (Non-Af Amer) 92.9 BUN/Creatinine Ratio 49.9 H Glucose 149 H POC Glucose Calcium 7.8 L Phosphorus 1.4 L* D Magnesium 2.2 12/01/18 12/01/18 12/01/18 05:43 09:56 11:25 WBC RBC Hgb Hct MCV MCH MCHC RDW Std Deviation RDW Coeff of Melecio Plt Count MPV Immature Gran % (Auto) Neut % (Auto) Lymph % (Auto) [place] % (Auto) Eos % (Auto) Baso % (Auto) Immature Gran # (Auto) Neut # (Auto) Lymph # (Auto) [place] # (Auto) Eos # (Auto) Baso # (Auto) Absolute Nucleated RBC Nucleated RBC % (auto) Platelet Estimate Target Cells Echinocytes Acanthocytes (Spur) APTT PTT Ratio Sample Site R Radial POC pH 7.39 POC pCO2 43 POC pO2 105 H POC HCO3 26 H POC Total CO2 27 POC Base Excess 1.0 ABG pH (Temp Correct) 7.390 ABG pCO2 (Temp Corrct 42 POC ABG pO2 at Pt Temp 104 POC ABG O2 Sat 98.0 H Dick Test Pass O2 Delivery Device Ventilator POC O2 Rate 14 Minute Ventilation 6.6 Tidal Volume 400 PEEP 5 Sodium Potassium Chloride Carbon Dioxide Anion Gap BUN Creatinine Est Cr Clr Drug Dosing Est GFR ( Amer) Est GFR (Non-Af Amer) BUN/Creatinine Ratio Glucose POC Glucose 165 H Calcium Phosphorus 3.9 D Magnesium
[2018-12-01 19:50] LABS: Plt Ab, Heparin Induced Negative (Negative)
[2018-12-02 05:39] LABS: Hematocrit (blood only) 36.2 % (37-47); Mean Corpuscular Hemoglobin 25.7 pg (25-34); Mean Corpuscular Hgb Conc 30.4 g/dL (32-36); Mean Corpuscular Volume 84.6 fL (80-100); Nucleated RBC # (auto) 0.04 K/uL (0-0); Nucleated RBC % (auto) 0.3 %; RDW Coefficient of Variation 17.6 % (11.5-14.5); RDW Standard Deviation 54.1 fL (36.4-46.3); Red Blood Count 4.28 M/uL (4.2-5.4); White Blood Count 13.61 K/uL (4.8-10.8)
[2018-12-02 05:53] LABS: BUN Creatinine Ratio 49.7 (10-20); Calcium 8.6 mg/dl (8.5-10.1); Creatinine Clr Calc Pharmacy 85.2 ml/min; Est GFR (African American) 121.8; Est GFR (Non-African American) 105.1; Magnesium 2.2 mg/dl (1.8-2.4); Mean Platelet Volume 10.6 fL (7.4-10.4); Platelet Count 72 K/uL (130-400); Potassium 4.3 mmol/L (3.5-5.1)
[2018-12-02 05:57] LABS: Phosphorus 2.7 mg/dl (2.5-4.9)
[2018-12-02 05:59] LABS: Partial Thromboplastin Ratio 1.7
[2018-12-02 06:06] LABS: Eosinophils # (auto) 0.27 K/uL (0-0.5); Hypochromasia Present; Immature Granulocytes # (auto) 0.03 K/uL (0.00-0.02); Immature Granulocytes % (auto) 0.2 %; Lymphocytes # (auto) 0.29 K/uL (1.2-3.4); Lymphocytes % (auto) 2.1 %; Monocytes # (auto) 1.32 K/uL (0.11-0.59); Monocytes % (auto) 9.7 %
[2018-12-02 06:12] LABS: Partial Thromboplastin Time 45.9 Seconds (21.0-31.0)
[2018-12-02] MEDS ORDERED: HEPARIN IV BOLUS 2,000 UNITS in SYRINGE 0 ML IV ONE (07:00)
[2018-12-02] MEDS: predniSONE 5 MG TAB NG SCH (07:03)
[2018-12-02] MEDS: ASPIRIN 81 MG CHEW PO SCH (07:04)
--- NOTE | 2018-12-02 07:14 | Critical Care Progress Note ---
Date of Service December 02, 2018 Assessment & Plan (1) Admitted to intensive care unit: Reason Critically Ill: Acute respiratory failure with hypercapnia causing AMS requiring emergent endotracheal intubation for airway protection NEURO - CAM ICU: POSITIVE Sedation: Fentanyl and Versed PRN, not needed AMS- Likely multifactorial in the setting of renal failure with uremia as well as hypercapnia. Improved Ammonia WNL CT Head- unremarkable MRI Brain- No acute intracranial abnormality Lyme testing unremarkable Severe T11 and L1 compression fractures (likely old injury)- Ortho consulted- no sx indicated at present Spinal Precautions removed 10/10 DTR intact along with bulbocavernosus reflex CARDIAC/VASCULAR - Hypotension: resolved Likely secondary to hypovolemia and degree of sepsis. Normosol at 80- seems to be responding appropriately. DC'd IVF today Have not needed pressors yet Severe PVD Peripheral arterial disease with new findings of RIGHT popliteal DVT. Elevated trop- likely 2/2 hypotension/demand Diastolic congestive heart failure - Holding Lasix 2/2 hypotension, KATHERINE Repeat Echo- pending Hypertension- Hold Toprol XL and diuretics as above Thrombocytopenia- Schistocytes, Peripheral Smear- negative. Heparin Antibody negative. Likely 2/2 disease process. RESPIRATORY - Acute respiratory failure with hypercapnia: resolved Chronic COPD with exacerbation. Requiring endotracheal intubation secondary to severe respiratory acidosis- resolved acidosis Aggressive pulmonary toilet. Prednisone 5mg daily Extubated now, sating well on 3L NC GI/NUTRITION - Anemia and heme positive stools: resolved s/p 2 units Currently on IV Protonix 40 mg BID Without any evidence of UGI source of heme positive stools Cont trend Hgb and transfuse prn Appreciate GI recommendations- no plans for EGD/Colonosopy at this time Protein Deficiency/Malnutrition- nutrition following. Start Tube Feeds- increase to 30 today Transaminitis, most likely secondary to hypotension -Monitor LFTs. Biliary US reviewed Advanced diet and tolerating RENAL/LYTES - Acute kidney injury: Baseline Cr ~1. Cr improving Likely secondary to hypovolemia from poor p.o. intake. DC'd Normosol at 80 Repleting lytes as needed - Noonan in place - Strict I&Os. ENDO - No history of diabetes or thyroid disease. BSGs per unit protocol. ISS --> gtt per unit policy. HEME - Anemia- We will continue to trend in the setting of GI bleed. Resolving Right popliteal DVT-Heparin drip ordered ID - Concerns for sepsis secondary to possible cellulitis of the lower extremity. DC'd Zosyn/Vancomycin. Start IV Rocephin 11/30 for 7 days Blood Cx- NGTD Lactate normal LINES/IV ACCESS -PIVs x2, RIGHT IJ, LEFT radial arterial line, ET tube, Noonan DVT PROPHYLAXIS - Heparin, SCDs FULL CODE DISPO: Stable for downgrade out of ICU Supervising Physician Co-Signing Physician Notes Dr. Magallanes was resident physician during care of patient. I separately evaluated patient for van portions of the history and the exam. I was present during the critical portion of medical decision making, and I discussed the case with the resident. I generally agree with the findings and plan. Patient was liberated from the ventilator for greater than 24 hours. Encephalopathy is improved, stable for downgrade out of ICU. Subjective 63 yo F found in bed this AM. No reported overnight events. Extubated yesterday and tolerating well on NC. No family at bedside. No bloody stools noted. Pt alert and able to follow complex commands. Tolerating PO intake. No other acute concerns or complaints. Review of Systems Review of Systems: All systems reviewed & are unremarkable except as noted in HPI & below Physical Exam Constitutional: + frail appearing Eyes: PERRL, conjunctivae normal, anicteric sclerae ENMT: external ear and nose normal, oropharynx normal Respiratory: normal respiratory effort, lungs clear to auscultation Cardiovascular: RRR, no murmur, no edema Gastrointestinal (Abdomen): normal bowel sounds, soft, nontender, no hepatosplenomegaly Skin: no rashes, warm and dry R LE slight erythema Psychiatric: Orientation: alert Results & Data Vital Signs (Past 12 Hours) Vital Signs Temp Pulse Pulse Resp BP Pulse Ox 12/02/18 06:01 99 H 97 12/02/18 06:00 101 H 119/69 96 12/02/18 05:01 95 H 95 12/02/18 05:00 96 H 125/73 94 12/02/18 04:01 99 H 98 12/02/18 04:00 36.5 C 89 128/70 98 12/02/18 03:00 91 H 111/61 97 12/02/18 02:01 88 100 12/02/18 02:00 86 126/71 100 12/02/18 01:01 97 H 97 12/02/18 01:00 96 H 124/74 99 12/02/18 00:01 101 H 94 12/02/18 00:00 36.5 C 102 H 115/91 98 12/01/18 23:01 102 H 95 12/01/18 23:00 98 H 119/80 98 12/01/18 22:00 100 H 138/79 98 12/01/18 21:01 107 H 123/80 96 12/01/18 21:00 120 H 93 12/01/18 20:01 104 H 96 12/01/18 20:00 36.6 C 109 H 128/78 97 12/01/18 19:20 100 H 18 98 Laboratory Results Laboratory Results - last 24 hr 11/29/18 12/01/18 12/01/18 11:41 09:56 11:25 WBC RBC Hgb Hct MCV MCH MCHC RDW Std Deviation RDW Coeff of Melecio Plt Count MPV Immature Gran % (Auto) Neut % (Auto) Lymph % (Auto) [place] % (Auto) Eos % (Auto) Baso % (Auto) Immature Gran # (Auto) Neut # (Auto) Lymph # (Auto) [place] # (Auto) Eos # (Auto) Baso # (Auto) Absolute Nucleated RBC Nucleated RBC % (auto) Hypochromasia APTT PTT Ratio Sodium Potassium Chloride Carbon Dioxide Anion Gap BUN Creatinine Est Cr Clr Drug Dosing Est GFR ( Amer) Est GFR (Non-Af Amer) BUN/Creatinine Ratio Glucose POC Glucose 165 H Calcium Phosphorus 3.9 D Magnesium Heparin Dep Plt Ab React Negative Heparin Dep Plt Ab OD 0.057 A. phagocytophilum DNA Not Detected 12/02/18 12/02/18 12/02/18 05:22 05:22 05:30 WBC 13.61 H RBC 4.28 Hgb 11.0 L Hct 36.2 L MCV 84.6 MCH 25.7 MCHC 30.4 L RDW Std Deviation 54.1 H RDW Coeff of Melecio 17.6 H Plt Count 72 L MPV 10.6 H Immature Gran % (Auto) 0.2 Neut % (Auto) 86.0 Lymph % (Auto) 2.1 [place] % (Auto) 9.7 Eos % (Auto) 2.0 Baso % (Auto) 0.0 Immature Gran # (Auto) 0.03 H Neut # (Auto) 11.70 H Lymph # (Auto) 0.29 L [place] # (Auto) 1.32 H Eos # (Auto) 0.27 Baso # (Auto) 0.00 Absolute Nucleated RBC 0.04 H Nucleated RBC % (auto) 0.3 Hypochromasia Present APTT 45.9 H* PTT Ratio 1.7 Sodium 147 H Potassium 4.3 Chloride 115 H Carbon Dioxide 28 Anion Gap 4.0 BUN 23 H Creatinine 0.46 L Est Cr Clr Drug Dosing 85.2 Est GFR ( Amer) 121.8 Est GFR (Non-Af Amer) 105.1 BUN/Creatinine Ratio 49.7 H Glucose 55 L POC Glucose Calcium 8.6 Phosphorus 2.7 D Magnesium 2.2 Heparin Dep Plt Ab React Heparin Dep Plt Ab OD A. phagocytophilum DNA Medications Administered Current Inpatient Medications Acetaminophen (Tylenol) 650 mg PO Q4H PRN PRN Reason: Pain or Fever Stop: 12/28/18 00:43 Last Admin: 11/29/18 19:47 Dose: 650 mg Documented by: Arformoterol Tartrate (Brovana Neb) 15 mcg INH BIDR HJONY Stop: 12/30/18 18:59 Last Admin: 12/01/18 19:13 Dose: 15 mcg Documented by: Aspirin (Aspirin Chew) 81 mg PO DAILY JHONY Stop: 12/30/18 08:59 Last Admin: 12/02/18 07:04 Dose: 81 mg Documented by: Budesonide (Pulmicort Respules) 0.5 mg INH BIDR JHONY Stop: 12/30/18 18:59 Last Admin: 12/01/18 19:13 Dose: 0.5 mg Documented by: Diphenhydramine HCl (Benadryl Capsule) 25 mg PO HS PRN PRN Reason: Allergy Symptoms Enteral Nutritional Formula (Impact 1.0 Serjio) 1,000 ml NG UD JHONY; Protocol Stop: 12/29/18 12:14 Last Admin: 11/30/18 17:44 Dose: 1,000 ml Documented by: Heparin Sodium/Dextrose (Heparin Sodium/Dextrose) 25,000 units in 500 mls @ 9 mls/hr IV .Q24H JHONY; Protocol Stop: 12/28/18 10:59 Last Titration: 12/02/18 06:53 Dose: 450 units/hr, 9 mls/hr Documented by: Pantoprazole Sodium 40 mg/ (Syringe) 10 mls @ 5 mls/min IV BID@0900,2100 JHONY Stop: 12/28/18 20:59 Last Admin: 12/01/18 20:48 Dose: 5 mls/min Documented by: Sodium Chloride (Nss) 250 mls @ 15 mls/hr IV .[id number] PRN PRN Reason: For Transfusion Stop: 12/28/18 18:11 Folic Acid 1 mg/ Syringe 10 mls @ 5 mls/min IV Q24H JHONY Stop: 12/29/18 12:59 Last Admin: 12/01/18 11:23 Dose: 5 mls/min Documented by: Ceftriaxone Sodium 1,000 mg/ (Dextrose) 60 mls @ 120 mls/hr IV Q24H JHONY Stop: 12/03/18 23:59 Last Infusion: 12/01/18 12:01 Dose: Infused Documented by: Ipratropium [place] (Atrovent 0.02% 0.5mg/2.5ml) 0.5 mg INH Q4R PRN PRN Reason: Shortness Of Breath Or Wheezing Stop: 12/28/18 00:43 Levalbuterol HCl (Xopenex 1.25mg/0.5ml Neb) 1.25 mg INH Q4R PRN PRN Reason: Shortness Of Breath Or Wheezing Stop: 12/28/18 00:43 Levalbuterol HCl (Xopenex Hfa) 2 puffs INH Q4H PRN PRN Reason: Wheezing Stop: 12/28/18 00:43 Nitroglycerin (Nitrostat) 0.4 mg SL UD PRN PRN Reason: Chest Pain Stop: 12/28/18 00:43 Ondansetron HCl (Zofran) 4 mg IV Q6H PRN PRN Reason: Nausea Stop: 12/28/18 00:43 Prednisone (Prednisone) 5 mg NG DAILY JHONY Stop: 12/29/18 12:59 Last Admin: 12/02/18 07:03 Dose: 5 mg Documented by: Fluticasone/Salmeterol (Advair Diskus 250/50) 1 puffs INH BID JHONY Stop: 12/28/18 08:59 Last Admin: 11/30/18 07:18 Dose: Not Given Documented by: PG Care Time/CCT Total # of Minutes Spent Total Time Spent with Patient: Total time spent is greater than 50% in coordination of care (as documented) at patient's floor/unit and/or counseling patient: Resident Activity Tracking Resident Involvement: Resident Care Provided Care Provided: Adult [facility] Medicine
[2018-12-02] MEDS: PANTOprazole 40 MG in SYRINGE 0 ML IV SCH ×2 (08:00→20:38)
[2018-12-02] MEDS: BUDESONIDE 0.5 MG/2 ML VIAL (PULMICORT) INH SCH ×2 (08:14→20:57)
[2018-12-02] MEDS: ARFORMOTEROL TART 15MCG/2ML VIAL INH SCH ×2 (08:14→20:54)
[2018-12-02] MEDS: FOLIC ACID 1 MG in SYRINGE 9.8 ML IV SCH (11:16)
[2018-12-02] MEDS: cefTRIAXone SODIUM 1,000 MG in DEXTROSE 5% 50 ML IV SCH (11:16)
[2018-12-02] MEDS: Heparin Adult STANDARD Wt-Based Dextrose 5% 25,000 units/500 mL IV SCH (11:17)
[2018-12-02 13:21] LABS: Partial Thromboplastin Ratio 2.7
[2018-12-02 13:32] LABS: Partial Thromboplastin Time 74.5 Seconds (21.0-31.0)
--- NOTE | 2018-12-02 15:32 | Hospitalist Progress Note ---
Date of Service December 02, 2018 Assessment & Plan (1) Acute respiratory failure with hypercapnia: ASSESSMENT AND PLAN: This is a 63-year-old female who lives with her daughter, history of chronic obstructive pulmonary disease, diastolic dysfunction, tobacco use disorder, presents with altered mental status. Acute respiratory failure with hypercapnia and hypoxemia, POA Altered mental status and lethargy, metabolic encephalopathy mostly secondary to CO2 narcosis and also could be uremic encephalopathy because her --History of COPD --CT chest: 1. Pulmonary emphysema 2. No evidence of focal pulmonary consolidation 3. No evidence of pathologic adenopathy 4. Severe T11 and L1 vertebral body compression fractures, new when compared with the prior July [address] ABG improved, respiratory acidosis resolved --Extubated 12/01/2018 --(+) desaturation today check CXR -- continue Brovana, Budesonide, Nebs, Prednisone monitor closely Hypotension Possible Sepsis due to lower extremity cellulitis, POA --Blood cultures: Negative so far Urine culture:Negative -- received Empiric Zosyn x 2 days, transitioned to Ceftriaxone IV Day 3 --Blood pressure on the low normal side Continue to Monitor Acute kidney injury on chronic kidney disease stage III. Baseline creatinine of 1 and BUN around 20.Currently creatinine is 2.4 and BUN is 98. -- crea further improved -- Continue Normosol Anemia possible GI Bleed -- further decreased to 7 2 units pRBC given -- Hg improved to 11, stable overall -- Hemoccult positive stools in the ER, but there are no signs of obvious bleeding. -- ff up Hg trend Protonix twice daily GI consulted, no plans for EGD/Colonosopy at this time Right popliteal DVT --Heparin drip ordered Will transition to coumadin with heparin bridge Moderate to Severe PAD -- Arterial Doppler US: 1. Decreased ankle brachial indices of the left lower extremity compatible with moderate to severe peripheral arterial disease. 2. Segmental pressures of the right lower extremity were not conducted secondary to deep venous thrombosis of the popliteal vein. 3. Elevated peak systolic velocities within the right profunda femoris vein are suggestive of luminal narrowing secondary to atherosclerotic vascular disease. --placed Vascular Surgery consult continue ASA, also on Heparin drip Transaminitis, most likely secondary to hypotension. --Improving, Monitor LFTs Elevated troponin, most likely from above. -- 0.07, 0.07, 0.09 History of diastolic congestive heart failure, left ventricular hypertrophy -- on Lasix 20 mg 3-7 tablets a week -- Currently holding the Lasix because of hypotension , acute renal failure repeat Echo ordered History of breast lesion a couple of years ago -- will need outpatient ff up Malnutrition. The patient is thin and frail. Nutrition consult. osteoarthritis/RA. We will hold the naproxen for now. Hypertension. Hold the Toprol XL for now, hold diuretics for now. Tobacco abuse disorder, needs counseling. Deep venous thrombosis prophylaxis,heparin drip Disposition: pending will need PT/OT evaluation Subjective ff up for respiratory failure s/p extubation day #2 noted to have desaturation episode this afternoon, O2 via NC increased to 6L, chest vibration therapy performed seen sitting up , not in distress states breathing is improving has occasional cough, non productive denies chest pain no abdominal pain, nausea/vomiting, no hematochezia/melena noted no other symptoms Review of Systems Review of Systems: All systems reviewed & are unremarkable except as noted in HPI & below Physical Exam Physical Exam: General- oriented x 3, not in distress, speaks in sentences w ith no effort or accessory muscle use Eyes- anicteric Neck- no JVD Lungs- mild rales at the bases, no wheezing Heart- normal rate, regular rhythm; no murmurs Abdomen- normal bowel sounds, nondistended, soft, nontender Extremities- no pretibial edema, no calf tenderness dressings in place over right lower leg Neuro- alert, oriented x 3; no gross focal neurologic deficits Skin- warm & dry Results & Data Vital Signs (Past 12 Hours) Vital Signs Temp Pulse Pulse BP Pulse Ox 12/02/18 11:01 103 H 96 12/02/18 11:00 104 H 124/72 100 12/02/18 10:01 95 H 99 12/02/18 10:00 94 H 122/69 99 12/02/18 09:00 102 H 121/74 95 12/02/18 08:01 107 H 91 12/02/18 08:00 36.4 C L 110 H 147/82 H 86 L 12/02/18 07:40 109 H 93 12/02/18 07:01 97 H 100 12/02/18 07:00 97 H 126/79 96 12/02/18 06:01 99 H 97 12/02/18 06:00 101 H 119/69 96 12/02/18 05:01 95 H 95 12/02/18 05:00 96 H 125/73 94 12/02/18 04:01 99 H 98 12/02/18 04:00 36.5 C 89 128/70 98 Laboratory Results Laboratory Results - last 24 hr 11/29/18 12/02/18 12/02/18 11:41 05:22 05:22 WBC 13.61 H RBC 4.28 Hgb 11.0 L Hct 36.2 L MCV 84.6 MCH 25.7 MCHC 30.4 L RDW Std Deviation 54.1 H RDW Coeff of Melecio 17.6 H Plt Count 72 L MPV 10.6 H Immature Gran % (Auto) 0.2 Neut % (Auto) 86.0 Lymph % (Auto) 2.1 [place] % (Auto) 9.7 Eos % (Auto) 2.0 Baso % (Auto) 0.0 Immature Gran # (Auto) 0.03 H Neut # (Auto) 11.70 H Lymph # (Auto) 0.29 L [place] # (Auto) 1.32 H Eos # (Auto) 0.27 Baso # (Auto) 0.00 Absolute Nucleated RBC 0.04 H Nucleated RBC % (auto) 0.3 Hypochromasia Present APTT PTT Ratio Sodium 147 H Potassium 4.3 Chloride 115 H Carbon Dioxide 28 Anion Gap 4.0 BUN 23 H Creatinine 0.46 L Est Cr Clr Drug Dosing 85.2 Est GFR ( Amer) 121.8 Est GFR (Non-Af Amer) 105.1 BUN/Creatinine Ratio 49.7 H Glucose 55 L Calcium 8.6 Phosphorus 2.7 D Magnesium 2.2 Stool Occult Bld Scrn Heparin Dep Plt Ab React Negative Heparin Dep Plt Ab OD 0.057 A. phagocytophilum DNA Not Detected 12/02/18 12/02/18 12/02/18 05:30 09:50 12:55 WBC RBC Hgb Hct MCV MCH MCHC RDW Std Deviation RDW Coeff of Melecio Plt Count MPV Immature Gran % (Auto) Neut % (Auto) Lymph % (Auto) [place] % (Auto) Eos % (Auto) Baso % (Auto) Immature Gran # (Auto) Neut # (Auto) Lymph # (Auto) [place] # (Auto) Eos # (Auto) Baso # (Auto) Absolute Nucleated RBC Nucleated RBC % (auto) Hypochromasia APTT 45.9 H* 74.5 H* PTT Ratio 1.7 2.7 Sodium Potassium Chloride Carbon Dioxide Anion Gap BUN Creatinine Est Cr Clr Drug Dosing Est GFR ( Amer) Est GFR (Non-Af Amer) BUN/Creatinine Ratio Glucose Calcium Phosphorus Magnesium Stool Occult Bld Scrn Negative Heparin Dep Plt Ab React Heparin Dep Plt Ab OD A. phagocytophilum DNA
--- NOTE | 2018-12-02 15:57 | XRay Report ---
XR chest 1V portable CLINICAL HISTORY: Abnormal chest x-ray. Follow-up study. COMPARISON STUDY: 11/30/2018 FINDINGS: The endotracheal tube and nasogastric tubes have been removed. There is a right internal ju gular central venous catheter. The current study is rotated. The heart is normal in size. There is ra diographic evidence of pulmonary emphysema. There are left basilar atelectatic changes.[ IMPRESSION: 1. Pulmonary emphysema 2. Left basilar opacities, likely atelectatic 3. Interval removal of the nasogastric tube and endotracheal tube. Electronically signed by: Zeferino Jeffries M.D. 12/02/2018 3:56 PM
[2018-12-02 20:33] LABS: Partial Thromboplastin Ratio 1.8
[2018-12-02 20:38] LABS: Partial Thromboplastin Time 49.5 Seconds (21.0-31.0)
[2018-12-03 06:37] LABS: Partial Thromboplastin Ratio 1.5; Partial Thromboplastin Time 40.5 Seconds (21.0-31.0)
[2018-12-03] MEDS: ARFORMOTEROL TART 15MCG/2ML VIAL INH SCH ×2 (07:04→19:39)
[2018-12-03] MEDS: BUDESONIDE 0.5 MG/2 ML VIAL (PULMICORT) INH SCH ×2 (07:04→19:39)
[2018-12-03] MEDS ORDERED: HEPARIN IV BOLUS 3,000 UNITS in SYRINGE 0 ML IV ONE ×2 (07:11→21:53)
[2018-12-03] MEDS: predniSONE 5 MG TAB NG SCH (07:44)
[2018-12-03] MEDS: PANTOprazole 40 MG in SYRINGE 0 ML IV SCH ×2 (07:45→20:57)
[2018-12-03] MEDS ORDERED: ASPIRIN 81 MG ECTAB PO SCH (09:00)
--- NOTE | 2018-12-03 10:55 | Consultation ---
Date of Consultation December 03, 2018 Assessment & Plan (1) Peripheral arterial disease: Pt with moderate PAD noted on arterial US performed shortly after admission. Pt with palpable pulses distally and no sign of ischemia and does not ambulate far or fast enough to claudicate. Recommend local wound care to R great toe wound. No indications for vascular surgical intervention. Please call if needed. Present on Admission?: Yes History of Present Illness Reason for Consultation: PAD by US Attending Physician: Sridhar Rothman MD History of Present Illness 63 yo f with hx of COPD, RA, CAD, paroxysmal a fib, admitted with multi organ failure, seen in consultation today for BLE PAD noted on US. Pt states she does not know why the US was ordered. Ambulates very little, to bathroom and back at home, and typically uses a walker for support as well, so does not walk very fast. Pt admits pain in the blisters on her R foot. Denies AMIN, fever, chills, chest pain, SOB at rest today, abd pain, N/V, rest pain, claudication, other complaints. Arterial US demonstrates moderate PAD BLE. Allergies Allergy/AdvReac Type Severity Reaction Status Date / Time Pork/Porcine Containing Allergy Intermediate Hives Verified 11/27/18 20:32 Products Home Medications Home Medications Medication Instructions Recorded Confirmed Type aspirin 81 mg PO DAILY 11/27/18 11/27/18 History diphenhydramine HCl [Benadryl 25 mg PO HS PRN 11/27/18 11/27/18 History Allergy] doxycycline hyclate 100 mg PO BID PRN 11/27/18 11/27/18 History fluticasone propion-salmeterol 2 puff INHALATION BID 11/27/18 11/27/18 History [Advair HFA] furosemide See Rx Instructions .ROUTE 11/27/18 11/27/18 History .COMPLEX PRN ipratropium bromide See Rx Instructions .ROUTE .COMPLEX 11/27/18 11/27/18 History levalbuterol tartrate 2 puff INHALATION Q4H PRN 11/27/18 11/27/18 History metoprolol succinate 50 mg PO DAILY 11/27/18 11/27/18 History naproxen sodium 440 mg PO QPM 11/27/18 11/27/18 History prednisone See Rx Instructions .ROUTE 11/27/18 11/27/18 History .COMPLEX PRN Patient History Medical History Anemia (Acute) Rheumatoid arthritis (Chronic) "chronic steroid use" Emphysema of lung (Chronic) Paroxysmal a-fib (Chronic) Tobacco abuse (Chronic) Hypoxia History of Clostridium difficile colitis (Chronic) Osteoarthritis (Chronic) Surgical History [place] teeth extracted (Resolved) Family History Other Cancer FHx: gallbladder disease Heart disease Kidney disease Social History Communication Ability: Unable Beliefs That Will Affect Care: None Current Living Situation: Family Other Information That Helps Us Care for You: No Feels Safe at Home: Yes Smoking Status: Current every day smoker Tobacco Type: cigarettes ; Cigarettes Per Day: 20 ; Hx Alcohol Use: No Hx Substance Use: No Review of Systems Review of Systems: All systems reviewed & are unremarkable except as noted in HPI & below Physical Exam Constitutional: + ill appearing (chronically), + thin, + cachectic, + disheveled (dirty), comfortable, + malnourished and + underweight; + not healthy appearing, not in distress and not combative Eyes: PERRL, conjunctivae normal, anicteric sclerae ENMT: external ear and nose normal, oropharynx normal Neck: trachea midline, no thyromegaly Respiratory: able to speak in complete sentences Auscultation: + diminished lung sounds and + wheezes (mild) Cardiovascular: Rate/Rhythm: regular rate and regular rhythm Vessels: posterior tibial pulses present, dorsalis pedis pulses present, radial pulses present and popliteal pulses present; no carotid bruit and + abnormal peripheral pulses Extremities: + edema (+2 edema to lower legs and feet); + abnormal capillary refill Gastrointestinal (Abdomen): Inspection/Auscultation: abdomen normal to inspection and normal bowel sounds Percussion/Palpation: abdomen soft; abdomen nontender and no guarding Musculoskeletal: Head/Neck/Chest: normocephalic and head atraumatic Extremities: + abnormal strength (mild generalized weakness) Skin: + lesion (R foot with dry, superficial open area on great toe) and + excoriations; no induration and no erythema Neurologic: moves all extremities and awake; no focal motor deficits Psychiatric: A+Ox3, euthymic affect Results & Data Vital Signs (Past 12 Hours) Vital Signs Temp Pulse Pulse Resp BP Pulse Ox 12/03/18 07:43 36.5 C 100 H 20 125/62 93 12/03/18 07:05 93 H 18 94 12/03/18 03:41 36.7 C 93 H 19 117/57 L 100 12/03/18 00:43 36.9 C 98 H 16 120/66 100 12/02/18 23:05 106 H
[2018-12-03] MEDS: cefTRIAXone SODIUM 1,000 MG in DEXTROSE 5% 50 ML IV SCH (12:15)
[2018-12-03] MEDS: FOLIC ACID 1 MG in SYRINGE 9.8 ML IV SCH (13:34)
[2018-12-03 14:18] LABS: Partial Thromboplastin Ratio 3.4
[2018-12-03 14:24] LABS: Partial Thromboplastin Time 91.6 Seconds (21.0-31.0)
--- NOTE | 2018-12-03 19:25 | Hospitalist Progress Note ---
Date of Service December 03, 2018 Assessment & Plan (1) Acute respiratory failure with hypercapnia: ASSESSMENT AND PLAN: This is a 63-year-old female who lives with her daughter, history of chronic obstructive pulmonary disease, diastolic dysfunction, tobacco use disorder, presents with altered mental status. Acute respiratory failure with hypercapnia and hypoxemia, POA Altered mental status and lethargy, metabolic encephalopathy mostly secondary to CO2 narcosis and also could be uremic encephalopathy because her --History of COPD --CT chest: 1. Pulmonary emphysema 2. No evidence of focal pulmonary consolidation 3. No evidence of pathologic adenopathy 4. Severe T11 and L1 vertebral body compression fractures, new when compared with the prior July [address] ABG improved, respiratory acidosis resolved --Extubated 12/01/2018 --repeat CXR unchanged -- continue Brovana, Budesonide, Advair, Nebs, Prednisone monitor closely Hypotension Possible Sepsis due to lower extremity cellulitis, POA --Blood cultures: Negative so far Urine culture:Negative -- received Empiric Zosyn x 2 days, transitioned to Ceftriaxone IV Day 05/27 -- Continue to Monitor Acute kidney injury on chronic kidney disease stage III. Baseline creatinine of 1 and BUN around 20.Currently creatinine is 2.4 and BUN is 98. -- crea further improved -- Continue Normosol Anemia possible GI Bleed -- further decreased to 7 2 units pRBC given -- Hg improved to 11, stable overall -- Hemoccult positive stools in the ER, but there are no signs of obvious bleeding. -- ff up Hg trend Protonix twice daily GI consulted, no plans for EGD/Colonosopy at this time Right popliteal DVT --Heparin drip ordered Will transition to coumadin with heparin bridge if plt remains stable Moderate to Severe PAD -- Arterial Doppler US: 1. Decreased ankle brachial indices of the left lower extremity compatible with moderate to severe peripheral arterial disease. 2. Segmental pressures of the right lower extremity were not conducted secondary to deep venous thrombosis of the popliteal vein. 3. Elevated peak systolic velocities within the right profunda femoris vein are suggestive of luminal narrowing secondary to atherosclerotic vascular disease. --placed Vascular Surgery consult HOLD ASA for now- PLt level pending, also on Heparin drip Transaminitis, most likely secondary to hypotension. --Improving, Monitor LFTs Elevated troponin, most likely from above. -- 0.07, 0.07, 0.09 History of diastolic congestive heart failure, left ventricular hypertrophy -- on Lasix 20 mg 3-7 tablets a week -- Currently holding the Lasix because of hypotension , acute renal failure repeat Echo ordered History of breast lesion a couple of years ago -- will need outpatient ff up Malnutrition. The patient is thin and frail. Nutrition consult. osteoarthritis/RA. We will hold the naproxen for now. Hypertension. Hold the Toprol XL for now, hold diuretics for now. Tobacco abuse disorder, needs counseling. Deep venous thrombosis prophylaxis,heparin drip Disposition: pending will need PT/OT evaluation Subjective ff up for respiratory failure, DVT seen resting in bed, comfortable, watching TV still on 3L of O2 via nasal cannula no active dyspnea, but still has cough, unable to expectorate sputum denies chest pain has mild leg pain, no bleeding denies other symptoms Review of Systems Review of Systems: All systems reviewed & are unremarkable except as noted in HPI & below Physical Exam Physical Exam: General- oriented x 3, not in distress, speaks in sentences with no effort or accessory muscle use Eyes- anicteric Neck- no JVD Lungs- mild rales at the bases, no wheezing Heart- normal rate, regular rhythm; no murmurs Abdomen- normal bowel sounds, nondistended, soft, nontender Extremities- no pretibial edema, no calf tenderness right foot covered in dressing, no bleeding Neuro- alert, oriented x 3; no gross focal neurologic deficits Skin- warm & dry Results & Data Vital Signs (Past 12 Hours) Vital Signs Temp Pulse Pulse Resp BP Pulse Ox 12/03/18 18:56 36.6 C 99 H 24 126/71 96 12/03/18 16:00 78 12/03/18 15:03 36.5 C 95 H 16 129/70 92 12/03/18 11:36 36.6 C 100 H 20 126/65 92 12/03/18 07:43 36.5 C 100 H 20 125/62 93
[2018-12-03] MEDS: ACETYLCYSTEINE 10% INHAL SOLN 4 ML **DISPENSED BY RESP. INH SCH (19:42)
[2018-12-03 21:31] LABS: Mean Corpuscular Hgb Conc 30.4 g/dL (32-36); Nucleated RBC # (auto) 0.05 K/uL (0-0); Nucleated RBC % (auto) 0.4 %
[2018-12-03 21:46] LABS: Partial Thromboplastin Ratio 1.5; Partial Thromboplastin Time 39.6 Seconds (21.0-31.0)
[2018-12-03 21:55] LABS: BUN Creatinine Ratio 31.9 (10-20); Calcium 9.4 mg/dl (8.5-10.1); Creatinine Clr Calc Pharmacy 78.5 ml/min
[2018-12-03 22:45] LABS: Hematocrit (blood only) 39.5 % (37-47); Mean Corpuscular Hemoglobin 26.3 pg (25-34); Mean Corpuscular Volume 86.4 fL (80-100); RDW Coefficient of Variation 17.8 % (11.5-14.5); Red Blood Count 4.57 M/uL (4.2-5.4); White Blood Count 11.49 K/uL (4.8-10.8)
[2018-12-03 23:01] LABS: Basophils # (auto) 0.01 K/uL (0-0.2); Basophils % (auto) 0.1 %; Echinocytes 1+; Eosinophils % (auto) 0.9 %; Immature Granulocytes # (auto) 0.03 K/uL (0.00-0.02); Immature Granulocytes % (auto) 0.3 %; Lymphocytes # (auto) 0.73 K/uL (1.2-3.4); Lymphocytes % (auto) 6.4 %; Monocytes # (auto) 0.61 K/uL (0.11-0.59); Monocytes % (auto) 5.3 %; Neutrophils # (auto) 10.01 K/uL (1.4-6.5); Platelet Count 90 K/uL (130-400); Platelet Estimate Decreased (Normal); Polychromasia 1+; Schistocytes Occasional
[2018-12-04 06:15] LABS: Mean Corpuscular Hgb Conc 29.6 g/dL (32-36)
[2018-12-04 06:28] LABS: BUN Creatinine Ratio 31.1 (10-20); Calcium 9.1 mg/dl (8.5-10.1); Creatinine Clr Calc Pharmacy 83.3 ml/min; Est GFR (African American) 119.3; Potassium 4.7 mmol/L (3.5-5.1)
[2018-12-04 06:29] LABS: Hematocrit (blood only) 37.5 % (37-47); Hemoglobin 11.1 g/dL (12.0-16.0); Mean Corpuscular Hemoglobin 25.6 pg (25-34); Mean Corpuscular Volume 86.6 fL (80-100); RDW Coefficient of Variation 17.9 % (11.5-14.5); RDW Standard Deviation 56.2 fL (36.4-46.3); Red Blood Count 4.33 M/uL (4.2-5.4); White Blood Count 15.12 K/uL (4.8-10.8)
[2018-12-04] MEDS: BUDESONIDE 0.5 MG/2 ML VIAL (PULMICORT) INH SCH ×2 (07:01→21:08)
[2018-12-04] MEDS: ACETYLCYSTEINE 10% INHAL SOLN 4 ML **DISPENSED BY RESP. INH SCH ×2 (07:01→21:09)
[2018-12-04] MEDS: ARFORMOTEROL TART 15MCG/2ML VIAL INH SCH ×2 (07:01→21:09)
[2018-12-04 07:10] LABS: Basophils # (auto) 0.01 K/uL (0-0.2); Basophils % (auto) 0.1 %; Echinocytes 2+; Hypochromasia Present; Immature Granulocytes # (auto) 0.05 K/uL (0.00-0.02); Immature Granulocytes % (auto) 0.3 %; Lymphocytes # (auto) 0.89 K/uL (1.2-3.4); Lymphocytes % (auto) 5.9 %; Monocytes # (auto) 0.98 K/uL (0.11-0.59); Monocytes % (auto) 6.5 %; Neutrophils # (auto) 12.89 K/uL (1.4-6.5); Neutrophils % (auto) 85.2 %; Platelet Count 81 K/uL (130-400); Platelet Estimate Decreased (Normal)
[2018-12-04 08:04] LABS: Partial Thromboplastin Ratio 4.4
[2018-12-04 08:07] LABS: Partial Thromboplastin Time 119.2 Seconds (21.0-31.0)
[2018-12-04] MEDS: FOLIC ACID 1 MG TAB PO SCH (08:11)
[2018-12-04] MEDS: PANTOprazole 40 MG in SYRINGE 0 ML IV SCH (08:11)
[2018-12-04] MEDS: predniSONE 5 MG TAB NG SCH (08:11)
[2018-12-04] MEDS ORDERED: FUROSEMIDE 20 MG TAB PO ONE (08:43)
[2018-12-04] MEDS ORDERED: Nursing to Pharmacy Communication ONE (10:50)
[2018-12-04] MEDS ORDERED: FUROSEMIDE 20 MG in SYRINGE 0 ML IV SCH (10:55)
[2018-12-04 15:46] LABS: Partial Thromboplastin Ratio 1.2; Partial Thromboplastin Time 31.8 Seconds (21.0-31.0)
[2018-12-04] MEDS ORDERED: HEPARIN IV BOLUS 3,000 UNITS in SYRINGE 0 ML IV ONE (16:00)
--- NOTE | 2018-12-04 18:30 | Hospitalist Progress Note ---
Date of Service December 04, 2018 Assessment & Plan (1) Acute respiratory failure with hypercapnia: ASSESSMENT AND PLAN: This is a 63-year-old female who lives with her daughter, history of chronic obstructive pulmonary disease, diastolic dysfunction, tobacco use disorder, presents with altered mental status. Acute respiratory failure with hypercapnia and hypoxemia, POA Altered mental status and lethargy, metabolic encephalopathy mostly secondary to CO2 narcosis and also could be uremic encephalopathy because her --History of COPD --CT chest: 1. Pulmonary emphysema 2. No evidence of focal pulmonary consolidation 3. No evidence of pathologic adenopathy 4. Severe T11 and L1 vertebral body compression fractures, new when compared with the prior July [address] ABG improved, respiratory acidosis resolved --Extubated 12/01/2018 --repeat CXR unchanged --Remains at 3 L of nasal cannula May have component of fluid overload in light of weight gain, rales Lasix 20 mg IV given Patient usually on Lasix 20 mg p.o. as needed for leg edema Titrate Lasix, repeat chest x-ray tomorrow -- continue Brovana, Budesonide, Advair, Nebs, Prednisone (chronically on 10 mg p.o. daily) monitor closely Hypotension Possible Sepsis due to lower extremity cellulitis, POA --Blood cultures: Negative Urine culture:Negative -- received Empiric Zosyn x 2 days, transitioned to Ceftriaxone IV Day / Cellulitis improving -- Continue to Monitor Acute kidney injury on chronic kidney disease stage III. Baseline creatinine of 1 and BUN around 20.Currently creatinine is 2.4 and BUN is 98. -- crea further improved -- Continue Normosol Anemia possible GI Bleed -- further decreased to 7 2 units pRBC given -- Hg improved to 11, stable overall -- Hemoccult positive stools in the ER, but there are no signs of obvious bleeding. -- ff up Hg trend Protonix twice daily GI consulted, no plans for EGD/Colonosopy at this time Right popliteal DVT --Heparin drip ordered Will transition to coumadin with heparin bridge Monitor platelet level closely Moderate to Severe PAD -- Arterial Doppler US: 1. Decreased ankle brachial indices of the left lower extremity compatible with moderate to severe peripheral arterial disease. 2. Segmental pressures of the right lower extremity were not conducted secondary to deep venous thrombosis of the popliteal vein. 3. Elevated peak systolic velocities within the right profunda femoris vein are suggestive of luminal narrowing secondary to atherosclerotic vascular disease. --placed Vascular Surgery consult Continue aspirin but monitor platelets closely Transaminitis, most likely secondary to hypotension. --Improving, Monitor LFTs Elevated troponin, most likely from above. -- 0.07, 0.07, 0.09 History of diastolic congestive heart failure, left ventricular hypertrophy -- on Lasix 20 mg 3-7 tablets a week --Start Lasix 20 mg IV Titrate carefully Updated echo ordered History of breast lesion a couple of years ago -- will need outpatient ff up Malnutrition. The patient is thin and frail. Nutrition consult. Inquired with patient regarding her dietary intake Patient eats she usually has 2-3 meals per day, occasionally not eating because she does not feel hungry She is fully aware of importance of proper nutrition, and consequences of not eating well Poor hygiene Inquired regarding hygiene at home States bathroom is in the second floor, and this makes it difficult for her to shower every day Patient is fully aware of importance of proper hygiene and consequences of not observing proper daily hygiene Osteoarthritis/RA. We will hold the naproxen for now. Hypertension. Hold the Toprol XL for now, hold diuretics for now. Tobacco abuse disorder, needs counseling. 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, 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 Subjective ff up for respiratory failure seen resting in bedside chair, comfortable oriented x 3, answers all questions appropriately states she feels ok overall on 3 L of nasal cannula, states she has intermittent cough with yellow sputum- chronic leg pain improving no bleeding no other symptoms Review of Systems Review of Systems: All systems reviewed & are unremarkable except as noted in HPI & below Physical Exam Physical Exam: General- oriented x 3, not in distress, speaks in sentences with no effort or accessory muscle use Eyes- anicteric Neck- no JVD Lungs-mild rales bilateral bases, no wheezing Heart- normal rate, regular rhythm; no murmurs Abdomen- normal bowel sounds, nondistended, soft, nontender Extremities- no pretibial edema, no calf tenderness Positive dressing on the right foot, no bleeding Neuro- alert, oriented x 3; no gross focal neurologic deficits Skin- warm & dry Results & Data Vital Signs (Past 12 Hours) Vital Signs Temp Pulse Resp BP BP Pulse Ox 12/04/18 15:22 36.7 C 106 H 16 117/71 93 12/04/18 13:40 94 12/04/18 11:15 36.7 C 99 H 22 130/66 94 12/04/18 07:59 36.6 C 99 H 24 117/63 74 L 12/04/18 07:06 104 H 20 92 Laboratory Results Laboratory Results - last 24 hr 12/03/18 12/03/18 12/03/18 21:17 21:17 21:17 WBC 11.49 H RBC 4.57 Hgb 12.0 Hct 39.5 MCV 86.4 MCH 26.3 MCHC 30.4 L RDW Std Deviation 56.0 H RDW Coeff of Melecio 17.8 H Plt Count 90 L Immature Gran % (Auto) 0.3 Neut % (Auto) 87.0 Lymph % (Auto) 6.4 [place] % (Auto) 5.3 Eos % (Auto) 0.9 Baso % (Auto) 0.1 Immature Gran # (Auto) 0.03 H Neut # (Auto) 10.01 H Lymph # (Auto) 0.73 L [place] # (Auto) 0.61 H Eos # (Auto) 0.10 Baso # (Auto) 0.01 Absolute Nucleated RBC 0.05 H Nucleated RBC % (auto) 0.4 Platelet Estimate Decreased L Polychromasia 1+ Hypochromasia Echinocytes 1+ Schistocytes Occasional APTT 39.6 H PTT Ratio 1.5 Sodium 144 Potassium 5.0 D Chloride 112 H Carbon Dioxide 28 Anion Gap 4.0 BUN 17 Creatinine 0.52 L Est Cr Clr Drug Dosing 78.5 Est GFR ( Amer) 117.0 Est GFR (Non-Af Amer) 101.0 BUN/Creatinine Ratio 31.9 H Glucose 76 Calcium 9.4 Specimen Hemolysis 12/04/18 12/04/18 12/04/18 05:34 05:34 05:34 WBC 15.12 H RBC 4.33 Hgb 11.1 L Hct 37.5 MCV 86.6 MCH 25.6 MCHC 29.6 L RDW Std Deviation 56.2 H RDW Coeff of [place]lecio 17.9 H Plt Count 81 L Immature Gran % (Auto) 0.3 Neut % (Auto) 85.2 Lymph % (Auto) 5.9 [place] % (Auto) 6.5 Eos % (Auto) 2.0 Baso % (Auto) 0.1 Immature Gran # (Auto) 0.05 H Neut # (Auto) 12.89 H Lymph # (Auto) 0.89 L [place] # (Auto) 0.98 H Eos # (Auto) 0.30 Baso # (Auto) 0.01 Absolute Nucleated RBC Nucleated RBC % (auto) Platelet Estimate Decreased L Polychromasia Hypochromasia Present Echinocytes 2+ Schistocytes APTT 119.2 H* PTT Ratio 4.4 Sodium 145 Potassium 4.7 Chloride 112 H Carbon Dioxide 28 Anion Gap 5.0 BUN 15 Creatinine 0.49 L Est Cr Clr Drug Dosing 83.3 Est GFR ( Amer) 119.3 Est GFR (Non-Af Amer) 103.0 BUN/Creatinine Ratio 31.1 H Glucose 84 Calcium 9.1 Specimen Hemolysis 12/04/18 15:26 WBC RBC Hgb Hct MCV MCH MCHC RDW Std Deviation RDW Coeff of Melecio Plt Count Immature Gran % (Auto) Neut % (Auto) Lymph % (Auto) [place] % (Auto) Eos % (Auto) Baso % (Auto) Immature Gran # (Auto) Neut # (Auto) Lymph # (Auto) [place] # (Auto) Eos # (Auto) Baso # (Auto) Absolute Nucleated RBC Nucleated RBC % (auto) Platelet Estimate Polychromasia Hypochromasia Echinocytes Schistocytes APTT 31.8 H PTT Ratio 1.2 Sodium Potassium Chloride Carbon Dioxide Anion Gap BUN Creatinine Est Cr Clr Drug Dosing Est GFR ( Amer) Est GFR (Non-Af Amer) BUN/Creatinine Ratio Glucose Calcium Specimen Hemolysis
[2018-12-04] MEDS: WARFARIN SOD 3 MG TAB PO SCH (20:17)
[2018-12-04] MEDS: PANTOprazole 40 MG TAB PO SCH (20:17)
[2018-12-04] MEDS: IPRATROPIUM BROMIDE NEB SOLN 0.02% 2.5 ML VIAL INH PRN (20:39)
[2018-12-04] MEDS: LEVALBUTEROL 1.25MG/0.5ML NEB INH PRN (20:39)
[2018-12-04] MEDS: Heparin Adult STANDARD Wt-Based Dextrose 5% 25,000 units/500 mL IV SCH (20:55)
[2018-12-04 23:44] LABS: Partial Thromboplastin Time 80.6 Seconds (21.0-31.0)
[2018-12-05 06:11] LABS: Mean Corpuscular Hgb Conc 30.1 g/dL (32-36)
[2018-12-05 06:16] LABS: Hematocrit (blood only) 33.2 % (37-47); Mean Corpuscular Hemoglobin 25.8 pg (25-34); Mean Corpuscular Volume 85.6 fL (80-100); RDW Standard Deviation 55.2 fL (36.4-46.3); Red Blood Count 3.88 M/uL (4.2-5.4); White Blood Count 13.23 K/uL (4.8-10.8)
[2018-12-05 06:35] LABS: Partial Thromboplastin Ratio 1.7
[2018-12-05 06:42] LABS: Eosinophils % (auto) 2.3 %; Hypochromasia Present; Immature Granulocytes # (auto) 0.05 K/uL (0.00-0.02); Immature Granulocytes % (auto) 0.4 %; Lymphocytes # (auto) 0.71 K/uL (1.2-3.4); Lymphocytes % (auto) 5.4 %; Mean Platelet Volume 11.9 fL (7.4-10.4); Monocytes # (auto) 1.29 K/uL (0.11-0.59); Monocytes % (auto) 9.8 %; Neutrophils # (auto) 10.88 K/uL (1.4-6.5); Neutrophils % (auto) 82.1 %; Platelet Count 108 K/uL (130-400); Platelet Estimate Decreased (Normal)
[2018-12-05 06:44] LABS: BUN Creatinine Ratio 26.4 (10-20); Calcium 9.3 mg/dl (8.5-10.1); Creatinine Clr Calc Pharmacy 92.8 ml/min; Est GFR (African American) 123.6; Est GFR (Non-African American) 106.7; Potassium 4.2 mmol/L (3.5-5.1)
[2018-12-05 06:49] LABS: Partial Thromboplastin Time 47.3 Seconds (21.0-31.0)
[2018-12-05] MEDS: LEVALBUTEROL 1.25MG/0.5ML NEB INH PRN ×2 (07:17→18:57)
[2018-12-05] MEDS: IPRATROPIUM BROMIDE NEB SOLN 0.02% 2.5 ML VIAL INH PRN ×2 (07:17→18:57)
[2018-12-05] MEDS: BUDESONIDE 0.5 MG/2 ML VIAL (PULMICORT) INH SCH ×2 (07:17→19:24)
[2018-12-05] MEDS: ACETYLCYSTEINE 10% INHAL SOLN 4 ML **DISPENSED BY RESP. INH SCH ×2 (07:17→19:25)
--- NOTE | 2018-12-05 07:23 | XRay Report ---
XR chest 1V portable CLINICAL HISTORY: Shortness of breath. Abnormal chest x-ray. Follow-up study. COMPARISON STUDY: 12/02/2018 FINDINGS: There is evidence for left lung volume loss with cardiac and mediastinal shift to the left. There is suspected left lower lobe atelectasis. There is underlying emphysema. There is no focal rig ht lung pulmonary consolidation. There is no change in position of the right internal jugular central venous catheter.[ IMPRESSION: Interval development of left lower lobe collapse with cardiac and mediastinal shift to th e left Electronically signed by: Zeferino Jeffries M.D. 12/05/2018 7:22 AM
--- NOTE | 2018-12-05 08:23 | Pulmonary Consultation ---
Date of Consultation December 05, 2018 Assessment & Plan (1) Atelectasis: Impression: 63-year-old female with ongoing tobacco abuse and fairly advanced COPD by radiographic evaluation. I do not have PFTs available. She was recently intubated in the view for hypercapnic respiratory failure after failing noninvasive positive pressure ventilation. She now has some atelectasis likely secondary to some degree of mucous plugging. Recommendations: 1. Atelectasis: I discussed with patient options to include conservative measures of aggressive pulmonary toilet versus fiberoptic bronchoscopy. She would like to avoid invasive procedures.We will aggressively treat her with pulmonary toilet measures including flutter valve, incentive spirometry, and hypertonic saline nebs. Continue Mucomyst although this can result in some bronchospasm. She appears to have tolerated it well. We will add guaifenesin to her regimen as well. We will check follow-up chest x-ray in the morning. If she fails to improve after a day or 2 of aggressive pulmonary toilet, consideration for bronchoscopy may be appropriate. I do not think she has an endobronchial lesion as her chest x-ray was relatively unremarkable 4 days ago. 2. COPD: We will discontinue Advair as she is already on nebulized long-acting beta agonist and aids. Add Spiriva to her regiment. Given the severity of her disease, we will add a azithromycin daily and plan on transitioning to 3 times a week at discharge. Asked the patient to try and get up and be mobile as much as possible. Ambulating the patient and aggressive physical therapy may be beneficial. Consideration for outpatient pulmonary function tests, smoking cessation, and pulmonary rehab may be appropriate when she recovers. Yearly flu shot recommended 3. Hypoxemic respiratory failure: Secondary to COPD. Wean oxygen as tolerated. 4. Secondary cor pulmonale: Continue diuretics under the direction of the primary care provider. (2) COPD (chronic obstructive pulmonary disease): (3) Hypoxemic respiratory failure, chronic: History of Present Illness Attending Physician: Sridhar Rothman MD History of Present Illness Asked by hospitalist service to evaluate patient with an abnormal chest x-ray. Patient seen and examined. EMR reviewed. Discussed with hospitalist at bedside. Patient is a 63-year-old female with advanced obstructive lung disease and chronic hypoxemic respiratory failure. She was admitted to the facility 11/28/2018 with generalized weakness fatigue and confusion. She was noted to have a respiratory acidosis and was placed on BiPAP but failed BiPAP and was transferred to the ICU where she was intubated and underwent mechanical ventilation until she was liberated from the ventilator on 12/01. She was transferred to the floor. She has been doing reasonably well but is significantly deconditioned and spending the majority of time in her bed. She had a follow-up chest x-ray performed today she did complain of some mild shortness of breath. This demonstrated a progressive left lower lobe airspace opacity concerning for possible atelectasis with some mediastinal shift although shift have been present on her prior films as well. Pulmonary was consulted for additional management. The patient is currently awake alert and sitting upright. She does not have any significant respiratory complaints but again is quite sedentary. She does feel congested in her chest and is coughing but not able to expectorate any phlegm. She continues to receive bronchodilators. She is currently on Advair as well as Brovana and budesonide and prednisone 10 mg daily. Mucomyst nebulizers had been added 2 days ago. She does not report fevers chills or night sweats. Her appetite is reasonable. She does have issues with lower extremity edema and likely has underlying cor pulmonale and is undergoing diuresis. Allergies Allergy/AdvReac Type Severity Reaction Status Date / Time Pork/Porcine Containing Allergy Intermediate Hives Verified 11/27/18 20:32 Products Home Medications Home Medications Medication Instructions Recorded Confirmed Type aspirin 81 mg PO DAILY 11/27/18 11/27/18 History diphenhydramine HCl [Benadryl 25 mg PO HS PRN 11/27/18 11/27/18 History Allergy] doxycycline hyclate 100 mg PO BID PRN 11/27/18 11/27/18 History fluticasone propion-salmeterol 2 puff INHALATION BID 11/27/18 11/27/18 History [Advair HFA] furosemide See Rx Instructions .ROUTE 11/27/18 11/27/18 History .COMPLEX PRN ipratropium bromide See Rx Instructions .ROUTE .COMPLEX 11/27/18 11/27/18 History levalbuterol tartrate 2 puff INHALATION Q4H PRN 11/27/18 11/27/18 History metoprolol succinate 50 mg PO DAILY 11/27/18 11/27/18 History naproxen sodium 440 mg PO QPM 11/27/18 11/27/18 History prednisone See Rx Instructions .ROUTE 11/27/18 11/27/18 History .COMPLEX PRN Patient History Medical History Anemia (Acute) Rheumatoid arthritis (Chronic) "chronic steroid use" Emphysema of lung (Chronic) Paroxysmal a-fib (Chronic) Tobacco abuse (Chronic) Hypoxia History of Clostridium difficile colitis (Chronic) Osteoarthritis (Chronic) Surgical History [place] teeth extracted (Resolved) Family History Other Cancer FHx: gallbladder disease Heart disease Kidney disease Social History Communication Ability: Unable Beliefs That Will Affect Care: None Current Living Situation: Family Other Information That Helps Us Care for You: No Feels Safe at Home: Yes Smoking Status: Current every day smoker Tobacco Type: cigarettes ; Cigarettes Per Day: 20 ; Hx Alcohol Use: No Hx Substance Use: No Review of Systems Review of Systems: All systems reviewed & are unremarkable except as noted in HPI & below Please refer to prior progress notes. I have no additions or deletions. Unchanged from prior Physical Exam Constitutional: + frail appearing Eyes: PERRL, conjunctivae normal, anicteric sclerae ENMT: external ear and nose normal, oropharynx normal Respiratory: normal respiratory effort, lungs clear to auscultation Cardiovascular: RRR, no murmur, no edema Gastrointestinal (Abdomen): normal bowel sounds, soft, nontender, no hepatosplenomegaly Skin: no rashes, warm and dry R LE slight erythema Psychiatric: Orientation: alert Results & Data Vital Signs (Past 12 Hours) Vital Signs Temp Pulse Resp BP Pulse Ox 12/05/18 07:50 37.0 C 106 H 24 128/70 91 12/05/18 07:19 78 18 97 12/05/18 04:06 99 H 23 115/62 93 12/05/18 01:26 37.0 C 107 H 22 119/65 96 12/04/18 21:00 77 18 93 12/04/18 20:45 18 96 PG Care Time/CCT Total # of Minutes Spent Total Time Spent with Patient: Total time spent is greater than 50% in coordination of care (as documented) at patient's floor/unit and/or counseling patient: 42 minutes spent evaluating managing patient including discussion with hospitalist team at bedside and patient
[2018-12-05] MEDS: predniSONE 5 MG TAB NG SCH (08:34)
[2018-12-05] MEDS: ACETAMINOPHEN 325 MG TAB PO PRN ×2 (08:34→23:55)
[2018-12-05] MEDS: PANTOprazole 40 MG TAB PO SCH ×2 (08:34→20:31)
[2018-12-05] MEDS: FOLIC ACID 1 MG TAB PO SCH (08:34)
[2018-12-05] MEDS ORDERED: AZITHROMYCIN 250 MG TAB PO SCH (09:00)
[2018-12-05] MEDS ORDERED: ASPIRIN 81 MG ECTAB PO SCH (09:00)
[2018-12-05] MEDS ORDERED: FUROSEMIDE 20 MG in SYRINGE 0 ML IV SCH (09:00)
--- NOTE | 2018-12-05 09:15 | Hospitalist Progress Note ---
Date of Service December 05, 2018 Assessment & Plan (1) Acute respiratory failure with hypercapnia: Left lower lung collapse Chest x-ray this morning 12/05/2018: Interval development(compared to study 12/02/2018) Evidence of left lung volume loss with left lower lobe collapse leading to cardiac and mediastinal shift to the left Possible secondary to mucous plugging pt is seen and evaluated bedside, no sign of respiratory distress, remains asymptomatic Case discussed with pulmonology: Dr. Rubin Recommends conservative pulmonary toileting: With flutter valve, hypertonic saline nebs Patient is already on Mucomyst: Which is continued Repeat chest x-ray in a.m. If patient fails to improve after aggressive pulmonary toileting/become symptomatic-may need bronchoscopy Pulmonology is following Pulmonary hypertension/with right heart failure/cor pulmonale Presented with volume overload, with lower extremity dependent edema Symptom improved with IV Lasix Echo shows: Pulmonary hypertension with PASP of 46mm Hg Right ventricular reduced systolic function Mild tricuspid regurgitation, Normal LV chamber size and wall thickness, hyperdynamic LV systolic function: EF>70% No segmental left ventricular wall motion abnormalities noted, grade 1 diastolic dysfunction We will continue Lasix 20 mg daily, will be changed to p.o.(patient was on Lasix 23 times a week as needed for lower extremity edema) Diuretics dose will be adjusted, on discharge with Lasix 20 mg daily Monitor volume status Continue supplemental O2, nebulizer treatment, pulmonary toileting as outlined above, to prevent hypoxia, respiratory failure Acute respiratory failure with hypercapnia and hypoxemia, POA Altered mental status and lethargy, metabolic encephalopathy Presented with acute on chronic hypoxemic respiratory failure mostly secondary to COPD exacerbation: Leading to CO2 retention/leading to lethargy/metabolic encephalopathy --History of advanced COPD with chronic heavy tobacco smoking(patient is a [employer] nt smoker) Admitted with respiratory acidosis: pH 7.14/PCO2 85 Required mechanical ventilation/ICU admission --CT chest on 11/28/18 1. Pulmonary emphysema 2. No evidence of focal pulmonary consolidation 3. No evidence of pathologic adenopathy 4. Severe T11 and L1 vertebral body compression fractures, new when compared with the prior July [address] ABG improved, respiratory acidosis resolved --Extubated 12/01/2018 Transferred out of ICU/ --Remains at 3 L of nasal cannula -- continue Brovana, Budesonide, Advair, Nebs, Prednisone (chronically on 10 mg p.o. daily) Chest x-ray today shows left lower lobe collapse/atelectasis possible secondary to mucous plug, treatment as discussed above Hypotension Possible Sepsis due to lower extremity cellulitis, POA Resolved: Blood pressure stable, continue on Lasix for volume overload, right heart failure --Blood cultures: Negative Urine culture:Negative -- received Empiric Zosyn x 2 days, transitioned to Ceftriaxone IV Day 5/7 IV antibiotic discontinued With p.o. Zithromax by pulmonology for COPD Acute kidney injury on chronic kidney disease stage III. Secondary to above: Acute renal failure resolved, Creatinine improved to baseline 0.8 Continue Lasix 20 mg daily Renal functions will be monitored periodically Anemia(hemoglobin dropped to 6.6) possible GI Bleed ?? --Required 2 units of PRBC transfusion H&H stable at - -- Hemoccult positive stools in the ER, but there has been no signs of obvious bleeding. ( no black /tarry stool , no hematemesis ) Protonix twice daily GI consulted, no plans for EGD/Colonosopy -given acute respiratory failure/no evidence of active GI bleed/stable H&H and hemodynamics Right popliteal DVT --Continue on IV heparin bridge/Coumadin Goal INR 23 No evidence of bleeding noted while on active anticoagulations, H&H and hemodynamics has been stable Moderate to Severe PAD -- Arterial Doppler US: 1. Decreased ankle brachial indices of the left lower extremity compatible with moderate to severe peripheral arterial disease. 2. Segmental pressures of the right lower extremity were not conducted secondary to deep venous thrombosis of the popliteal vein. 3. Elevated peak systolic velocities within the right profunda femoris vein are suggestive of luminal narrowing secondary to atherosclerotic vascular disease. --placed Vascular Surgery consult Continue aspirin but monitor platelets closely Transaminitis, most likely secondary to hypotension. --Improving -AST : [id number] ALT: [phone] CT abdomen pelvis: Unremarkable liver/spleen/pancreas Repeat LFT in a.m. GI following Mild elevated troponin, demand ischemia: Likely secondary to hypotension/acute hypoxemic respiratory failure, hemodynamic instability present on admission -- 0.07, 0.07, 0.09 No evidence of ACS Echo: As outlined as above, normal LV function, no wall motion abnormality History of diastolic congestive heart failure, Updated echo as above Diuretics dose adjusted to Lasix 20 mg daily History of breast lesion a couple of years ago -- will need outpatient ff up Malnutrition. The patient is thin and frail. With failure to thrive Nutrition consult. Inquired with patient regarding her dietary intake Patient eats she usually has 2-3 meals per day, occasionally not eating because she does not feel hungry She is fully aware of importance of proper nutrition, and consequences of not eating well Poor hygiene Inquired regarding hygiene at home Admission patient was found to be very disheveled, unkempt, lice infestation, right foot wound : No evidence of any wound care, Lives at home with daughter and grandkids Office of aging involved, social service following Patient states bathroom is in the second floor, and this makes it difficult for her to shower every day Patient is fully aware of importance of proper hygiene and consequences of not observing proper daily hygiene Hypertension. Blood pressure stable, Resume beta-tiffanie, continue Lasix Tobacco abuse disorder, Smoking cessation counseling DVT prophylaxis On heparin drip plus Coumadin for DVT treatment CODE STATUS: Full code Pressure wounds: stage II pressure ulcer on lower lumbar vision present on admission, Appreciate input from wound care, continue local wound care with clean with saline, cover with OptiForm, change every 3 days and as needed Change of position every 2 hours, encouraged patient to be out of bed to chair as much as possible PT OT evaluation appreciated, patient will need to skilled rehab Local wound care will be continued at rehab when patient is transferred when clinically stable Right toes/foot wound Noted to have erythematous/on right great toe, with serous drainage Appreciate input from wound care team: History of moderate peripheral artery disease, Dependent edema, blister formed secondary to volume overload, diastolic dysfunction Appreciate decreased from wound care Wound with saline, cover with OptiForm, Change dressing every other day more frequent if needed Keep limb elevated, waffle boots ordered for offloading of heels/prevent further pressure wounds Disposition: PT/OT evaluation recommending alf facility manager style on board, 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-for concern for poor care /hygiene issues and failure to thrive at home Subjective Patient seen in room 206, denies of any shortness of breath, no complaint of chest pain, No increasing wheeze or cough, No fever or chills Noted to be tachycardic heart rate sinus tach in 106 Chest x-ray this morning shows significant change: Lung collapse on left lower base, with mediastinal shift to left Patient remains completely asymptomatic, No pleuritic chest pain, no respiratory symptoms, no worsening of hypoxia, Pulmonary team updated-evaluated at bedside by Dr. Rubin this morning Review of Systems Review of Systems: All systems reviewed & are unremarkable except as noted in HPI & below Physical Exam Constitutional: + ill appearing and + thin; no acute distress Eyes: PERRL, conjunctivae normal, anicteric sclerae ENMT: external ear and nose normal, oropharynx normal Neck: trachea midline, no thyromegaly Respiratory: normal respiratory effort and + cough (Nonproductive); no respiratory distress, no labored breathing and does not use accessory muscles Auscultation: + breath sounds absent (On left side:); no crackles, no rales, no rhonchi, no wheezes and no pleural rub Cardiovascular: Rate/Rhythm: regular rate, regular rhythm and + tachycardic Gastrointestinal (Abdomen): Inspection/Auscultation: normal bowel sounds Percussion/Palpation: abdomen soft; abdomen nontender and no guarding Musculoskeletal: Right foot: Erythematous, edematous wound, with serous drainage, OptiForm dressing present Stage II pressure wound on lower lumbar region Left lower leg/left wild,: Blister/wound, covered with OptiForm Skin: + wound tage II pressure wound on lower lumbar region Left lower leg/left wild,: Blister/wound, covered with OptiForm Neurologic: PERRL, EOMI, accommodation nl, no face palsy, no dysarthria Psychiatric: A+Ox3, euthymic affect Results & Data Vital Signs (Past 12 Hours) Vital Signs Temp Pulse Resp BP Pulse Ox 12/05/18 07:50 37.0 C 106 H 24 128/70 91 12/05/18 07:19 78 18 97 12/05/18 04:06 99 H 23 115/62 93 12/05/18 01:26 37.0 C 107 H 22 119/65 96
[2018-12-05] MEDS: guaiFENesin 600 MG TABCR PO SCH ×2 (09:56→20:31)
[2018-12-05 11:39] LABS: Albumin Level 1.9 gm/dl (3.4-5.0); Bilirubin Direct 0.1 mg/dl (0-0.2); Bilirubin,Total 0.4 mg/dl (0.2-1); Total Protein 4.5 gm/dl (6.4-8.2)
[2018-12-05] MEDS: METOPROLOL SUCC 50MG EXT REL TAB PO SCH (12:24)
[2018-12-05] MEDS: Heparin Adult STANDARD Wt-Based Dextrose 5% 25,000 units/500 mL IV SCH (13:38)
[2018-12-05] MEDS: ARFORMOTEROL TART 15MCG/2ML VIAL INH SCH ×2 (14:36→19:24)
[2018-12-05] MEDS: WARFARIN SOD 3 MG TAB PO SCH (16:33)
[2018-12-05] MEDS: SODIUM CHLOR 7% 4 ML NEB NEB SCH (22:04)
[2018-12-05 23:04] LABS: Magnesium 1.7 mg/dl (1.8-2.4)
[2018-12-06] MEDS ORDERED: POLYETHYLENE (MIRALAX) 17 GM PACK PO PRN (02:56)
[2018-12-06 05:56] LABS: Mean Corpuscular Hgb Conc 29.8 g/dL (32-36); Nucleated RBC # (auto) 0.02 K/uL (0-0); Nucleated RBC % (auto) 0.2 %
[2018-12-06 06:13] LABS: Hematocrit (blood only) 31.2 % (37-47); Hemoglobin 9.3 g/dL (12.0-16.0); Mean Corpuscular Hemoglobin 25.6 pg (25-34); RDW Coefficient of Variation 18.3 % (11.5-14.5); RDW Standard Deviation 56.3 fL (36.4-46.3); Red Blood Count 3.63 M/uL (4.2-5.4); White Blood Count 12.64 K/uL (4.8-10.8)
[2018-12-06 06:17] LABS: INR 4.4 (0.9-1.1); Partial Thromboplastin Ratio 2.3; Partial Thromboplastin Time 63.6 Seconds (21.0-31.0); Prothrombin Time 40.9 Seconds (9.0-12.0)
[2018-12-06 06:19] LABS: Mean Platelet Volume 11.5 fL (7.4-10.4); Platelet Count 120 K/uL (130-400)
[2018-12-06 06:20] LABS: Platelet Estimate Decreased (Normal)
[2018-12-06 06:35] LABS: Albumin Level 1.7 gm/dl (3.4-5.0); BUN Creatinine Ratio 22.5 (10-20); Calcium 8.8 mg/dl (8.5-10.1); Creatinine Clr Calc Pharmacy 69.2 ml/min; Est GFR (African American) 112.3; Est GFR (Non-African American) 96.9; Potassium 4.4 mmol/L (3.5-5.1)
[2018-12-06 06:37] LABS: Bilirubin,Total 0.5 mg/dl (0.2-1); Total Protein 4.1 gm/dl (6.4-8.2)
[2018-12-06] MEDS: ACETYLCYSTEINE 10% INHAL SOLN 4 ML **DISPENSED BY RESP. INH SCH ×2 (06:51→08:45)
[2018-12-06] MEDS: LEVALBUTEROL 1.25MG/0.5ML NEB INH PRN (06:51)
[2018-12-06] MEDS: BUDESONIDE 0.5 MG/2 ML VIAL (PULMICORT) INH SCH ×2 (06:51→19:42)
[2018-12-06] MEDS: IPRATROPIUM BROMIDE NEB SOLN 0.02% 2.5 ML VIAL INH PRN (06:51)
[2018-12-06] MEDS: SODIUM CHLOR 7% 4 ML NEB NEB SCH (06:51)
[2018-12-06 06:54] LABS: Bilirubin Direct 0.2 mg/dl (0-0.2)
[2018-12-06 07:27] LABS: Magnesium 1.7 mg/dl (1.8-2.4)
[2018-12-06] MEDS ORDERED: MAGNESIUM SULFATE / D5W 1 GM/100 ML BAG IV ONE (07:45)
--- NOTE | 2018-12-06 07:53 | XRay Report ---
XR chest 1V portable HISTORY: 63 years-old Female atelectasis follow-up study in a patient with shortness of breath and a telectasis COMPARISON: Chest radiograph TECHNIQUE: Portable AP view of the chest FINDINGS: Patient is slightly rotated towards the left. Stable positioning of the right IJ central venous bj ter. There is mildly improved aeration of the left lung with persistent left midlung and left lung ba se opacities. Probable small left pleural effusion. Degenerative changes of the. Emphysema. Chronic i nterstitial coarsening. Cardiomediastinal and hilar silhouettes are unchanged. Degenerative changes o f the shoulders and spine. IMPRESSION: 1. Mildly improved aeration of the left lung with persistent left midlung the left lung base opacitie s with small left pleural effusion. 2. Emphysema. The above report was generated using voice recognition software. It may contain grammatical, syntax o r spelling errors. Electronically signed by: Jose Luis Gutierrez M.D. 12/06/2018 7:44 AM
--- NOTE | 2018-12-06 07:57 | Hospitalist Progress Note ---
Date of Service December 06, 2018 Assessment & Plan (1) Acute respiratory failure with hypercapnia: Acute respiratory failure Developed acute change in status: Respiratory failure with tachypnea and tachycardia after morning nebulizer treatment Was started with hypertonic saline nebulizer treatment, on acetylcysteine treatment for probable mucous plug on left lower lobe chest x-ray on 12/05/2018: Showed collapse of left lower lobe possible secondary to mucous plug Repeat chest x-ray this morning showed some improvement of aeration And is being transferred to ICU for worsening of respiratory status And of care discussed with surgical clinical reviewer Order for ABG Left lower lung collapse Chest x-ray 12/05/2018: Interval development(compared to study 12/02/2018) Evidence of left lung volume loss with left lower lobe collapse leading to cardiac and mediastinal shift to the left Possible secondary to mucous plugging pt is seen and evaluated bedside, by pulmonology: Dr. Rubin Recommended conservative pulmonary toileting: With flutter valve, hypertonic saline nebs Developed worsening of respiratory distress this morning being transferred to ICU for further care Pulmonary hypertension/with right heart failure/cor pulmonale Presented with volume overload, with lower extremity dependent edema Symptom improved with IV Lasix Echo shows: Pulmonary hypertension with PASP of 46mm Hg Right ventricular reduced systolic function Mild tricuspid regurgitation, Normal LV chamber size and wall thickness, hyperdynamic LV systolic function: EF>70% No segmental left ventricular wall motion abnormalities noted, grade 1 diastolic dysfunction Patient will be continued with Lasix 20 mg daily (patient was on Lasix 23 times a week as needed for lower extremity edema) Diuretics dose will be adjusted, will be discharged on with Lasix 20 mg daily Monitor volume status Continue supplemental O2, nebulizer treatment, pulmonary toileting as outlined above, to prevent hypoxia, respiratory failure Acute respiratory failure with hypercapnia and hypoxemia, POA Altered mental status and lethargy, metabolic encephalopathy Presented with acute on chronic hypoxemic respiratory failure mostly secondary to COPD exacerbation: Leading to CO2 retention/leading to lethargy/metabolic encephalopathy --History of advanced COPD with chronic heavy tobacco smoking(patient is a current smoker) Admitted with respiratory acidosis: pH 7.14/PCO2 85 Required mechanical ventilation/ICU admission --CT chest on 11/28/18 1. Pulmonary emphysema 2. No evidence of focal pulmonary consolidation 3. No evidence of pathologic adenopathy 4. Severe T11 and L1 vertebral body compression fractures, new when compared with the prior July [address] -Patient was-Extubated 12/01/2018 Patient is being transferred back to ICU for worsening of respiratory failure Ventricular tachycardia Report of nonsustained ventricular tachycardia overnight, Possible secondary to hypoxia/respiratory failure Continue on beta-tiffanie Monitor electrolytes, Low mag magnesium 1.7 order for replacement Keep potassium above 4, magnesium above 2 to prevent cardiac arrhythmia Hypotension Possible Sepsis due to lower extremity cellulitis, POA Resolved: Blood pressure stable, continue on Lasix for volume overload, right heart failure --Blood cultures: Negative Urine culture:Negative -- received Empiric Zosyn x 2 days, transitioned to Ceftriaxone IV Day / IV antibiotic discontinued With p.o. Zithromax by pulmonology for COPD Acute kidney injury on chronic kidney disease stage III. Secondary to above: Acute renal failure resolved, Creatinine improved to baseline 0.8 Continue Lasix 20 mg daily Renal functions will be monitored periodically Anemia(hemoglobin dropped to 6.6) possible GI Bleed ?? --Required 2 units of PRBC transfusion H&H stable at - -- Hemoccult positive stools in the ER, but there has been no signs of obvious bleeding. ( no black /tarry stool , no hematemesis ) Protonix twice daily GI consulted, no plans for EGD/Colonosopy -given acute respiratory failure/no evidence of active GI bleed/stable H&H and hemodynamics Right popliteal DVT --INR 4 IV heparin discontinued, hold Coumadin for elevated INR No evidence of bleeding noted while on active anticoagulations, H&H and hemodynamics has been stable Moderate to Severe PAD -- Arterial Doppler US: 1. Decreased ankle brachial indices of the left lower extremity compatible with moderate to severe peripheral arterial disease. 2. Segmental pressures of the right lower extremity were not conducted secondary to deep venous thrombosis of the popliteal vein. 3. Elevated peak systolic velocities within the right profunda femoris vein are suggestive of luminal narrowing secondary to atherosclerotic vascular disease. --placed Vascular Surgery consult Continue aspirin but monitor platelets closely Transaminitis, most likely secondary to hypotension. --Normalized -AST : [id number] -[id number] ALT: [phone] CT abdomen pelvis: Unremarkable liver/spleen/pancreas Repeat LFT in a.m. GI following Mild elevated troponin, demand ischemia: Likely secondary to hypotension/acute hypoxemic respiratory failure, hemodynamic instability present on admission -- 0.07, 0.07, 0.09 No evidence of ACS Echo: As outlined as above, normal LV function, no wall motion abnormality History of diastolic congestive heart failure, Updated echo as above Diuretics dose adjusted to Lasix 20 mg daily History of breast lesion a couple of years ago -- will need outpatient ff up Malnutrition. The patient is thin and frail. With failure to thrive Nutrition consult. Inquired with patient regarding her dietary intake Patient eats she usually has 2-3 meals per day, occasionally not eating because she does not feel hungry She is fully aware of importance of proper nutrition, and consequences of not eating well Poor hygiene Inquired regarding hygiene at home Admission patient was found to be very disheveled, unkempt, lice infestation, right foot wound : No evidence of any wound care, Lives at home with daughter and grandkids Office of aging involved, social service following Patient states bathroom is in the second floor, and this makes it difficult for her to shower every day Patient is fully aware of importance of proper hygiene and consequences of not observing proper daily hygiene Hypertension. Blood pressure stable, Resume beta-tiffanie, continue Lasix Tobacco abuse disorder, Smoking cessation counseling DVT prophylaxis INR elevated CODE STATUS: Full code Pressure wounds: stage II pressure ulcer on lower lumbar vision present on admission, Appreciate input from wound care, continue local wound care with clean with saline, cover with OptiForm, change every 3 days and as needed Change of position every 2 hours, encouraged patient to be out of bed to chair as much as possible PT OT evaluation appreciated, patient will need to skilled rehab Local wound care will be continued at rehab when patient is transferred when clinically stable Right toes/foot wound Noted to have erythematous/on right great toe, with serous drainage Appreciate input from wound care team: History of moderate peripheral artery disease, Dependent edema, blister formed secondary to volume overload, diastolic dysfunction Appreciate decreased from wound care Wound with saline, cover with OptiForm, Change dressing every other day more frequent if needed Keep limb elevated, waffle boots ordered for offloading of heels/prevent further pressure wounds Disposition: Transferred to ICU for worsening of respiratory status PT/OT evaluation recommending [facility] facility energy project manager on board, 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-for concern for poor care /hygiene issues and failure to thrive at home Subjective Patient developed acute respiratory distress, with hypoxia, severe shortness of breath, tachypnea tachycardia this morning Around 7:00 AM, received call from respiratory therapist, Patient got a.m. nebulizer treatment of Xopenex/Atrovent, followed by Mucomyst and hypertonic saline nebulizer treatment Patient developed severe respiratory distress, desaturated to 70%, on 2 L oxygen via nasal cannula, Since supply was increased to 12 L via face mask, SPO2 improved to 90% Tachypneic with respiratory rate around 30s, She was seen at bedside, sitting upright, using accessory muscles, complains of feeling very short of breath, Oxygen supply managed to wean down to 5 L via facemask, Called ICU: Discussed with pulmonology /surgical clinical reviewer Dr. Rubin Patient is being transferred to ICU for acute respiratory failure, Physical Exam Constitutional: + acute distress, + ill appearing, + thin and + in distress (In respiratory distress secondary to tachycardia tachypnea) Eyes: PERRL, conjunctivae normal, anicteric sclerae ENMT: external ear and nose normal, oropharynx normal Neck: trachea midline, no thyromegaly Respiratory: + respiratory distress, + labored breathing, + uses accessory muscles, + cough (Nonproductive), + tachypneic and + prolonged expiratory phase; + not able to speak in complete sentence Auscultation: + breath sounds absent (On left side:), + crackles, + rales, + rhonchi, + wheezes and + pleural rub present Cardiovascular: Rate/Rhythm: regular rate, regular rhythm and + tachycardic Gastrointestinal (Abdomen): Inspection/Auscultation: normal bowel sounds Percussion/Palpation: abdomen soft; abdomen nontender and no guarding Skin: + wound Neurologic: PERRL, EOMI, accommodation nl, no face palsy, no dysarthria Psychiatric: A+Ox3, euthymic affect Results & Data Vital Signs (Past 12 Hours) Vital Signs Temp Pulse Pulse Resp BP Pulse Ox 12/06/18 07:39 37.0 C 92 H 24 102/52 L 90 12/06/18 06:52 92 H 26 H 86 L 12/06/18 05:52 87 L 12/06/18 04:10 37.1 C 80 18 122/59 L 94 12/06/18 04:00 95 12/06/18 02:12 97 12/06/18 00:00 80 12/05/18 23:46 36.8 C 113 H 24 103/57 L 96
--- NOTE | 2018-12-06 08:19 | Critical Care Consultation ---
Date of Consultation December 06, 2018 Assessment & Plan (1) Admitted to intensive care unit: Reason Critically Ill: 63-year-old female with ongoing tobacco abuse and fairly advanced COPD presents with acute respiratory failure with hypoxia, tachypnea, and tachycardia earlier this AM brought to ICU for airway management NEURO - CAM ICU: NEGATIVE Severe T11 and L1 compression fractures (likely old injury)- Ortho consulted- no sx indicated at present. Neuro exam WNL CARDIAC/VASCULAR - H/O Diastolic CHF/ Pulmonary hypertension/with right heart failure/cor pulmonale Echo reviewed: Pulmonary hypertension with PASP of 46mm Hg, Right ventricular reduced systolic function, Mild tricuspid regurgitation, Normal LV chamber size and wall thickness, hyperdynamic LV systolic function: EF>70%, No segmental left ventricular wall motion abnormalities noted, grade 1 diastolic dysfunction Continue PO Lasix 20 mg daily Severe PVD Peripheral arterial disease with new findings of RIGHT popliteal DVT. No indications for vascular surgical intervention Diastolic congestive heart failure- Lasix as below Hypertension- Toprol XL and diuretics as below Thrombocytopenia- Schistocytes, Peripheral Smear- negative. Heparin Antibody negative. Likely 2/2 disease process. Elevated INR- holding Coumadin No evidence of bleeding noted while on active anticoagulations, H&H and hemodynamics stable RESPIRATORY - Acute Hypoxemic respiratory failure- 2/2 COPD, atelectasis from mucous plugging CXR- Mildly improved aeration of the left lung with persistent left midlung the left lung base opacities with small left pleural effusion. CXR yesterday showed Left lower lung collapse- likely aspect of mucous plugging Chronic COPD Spiriva, azithromycin. Outpt PFTs (no prior), smoking cessation, and pulmonary rehab on d/c. Prednisone 10 mg daily Atelectasis 2/2 mucous plugging - Aggressive pulmonary toilet w/ flutter valve, incentive spirometry, and hypertonic saline nebs, Mucomyst . Cont Guaifenesin Bronch today- mucous plug seen GI/NUTRITION - Anemia - no signs of obvious bleeding Currently on IV Protonix 40 mg BID Without any evidence of UGI source of heme positive stools Cont trend Hgb and transfuse prn Appreciate GI recommendations- no plans for EGD/Colonoscopy at this time Malnutrition- nutrition following RENAL/LYTES CKD III. Baseline Cr ~1 Repleting lytes as needed Cont diuretics as above ENDO - No history of diabetes or thyroid disease. BSGs per unit protocol. ISS --> gtt per unit policy. HEME - Stable H/H at baseline. No concerns for acute bleeding Cont trend daily CBCs ID - No concern for infectious etiology at present Cont trend fever curve LINES/IV ACCESS -PIVs x2, RIGHT IJ, LEFT radial arterial line, ET tube, [place] DVT PROPHYLAXIS Coumadin held FULL CODE DISPO: ICU Supervising Physician Co-Signing Physician Notes Contacted by hospitalist this morning. Apparently the patient was receiving her hypertonic neb and developed some respiratory distress associated with tachypnea and hypoxemia. Neb was discontinued. It was felt that she required transfer to the ICU. Patient was brought down to the ICU. I assessed her on arrival. She was on 4 to 5 L facemask which was her baseline oxygen requirement. She was awake alert and conversant. I did review her chest x-ray this morning which demonstrated persistent opacification of the left lower lobe concerning for potential mucous plug/atelectasis. I consented the patient for bronchoscopy which was accomplished in the ICU. A mucous plug indeed was identified. Therapeutic aspiration of secretions was conducted. The patient tolerated the procedure well. I think the patient will be recovered in the ICU and then should be stable to return back to the telemetry floor. I discussed with the hospitalist. We will continue to follow for pulmonary issues. She does have significant obstructive lung disease. We will discontinue the Mucomyst nebs as these can be associated with as well as the hypertonic saline. Continue nebulized bronchodilators. Aggressive pulmonary toilet is required. We will continue to follow for pulmonary issues History of Present Illness Attending Physician: Deonna Ornelas MD History of Present Illness 63-year-old female with ongoing tobacco abuse and fairly advanced COPD by radiographic evaluation. Pt is well known to ICU staff as she was recently intubated on initial admission in the view for hypercapnic respiratory failure after failing noninvasive positive pressure ventilation. [facility] and was eventually taken off and downgraded out of ICU. She now has some atelectasis likely secondary to some degree of mucous plugging. She represents with respiratory failure with hypoxia, tachypnea and tachycardia after morning nebulizer treatment. ICU for further airway management and bronch. Allergies Allergy/AdvReac Type Severity Reaction Status Date / Time Pork/Porcine Containing Allergy Intermediate Hives Verified 11/27/18 20:32 Products Home Medications Home Medications Medication Instructions Recorded Confirmed Type aspirin 81 mg PO DAILY 11/27/18 11/27/18 History diphenhydramine HCl [Benadryl 25 mg PO HS PRN 11/27/18 11/27/18 History Allergy] doxycycline hyclate 100 mg PO BID PRN 11/27/18 11/27/18 History fluticasone propion-salmeterol 2 puff INHALATION BID 11/27/18 11/27/18 History [Advair HFA] furosemide See Rx Instructions .ROUTE 11/27/18 11/27/18 History .COMPLEX PRN ipratropium bromide See Rx Instructions .ROUTE .COMPLEX 11/27/18 11/27/18 History levalbuterol tartrate 2 puff INHALATION Q4H PRN 11/27/18 11/27/18 History metoprolol succinate 50 mg PO DAILY 11/27/18 11/27/18 History naproxen sodium 440 mg PO QPM 11/27/18 11/27/18 History prednisone See Rx Instructions .ROUTE 11/27/18 11/27/18 History .COMPLEX PRN Patient History Medical History Anemia (Acute) Rheumatoid arthritis (Chronic) "chronic steroid use" Emphysema of lung (Chronic) Paroxysmal a-fib (Chronic) Tobacco abuse (Chronic) Hypoxia History of Clostridium difficile colitis (Chronic) Osteoarthritis (Chronic) Surgical History [place] teeth extracted (Resolved) Family History Other Cancer FHx: gallbladder disease Heart disease Kidney disease Social History Communication Ability: Unable Beliefs That Will Affect Care: None Current Living Situation: Family Other Information That Helps Us Care for You: No Feels Safe at Home: Yes Smoking Status: Current every day smoker Tobacco Type: cigarettes ; Cigarettes Per Day: 20 ; Hx Alcohol Use: No Hx Substance Use: No Review of Systems Review of Systems: All systems reviewed & are unremarkable except as noted in HPI & below Physical Exam Constitutional: + ill appearing, + thin and + frail appearing Eyes: PERRL, conjunctivae normal, anicteric sclerae ENMT: external ear and nose normal, oropharynx normal Respiratory: + uses accessory muscles, + cough and + tachypneic Auscultation: + crackles, + rhonchi and + wheezes L sounds diminished Cardiovascular: RRR, no murmur, no edema Gastrointestinal (Abdomen): normal bowel sounds, soft, nontender, no hepatosplenomegaly Skin: + ecchymosis and + excoriations Psychiatric: A+Ox3, euthymic affect Results & Data Vital Signs (Past 12 Hours) Vital Signs Temp Pulse Pulse Resp BP Pulse Ox 12/06/18 07:39 37.0 C 92 H 24 102/52 L 90 12/06/18 06:52 92 H 26 H 86 L 12/06/18 05:52 87 L 12/06/18 04:10 37.1 C 80 18 122/59 L 94 12/06/18 04:00 95 12/06/18 02:12 97 12/06/18 00:00 80 12/05/18 23:46 36.8 C 113 H 24 103/57 L 96 Laboratory Results Laboratory Results - last 24 hr 12/05/18 12/06/18 12/06/18 05:13 05:34 05:34 WBC RBC Hgb Hct MCV MCH MCHC RDW Std Deviation RDW Coeff of Melecio Plt Count MPV Absolute Nucleated RBC Nucleated RBC % (auto) Platelet Estimate PT 40.9 H INR 4.4 H APTT 63.6 H* PTT Ratio 2.3 Sodium 143 Potassium 4.4 Chloride 109 H Carbon Dioxide 31 Anion Gap 3.0 BUN 13 Creatinine 0.59 L Est Cr Clr Drug Dosing 69.2 Est GFR ( Amer) 112.3 Est GFR (Non-Af Amer) 96.9 BUN/Creatinine Ratio 22.5 H Glucose 77 Calcium 8.8 Magnesium 1.7 L 1.7 L Total Bilirubin 0.4 0.5 Direct Bilirubin 0.1 0.2 D AST 30 23 ALT 128 H 89 H Alkaline Phosphatase 79 58 Total Protein 4.5 L 4.1 L Albumin 1.9 L 1.7 L 12/06/18 05:34 WBC 12.64 H RBC 3.63 L Hgb 9.3 L Hct 31.2 L MCV 86.0 MCH 25.6 MCHC 29.8 L RDW Std Deviation 56.3 H RDW Coeff of Melecio 18.3 H Plt Count 120 L MPV 11.5 H Absolute Nucleated RBC 0.02 H Nucleated RBC % (auto) 0.2 Platelet Estimate Decreased L PT INR APTT PTT Ratio Sodium Potassium Chloride Carbon Dioxide Anion Gap BUN Creatinine Est Cr Clr Drug Dosing Est GFR ( Amer) Est GFR (Non-Af Amer) BUN/Creatinine Ratio Glucose Calcium Magnesium Total Bilirubin Direct Bilirubin AST ALT Alkaline Phosphatase Total Protein Albumin Medications Administered Current Inpatient Medications Acetaminophen (Tylenol) 650 mg PO Q4H PRN PRN Reason: Pain or Fever Stop: 12/28/18 00:43 Last Admin: 12/05/18 23:55 Dose: 650 mg Documented by: Acetylcysteine (Mucomyst 10%) 3 ml INH Q12R JHONY Stop: 01/02/19 19:29 Last Admin: 12/06/18 06:51 Dose: 3 ml Documented by: Arformoterol Tartrate (Brovana Neb) 15 mcg INH BIDR JHONY Stop: 12/30/18 18:59 Last Admin: 12/05/18 19:24 Dose: 15 mcg Documented by: Budesonide (Pulmicort Respules) 0.5 mg INH BIDR JHONY Stop: 12/30/18 18:59 Last Admin: 12/06/18 06:51 Dose: 0.5 mg Documented by: Folic Acid (Folvite) 1 mg PO QAM JHONY Stop: 01/03/19 08:59 Last Admin: 12/05/18 08:34 Dose: 1 mg Documented by: Furosemide (Lasix) 20 mg PO QAM JHONY Stop: 01/05/19 08:59 Guaifenesin (Mucinex) 1,200 mg PO Q12 JHONY Stop: 01/04/19 08:59 Last Admin: 12/05/18 20:31 Dose: 1,200 mg Documented by: Magnesium Sulfate/Dextrose (Magnesium Sulfate / D5w) 1 gm in 100 mls @ 100 mls/hr IV ONE ONE Stop: 12/06/18 08:44 Last Admin: 12/06/18 08:18 Dose: 100 mls/hr Documented by: Ipratropium [place] (Atrovent 0.02% 0.5mg/2.5ml) 0.5 mg INH Q4R PRN PRN Reason: Shortness Of Breath Or Wheezing Stop: 12/28/18 00:43 Last Admin: 12/06/18 06:51 Dose: 0.5 mg Documented by: Levalbuterol HCl (Xopenex 1.25mg/0.5ml Neb) 1.25 mg INH Q4R PRN PRN Reason: Shortness Of Breath Or Wheezing Stop: 12/28/18 00:43 Last Admin: 12/06/18 06:51 Dose: 1.25 mg Documented by: Levalbuterol HCl (Xopenex Hfa) 2 puffs INH Q4H PRN PRN Reason: Wheezing Stop: 12/28/18 00:43 Metoprolol Succinate (Toprol Xl) 50 mg PO DAILY [facility] Stop: 01/04/19 11:14 Last Admin: 12/05/18 12:24 Dose: 50 mg Documented by: Nitroglycerin (Nitrostat) 0.4 mg SL UD PRN PRN Reason: Chest Pain Stop: 12/28/18 00:43 Ondansetron HCl (Zofran) 4 mg IV Q6H PRN PRN Reason: Nausea Stop: 12/28/18 00:43 Pantoprazole Sodium (Protonix) 40 mg PO BID [facility] Stop: 01/03/19 20:59 Last Admin: 12/05/18 20:31 Dose: 40 mg Documented by: Polyethylene Glycol (Miralax Powder Packet) 17 gm PO DAILY PRN PRN Reason: Constipation Stop: 01/05/19 02:55 Sodium Chloride (Sodium Chlor 7% Neb Solution) 4 ml NEB BIDR [facility] Stop: 01/04/19 18:59 Last Admin: 12/06/18 06:51 Dose: 4 ml Documented by: PG Care Time/CCT Total # of Minutes Spent Total Time Spent with Patient: Total time spent is greater than 50% in coordination of care (as documented) at patient's floor/unit and/or counseling patient: Resident Activity Tracking Resident Involvement: Resident Care Provided Care Provided: Adult Hospital Medicine
[2018-12-06] MEDS ORDERED: fentaNYL citrate 100 MCG/2 ML VIAL ONE (08:40)
[2018-12-06] MEDS ORDERED: MIDAZOLAM HCL 5 MG/ML 1 ML VIAL ONE (08:40)
[2018-12-06] MEDS: ARFORMOTEROL TART 15MCG/2ML VIAL INH SCH ×2 (08:45→19:41)
[2018-12-06 08:48] LABS: iSTAT Allen Test Pass; iSTAT Art Bld Gas pCO2 Correct 54 mmHg (35-46); iSTAT Art Bld Gas pH Corrected 7.367 (7.35-7.45); iSTAT Arterial Blood Gas HCO3 31 meg/L (19-24); iSTAT Arterial Blood Gas pCO2 55 mmHg (35-46); iSTAT Arterial Blood Gas pH 7.36 (7.35-7.45); iSTAT Arterial Blood Gas pO2 71 mmHg (80-95); iSTAT Arterial Blood Gas pO2 C 69; iSTAT Carbon Dioxide 33 mEq/l (24-31); iSTAT Site R Radial
[2018-12-06] MEDS ORDERED: ASPIRIN 81 MG ECTAB PO SCH (09:00)
[2018-12-06] MEDS ORDERED: FUROSEMIDE 20 MG TAB PO SCH (09:00)
--- NOTE | 2018-12-06 10:07 | History & Physical Bridge Note ---
Date of Service December 06, 2018 History & Physical Bridge Note I have examined the patient, reviewed the History & Physical and in the interval since the performance of the History & Physical I have noted the following changes of clinical significance: no changes noted
--- NOTE | 2018-12-06 10:08 | Pre Anesthesia Assessment ---
Date of Service December 06, 2018 Pre Sedation Assessment Vital Signs Temp Pulse Pulse Resp BP BP Pulse Ox 12/06/18 08:58 94 H 12/06/18 08:54 37 C 87 17 112/72 95 12/06/18 08:19 99 H 17 100/63 94 12/06/18 07:39 37.0 C 92 H 24 102/52 L 90 12/06/18 06:52 92 H 26 H 86 L 12/06/18 05:52 87 L 12/06/18 04:10 37.1 C 80 18 122/59 L 94 12/06/18 04:00 95 12/06/18 02:12 97 12/06/18 00:00 80 12/05/18 23:46 36.8 C 113 H 24 103/57 L 96 12/05/18 19:32 37.0 C 92 H 27 H 102/56 L 92 12/05/18 19:00 93 H 20 93 12/05/18 15:32 37.0 C 87 16 106/54 L 98 12/05/18 11:40 36.8 C 92 H 19 113/66 99 Cardiovascular RRR, no murmur, no edema Respiratory Additional Comments: Coarse bronchovesicular breath sound Pre-Sedation Airway Assessment Smoking Status: Current every day smoker Hx Sleep Apnea: No Hx Difficult Intubation: No Short, Thick Neck: No Thyromental Distance: > or= 3.5 Finger Breadths Mallampati Class: II ASA: ASA3 Procedure Planning Contraindications for Sedation: none Current Medications Reviewed: Yes Notes The planned sedation has been discussed with the patient. Informed Consent was obtained. I have identified the patient, determined the appropriateness of sedation and have assessed the patient immediately prior to the procedure. All medicine(s) and interventions are by my order.
--- NOTE | 2018-12-06 10:13 | Procedure Note ---
Procedure Note: Bronchoscopy Procedure Procedure: Fiberoptic bronchoscopy Therapeutic aspiration of secretions, initial Conscious sedation Provider: Sherman Rubin MD Consent: Signed by patient and timeout verified prior to procedure. Sedation start: 955 Sedation end: 1010 Conscious sedation: 25 mcg fentanyl, 1 mg Versed, topical lidocaine per RT protocol Procedure: Patient was brought to the bronchoscopy suite. Consent was verified. Appropriate radiographic studies had been reviewed prior to the procedure. Standard monitoring was applied. Oxygen was administered. After topical anesthesia of the airways per respiratory therapy protocol, the fiberoptic scope was advanced through the right nares. Oropharynx was unrem arkable. Vocal cords were visualized and were normal in function and appearance. Topical anesthesia of the cords was achieved with instillation of lidocaine through the scope. Scope was then passed through the vocal cords. The trachea was tortuous. Main abi was sharp. Anesthesia of the lower airways was achieved with instillation of lidocaine through the scope. A sequential and systematic examination of the lower airways was conducted. The right-sided airways were patent and the mucosa appeared mildly inflamed. There was scant mucoid secretions present throughout the right sided airways. Left- sided airways were occluded by whitish mucous plugs. And the mucosa appeared mildly inflamed. Extensive lavage was conducted to free up the mucous plug noted within the left mainstem bronchus. Once the plug was cleared to the remaining airways were examined and appeared patent. No endobronchial lesions or abnormalities were identified. The bronchoscope was then removed from the airways. The patient tolerated the procedure well without obvious complication. Patient was returned to the recovery room. Impression: 1. Normal upper airways. 2. Mucoid plug identified within the left mainstem bronchus, freed with saline lavage. 3. Mild inflammatory changes of the lower airways.
[2018-12-06] MEDS ORDERED: FUROSEMIDE 40 MG/4 ML VIAL IV ONE (10:23)
[2018-12-06] MEDS: FUROSEMIDE 20 MG in SYRINGE 0 ML IV SCH (10:26)
--- NOTE | 2018-12-06 10:38 | Post Anesthesia Assessment ---
Date of Service December 06, 2018 Post Sedation Assessment Vital Signs Temp Pulse Pulse Resp BP BP Pulse Ox 12/06/18 10:14 79 18 98 12/06/18 08:58 94 H 12/06/18 08:54 37 C 87 17 112/72 95 12/06/18 08:19 99 H 17 100/63 94 12/06/18 07:39 37.0 C 92 H 24 102/52 L 90 12/06/18 06:52 92 H 26 H 86 L 12/06/18 05:52 87 L 12/06/18 04:10 37.1 C 80 18 122/59 L 94 12/06/18 04:00 95 12/06/18 02:12 97 12/06/18 00:00 80 12/05/18 23:46 36.8 C 113 H 24 103/57 L 96 12/05/18 19:32 37.0 C 92 H 27 H 102/56 L 92 12/05/18 19:00 93 H 20 93 12/05/18 15:32 37.0 C 87 16 106/54 L 98 12/05/18 11:40 36.8 C 92 H 19 113/66 99 Recovery Score Activity: Moves 4 extremities Respiration: Deep Breath/Cough Circulation: +/-20% PreAnes Value Consciousness: Fully Awake Oxygen Saturation: O2 needed for >90% Discharge Sedation Level of Care: Fast Track Phase II Post Sedation Plan On clinical assessment, the patient appears to have tolerated the sedation without complications. Patient is recovering as anticipated. Patient will continue to be monitored by nursing and may be discharged when sed ation discharge criteria are met per below protocol. Upon Completions of procedure and additional 15 minutes continue every 5 minute vital signs and the P.A.R. score; then discharge to a Phase I or Fast Track to Phase II per the following guidelines: * Discharge Patient to appropriate Phase II area if PAR is 8 or greater or return to pre- procedure baseline. The post - procedure orders will be as directed. * If PAR score is less than 8 or not return to pre-procedure baseline then patient will follow Phase I monitoring till PAR is reached for Phase II. The Phase I may be done in procedure room or may call to secure a Phase I area. * If naloxone or flumazenil are used for reversal, hold in Phase I for continued monitoring from when last reversal dose was given for a minimum of 60 minutes or longer pending the nurse and/or physician discretion of patient condition before discharge to Phase II. Please call the Sedation Physician to re-evaluate and complete post-note for discharge to Phase II area. Do NOT discharge from procedure sedation or Phase 1 until post- sedation evaluation note is complete by procedure /sedation MD Sedation Discharge Instructions to be given to the patient at discharge to home.
--- NOTE | 2018-12-06 11:39 | Hospitalist Progress Note ---
Date of Service December 06, 2018 Subjective Open dictation box: Patient underwent flexible fiberoptic bronchoscopy in ICU: By Dr. Rubin Left mainstem bronchus mucous plug was removed Postprocedure, patient found to be very stable status, resolution of tachycardia tachypnea Resolution of hypoxia Patient seen in ICU room 107 postprocedure Still a bit groggy from the sedation, able to answer questions, States "she feels much better, shortness of breath resolved Patient stable to be transferred out of the ICU continue aggressive pulmonary toileting Diet will be resumed once patient is alert and awake Deonna Ornelas MD Results & Data Vital Signs (Past 12 Hours) Vital Signs Temp Pulse Pulse Resp BP BP Pulse Ox 12/06/18 11:31 88 7 L 132/69 96 12/06/18 11:30 82 18 95 12/06/18 11:21 78 16 121/68 96 12/06/18 11:11 79 10 L 130/75 97 12/06/18 11:02 82 17 136/79 99 12/06/18 10:51 79 6 L 136/77 99 12/06/18 10:45 83 7 L 99 12/06/18 10:41 86 14 136/73 99 12/06/18 10:31 85 15 110/63 99 12/06/18 10:21 89 7 L 113/62 98 12/06/18 10:14 79 18 98 12/06/18 10:11 97 H 0 L 119/69 96 12/06/18 10:10 90 5 L 119/60 96 12/06/18 10:06 98 H 5 L 121/92 96 12/06/18 10:01 98 H 8 L 105/62 97 12/06/18 09:58 85 3 L 116/69 97 12/06/18 09:56 94 H 0 L 115/69 98 12/06/18 09:50 90 3 L 97 12/06/18 09:01 96 H 20 123/65 94 12/06/18 08:58 94 H 12/06/18 08:54 37 C 87 17 112/72 95 12/06/18 08:19 99 H 17 100/63 94 12/06/18 07:39 37.0 C 92 H 24 102/52 L 90 12/06/18 06:52 92 H 26 H 86 L 12/06/18 05:52 87 L 12/06/18 04:10 37.1 C 80 18 122/59 L 94 12/06/18 04:00 95 12/06/18 02:12 97 12/06/18 00:00 80 12/05/18 23:46 36.8 C 113 H 24 103/57 L 96
[2018-12-06] MEDS: FOLIC ACID 1 MG TAB PO SCH (12:33)
[2018-12-06] MEDS: PANTOprazole 40 MG TAB PO SCH ×2 (12:33→20:51)
[2018-12-06] MEDS: guaiFENesin 600 MG TABCR PO SCH ×2 (12:33→20:51)
[2018-12-06] MEDS: METOPROLOL SUCC 50MG EXT REL TAB PO SCH (12:33)
--- NOTE | 2018-12-06 13:12 | XRay Report ---
XR chest 1V portable CLINICAL HISTORY: 63 years-old Female presenting with left lower lobe collapse. TECHNIQUE: Portable upright AP view of the chest was obtained. COMPARISON: 12/06/2018. FINDINGS: The patient is a SCHILLING rotated. Right internal jugular central venous catheter remains in place in the mid SVC. External leads project over the upper abdomen to grating evaluation of this region. Atherosc lerosis of the aortic arch. The cardiac silhouette is distorted due to rotation and grossly similar t o prior. Heterogeneous lung parenchyma. Poor aeration of the left lung base with a moderate left pleu ral effusion. This is similar to prior. No pneumothorax. Right lung and pleural space grossly clear. Osteopenia suspected. Advanced degenerative changes of the left glenohumeral joint. Compression fract ure suspected in the lower thoracic spine as on prior exam. IMPRESSION: 1. Moderate left pleural effusion with poor aeration of the left lung base. This is similar to prior . Underlying infection is not excluded. 2. Extensive heterogeneity of lung parenchyma likely relates to underlying emphysema. 3. Additional findings as above. Electronically signed by: Jeff Moore M.D. 12/06/2018 1:10 PM
[2018-12-07 06:34] LABS: INR 3.1 (0.9-1.1); Prothrombin Time 29.7 Seconds (9.0-12.0)
[2018-12-07 06:44] LABS: Albumin Level 1.7 gm/dl (3.4-5.0); BUN Creatinine Ratio 27.1 (10-20); Bilirubin Direct 0.1 mg/dl (0-0.2); Calcium 8.9 mg/dl (8.5-10.1); Creatinine Clr Calc Pharmacy 99.1 ml/min; Est GFR (African American) 127.6; Est GFR (Non-African American) 110.1; Potassium 4.1 mmol/L (3.5-5.1)
[2018-12-07 06:47] LABS: Bilirubin,Total 0.5 mg/dl (0.2-1); Total Protein 4.5 gm/dl (6.4-8.2)
[2018-12-07] MEDS: ARFORMOTEROL TART 15MCG/2ML VIAL INH SCH ×2 (07:21→19:05)
[2018-12-07] MEDS: BUDESONIDE 0.5 MG/2 ML VIAL (PULMICORT) INH SCH ×2 (07:21→19:05)
[2018-12-07] MEDS ORDERED: PERMETHRIN 5% CR 60 GM TUBE EXT STA (07:52)
[2018-12-07] MEDS: METOPROLOL SUCC 50MG EXT REL TAB PO SCH (08:46)
[2018-12-07] MEDS: PANTOprazole 40 MG TAB PO SCH ×2 (08:46→20:42)
[2018-12-07] MEDS: guaiFENesin 600 MG TABCR PO SCH ×2 (08:46→20:41)
[2018-12-07] MEDS: FOLIC ACID 1 MG TAB PO SCH (08:46)
[2018-12-07] MEDS: FUROSEMIDE 20 MG in SYRINGE 0 ML IV SCH (08:47)
--- NOTE | 2018-12-07 10:50 | Pulmonology Progress Note ---
Date of Service December 07, 2018 Assessment & Plan (1) Atelectasis: Impression: 63-year-old female with advanced obstructive lung disease admitted with hypercarbic respiratory failure. She was initially in the ICU intubated and on transfer to the floor but returned to the ICU yesterday due to increasing shortness of breath and wheezing and tachypnea. Bronchoscopy was performed and plug from the left mainstem bronchus was evacuated. She is currently on the floor. Recommendations: 1. Atelectasis due to mucous plugging: Continue aggressive pulmonary toilet. Given potential bronchospasm associated with nebulized Mucomyst and hypertonic saline we will hold off on these medications for now. 2. Advanced COPD: Continue nebulized Pulmicort and Brovana as well as as needed DuoNeb's. 3. Cor pulmonale, chronic: Continue diuretics under the direction of primary care provider 4. Acute on chronic hypoxemic respiratory failure: Secondary to underlying obstructive lung disease atelectasis and mild fluid overload. Management as noted above. Continue to wean oxygen as tolerated. 5. Deconditioning/malnutrition: Aggressive nutritional support. Patient will likely require some form of rehabilitation with aggressive PT and OT. Available to see over weekend if called. (2) Hypoxemic respiratory failure, chronic: (3) COPD (chronic obstructive pulmonary disease): Subjective Patient states her breathing is improved. Her cough feels somewhat more productive but she continues to have difficulty expectorating phlegm. She is tolerating a diet. She is more awake and interactive. No acute events overnight. She recovered well from the bronchoscopy Physical Exam Constitutional: + frail appearing Eyes: PERRL, conjunctivae normal, anicteric sclerae ENMT: Mallampati Class: II Respiratory: Diminished breath sounds bilaterally with some mid-to-late end expiratory wheezes Cardiovascular: RRR, no murmur, no edema Gastrointestinal (Abdomen): normal bowel sounds, soft, nontender, no hepatosplenomegaly Skin: no rashes, warm and dry Psychiatric: Orientation: alert Results & Data Vital Signs (Past 12 Hours) Vital Signs Temp Pulse Pulse Resp BP Pulse Ox 12/07/18 09:43 85 12/07/18 08:45 108/63 12/07/18 07:28 36.0 C L 97 H 22 88/48 L 90 12/07/18 07:21 98 H 18 95 12/07/18 05:16 82 12/07/18 03:26 36.8 C 82 18 133/75 95 12/06/18 23:37 108/62 12/06/18 23:19 36.8 C 87 17 98/64 L 99 Laboratory Results 12/06/18 05:34 12/07/18 06:00 Diagnostic Findings No new imaging PG Care Time/CCT Total # of Minutes Spent Total Time Spent with Patient: Total time spent is greater than 50% in coordination of care (as documented) at patient's floor/unit and/or counseling patient:
--- NOTE | 2018-12-07 12:45 | XRay Report ---
XR chest 1V portable HISTORY: 63 years-old Female shortness of breath acute shortness of breath COMPARISON: Chest radiograph 12/06/2018, chest CT 11/29/2018. TECHNIQUE: Portable AP view of the chest FINDINGS: Cardiac silhouette is upper limits of normal in size. Right IJ central venous catheter is noted with distal tip terminating within the expected location of the mid SVC. Bilateral pleural effusions with bibasilar consolidative opacities are noted. The right pleural effusion has mildly increased in size. Severe emphysema. Degenerative changes of the shoulders and spine. Lower thoracic compression deform ity redemonstrated. IMPRESSION: 1. Severe emphysema. 2. Bilateral pleural effusions with bibasilar consolidative opacities suggestive of atelectasis versu s pneumonitis. The above report was generated using voice recognition software. It may contain grammatical, syntax o r spelling errors. Electronically signed by: Jose Luis Gutierrez M.D. 12/07/2018 12:43 PM
--- NOTE | 2018-12-07 17:39 | Hospitalist Progress Note ---
Date of Service December 07, 2018 Assessment & Plan (1) Acute respiratory failure with hypercapnia: Acute respiratory failure Injury to thick mucus secretion, mucous plug Developed acute change in status: Respiratory failure with tachypnea and tachycardia after morning nebulizer treatment chest x-ray on 12/05/2018: Showed collapse of left lower lobe possible secondary to mucous plug Status post bronchoscopy on 12/06/2018 with suction of mucous plug occluding left main bronchus Patient's respiratory status dramatically improved post bronchoscopy/removal of mucous plug, Continue aggressive pulmonary toileting/flutter valve, deep suctioning, nebulizer treatment Suction as needed for development of thick mucus secretion/cough Chest x-ray this morning shows improved aeration of left lower lung, Left lower lung collapse Secondary to occluded mucous plug, blocking left main bronchus, status post bronc with resolution of lung collapse Chest x-ray 12/05/2018: Interval development(compared to study 12/02/2018) Evidence of left lung volume loss with left lower lobe collapse leading to cardiac and mediastinal shift to the left Pulmonary hypertension/with right heart failure/cor pulmonale Presented with volume overload, with lower extremity dependent edema Symptom improved with IV Lasix Echo shows: Pulmonary hypertension with PASP of 46mm Hg Right ventricular reduced systolic function Mild tricuspid regurgitation, Normal LV chamber size and wall thickness, hyperdynamic LV systolic function: EF>70% No segmental left ventricular wall motion abnormalities noted, grade 1 diastolic dysfunction Patient will be continued with Lasix 20 mg daily (patient was on Lasix 23 times a week as needed for lower extremity edema) Diuretics dose will be adjusted, will be discharged on with Lasix 20 mg daily Monitor volume status Continue supplemental O2, nebulizer treatment, pulmonary toileting as outlined above, to prevent hypoxia, respiratory failure Acute respiratory failure with hypercapnia and hypoxemia, POA Altered mental status and lethargy, metabolic encephalopathy Presented with acute on chronic hypoxemic respiratory failure mostly secondary to COPD exacerbation: Leading to CO2 retention/leading to lethargy/metabolic encephalopathy --History of advanced COPD with chronic heavy tobacco smoking(patient is a current smoker) Admitted with respiratory acidosis: pH 7.14/PCO2 85 Required mechanical ventilation/ICU admission --CT chest on 11/28/18 1. Pulmonary emphysema 2. No evidence of focal pulmonary consolidation 3. No evidence of pathologic adenopathy 4. Severe T11 and L1 vertebral body compression fractures, new when compared with the prior July [address] -Patient was-Extubated 12/01/2018 Ventricular tachycardia No further ventricular arrhythmia overnight, Possible secondary to hypoxia/respiratory failure Continue on beta-tiffanie Keep potassium above 4, magnesium above 2 to prevent cardiac arrhythmia Hypotension Possible Sepsis due to lower extremity cellulitis, POA Continue Lasix 20 mg daily Resolved: Blood pressure stable, continue on Lasix for volume overload, right heart failure --Blood cultures: Negative Urine culture:Negative -- received Empiric Zosyn x 2 days, transitioned to Ceftriaxone IV Day 06/26 IV antibiotic discontinued With p.o. Zithromax by pulmonology for COPD Acute kidney injury on chronic kidney disease stage III. Secondary to above: Acute renal failure resolved, Creatinine improved to baseline 0.8 Continue Lasix 20 mg daily Renal functions will be monitored periodically Anemia(hemoglobin dropped to 6.6) possible GI Bleed ?? --Required 2 units of PRBC transfusion H&H stable at - -- Hemoccult positive stools in the ER, but there has been no signs of obvious bleeding. ( no black /tarry stool , no hematemesis ) Protonix twice daily GI consulted, no plans for EGD/Colonosopy -given acute respiratory failure/no evidence of active GI bleed/stable H&H and hemodynamics Right popliteal DVT --INR 3.1 Hold Coumadin today, will be resumed on lower dose if INR less than 3 in a.m. Moderate to Severe PAD -- Arterial Doppler US: 1. Decreased ankle brachial indices of the left lower extremity compatible with moderate to severe peripheral arterial disease. 2. Segmental pressures of the right lower extremity were not conducted secondary to deep venous thrombosis of the popliteal vein. 3. Elevated peak systolic velocities within the right profunda femoris vein are suggestive of luminal narrowing secondary to atherosclerotic vascular disease. --placed Vascular Surgery consult Continue aspirin but monitor platelets closely Transaminitis, most likely secondary to hypotension. --Normalized-possible secondary to sepsis, hypotension -AST : [id number] ALT: [phone] CT abdomen pelvis: Unremarkable liver/spleen/pancreas Mild elevated troponin, demand ischemia: Likely secondary to hypotension/acute hypoxemic respiratory failure, hemodynamic instability present on admission -- 0.07, 0.07, 0.09 No evidence of ACS Echo: As outlined as above, normal LV function, no wall motion abnormality History of diastolic congestive heart failure, Updated echo as above Diuretics dose adjusted to Lasix 20 mg daily History of breast lesion a couple of years ago -- will need outpatient ff up Malnutrition. The patient is thin and frail. With failure to thrive Nutrition consult. Inquired with patient regarding her dietary intake Patient eats she usually has 2-3 meals per day, occasionally not eating because she does not feel hungry She is fully aware of importance of proper nutrition, and consequences of not eating well Poor hygiene On admission patient was found to be very disheveled, unkempt, lice infestation, right foot wound : No evidence of any wound care, Lives at home with daughter and grandkids Office of aging involved, social service following Patient states bathroom is in the second floor, and this makes it difficult for her to shower every day Patient is fully aware of importance of proper hygiene and consequences of not observing proper daily hygiene Lice infestation Secondary to lack of hygiene home Ordered for permethrin 5% cream treatment today, We will repeat treatment prior to discharge to skilled rehab Hypertension. Blood pressure stable, Resume beta-tiffanie, continue Lasix Tobacco abuse disorder, Smoking cessation counseling DVT prophylaxis INR elevated CODE STATUS: Full code Pressure wounds: stage II pressure ulcer on lower lumbar vision present on admission, Appreciate input from wound care, continue local wound care with clean with saline, cover with OptiForm, change every 3 days and as needed Change of position every 2 hours, encouraged patient to be out of bed to chair as much as possible PT OT evaluation appreciated, patient will need to skilled rehab Local wound care will be continued at rehab when patient is transferred when clinically stable Right toes/foot wound Noted to have erythematous/on right great toe, with serous drainage Appreciate input from wound care team: History of moderate peripheral artery disease, Dependent edema, blister formed secondary to volume overload, diastolic dysfunction Appreciate decreased from wound care Wound with saline, cover with OptiForm, Change dressing every other day more frequent if needed Keep limb elevated, waffle boots ordered for offloading of heels/prevent further pressure wounds Disposition: PT/OT evaluation recommending [facility] facility entertainment centre manager on board, 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-for concern for poor care /hygiene issues and failure to thrive at home Subjective Patient continued to have thick mucus, unable to clear with cough, developed acute respiratory distress this morning with tachycardia tachypnea Referral utilized, appreciate therapy contacted for deep suction Patient was able to clear off cough with mucus secretions, Shortness of breath tachypnea was resolved Plan of care discussed with pulmonology She was doing well earlier this morning later developed spasm of cough with a thick mucus Recommends continue pulmonary toileting We will avoid Mucomyst and hypertonic saline nebulizer treatment at this point as it was causing more bronchospasm leading to respiratory failure Continue to monitor closely Physical Exam Constitutional: + acute distress, + ill appearing, + thin and + in distress (In respiratory distress secondary to tachycardia tachypnea) Eyes: PERRL, conjunctivae normal, anicteric sclerae ENMT: external ear and nose normal, oropharynx normal Neck: trachea midline, no thyromegaly Respiratory: + respiratory distress, + labored breathing, + uses accessory muscles, + cough (Nonproductive), + tachypneic and + prolonged expiratory phase; + not able to speak in complete sentence Auscultation: + breath sounds absent (On left side:), + crackles, + rales, + rhonchi, + wheezes and + pleural rub present Cardiovascular: Rate/Rhythm: regular rate, regular rhythm and + tachycardic Gastrointestinal (Abdomen): Inspection/Auscultation: normal bowel sounds Percussion/Palpation: abdomen soft; abdomen nontender and no guarding Skin: + wound Neurologic: PERRL, EOMI, accommodation nl, no face palsy, no dysarthria Psychiatric: A+Ox3, euthymic affect Results & Data Vital Signs (Past 12 Hours) Vital Signs Temp Pulse Pulse Resp BP Pulse Ox 12/07/18 15:25 95 12/07/18 11:57 63 30 H 96 12/07/18 11:28 36.8 C 97 H 20 111/67 94 12/07/18 09:43 85 12/07/18 08:45 108/63 12/07/18 07:28 36.0 C L 97 H 22 88/48 L 90 12/07/18 07:21 98 H 18 95
[2018-12-08] MEDS: ACETAMINOPHEN 325 MG TAB PO PRN ×2 (02:41→23:25)
[2018-12-08 06:24] LABS: Prothrombin Time 19.5 Seconds (9.0-12.0)
[2018-12-08 06:41] LABS: BUN Creatinine Ratio 22.6 (10-20); Calcium 9.3 mg/dl (8.5-10.1); Potassium 4.3 mmol/L (3.5-5.1)
[2018-12-08] MEDS: ARFORMOTEROL TART 15MCG/2ML VIAL INH SCH ×2 (07:08→19:36)
[2018-12-08] MEDS: BUDESONIDE 0.5 MG/2 ML VIAL (PULMICORT) INH SCH ×2 (07:08→19:36)
--- NOTE | 2018-12-08 09:23 | Pulmonology Progress Note ---
Date of Service December 08, 2018 Assessment & Plan (1) Atelectasis: Impression: 63-year-old female with advanced obstructive lung disease admitted with hypercarbic respiratory failure. She was initially in the ICU intubated and on transfer to the floor but returned to the ICU yesterday due to increasing shortness of breath and wheezing and tachypnea. Bronchoscopy was performed and plug from the left mainstem bronchus was evacuated. She is currently on the floor. Recommendations: 1. Atelectasis due to mucous plugging: Continue aggressive pulmonary toilet. Trying to restart her Mucomyst and see if this offers her a benefit. Nasotracheal suctioning as needed will be continued. The patient needs to try and mobilize and get out of bed. Recommend aggressive physical therapy occupational therapy and ambulation. She should be up to a chair as much as possible. 2. Advanced COPD: Continue nebulized Pulmicort and Brovana as well as as needed DuoNeb's. 3. Cor pulmonale, chronic: Continue diuretics under the direction of primary care provider 4. Acute on chronic hypoxemic respiratory failure: Secondary to underlying obstructive lung disease atelectasis and mild fluid overload. Management as noted above. Continue to wean oxygen as tolerated. 5. Deconditioning/malnutrition: Aggressive nutritional support. Patient will likely require some form of rehabilitation with aggressive PT and OT. We will continue to follow (2) Hypoxemic respiratory failure, chronic: (3) COPD (chronic obstructive pulmonary disease): Subjective Patient seen and examined this morning. She is somewhat somnolent but easily arousable. She states she is having no respiratory difficulties. She did have another episode of tachypnea yesterday associated with a mucous plug. She was able to respond to nasotracheal suctioning and pulmonary toilet. Review of Systems Review of Systems: Please refer to prior progress notes. I have no additions or deletions. Unchanged from prior Physical Exam Constitutional: + frail appearing Eyes: PERRL, conjunctivae normal, anicteric sclerae ENMT: Mallampati Class: II Respiratory: normal respiratory effort, lungs clear to auscultation Cardiovascular: RRR, no murmur, no edema Gastrointestinal (Abdomen): normal bowel sounds, soft, nontender, no hep atosplenomegaly Skin: no rashes, warm and dry Psychiatric: Orientation: alert Results & Data Vital Signs (Past 12 Hours) Vital Signs Temp Pulse Pulse Resp BP BP Pulse Ox 12/08/18 07:22 36.5 C 91 H 18 104/64 96 12/08/18 07:08 91 H 18 96 12/08/18 04:00 36.7 C 97 H 18 96/59 L 92 12/08/18 00:00 100 H 12/07/18 23:49 37.0 C 98 H 18 91/55 L 96 PG Care Time/CCT Total # of Minutes Spent Total Time Spent with Patient: Total time spent is greater than 50% in coordination of care (as documented) at patient's floor/unit and/or counseling patient:
[2018-12-08] MEDS: PANTOprazole 40 MG TAB PO SCH ×2 (09:32→20:49)
[2018-12-08] MEDS: guaiFENesin 600 MG TABCR PO SCH ×2 (09:32→20:48)
[2018-12-08] MEDS: METOPROLOL SUCC 50MG EXT REL TAB PO SCH (09:32)
[2018-12-08] MEDS: FOLIC ACID 1 MG TAB PO SCH (09:32)
[2018-12-08] MEDS: FUROSEMIDE 20 MG in SYRINGE 0 ML IV SCH (10:59)
--- NOTE | 2018-12-08 15:53 | Hospitalist Progress Note ---
Date of Service December 08, 2018 Assessment & Plan (1) Acute respiratory failure with hypercapnia: Acute respiratory failure Secondary to take mucous plugging, bronchiectasis Appreciate input from pulmonology, recommends aggressive bile pulmonary toilet to prevent mucous plugging Mucomyst nebulizer treatment was discontinued for bronchospasm Recommends continue nasotracheal suctioning if needed for respiratory distress Patient needs to be out of bed and chair as much as possible Acute respiratory failure with left lower lung collapse secondary to mucous plugging on left main bronchus Developed acute respiratory distress with hypoxia tachypnea tachycardia-was transferred to ICU chest x-ray on 12/05/2018: Showed collapse of left lower lobe possible secondary to mucous plug Status post bronchoscopy on 12/06/2018 with suction of mucous plug occluding left main bronchus Patient's respiratory status dramatically improved post bronchoscopy/removal of mucous plug, Continue aggressive pulmonary toileting/flutter valve, deep suctioning, nebulizer treatment Suction as needed for development of thick mucus secretion/cough Chest x-ray this morning shows improved aeration of left lower lung, Left lower lung collapse Secondary to occluded mucous plug, blocking left main bronchus, status post bronc with resolution of lung collapse Chest x-ray 12/05/2018: Interval development(compared to study 12/02/2018) Evidence of left lung volume loss with left lower lobe collapse leading to cardiac and mediastinal shift to the left Pulmonary hypertension/with right heart failure/cor pulmonale Presented with volume overload, with lower extremity dependent edema Symptom improved with IV Lasix Echo shows: Pulmonary hypertension with PASP of 46mm Hg Right ventricular reduced systolic function Mild tricuspid regurgitation, Normal LV chamber size and wall thickness, hyperdynamic LV systolic function: EF>70% No segmental left ventricular wall motion abnormalities noted, grade 1 diastolic dysfunction Patient will be continued with Lasix 20 mg daily (patient was on Lasix 23 times a week as needed for lower extremity edema) Diuretics dose is adjusted, will be discharged on with Lasix 20 mg daily Monitor volume status Continue supplemental O2, nebulizer treatment, pulmonary toileting as outlined above, to prevent hypoxia, respiratory failure Acute respiratory failure with hypercapnia and hypoxemia, POA Altered mental status and lethargy, metabolic encephalopathy Presented with acute on chronic hypoxemic respiratory failure mostly secondary to COPD exacerbation: Leading to CO2 retention/leading to lethargy/metabolic encephalopathy --History of advanced COPD with chronic heavy tobacco smoking(patient is a current smoker) Admitted with respiratory acidosis: pH 7.14/PCO2 85 Required mechanical ventilation/ICU admission --CT chest on 11/28/18 1. Pulmonary emphysema 2. No evidence of focal pulmonary consolidation 3. No evidence of pathologic adenopathy 4. Severe T11 and L1 vertebral body compression fractures, new when compared with the prior July [address] -Patient was-Extubated 12/01/2018 Ventricular tachycardia No further ventricular arrhythmia overnight, Possible secondary to hypoxia/respiratory failure Continue on beta-tiffanie Keep potassium above 4, magnesium above 2 to prevent cardiac arrhythmia Hypotension Possible Sepsis due to lower extremity cellulitis, POA Continue Lasix 20 mg daily Resolved: Blood pressure stable, continue on Lasix for volume overload, right heart failure --Blood cultures: Negative Urine culture:Negative -- received Empiric Zosyn x 2 days, transitioned to Ceftriaxone IV Day 5/ IV antibiotic discontinued With p.o. Zithromax by pulmonology for COPD Acute kidney injury on chronic kidney disease stage III. Secondary to above: Acute renal failure resolved, Creatinine improved to baseline 0.8 Continue Lasix 20 mg daily Renal functions will be monitored periodically Anemia(hemoglobin dropped to 6.6) possible GI Bleed ?? --Required 2 units of PRBC transfusion H&H stable at - -- Hemoccult positive stools in the ER, but there has been no signs of obvious bleeding. ( no black /tarry stool , no hematemesis ) Protonix twice daily GI consulted, no plans for EGD/Colonosopy -given acute respiratory failure/no evidence of active GI bleed/stable H&H and hemodynamics Right popliteal DVT --INR 3.1 Hold Coumadin today, will be resumed on lower dose if INR less than 3 in a.m. Moderate to Severe PAD -- Arterial Doppler US: 1. Decreased ankle brachial indices of the left lower extremity compatible with moderate to severe peripheral arterial disease. 2. Segmental pressures of the right lower extremity were not conducted secondary to deep venous thrombosis of the popliteal vein. 3. Elevated peak systolic velocities within the right profunda femoris vein are suggestive of luminal narrowing secondary to atherosclerotic vascular disease. --placed Vascular Surgery consult Continue aspirin but monitor platelets closely Transaminitis, most likely secondary to hypotension. --Normalized-possible secondary to sepsis, hypotension -AST : [id number] -[id number] ALT: [phone] CT abdomen pelvis: Unremarkable liver/spleen/pancreas Mild elevated troponin, demand ischemia: Likely secondary to hypotension/acute hypoxemic respiratory failure, hemodynamic instability present on admission -- 0.07, 0.07, 0.09 No evidence of ACS Echo: As outlined as above, normal LV function, no wall motion abnormality History of diastolic congestive heart failure, Updated echo as above Diuretics dose adjusted to Lasix 20 mg daily History of breast lesion a couple of years ago -- will need outpatient ff up Malnutrition. The patient is thin and frail. With failure to thrive Nutrition consult. Inquired with patient regarding her dietary intake Patient eats she usually has 2-3 meals per day, occasionally not eating because she does not feel hungry She is fully aware of importance of proper nutrition, and consequences of not eating well Poor hygiene On admission patient was found to be very disheveled, unkempt, lice infestation, right foot wound : No evidence of any wound care, Lives at home with daughter and grandkids Office of aging involved, social service following Patient states bathroom is in the second floor, and this makes it difficult for her to shower every day Patient is fully aware of importance of proper hygiene and consequences of not observing proper daily hygiene Lice infestation Secondary to lack of hygiene home Ordered for permethrin 5% cream treatment today, We will repeat treatment prior to discharge to skilled rehab Hypertension. Blood pressure stable, Resume beta-tiffanie, continue Lasix Tobacco abuse disorder, Smoking cessation counseling DVT prophylaxis INR elevated CODE STATUS: Full code Pressure wounds: stage II pressure ulcer on lower lumbar vision present on admission, Appreciate input from wound care, continue local wound care with clean with saline, cover with OptiForm, change every 3 days and as needed Change of position every 2 hours, encouraged patient to be out of bed to chair as much as possible PT OT evaluation appreciated, patient will need to skilled rehab Local wound care will be continued at rehab when patient is transferred when clinically stable Right toes/foot wound Noted to have erythematous/on right great toe, with serous drainage Appreciate input from wound care team: History of moderate peripheral artery disease, Dependent edema, blister formed secondary to volume overload, diastolic dysfunction Appreciate decreased from wound care Wound with saline, cover with OptiForm, Change dressing every other day more frequent if needed Keep limb elevated, waffle boots ordered for offloading of heels/prevent further pressure wounds Disposition: PT/OT evaluation recommending alf facility immigration manager on board, 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-for concern for poor care /hygiene issues and failure to thrive at home Subjective Patient does not have any respiratory difficulty this morning, having nonproductive cough, mentions that she feels some back of the throat has been loosening up No shortness of breath, no fever or chills Physical Exam Constitutional: + ill appearing and + thin; no acute distress Eyes: PERRL, conjunctivae normal, anicteric sclerae ENMT: external ear and nose normal, oropharynx normal Neck: trachea midline, no thyromegaly Respiratory: + cough (Nonproductive), able to speak in complete sentences and + prolonged expiratory phase; no respiratory distress Auscultation: + crackles, + rales, + rhonchi and + wheezes Cardiovascular: Rate/Rhythm: regular rate, regular rhythm and + tachycardic Gastrointestinal (Abdomen): Inspection/Auscultation: normal bowel sounds Percussion/Palpation: abdomen soft; abdomen nontender and no guarding Skin: + wound Neurologic: PERRL, EOMI, accommodation nl, no face palsy, no dysarthria Psychiatric: A+Ox3, euthymic affect Results & Data Vital Signs (Past 12 Hours) Vital Signs Temp Pulse Resp BP Pulse Ox 12/08/18 15:09 36.7 C 78 18 115/79 98 12/08/18 11:48 36.7 C 81 22 113/62 90 12/08/18 07:22 36.5 C 91 H 18 104/64 96 12/08/18 07:08 91 H 18 96 12/08/18 04:00 36.7 C 97 H 18 96/59 L 92
[2018-12-08] MEDS: WARFARIN SOD 2 MG TAB PO SCH (16:30)
[2018-12-09] MEDS: LEVALBUTEROL 1.25MG/0.5ML NEB INH PRN (07:08)
[2018-12-09] MEDS: BUDESONIDE 0.5 MG/2 ML VIAL (PULMICORT) INH SCH ×2 (07:08→19:54)
[2018-12-09] MEDS: ARFORMOTEROL TART 15MCG/2ML VIAL INH SCH ×2 (07:13→19:54)
[2018-12-09 08:37] LABS: INR 3.3 (0.9-1.1); Prothrombin Time 30.8 Seconds (9.0-12.0)
[2018-12-09 09:04] LABS: Calcium 9.4 mg/dl (8.5-10.1); Est GFR (African American) 116.3; Est GFR (Non-African American) 100.3
[2018-12-09] MEDS: FOLIC ACID 1 MG TAB PO SCH (09:29)
[2018-12-09] MEDS: guaiFENesin 600 MG TABCR PO SCH ×2 (09:29→21:17)
[2018-12-09] MEDS: PANTOprazole 40 MG TAB PO SCH ×2 (09:29→21:17)
[2018-12-09] MEDS: METOPROLOL SUCC 50MG EXT REL TAB PO SCH (09:29)
[2018-12-09] MEDS: FUROSEMIDE 20 MG TAB PO SCH (09:29)
[2018-12-09] MEDS: ACETAMINOPHEN 325 MG TAB PO PRN (09:30)
--- NOTE | 2018-12-09 09:33 | Pulmonology Progress Note ---
Date of Service December 09, 2018 Assessment & Plan (1) Atelectasis: Impression: 63-year-old female with advanced obstructive lung disease admitted with hypercarbic respiratory failure. She was initially in the ICU intubated and on transfer to the floor but returned to the ICU yesterday due to increasing shortness of breath and wheezing and tachypnea. Bronchoscopy was performed and plug from the left mainstem bronchus was evacuated. She is currently on the floor. Recommendations: 1. Atelectasis due to mucous plugging: Continue aggressive pulmonary toilet. Mucomyst nebs as needed. Ask RT for NT suctioning as needed. She developed bronchospasm associated with hypertonic saline so we will hold off for now 2. Advanced COPD: Continue nebulized Pulmicort and Brovana as well as as needed DuoNeb's. 3. Cor pulmonale, chronic: Continue diuretics under the direction of primary ca re provider 4. Acute on chronic hypoxemic respiratory failure: Secondary to underlying obstructive lung disease atelectasis and mild fluid overload. Management as noted above. Continue to wean oxygen as tolerated. 5. Deconditioning/malnutrition: Aggressive nutritional support. Patient will likely require some form of rehabilitation with aggressive PT and OT. We will continue to follow (2) Hypoxemic respiratory failure, chronic: (3) COPD (chronic obstructive pulmonary disease): Subjective Patient feels that she is more congested today. She is complaining of some left-sided chest discomfort which limits her ability to cough and expectorate phlegm. She has not had any fevers chills or night sweats overnight did her appetite remains poor. Review of Systems Review of Systems: unchanged from prior Physical Exam Constitutional: + frail appearing Eyes: PERRL, conjunctivae normal, anicteric sclerae ENMT: Mallampati Class: II Respiratory: Coarse rhonchi bilaterally with occasional mid-to-late and expiratory wheezes Cardiovascular: RRR, no murmur, no edema Gastrointestinal (Abdomen): normal bowel sounds, soft, nontender, no hepatosplenomegaly Skin: no rashes, warm and dry Psychiatric: Orientation: alert Results & Data Vital Signs (Past 12 Hours) Vital Signs Temp Pulse Pulse Resp BP Pulse Ox 12/09/18 07:32 36.7 C 99 H 18 134/76 90 12/09/18 07:09 93 H 22 91 12/09/18 04:07 36.5 C 68 16 111/64 92 12/09/18 00:13 101 H 12/08/18 23:30 37.2 C 97 H 18 103/65 94 PG Care Time/CCT Total # of Minutes Spent Total Time Spent with Patient: Total time spent is greater than 50% in coordination of care (as documented) at patient's floor/unit and/or counseling patient:
[2018-12-09] MEDS: WARFARIN SOD 2 MG TAB PO SCH (16:17)
--- NOTE | 2018-12-09 16:18 | Hospitalist Progress Note ---
Date of Service December 09, 2018 Assessment & Plan (1) Acute respiratory failure with hypercapnia: Acute respiratory failure Secondary to take mucous plugging, bronchiectasis Appreciate input from pulmonology, recommends aggressive bile pulmonary toilet to prevent mucous plugging Mucomyst nebulizer treatment was discontinued for bronchospasm Recommends continue nasotracheal suctioning if needed for respiratory distress Patient needs to be out of bed and chair as much as possible Acute respiratory failure with left lower lung collapse secondary to mucous plugging on left main bronchus Developed acute respiratory distress with hypoxia tachypnea tachycardia-was transferred to ICU chest x-ray on 12/05/2018: Showed collapse of left lower lobe possible secondary to mucous plug Status post bronchoscopy on 12/06/2018 with suction of mucous plug occluding left main bronchus Patient's respiratory status dramatically improved post bronchoscopy/removal of mucous plug, Continue aggressive pulmonary toileting/flutter valve, deep suctioning, nebulizer treatment Suction as needed for development of thick mucus secretion/cough Left lower lung collapse Secondary to occluded mucous plug, blocking left main bronchus, status post bronc with resolution of lung collapse Chest x-ray 12/05/2018: Interval development(compared to study 12/02/2018) Evidence of left lung volume loss with left lower lobe collapse leading to cardi ac and mediastinal shift to the left Pulmonary hypertension/with right heart failure/cor pulmonale Presented with volume overload, with lower extremity dependent edema Symptom improved with IV Lasix Echo shows: Pulmonary hypertension with PASP of 46mm Hg Right ventricular reduced systolic function Mild tricuspid regurgitation, Normal LV chamber size and wall thickness, hyperdynamic LV systolic function: EF>70% No segmental left ventricular wall motion abnormalities noted, grade 1 diastolic dysfunction Patient will be continued with Lasix 20 mg daily (patient was on Lasix 23 times a week as needed for lower extremity edema) Diuretics dose is adjusted, will be discharged on with Lasix 20 mg daily Monitor volume status Continue supplemental O2, nebulizer treatment, pulmonary toileting as outlined above, to prevent hypoxia, respiratory failure Acute respiratory failure with hypercapnia and hypoxemia, POA Altered mental status and lethargy, metabolic encephalopathy Presented with acute on chronic hypoxemic respiratory failure mostly secondary to COPD exacerbation: Leading to CO2 retention/leading to l ethargy/metabolic encephalopathy --History of advanced COPD with chronic heavy tobacco smoking(patient is a current smoker) Admitted with respiratory acidosis: pH 7.14/PCO2 85 Required mechanical ventilation/ICU admission --CT chest on 11/28/18 1. Pulmonary emphysema 2. No evidence of focal pulmonary consolidation 3. No evidence of pathologic adenopathy 4. Severe T11 and L1 vertebral body compression fractures, new when compared with the prior July [address] -Patient was-Extubated 12/01/2018 Ventricular tachycardia No further ventricular arrhythmia overnight, Possible secondary to hypoxia/respiratory failure Continue on beta-tiffanie Keep potassium above 4, magnesium above 2 to prevent cardiac arrhythmia Hypotension Possible Sepsis due to lower extremity cellulitis, POA Continue Lasix 20 mg daily Resolved: Blood pressure stable, continue on Lasix for volume overload, right heart failure --Blood cultures: Negative Urine culture:Negative -- received Empiric Zosyn x 2 days, transitioned to Ceftriaxone IV Day 06/26 IV antibiotic discontinued With p.o. Zithromax by pulmonology for COPD Acute kidney injury on chronic kidney disease stage III. Secondary to above: Acute renal failure resolved, Creatinine improved to baseline 0.8 Continue Lasix 20 mg daily Renal functions will be monitored periodically Anemia(hemoglobin dropped to 6.6) possible GI Bleed ?? --Required 2 units of PRBC transfusion H&H stable at - -- Hemoccult positive stools in the ER, but there has been no signs of obvious bleeding. ( no black /tarry stool , no hematemesis ) Protonix twice daily GI consulted, no plans for EGD/Colonosopy -given acute respiratory failure/no evidence of active GI bleed/stable H&H and hemodynamics Right popliteal DVT --INR 3.1 Hold Coumadin today, will be resumed on lower dose if INR less than 3 in a.m. Moderate to Severe PAD -- Arterial Doppler US: 1. Decreased ankle brachial indices of the left lower extremity compatible with moderate to severe peripheral arterial disease. 2. Segmental pressures of the right lower extremity were not conducted secondary to deep venous thrombosis of the popliteal vein. 3. Elevated peak systolic velocities within the right profunda femoris vein are suggestive of luminal narrowing secondary to atherosclerotic vascular disease. --placed Vascular Surgery consult Continue aspirin but monitor platelets closely Transaminitis, most likely secondary to hypotension. --Normalized-possible secondary to sepsis, hypotension -AST : [id number] ALT: [phone] CT abdomen pelvis: Unremarkable liver/spleen/pancreas Mild elevated troponin, demand ischemia: Likely secondary to hypotension/acute hypoxemic respiratory failure, hemodynamic instability present on admission -- 0.07, 0.07, 0.09 No evidence of ACS Echo: As outlined as above, normal LV function, no wall motion abnormality History of diastolic congestive heart failure, Updated echo as above Diuretics dose adjusted to Lasix 20 mg daily Patient is having more moist nonproductive cough with diffuse rales at base, ordered for extra 20 mg of IV Lasix, monitor clinically History of breast lesion a couple of years ago -- will need outpatient ff up Malnutrition. The patient is thin and frail. With failure to thrive Nutrition consult. Inquired with patient regarding her dietary intake Patient eats she usually has 2-3 meals per day, occasionally not eating because she does not feel hungry She is fully aware of importance of proper nutrition, and consequences of not eating well Poor hygiene On admission patient was found to be very disheveled, unkempt, lice infestation, right foot wound : No evidence of any wound care, Lives at home with daughter and grandkids Office of aging involved, social service following Patient states bathroom is in the second floor, and this makes it difficult for her to shower every day Patient is fully aware of importance of proper hygiene and consequences of not observing proper daily hygiene Lice infestation Secondary to lack of hygiene home Ordered for permethrin 5% cream treatment today, We will repeat treatment prior to discharge to skilled rehab Hypertension. Blood pressure stable, Resume beta-tiffanei, continue Lasix Tobacco abuse disorder, Smoking cessation counseling DVT prophylaxis INR elevated CODE STATUS: Full code Pressure wounds: stage II pressure ulcer on lower lumbar vision present on admission, Appreciate input from wound care, continue local wound care with clean with saline, cover with OptiForm, change every 3 days and as needed Change of position every 2 hours, encouraged patient to be out of bed to chair as much as possible PT OT evaluation appreciated, patient will need to skilled rehab Local wound care will be continued at rehab when patient is transferred when clinically stable Right toes/foot wound Noted to have erythematous/on right great toe, with serous drainage Appreciate input from wound care team: History of moderate peripheral artery disease, Dependent edema, blister formed secondary to volume overload, diastolic dysfunction Appreciate decreased from wound care Wound with saline, cover with OptiForm, Change dressing every other day more frequent if needed Keep limb elevated, waffle boots ordered for offloading of heels/prevent further pressure wounds Disposition: PT/OT evaluation recommending group home facility nurse outreach case manager on board, 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-for concern for poor care /hygiene issues and failure to thrive at home Subjective Patient feels that she is more congested today. With ongoing cough with minimum sputum production, Overt respiratory distress noted, no fever or chills Physical Exam Constitutional: + ill appearing and + thin; no acute distress Eyes: PERRL, conjunctivae normal, anicteric sclerae ENMT: external ear and nose normal, oropharynx normal Neck: trachea midline, no thyromegaly Respiratory: + cough (Nonproductive), able to speak in complete sentences and + prolonged expiratory phase; no respiratory distress Auscultation: + crackles, + rales, + rhonchi and + wheezes Cardiovascular: Rate/Rhythm: regular rate, regular rhythm and + tachycardic Gastrointestinal (Abdomen): Inspection/Auscultation: normal bowel sounds Percussion/Palpation: abdomen soft; abdomen nontender and no guarding Skin: + wound Neurologic: PERRL, EOMI, accommodation nl, no face palsy, no dysarthria Psychiatric: A+Ox3, euthymic affect Results & Data Vital Signs (Past 12 Hours) Vital Signs Temp Pulse Resp BP Pulse Ox 12/09/18 14:59 36.7 C 100 H 20 132/76 85 L 12/09/18 07:32 36.7 C 99 H 18 134/76 90 12/09/18 07:09 93 H 22 91
[2018-12-09] MEDS ORDERED: FUROSEMIDE 20 MG in SYRINGE 0 ML IV ONE (18:15)
[2018-12-10 06:59] LABS: Prothrombin Time 52.6 Seconds (9.0-12.0)
[2018-12-10 07:03] LABS: INR 5.8 (0.9-1.1)
[2018-12-10] MEDS: BUDESONIDE 0.5 MG/2 ML VIAL (PULMICORT) INH SCH ×2 (07:30→19:40)
[2018-12-10] MEDS: ARFORMOTEROL TART 15MCG/2ML VIAL INH SCH ×2 (07:30→19:40)
[2018-12-10] MEDS: ACETAMINOPHEN 325 MG TAB PO PRN ×2 (07:56→15:39)
[2018-12-10] MEDS: FUROSEMIDE 20 MG TAB PO SCH (07:56)
[2018-12-10] MEDS: FOLIC ACID 1 MG TAB PO SCH (08:39)
[2018-12-10] MEDS: METOPROLOL SUCC 50MG EXT REL TAB PO SCH (08:39)
[2018-12-10] MEDS: guaiFENesin 600 MG TABCR PO SCH ×2 (08:39→20:13)
[2018-12-10] MEDS: PANTOprazole 40 MG TAB PO SCH ×2 (08:40→20:13)
--- NOTE | 2018-12-10 12:12 | Pulmonology Progress Note ---
Date of Service December 10, 2018 Assessment & Plan (1) Atelectasis: Impression: 63-year-old female with advanced obstructive lung disease (based on radiographic findings and clinical findings. No PFTs available for me to review. ) Admitted with hypercarbic respiratory failure. She was initially in the ICU intubated and on transfer to the floor but returned to the ICU early in the admission due to increasing shortness of breath and wheezing and tachypnea. Bronchoscopy was performed and plug from the left mainstem bronchus was evacuated. She is currently on the floor. Recommendations: 1. Atelectasis due to mucous plugging: Continue aggressive pulmonary toilet. Mucomyst nebs as needed. Ask RT for NT suctioning as needed. Recommend adding CoughAssist 3 times a day. 2. Advanced COPD: Continue nebulized Pulmicort and Brovana as well as as needed DuoNeb's. The patient would benefit from a noninvasive ventilator such as trilogy. Due to the patient's severe COPD and patient's chronic respiratory failure, she requires a noninvasive ventilator to decrease her carbon dioxide and prevent future hospitalizations. Without this device the patient is at risk for harm or even . 3. Cor pulmonale, chronic: Continue diuretics under the direction of primary care provider. This is secondary to her underlying lung disease. 4. Acute on chronic hypoxemic respiratory failure: Secondary to underlying obstructive lung disease atelectasis and mild fluid overload. Management as noted above. Continue to wean oxygen as tolerated. 5. Deconditioning/malnutrition: Aggressive nutritional support. Patient will likely require some form of rehabilitation with aggressive PT and OT. I think the patient would benefit from a discussion with palliative care. She is severely malnourished and has significant pulmonary cachexia. She has chronic hypercapnic respiratory failure and likely chronic hypoxemic respiratory failure. She has very minimal reserves and will have an extremely protracted course for recovery. Pulmonary will continue to follow the patient from the periphery. Please do not hesitate to call with questions. (2) Hypoxemic respiratory failure, chronic: (3) COPD (chronic obstructive pulmonary disease): COPD type: COPD with acute exacerbation Qualified Code(s): J44.1 - Chronic obstructive pulmonary disease with (acute) exacerbation Subjective Patient was sleeping in her bed upon revisiting. She denies any significant shortness of breath while laying in her bed. She denies any significant chest pain currently. She says she is tired. She denies any nausea. Her appetite is poor. Physical Exam Constitutional: + frail appearing Eyes: PERRL, conjunctivae normal, anicteric sclerae ENMT: Mallampati Class: II Respiratory: normal respiratory effort, lungs clear to auscultation Cardiovascular: RRR, no murmur, no edema Gastrointestinal (Abdomen): normal bowel sounds, soft, nontender, no hepatosplenomegaly Skin: no rashes, warm and dry Psychiatric: Orientation: alert Results & Data Vital Signs (Past 12 Hours) Vital Signs Temp Pulse Pulse Resp BP Pulse Ox 12/10/18 11:47 98.8 F 100 H 18 100/65 98 12/10/18 09:00 98 H 12/10/18 08:02 98.2 F 96 H 18 107/64 83 L 12/10/18 07:31 94 H 18 91 12/10/18 05:00 98.2 F 95 H 18 131/79 95 12/10/18 04:00 98.2 F 95 H 18 131/79 95 PG Care Time/CCT Total # of Minutes Spent Total Time Spent with Patient: Total time spent is greater than 50% in coordination of care (as documented) at patient's floor/unit and/or counseling patient:
--- NOTE | 2018-12-10 14:01 | Hospitalist Progress Note ---
Date of Service December 10, 2018 Assessment & Plan (1) Acute respiratory failure with hypercapnia: Acute respiratory failure Secondary to take mucous plugging, bronchiectasis Appreciate input from pulmonology, recommends aggressive bile pulmonary toilet to prevent mucous plugging Mucomyst nebulizer treatment was discontinued for bronchospasm Recommends continue nasotracheal suctioning if needed for respiratory distress Patient needs to be out of bed and chair as much as possible Acute respiratory failure with left lower lung collapse secondary to mucous plugging on left main bronchus Developed acute respiratory distress with hypoxia tachypnea tachycardia-was transferred to ICU chest x-ray on 12/05/2018: Showed collapse of left lower lobe possible secondary to mucous plug Status post bronchoscopy on 12/06/2018 with suction of mucous plug occluding left main bronchus Patient's respiratory status dramatically improved post bronchoscopy/removal of mucous plug, Continue aggressive pulmonary toileting/flutter valve, deep suctioning, nebulizer treatment Suction as needed for development of thick mucus secretion/cough Left lower lung collapse Secondary to occluded mucous plug, blocking left main bronchus, status post bronc with resolution of lung collapse Chest x-ray 12/05/2018: Interval development(compared to study 12/02/2018) Evidence of left lung volume loss with left lower lobe collapse leading to cardi ac and mediastinal shift to the left Pulmonary hypertension/with right heart failure/cor pulmonale Presented with volume overload, with lower extremity dependent edema Symptom improved with IV Lasix Echo shows: Pulmonary hypertension with PASP of 46mm Hg Right ventricular reduced systolic function Mild tricuspid regurgitation, Normal LV chamber size and wall thickness, hyperdynamic LV systolic function: EF>70% No segmental left ventricular wall motion abnormalities noted, grade 1 diastolic dysfunction Patient will be continued with Lasix 20 mg daily (patient was on Lasix 23 times a week as needed for lower extremity edema) Diuretics dose is adjusted, will be discharged on with Lasix 20 mg daily Continue supplemental O2, nebulizer treatment, pulmonary toileting as outlined above, to prevent hypoxia, respiratory failure Patient's overall prognosis remains very poor Acute respiratory failure with hypercapnia and hypoxemia, POA Altered mental status and lethargy, metabolic encephalopathy Presented with acute on chronic hypoxemic respiratory failure mostly secondary to COPD exacerbation: Leading to CO2 retention/leading to lethargy/metabolic encephalopathy --History of advanced COPD with chronic heavy tobacco smoking(patient is a current smoker) Admitted with respiratory acidosis: pH 7.14/PCO2 85 Required mechanical ventilation/ICU admission --CT chest on 11/28/18 1. Pulmonary emphysema 2. No evidence of focal pulmonary consolidation 3. No evidence of pathologic adenopathy 4. Severe T11 and L1 vertebral body compression fractures, new when compared with the prior July [address] -Patient was-Extubated 12/01/2018 Ventricular tachycardia No further ventricular arrhythmia overnight, Possible secondary to hypoxia/respiratory failure Continue on beta-tiffanie Keep potassium above 4, magnesium above 2 to prevent cardiac arrhythmia Hypotension Possible Sepsis due to lower extremity cellulitis, POA Continue Lasix 20 mg daily Resolved: Blood pressure stable, continue on Lasix for volume overload, right h eart failure --Blood cultures: Negative Urine culture:Negative -- received Empiric Zosyn x 2 days, transitioned to Ceftriaxone IV Day 06/26 IV antibiotic discontinued With p.o. Zithromax by pulmonology for COPD Acute kidney injury on chronic kidney disease stage III. Secondary to above: Acute renal failure resolved, Creatinine improved to baseline 0.8 Continue Lasix 20 mg daily Renal functions will be monitored periodically Anemia(hemoglobin dropped to 6.6) possible GI Bleed ?? --Required 2 units of PRBC transfusion H&H stable at - -- Hemoccult positive stools in the ER, but there has been no signs of obvious bleeding. ( no black /tarry stool , no hematemesis ) Protonix twice daily GI consulted, no plans for EGD/Colonoscopy -given acute respiratory failure/no evidence of active GI bleed/stable H&H and hemodynamics Right popliteal DVT --INR > 5 Coumadin kept on hold coagulopathy possible due to poor nutrition Overall prognosis remains poor Moderate to Severe PAD -- Arterial Doppler US: 1. Decreased ankle brachial indices of the left lower extremity compatible with moderate to severe peripheral arterial disease. 2. Segmental pressures of the right lower extremity were not conducted secondary to deep venous thrombosis of the popliteal vein. 3. Elevated peak systolic velocities within the right profunda femoris vein are suggestive of luminal narrowing secondary to atherosclerotic vascular disease. --Patient input from vascular surgery, no intervention needed On aspirin, will be kept on hold for coagulopathy Transaminitis, most likely secondary to hypotension. --Normalized-possible secondary to sepsis, hypotension -AST : [id number] -[id number] ALT: [phone] CT abdomen pelvis: Unremarkable liver/spleen/pancreas Mild elevated troponin, demand ischemia: Likely secondary to hypotension/acute hypoxemic respiratory failure, hemodynamic instability present on admission -- 0.07, 0.07, 0.09 No evidence of ACS Echo: As outlined as above, normal LV function, no wall motion abnormality History of diastolic congestive heart failure, Updated echo as above Diuretics dose adjusted to Lasix 20 mg daily Patient is having more moist nonproductive cough with diffuse rales at base, ordered for extra 20 mg of IV Lasix, monitor clinically History of breast lesion a couple of years ago -- will need outpatient ff up Malnutrition. The patient is thin and frail. With failure to thrive Nutrition consult. Inquired with patient regarding her dietary intake Patient eats she usually has 2-3 meals per day, occasionally not eating because she does not feel hungry She is fully aware of importance of proper nutrition, and consequences of not eating well Poor hygiene On admission patient was found to be very disheveled, unkempt, lice infestation, right foot wound : No evidence of any wound care, Lives at home with daughter and grandkids Office of aging involved, social service following Patient states bathroom is in the second floor, and this makes it difficult for her to shower every day Patient is fully aware of importance of proper hygiene and consequences of not observing proper daily hygiene Lice infestation Secondary to lack of hygiene home Ordered for permethrin 5% cream treatment today, We will repeat treatment prior to discharge to skilled rehab Hypertension. Blood pressure stable, Resume beta-tiffanie, continue Lasix Tobacco abuse disorder, Smoking cessation counseling DVT prophylaxis INR elevated CODE STATUS: Full code Pressure wounds: stage II pressure ulcer on lower lumbar vision present on admission, Appreciate input from wound care, continue local wound care with clean with saline, cover with OptiForm, change every 3 days and as needed Change of position every 2 hours, encouraged patient to be out of bed to chair as much as possible PT OT evaluation appreciated, patient will need to skilled rehab Local wound care will be continued at rehab when patient is transferred when clinically stable Right toes/foot wound Noted to have erythematous/on right great toe, with serous drainage Appreciate input from wound care team: History of moderate peripheral artery disease, Dependent edema, blister formed secondary to volume overload, diastolic dysfunction Appreciate decreased from wound care Wound with saline, cover with OptiForm, Change dressing every other day more frequent if needed Keep limb elevated, waffle boots ordered for offloading of heels/prevent further pressure wounds Disposition: PT/OT evaluation recommending intermediate facility Patient's overall prognosis remains very poor, unable to get transferred out of bed for severe deconditioning Palliative care hospice would be appropriate Patient is still not receptive far hospice care will continue to discuss options manager gift on board, 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-for concern for poor care /hygiene issues and failure to thrive at home Subjective Cough and a little bit improved today, no fever or chills Continues to be very short of breath with minimum movement Not been out of bed to chair yet No fever or chills Physical Exam Constitutional: + ill appearing and + thin; no acute distress Eyes: PERRL, conjunctivae normal, anicteric sclerae ENMT: external ear and nose normal, oropharynx normal Neck: trachea midline, no thyromegaly Respiratory: + cough (Nonproductive), able to speak in complete sentences and + prolonged expiratory phase; no respiratory distress Auscultation: + crackles, + rales, + rhonchi and + wheezes Cardiovascular: Rate/Rhythm: regular rate, regular rhythm and + tachycardic Gastrointestinal (Abdomen): Inspection/Auscultation: normal bowel sounds Percussion/Palpation: abdomen soft; abdomen nontender and no guarding Skin: + wound Neurologic: PERRL, EOMI, accommodation nl, no face palsy, no dysarthria Psychiatric: A+Ox3, euthymic affect Results & Data Vital Signs (Past 12 Hours) Vital Signs Temp Pulse Pulse Resp BP Pulse Ox 12/10/18 11:47 37.1 C 100 H 18 100/65 98 12/10/18 09:00 98 H 12/10/18 08:02 36.8 C 96 H 18 107/64 83 L 12/10/18 07:31 94 H 18 91 12/10/18 05:00 36.8 C 95 H 18 131/79 95 12/10/18 04:00 36.8 C 95 H 18 131/79 95
[2018-12-11 06:40] LABS: INR 4.5 (0.9-1.1); Prothrombin Time 41.1 Seconds (9.0-12.0)
[2018-12-11] MEDS: ARFORMOTEROL TART 15MCG/2ML VIAL INH SCH ×2 (06:56→19:22)
[2018-12-11] MEDS: BUDESONIDE 0.5 MG/2 ML VIAL (PULMICORT) INH SCH ×2 (06:56→19:22)
[2018-12-11] MEDS: ACETAMINOPHEN 325 MG TAB PO PRN (09:00)
[2018-12-11] MEDS: METOPROLOL SUCC 50MG EXT REL TAB PO SCH (09:06)
[2018-12-11] MEDS: PANTOprazole 40 MG TAB PO SCH ×2 (09:06→21:32)
[2018-12-11] MEDS: guaiFENesin 600 MG TABCR PO SCH ×2 (09:06→21:32)
[2018-12-11] MEDS: FOLIC ACID 1 MG TAB PO SCH (09:07)
[2018-12-11] MEDS: FUROSEMIDE 20 MG TAB PO SCH (09:07)
[2018-12-11] MEDS: LIDOCAINE 5% 1 PATCH TD SCH (13:37)
--- NOTE | 2018-12-11 20:41 | Hospitalist Progress Note ---
Date of Service December 11, 2018 Assessment & Plan (1) Acute respiratory failure with hypercapnia: Acute respiratory failure Secondary to take mucous plugging, bronchiectasis Appreciate input from pulmonology, recommends aggressive bile pulmonary toilet to prevent mucous plugging Mucomyst nebulizer treatment was discontinued for bronchospasm Recommends continue nasotracheal suctioning if needed for respiratory distress Patient needs to be out of bed and chair as much as possible Acute respiratory failure with left lower lung collapse secondary to mucous plugging on left main bronchus Developed acute respiratory distress with hypoxia tachypnea tachycardia-was transferred to ICU chest x-ray on 12/05/2018: Showed collapse of left lower lobe possible secondary to mucous plug Status post bronchoscopy on 12/06/2018 with suction of mucous plug occluding left main bronchus Patient's respiratory status dramatically improved post bronchoscopy/removal of mucous plug, Continue aggressive pulmonary toileting/flutter valve, deep suctioning, nebulizer treatment Suction as needed for development of thick mucus secretion/cough Left lower lung collapse Secondary to occluded mucous plug, blocking left main bronchus, status post bronc with resolution of lung collapse Chest x-ray 12/05/2018: Interval development(compared to study 12/02/2018) Evidence of left lung volume loss with left lower lobe collapse leading to cardi ac and mediastinal shift to the left Pulmonary hypertension/with right heart failure/cor pulmonale Presented with volume overload, with lower extremity dependent edema Symptom improved with IV Lasix Echo shows: Pulmonary hypertension with PASP of 46mm Hg Right ventricular reduced systolic function Mild tricuspid regurgitation, Normal LV chamber size and wall thickness, hyperdynamic LV systolic function: EF>70% No segmental left ventricular wall motion abnormalities noted, grade 1 diastolic dysfunction Patient will be continued with Lasix 20 mg daily (patient was on Lasix 23 times a week as needed for lower extremity edema) Diuretics dose is adjusted, will be discharged on with Lasix 20 mg daily Continue supplemental O2, nebulizer treatment, pulmonary toileting as outlined above, to prevent hypoxia, respiratory failure Patient's overall prognosis remains very poor Acute respiratory failure with hypercapnia and hypoxemia, POA Altered mental status and lethargy, metabolic encephalopathy Presented with acute on chronic hypoxemic respiratory failure mostly secondary to COPD exacerbation: Leading to CO2 retention/leading to lethargy/metabolic encephalopathy --History of advanced COPD with chronic heavy tobacco smoking(patient is a current smoker) Admitted with respiratory acidosis: pH 7.14/PCO2 85 Required mechanical ventilation/ICU admission --CT chest on 11/28/18 1. Pulmonary emphysema 2. No evidence of focal pulmonary consolidation 3. No evidence of pathologic adenopathy 4. Severe T11 and L1 vertebral body compression fractures, new when compared with the prior July [address] -Patient was-Extubated 12/01/2018 Ventricular tachycardia No further ventricular arrhythmia overnight, Possible secondary to hypoxia/respiratory failure Continue on beta-tiffanie Keep potassium above 4, magnesium above 2 to prevent cardiac arrhythmia Hypotension Possible Sepsis due to lower extremity cellulitis, POA Continue Lasix 20 mg daily Resolved: Blood pressure stable, continue on Lasix for volume overload, right h eart failure --Blood cultures: Negative Urine culture:Negative -- received Empiric Zosyn x 2 days, transitioned to Ceftriaxone IV Day 06/26 IV antibiotic discontinued With p.o. Zithromax by pulmonology for COPD Acute kidney injury on chronic kidney disease stage III. Secondary to above: Acute renal failure resolved, Creatinine improved to baseline 0.8 Continue Lasix 20 mg daily Renal functions will be monitored periodically Anemia(hemoglobin dropped to 6.6) possible GI Bleed ?? --Required 2 units of PRBC transfusion H&H stable at - -- Hemoccult positive stools in the ER, but there has been no signs of obvious bleeding. ( no black /tarry stool , no hematemesis ) Protonix twice daily GI consulted, no plans for EGD/Colonoscopy -given acute respiratory failure/no evidence of active GI bleed/stable H&H and hemodynamics Right popliteal DVT --INR > 5 Coumadin kept on hold coagulopathy possible due to poor nutrition Overall prognosis remains poor Moderate to Severe PAD -- Arterial Doppler US: 1. Decreased ankle brachial indices of the left lower extremity compatible with moderate to severe peripheral arterial disease. 2. Segmental pressures of the right lower extremity were not conducted secondary to deep venous thrombosis of the popliteal vein. 3. Elevated peak systolic velocities within the right profunda femoris vein are suggestive of luminal narrowing secondary to atherosclerotic vascular disease. --Patient input from vascular surgery, no intervention needed On aspirin, will be kept on hold for coagulopathy Transaminitis, most likely secondary to hypotension. --Normalized-possible secondary to sepsis, hypotension -AST : [id number] -[id number] ALT: [phone] CT abdomen pelvis: Unremarkable liver/spleen/pancreas Mild elevated troponin, demand ischemia: Likely secondary to hypotension/acute hypoxemic respiratory failure, hemodynamic instability present on admission -- 0.07, 0.07, 0.09 No evidence of ACS Echo: As outlined as above, normal LV function, no wall motion abnormality History of diastolic congestive heart failure, Updated echo as above Diuretics dose adjusted to Lasix 20 mg daily Patient is having more moist nonproductive cough with diffuse rales at base, ordered for extra 20 mg of IV Lasix, monitor clinically History of breast lesion a couple of years ago -- will need outpatient ff up Malnutrition. The patient is thin and frail. With failure to thrive Nutrition consult. Inquired with patient regarding her dietary intake Patient eats she usually has 2-3 meals per day, occasionally not eating because she does not feel hungry She is fully aware of importance of proper nutrition, and consequences of not eating well Poor hygiene On admission patient was found to be very disheveled, unkempt, lice infestation, right foot wound : No evidence of any wound care, Lives at home with daughter and grandkids Office of aging involved, social service following Patient states bathroom is in the second floor, and this makes it difficult for her to shower every day Patient is fully aware of importance of proper hygiene and consequences of not observing proper daily hygiene Lice infestation Secondary to lack of hygiene home Ordered for permethrin 5% cream treatment today, We will repeat treatment prior to discharge to skilled rehab Hypertension. Blood pressure stable, Resume beta-tiffanie, continue Lasix Tobacco abuse disorder, Smoking cessation counseling DVT prophylaxis INR elevated CODE STATUS: Full code Pressure wounds: stage II pressure ulcer on lower lumbar vision present on admission, Appreciate input from wound care, continue local wound care with clean with saline, cover with OptiForm, change every 3 days and as needed Change of position every 2 hours, encouraged patient to be out of bed to chair as much as possible PT OT evaluation appreciated, patient will need to skilled rehab Local wound care will be continued at rehab when patient is transferred when clinically stable Right toes/foot wound Noted to have erythematous/on right great toe, with serous drainage Appreciate input from wound care team: History of moderate peripheral artery disease, Dependent edema, blister formed secondary to volume overload, diastolic dysfunction Appreciate decreased from wound care Wound with saline, cover with OptiForm, Change dressing every other day more frequent if needed Keep limb elevated, waffle boots ordered for offloading of heels/prevent further pressure wounds Disposition: PT/OT evaluation recommending [facility] Patient's overall prognosis remains very poor, unable to get transferred out of bed for severe deconditioning Palliative care hospice would be appropriate Patient is still not receptive far hospice care will continue to discuss options sourcing manager on 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, 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-for concern for poor care /hygiene issues and failure to thrive at home Subjective respiratory status remains unchanged very poor prognosis D/w Pulmonology pt is at end stage respiratory failure with limited life expectancy hospice /palliative care would be appropriate Physical Exam Constitutional: + ill appearing and + thin; no acute distress Eyes: PERRL, conjunctivae normal, anicteric sclerae ENMT: external ear and nose normal, oropharynx normal Neck: trachea midline, no thyromegaly Respiratory: + cough (Nonproductive), able to speak in complete sentences and + prolonged expiratory phase; no respiratory distress Auscultation: + crackles, + rales, + rhonchi and + wheezes Cardiovascular: Rate/Rhythm: regular rate, regular rhythm and + tachycardic Gastrointestinal (Abdomen): Inspection/Auscultation: normal bowel sounds Percussion/Palpation: abdomen soft; abdomen nontender and no guarding Skin: + wound Neurologic: PERRL, EOMI, accommodation nl, no face palsy, no dysarthria Psychiatric: A+Ox3, euthymic affect Results & Data Vital Signs (Past 12 Hours) Vital Signs Temp Pulse Pulse Resp BP Pulse Ox 12/11/18 19:55 36.9 C 98 H 26 H 108/70 94 12/11/18 16:09 91 H 12/11/18 11:59 36.7 C 86 19 128/82 91
[2018-12-12] MEDS: ARFORMOTEROL TART 15MCG/2ML VIAL INH SCH (07:04)
[2018-12-12] MEDS: BUDESONIDE 0.5 MG/2 ML VIAL (PULMICORT) INH SCH (07:04)
[2018-12-12] MEDS: FOLIC ACID 1 MG TAB PO SCH (07:50)
[2018-12-12] MEDS: FUROSEMIDE 20 MG TAB PO SCH (07:50)
[2018-12-12] MEDS: guaiFENesin 600 MG TABCR PO SCH ×2 (07:50→20:43)
[2018-12-12] MEDS: METOPROLOL SUCC 50MG EXT REL TAB PO SCH (07:50)
[2018-12-12] MEDS: PANTOprazole 40 MG TAB PO SCH ×2 (07:51→20:43)
[2018-12-12 08:44] LABS: INR 2.5 (0.9-1.1); Prothrombin Time 24.4 Seconds (9.0-12.0)
[2018-12-12 08:54] LABS: Anisocytosis Present; Basophils # (auto) 0.04 K/uL (0-0.2); Basophils % (auto) 0.2 %; Eosinophils # (auto) 0.22 K/uL (0-0.5); Eosinophils % (auto) 1.2 %; Hematocrit (blood only) 33.9 % (37-47); Hemoglobin 9.8 g/dL (12.0-16.0); Hypochromasia Present; Immature Granulocytes # (auto) 0.05 K/uL (0.00-0.02); Immature Granulocytes % (auto) 0.3 %; Lymphocytes # (auto) 0.56 K/uL (1.2-3.4); Lymphocytes % (auto) 3.2 %; Mean Corpuscular Hemoglobin 26.6 pg (25-34); Mean Corpuscular Hgb Conc 28.9 g/dL (32-36); Mean Corpuscular Volume 92.1 fL (80-100); Mean Platelet Volume 10.6 fL (7.4-10.4); Monocytes # (auto) 1.14 K/uL (0.11-0.59); Monocytes % (auto) 6.4 %; Neutrophils % (auto) 88.7 %; Platelet Count 344 K/uL (130-400); RDW Coefficient of Variation 20.1 % (11.5-14.5); RDW Standard Deviation 66.7 fL (36.4-46.3); Red Blood Count 3.68 M/uL (4.2-5.4); White Blood Count 17.71 K/uL (4.8-10.8)
[2018-12-12 08:58] LABS: BUN Creatinine Ratio 25.1 (10-20); Calcium 9.4 mg/dl (8.5-10.1); Creatinine Clr Calc Pharmacy 77.6 ml/min; Est GFR (African American) 119.3
[2018-12-12] MEDS: LIDOCAINE 5% 1 PATCH TD SCH (09:28)
--- NOTE | 2018-12-12 13:15 | Palliative Care Consultation ---
Date of Consultation December 12, 2018 Assessment & Plan (1) Palliative care encounter: This is an unfortunate 63 year old female who presented to the [facility] from home with increased lethargy, decreased mobilization and having not eaten in 3 days. Additional PMH includes: COPD, L pulmonary nodule, LVH, microvascular disease, Rheumatoid arthritis, OA and pHTN. This patient has had an extensive inpatient hospital stay since November 27 and has had extensive respiratory decline that required intubation, now she is extubated; however, has had mucus plugging and has required nasal suctioning extensively. The patient lives with her daughter, Vickie, at home with her grandchildren and per discussion with staff, the patient was disheveled, unkempt and had lice infestation on admission. The Office on Aging is involved regarding her discharge plans. Palliative Care was consulted to discuss goals of care. -I met with the patient in room 258-1. The patient was sitting upright in her bed, leaning forward, "picking at her lunch" -She is AAOx3 and able to converse; however, became short of breath mid conversation numerous times. -The patient overall, was guarded during my visit, with minimal discussion. -I did ask her to explain to me her illness this hospitalization and she just said "I just wish I could figure out what caused this" I talked about COPD and how exacerbations occur, but she had little to no response. -I brought up code status with her and she just said "I dont know what I want to do about that". -I asked if she had a legal POA, and she does not, but when I asked who should appoint her decision maker if she was unable, she appointed her daughter, Vickie whom she lives with ([phone]). I offered for service excellence to complete a decision maker form during this hospital stay and she declined. -She did say that she would want to come back to the hospital, but would not want a feeding tube. She also did not want to complete a POLST form at this time. -For now, continue full treatment. -From a discharge standpoint, I think that [facility] would be too rigorous for this patient. I think a SNF for rehab and either transition permanently or back home (if OOA clears) would be best. The patient will require trilogy and does want to continue trilogy on discharge. -I did phone Vickie to discuss above (as cleared by the patient) but she has a VM that has not been set up yet, no option to leave a VM. -I discussed above with Case management, Marisel GARCIA who will work towards submitting referrals for SNF placement. Per CM, OOA states the patient can not return back to her daughters home. -Should the patient decline further, would continue to move forward with additional goals of care conversation. -PPS: 30% (2) Hypoxemic respiratory failure, chronic: (3) MOF (multiple organ failure): (4) Rheumatoid arthritis: History of Present Illness Reason for Consultation: Goals of care Requesting Physician: Dr. Ornelas Attending Physician: Sridhar Rothman MD History of Present Illness This is an unfortunate 63 year old female who presented to the [facility] from home with increased lethargy, decreased mobilization and having not eaten in 3 days. Additional PMH includes: COPD, L pulmonary nodule, LVH, microvascular disease, Rheumatoid arthritis, OA and pHTN. This patient has had an extensive inpatient hospital stay since November 27 and has had extensive respiratory decline that required intubation, now she is extubated; however, has had mucus plugging and has required nasal suctioning extensively. The patient lives with her daughter, Vickie, at home with her grandchildren and per discussion with staff, the patient was disheveled, unkempt and had lice infestation on admission. The Office on Aging is involved regarding her discharge plans. Palliative Care was consulted to discuss goals of care. Please see Assessment and plan portion for further details. Thank you kindly for involving our team to assist with decision making. We will follow throughout the hospitalization. Allergies Allergy/AdvReac Type Severity Reaction Status Date / Time Pork/Porcine Containing Allergy Intermediate Hives Verified 11/27/18 20:32 Products Home Medications Home Medications Medication Instructions Recorded Confirmed Type aspirin 81 mg PO DAILY 11/27/18 11/27/18 History diphenhydramine HCl [Benadryl 25 mg PO HS PRN 11/27/18 11/27/18 History Allergy] doxycycline hyclate 100 mg PO BID PRN 11/27/18 11/27/18 History fluticasone propion-salmeterol 2 puff INHALATION BID 11/27/18 11/27/18 History [Advair HFA] furosemide See Rx Instructions .ROUTE 11/27/18 11/27/18 History .COMPLEX PRN ipratropium bromide See Rx Instructions .ROUTE .COMPLEX 11/27/18 11/27/18 History levalbuterol tartrate 2 puff INHALATION Q4H PRN 11/27/18 11/27/18 History metoprolol succinate 50 mg PO DAILY 11/27/18 11/27/18 History naproxen sodium 440 mg PO QPM 11/27/18 11/27/18 History prednisone See Rx Instructions .ROUTE 11/27/18 11/27/18 History .COMPLEX PRN Patient History Medical History Anemia (Acute) Rheumatoid arthritis (Chronic) "chronic steroid use" Emphysema of lung (Chronic) Paroxysmal a-fib (Chronic) Tobacco abuse (Chronic) Hypoxia History of Clostridium difficile colitis (Chronic) Osteoarthritis (Chronic) Surgical History [place] teeth extracted (Resolved) Family History Other Cancer FHx: gallbladder disease Heart disease Kidney disease Social History Communication Ability: Unable Beliefs That Will Affect Care: None Current Living Situation: Family Other Information That Helps Us Care for You: No Feels Safe at Home: Yes Smoking Status: Current every day smoker Tobacco Type: cigarettes ; Cigarettes Per Day: 20 ; Hx Alcohol Use: No Hx Substance Use: No Review of Systems Review of Systems: All systems reviewed & are unremarkable except as noted in HPI & below Physical Exam Constitutional: + thin, + cachectic, + disheveled and comfortable Eyes: PERRL, conjunctivae normal, anicteric sclerae ENMT: external ear and nose normal, oropharynx normal Neck: trachea midline, no thyromegaly Respiratory: + pursed lip breathing (with talking) and + tripod positioning Auscultation: + diminished lung sounds and + rhonchi kyphosis Cardiovascular: Rate/Rhythm: + tachycardic (110) Heart Sounds: normal S1, normal S2 and + murmur Extremities: normal capillary refill Gastrointestinal (Abdomen): normal bowel sounds, soft, nontender, no hepatosplenomegaly Skin: normal turgor, + crusts and + dry skin Psychiatric: Orientation: alert and oriented x 3 Affect: + flat affect Insight: + poor insight Judgement: + limited judgement Results & Data Vital Signs (Past 12 Hours) Vital Signs Temp Pulse Resp BP BP Pulse Ox 12/12/18 11:01 36.5 C 91 H 18 107/64 98 12/12/18 07:08 36.4 C L 92 H 18 122/79 100 12/12/18 04:28 36.6 C 92 H 20 144/80 H 100 PG Care Time/CCT Total # of Minutes Spent Total Time Spent with Patient: Total time spent is greater than 50% in coordination of care (as documented) at patient's floor/unit and/or counseling patient: 70 Time Spent Midlevel Total time spent 70 minutes with > 50% of that time spent assessing the patient, discussing goals of care and contacting family members
--- NOTE | 2018-12-12 14:15 | Hospitalist Progress Note ---
Date of Service December 12, 2018 Assessment & Plan (1) Acute respiratory failure with hypercapnia: Acute respiratory failure, multifactorial: Atelectasis from mucus plugging - continue Nebs, Brovana, Pulmicort, Add mucomyst Mild Volume Overload - appears euvolemic, continue Lasix COPD, Advanced - management per #1 - per Pulmonary: would benefit from a noninvasive ventilator such as trilogy. Due to the patient's severe COPD and patient's chronic respiratory failure, she requires a noninvasive ventilator to decrease her carbon dioxide and prevent future hospitalizations. Without this device the patient is at risk for harm or even . Pulmonary hypertension/with right heart failure/cor pulmonale per Dr. Ornelas notes: Presented with volume overload, with lower extremity dependent edema Symptom improved with IV Lasix Echo shows: Pulmonary hypertension with PASP of 46mm Hg Right ventricular reduced systolic function Mild tricuspid regurgitation, Normal LV chamber size and wall thickness, hyperdynamic LV systolic function: EF>70% No segmental left ventricular wall motion abnormalities noted, grade 1 diastolic dysfunction Patient will be continued with Lasix 20 mg daily Continue supplemental O2, nebulizer treatment, pulmonary toileting as outlined above, to prevent hypoxia, respiratory failure Patient's overall prognosis remains very poor Acute respiratory failure with hypercapnia and hypoxemia, POA Altered mental status and lethargy, metabolic encephalopathy per Dr. Ornelas notes Presented with acute on chronic hypoxemic respiratory failure mostly secondary to COPD exacerbation: Leading to CO2 retention/leading to lethargy/metabolic encephalopathy --History of advanced COPD with chronic heavy tobacco smoking(patient is a current smoker) Admitted with respiratory acidosis: pH 7.14/PCO2 85 Required mechanical ventilation/ICU admission --CT chest on 11/28/18 1. Pulmonary emphysema 2. No evidence of focal pulmonary consolidation 3. No evidence of pathologic adenopathy 4. Severe T11 and L1 vertebral body compression fractures, new when compared with the prior July [address] -Patient was-Extubated 12/01/2018 Ventricular tachycardia No recurrence Possible secondary to hypoxia/respiratory failure Continue on beta-tiffanie Keep potassium above 4, magnesium above 2 to prevent cardiac arrhythmia Hypotension Possible Sepsis due to lower extremity cellulitis, POA Resolved: Blood pressure stable, continue on Lasix for volume overload, right heart failure --Blood cultures: Negative Urine culture:Negative -- received Empiric Zosyn x 2 days, transitioned to Ceftriaxone IV was also given p.o. Zithromax by pulmonology for COPD Acute kidney injury on chronic kidney disease stage III. Secondary to above: Acute renal failure resolved, Creatinine improved to baseline 0.8 Continue Lasix 20 mg daily Anemia(hemoglobin dropped to 6.6) possible GI Bleed --Required 2 units of PRBC transfusion H&H stable at -- Hemoccult positive stools in the ER, but there has been no signs of obvious bleeding. ( no black /tarry stool , no hematemesis ) Protonix twice daily GI consulted, no plans for EGD/Colonoscopy -given acute respiratory failure/no evidence of active GI bleed/stable H&H and hemodynamics Right popliteal DVT --INR 2.5 resume coumadin INR daily Moderate to Severe PAD -- Arterial Doppler US: 1. Decreased ankle brachial indices of the left lower extremity compatible with moderate to severe peripheral arterial disease. 2. Segmental pressures of the right lower extremity were not conducted secondary to deep venous thrombosis of the popliteal vein. 3. Elevated peak systolic velocities within the right profunda femoris vein are suggestive of luminal narrowing secondary to atherosclerotic vascular disease. --Patient input from vascular surgery, no intervention needed --On aspirin, will be kept on hold for coagulopathy Transaminitis, most likely secondary to hypotension. --Normalized-possible secondary to sepsis, hypotension -AST : [id number] ALT: [phone] CT abdomen pelvis: Unremarkable liver/spleen/pancreas Mild elevated troponin, demand ischemia: Likely secondary to hypotension/acute hypoxemic respiratory failure, hemodynamic instability present on admission -- 0.07, 0.07, 0.09 No evidence of ACS Echo: As outlined as above, normal LV function, no wall motion abnormality History of diastolic congestive heart failure, Updated echo as above Diuretics dose adjusted to Lasix 20 mg daily History of breast lesion a couple of years ago -- will need outpatient ff up Malnutrition. The patient is thin and frail. With failure to thrive Nutrition consult. Inquired with patient regarding her dietary intake Patient eats she usually has 2-3 meals per day, occasionally not eating because she does not feel hungry She is fully aware of importance of proper nutrition, and consequences of not eating well Poor hygiene On admission patient was found to be very disheveled, unkempt, lice infestation, right foot wound : No evidence of any wound care, Lives at home with daughter and grandkids Office of aging involved, social service following Patient states bathroom is in the second floor, and this makes it difficult for her to shower every day Patient is fully aware of importance of proper hygiene and consequences of not observing proper daily hygiene Lice infestation Secondary to lack of hygiene home Ordered for permethrin 5% cream treatment We will repeat treatment prior to discharge to skilled rehab Hypertension. Blood pressure stable, Resume beta-tiffanie, continue Lasix Tobacco abuse disorder, Smoking cessation counseling Pressure wounds: per Dr. Ornelas notes stage II pressure ulcer on lower lumbar vision present on admission, Appreciate input from wound care, continue local wound care with clean with saline, cover with OptiForm, change every 3 days and as needed Change of position every 2 hours, encouraged patient to be out of bed to chair as much as possible PT OT evaluation appreciated, patient will need to skilled rehab Local wound care will be continued at rehab when patient is transferred when clinically stable Right toes/foot wound Noted to have erythematous/on right great toe, with serous drainage Appreciate input from wound care team: History of moderate peripheral artery disease, Dependent edema, blister formed secondary to volume overload, diastolic dysfunction Appreciate decreased from wound care Wound with saline, cover with OptiForm, Change dressing every other day more frequent if needed Keep limb elevated, waffle boots ordered for offloading of heels/prevent further pressure wounds DVT prophylaxis INR 2.5 on coumadin CODE STATUS: Full code Disposition: PT/OT evaluation recommending long-term facility Patient's overall prognosis remains very poor, unable to get transferred out of bed for severe deconditioning Palliative care hospice would be appropriate Patient is still not receptive far hospice care will continue to discuss options fountain manager on 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, 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-for concern for poor care /hygiene issues and failure to thrive at home Subjective ff up for respiratory failure seen resting in bed, comfortable, still on 5 L o2 via NC states she feels about the same as yesterday, denies active dyspnea while on 5 L states she has intermittent cough, cannot expectorate denies chest pain no leg pain denies bleeding no other symptoms Review of Systems Review of Systems: All systems reviewed & are unremarkable except as noted in HPI & below Physical Exam Physical Exam: General- oriented x 3, not in distress, speaks in sentences with minimal effort , no accessory muscle use Head- atraumatic Eyes- PERRL, EOMI, anicteric ENT- oropharynx clear Neck- supple, no JVD, no adenopathy, no thyromegaly; carotids +2/2, no bruits appreciated Lungs- diminished breath sounds bilaterally no wheezing/rales Heart- normal rate, regular rhythm; no murmur, no gallop, no rub appreciated Abdomen- normal bowel sounds, nondistended, soft, nontender, no masses or he patosplenomegaly Extremities- mild pedal edema, no calf tenderness; peripheral pulses intact Neuro- alert, oriented x 3; CN 2-12 grossly intact; motor 5/5 bilaterally;sensation 100% on all extremities; no other gross focal neurologic deficits Skin- warm & dry Results & Data Vital Signs (Past 12 Hours) Vital Signs Temp Pulse Resp BP BP Pulse Ox 12/12/18 11:01 36.5 C 91 H 18 107/64 98 12/12/18 07:08 36.4 C L 92 H 18 122/79 100 12/12/18 04:28 36.6 C 92 H 20 144/80 H 100 Laboratory Results Laboratory Results - last 24 hr 12/12/18 12/12/18 12/12/18 08:15 08:16 08:16 WBC 17.71 H RBC 3.68 L Hgb 9.8 L Hct 33.9 L MCV 92.1 MCH 26.6 MCHC 28.9 L RDW Std Deviation 66.7 H RDW Coeff of Melecio 20.1 H Plt Count 344 MPV 10.6 H Immature Gran % (Auto) 0.3 Neut % (Auto) 88.7 Lymph % (Auto) 3.2 [place] % (Auto) 6.4 Eos % (Auto) 1.2 Baso % (Auto) 0.2 Immature Gran # (Auto) 0.05 H Neut # (Auto) 15.70 H Lymph # (Auto) 0.56 L [place] # (Auto) 1.14 H Eos # (Auto) 0.22 Baso # (Auto) 0.04 Hypochromasia Present Anisocytosis Present PT 24.4 H INR 2.5 H Sodium 140 Potassium 4.0 Chloride 99 Carbon Dioxide 40 H Anion Gap 1.0 L BUN 12 Creatinine 0.49 L Est Cr Clr Drug Dosing 77.6 Est GFR ( Amer) 119.3 Est GFR (Non-Af Amer) 103.0 BUN/Creatinine Ratio 25.1 H Glucose 90 Calcium 9.4
[2018-12-12] MEDS: WARFARIN SOD 2 MG TAB PO SCH (15:45)
[2018-12-12] MEDS ORDERED: LEVALBUTEROL HCL 0.63 MG/3 ML NEB NEB SCH (19:00)
[2018-12-12] MEDS ORDERED: IPRATROPIUM BROMIDE NEB SOLN 0.02% 2.5 ML VIAL INH SCH (19:00)
[2018-12-12] MEDS ORDERED: ACETYLCYSTEINE 10% INHAL SOLN 4 ML **DISPENSED BY RESP. INH SCH (19:00)
[2018-12-12] MEDS ORDERED: XOPENEX/ATROVENT 0.63mg/0.5MG NEB COMBO NEB SCH (19:00)
[2018-12-12] MEDS: BUDESONIDE/FORMOTEROL FUMARATE 80/4.5 60 PUFFS/INHALER INH SCH (21:26)
[2018-12-13 06:45] LABS: INR 3.8 (0.9-1.1); Prothrombin Time 35.8 Seconds (9.0-12.0)
[2018-12-13] MEDS: METOPROLOL SUCC 50MG EXT REL TAB PO SCH (07:36)
[2018-12-13] MEDS: LIDOCAINE 5% 1 PATCH TD SCH (07:36)
[2018-12-13] MEDS: FUROSEMIDE 20 MG TAB PO SCH (07:37)
[2018-12-13] MEDS: guaiFENesin 600 MG TABCR PO SCH ×2 (07:37→20:55)
[2018-12-13] MEDS: PANTOprazole 40 MG TAB PO SCH ×2 (07:37→20:56)
[2018-12-13] MEDS: BUDESONIDE/FORMOTEROL FUMARATE 80/4.5 60 PUFFS/INHALER INH SCH ×2 (07:37→20:57)
[2018-12-13] MEDS: FOLIC ACID 1 MG TAB PO SCH (07:37)
--- NOTE | 2018-12-13 15:30 | Palliative Care Progress Note ---
Date of Service December 13, 2018 Assessment & Plan (1) Palliative care encounter: -Patient has very flat affect. Wound only answer with one or two words. Would not open eyes or make eye contact with me. Conversation was short and limited. -Patient at first did not recall meeting with palliative care, but then remembered once I explained further. -Patient is not interested in discussed code status or goals of care at this time. Again, her affect is quite flat. I asked what her goal is after hospitalization and she said, "I don't know right now." -Her VS are stable, but overall condition is not much improved. She told OT that she was too tired to work with them today. -Case management following for discharge planning. -Palliative care will follow throughout hospitalization, but patient has not been interested in discussing with us. (2) Hypoxemic respiratory failure, chronic: (3) MOF (multiple organ failure): (4) Rheumatoid arthritis: Subjective Patient has very flat affect. Wound only answer with one or two words. Would not open eyes or make eye contact with me. Conversation was short and limited. Review of Systems Review of Systems: Denies pain, chest pain, N/V, abd pain. C/o SOB with exertion. Physical Exam Constitutional: + thin and + cachectic ENMT: external ear and nose normal, oropharynx normal Respiratory: Auscultation: + diminished lung sounds and + rhonchi Cardiovascular: Heart Sounds: normal S1, normal S2 and + murmur Gastrointestinal (Abdomen): normal bowel sounds, soft, nontender, no hepatosplenomegaly Psychiatric: Orientation: oriented x 3 Affect: + flat affect Results & Data Vital Signs (Past 12 Hours) Vital Signs Temp Pulse Resp BP BP Pulse Ox 12/13/18 15:05 36.8 C 88 20 131/76 100 12/13/18 11:03 36.8 C 93 H 20 119/73 99 12/13/18 07:12 36.7 C 88 20 115/74 100 12/13/18 04:00 36.7 C 79 20 122/70 98 Time Spent Midlevel 25 minutes with >50% of the time spent at bedside with patient discussing condition and GOC.
--- NOTE | 2018-12-13 21:09 | Hospitalist Progress Note ---
Date of Service December 13, 2018 Assessment & Plan (1) Acute respiratory failure with hypercapnia: Acute respiratory failure, multifactorial: Atelectasis from mucus plugging - continue Symbicort (patient not tolerating nebs, mucomyst) Mild Volume Overload - appears euvolemic, continue Lasix COPD, Advanced - management per #1 - per Pulmonary: would benefit from a noninvasive ventilator such as trilogy. Due to the patient's severe COPD and patient's chronic respiratory failure, she requires a noninvasive ventilator to decrease her carbon dioxide and prevent future hospitalizations. Without this device the patient is at risk for harm or even . Pulmonary hypertension/with right heart failure/cor pulmonale per Dr. Ornelas notes: Presented with volume overload, with lower extremity dependent edema Symptom improved with IV Lasix Echo shows: Pulmonary hypertension with PASP of 46mm Hg Right ventricular reduced systolic function Mild tricuspid regurgitation, Normal LV chamber size and wall thickness, hyperdynamic LV systolic function: EF>70% No segmental left ventricular wall motion abnormalities noted, grade 1 diastolic dysfunction appears euvolemic today Patient will be continued with Lasix 20 mg daily Continue supplemental O2, nebulizer treatment, pulmonary toileting as outlined above, to prevent hypoxia, respiratory failure Patient's overall prognosis remains very poor Acute respiratory failure with hypercapnia and hypoxemia, POA Altered mental status and lethargy, metabolic encephalopathy per Dr. Ornelas notes Presented with acute on chronic hypoxemic respiratory failure mostly secondary to COPD exacerbation: Leading to CO2 retention/leading to lethargy/metabolic encephalopathy --History of advanced COPD with chronic heavy tobacco smoking(patient is a current smoker) Admitted with respiratory acidosis: pH 7.14/PCO2 85 Required mechanical ventilation/ICU admission --CT chest on 11/28/18 1. Pulmonary emphysema 2. No evidence of focal pulmonary consolidation 3. No evidence of pathologic adenopathy 4. Severe T11 and L1 vertebral body compression fractures, new when compared with the prior July [address] -Patient was-Extubated 12/01/2018 Ventricular tachycardia No recurrence Possible secondary to hypoxia/respiratory failure Continue on beta-tiffanie Keep potassium above 4, magnesium above 2 to prevent cardiac arrhythmia Hypotension Possible Sepsis due to lower extremity cellulitis, POA Resolved: Blood pressure stable, continue on Lasix for volume overload, right heart failure --Blood cultures: Negative Urine culture:Negative -- received Empiric Zosyn x 2 days, transitioned to Ceftriaxone IV was also given p.o. Zithromax by pulmonology for COPD Acute kidney injury on chronic kidney disease stage III. Secondary to above: Acute renal failure resolved, Creatinine improved to baseline 0.8 Continue Lasix 20 mg daily Anemia(hemoglobin dropped to 6.6) possible GI Bleed --Required 2 units of PRBC transfusion H&H stable at -- Hemoccult positive stools in the ER, but there has been no signs of obvious bleeding. ( no black /tarry stool , no hematemesis ) Protonix twice daily GI consulted, no plans for EGD/Colonoscopy -given acute respiratory failure/no evidence of active GI bleed/stable H&H and hemodynamics Right popliteal DVT --INR 3.8 HOLD coumadin INR daily Moderate to Severe PAD -- Arterial Doppler US: 1. Decreased ankle brachial indices of the left lower extremity compatible with moderate to severe peripheral arterial disease. 2. Segmental pressures of the right lower extremity were not conducted secondary to deep venous thrombosis of the popliteal vein. 3. Elevated peak systolic velocities within the right profunda femoris vein are suggestive of luminal narrowing secondary to atherosclerotic vascular disease. --Patient input from vascular surgery, no intervention needed --On aspirin, will be kept on hold for coagulopathy Transaminitis, most likely secondary to hypotension. --Normalized-possible secondary to sepsis, hypotension -AST : [id number] -[id number] ALT: [phone] CT abdomen pelvis: Unremarkable liver/spleen/pancreas Mild elevated troponin, demand ischemia: Likely secondary to hypotension/acute hypoxemic respiratory failure, hemodynamic instability present on admission -- 0.07, 0.07, 0.09 No evidence of ACS Echo: As outlined as above, normal LV function, no wall motion abnormality History of diastolic congestive heart failure, Updated echo as above Diuretics dose adjusted to Lasix 20 mg daily History of breast lesion a couple of years ago -- will need outpatient ff up Malnutrition. The patient is thin and frail. With failure to thrive Nutrition consult. Inquired with patient regarding her dietary intake Patient eats she usually has 2-3 meals per day, occasionally not eating because she does not feel hungry She is fully aware of importance of proper nutrition, and consequences of not eating well Poor hygiene On admission patient was found to be very disheveled, unkempt, lice infestation, right foot wound : No evidence of any wound care, Lives at home with daughter and grandkids Office of aging involved, social service following Patient states bathroom is in the second floor, and this makes it difficult for her to shower every day Patient is fully aware of importance of proper hygiene and consequences of not observing proper daily hygiene Lice infestation Secondary to lack of hygiene home Ordered for permethrin 5% cream treatment We will repeat treatment prior to discharge to skilled rehab Hypertension. Blood pressure stable, Resume beta-tiffanie, continue Lasix Tobacco abuse disorder, Smoking cessation counseling Pressure wounds: per Dr. Ornelas notes stage II pressure ulcer on lower lumbar vision present on admission, Appreciate input from wound care, continue local wound care with clean with saline, cover with OptiForm, change every 3 days and as needed Change of position every 2 hours, encouraged patient to be out of bed to chair as much as possible PT OT evaluation appreciated, patient will need to skilled rehab Local wound care will be continued at rehab when patient is transferred when clinically stable Right toes/foot wound Noted to have erythematous/on right great toe, with serous drainage Appreciate input from wound care team: History of moderate peripheral artery disease, Dependent edema, blister formed secondary to volume overload, diastolic dysfunction Appreciate decreased from wound care Wound with saline, cover with OptiForm, Change dressing every other day more frequent if needed Keep limb elevated, waffle boots ordered for offloading of heels/prevent further pressure wounds DVT prophylaxis INR 3.8 HOLD coumadin CODE STATUS: Full code Disposition: PT/OT evaluation recommending senior care facility Patient's overall prognosis remains very poor, unable to get transferred out of bed for severe deconditioning Palliative care hospice would be appropriate Patient is still not receptive far hospice care will continue to discuss options 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, 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-for concern for poor care /hygiene issues and failure to thrive at home Subjective ff up for respiratory failure, etc seen resting in bed, on 4 L NC not in distress states breathing is about the same as yesterday less cough no other symptoms Review of Systems Review of Systems: All systems reviewed & are unremarkable except as noted in HPI & below Physical Exam Physical Exam: General- oriented x 3, not in distress, speaks in sentences with no effort or accessory muscle use Eyes- anicteric Neck- no JVD Lungs- diminished BS BL Heart- normal rate, regular rhythm; no murmurs Abdomen- normal bowel sounds, nondistended, soft, nontender Extremities-no pretibial edema, no calf tenderness Neuro- alert, oriented x 3; no gross focal neurologic deficits Skin- warm & dry Results & Data Vital Signs (Past 12 Hours) Vital Signs Temp Pulse Resp BP Pulse Ox 12/13/18 19:42 37 C 87 18 130/70 100 12/13/18 15:05 36.8 C 88 20 131/76 100 12/13/18 11:03 36.8 C 93 H 20 119/73 99 Laboratory Results Laboratory Results - last 24 hr 12/13/18 06:05 PT 35.8 H INR 3.8 H
[2018-12-14 06:30] LABS: INR 3.3 (0.9-1.1); Prothrombin Time 31.1 Seconds (9.0-12.0)
[2018-12-14] MEDS: guaiFENesin 600 MG TABCR PO SCH ×2 (10:04→20:21)
[2018-12-14] MEDS: LIDOCAINE 5% 1 PATCH TD SCH (10:04)
[2018-12-14] MEDS: METOPROLOL SUCC 50MG EXT REL TAB PO SCH (10:05)
[2018-12-14] MEDS: PANTOprazole 40 MG TAB PO SCH ×2 (10:05→20:21)
[2018-12-14] MEDS: BUDESONIDE/FORMOTEROL FUMARATE 80/4.5 60 PUFFS/INHALER INH SCH ×2 (10:05→20:21)
[2018-12-14] MEDS: FOLIC ACID 1 MG TAB PO SCH (10:06)
[2018-12-14] MEDS: FUROSEMIDE 20 MG TAB PO SCH (10:06)
[2018-12-14] MEDS: ACETAMINOPHEN 325 MG TAB PO PRN (10:06)
[2018-12-14] MEDS: WARFARIN SOD 2 MG TAB PO SCH (17:04)
[2018-12-15 06:08] LABS: INR 3.9 (0.9-1.1); Prothrombin Time 36.6 Seconds (9.0-12.0)
--- NOTE | 2018-12-15 09:18 | Hospitalist Progress Note ---
Date of Service delayed entry date of service 12/14/18 December 15, 2018 Assessment & Plan (1) Acute respiratory failure with hypercapnia: Acute respiratory failure, multifactorial: Atelectasis from mucus plugging - continue Symbicort (patient not tolerating nebs, mucomyst) Mild Volume Overload - appears euvolemic, continue Lasix COPD, Advanced - management per #1 - per Pulmonary: would benefit from a noninvasive ventilator such as trilogy. Due to the patient's severe COPD and patient's chronic respiratory failure, she requires a noninvasive ventilator to decrease her carbon dioxide and prevent future hospitalizations. Without this device the patient is at risk for harm or even . -declines nebs, mucomyst-- makes her short of breath stable overall Pulmonary hypertension/with right heart failure/cor pulmonale per Dr. Ornelas notes: Presented with volume overload, with lower extremity dependent edema Symptom improved with IV Lasix Echo shows: Pulmonary hypertension with PASP of 46mm Hg Right ventricular reduced systolic function Mild tricuspid regurgitation, Normal LV chamber size and wall thickness, hyperdynamic LV systolic function: EF>70% No segmental left ventricular wall motion abnormalities noted, grade 1 diastolic dysfunction still appears euvolemic today Patient will be continued with Lasix 20 mg daily Patient's overall prognosis remains very poor Acute respiratory failure with hypercapnia and hypoxemia, POA Altered mental status and lethargy, metabolic encephalopathy per Dr. Ornelas notes Presented with acute on chronic hypoxemic respiratory failure mostly secondary to COPD exacerbation: Leading to CO2 retention/leading to lethargy/metabolic encephalopathy --History of advanced COPD with chronic heavy tobacco smoking(patient is a current smoker) Admitted with respiratory acidosis: pH 7.14/PCO2 85 Required mechanical ventilation/ICU admission --CT chest on 11/28/18 1. Pulmonary emphysema 2. No evidence of focal pulmonary consolidation 3. No evidence of pathologic adenopathy 4. Severe T11 and L1 vertebral body compression fractures, new when compared with the prior July [address] -Patient was-Extubated 12/01/2018 Ventricular tachycardia No recurrence Possible secondary to hypoxia/respiratory failure Continue on beta-tiffanie Keep potassium above 4, magnesium above 2 to prevent cardiac arrhythmia Hypotension Possible Sepsis due to lower extremity cellulitis, POA Resolved: Blood pressure stable, continue on Lasix for volume overload, right heart failure --Blood cultures: Negative Urine culture:Negative -- received Empiric Zosyn x 2 days, transitioned to Ceftriaxone IV was also given p.o. Zithromax by pulmonology for COPD Acute kidney injury on chronic kidney disease stage III. Secondary to above: Acute renal failure resolved, Creatinine improved to baseline 0.8 Continue Lasix 20 mg daily Anemia(hemoglobin dropped to 6.6) possible GI Bleed --Required 2 units of PRBC transfusion H&H stable at -- Hemoccult positive stools in the ER, but there has been no signs of obvious bleeding. ( no black /tarry stool , no hematemesis ) Protonix twice daily GI consulted, no plans for EGD/Colonoscopy -given acute respiratory failure/no evidence of active GI bleed/stable H&H and hemodynamics Right popliteal DVT --INR 3.3 HOLD coumadin INR daily Moderate to Severe PAD -- Arterial Doppler US: 1. Decreased ankle brachial indices of the left lower extremity compatible with moderate to severe peripheral arterial disease. 2. Segmental pressures of the right lower extremity were not conducted secondary to deep venous thrombosis of the popliteal vein. 3. Elevated peak systolic velocities within the right profunda femoris vein are suggestive of luminal narrowing secondary to atherosclerotic vascular disease. --Patient input from vascular surgery, no intervention needed --On aspirin, will be kept on hold for coagulopathy Transaminitis, most likely secondary to hypotension. --Normalized-possible secondary to sepsis, hypotension -AST : [id number] -[id number] ALT: [phone] CT abdomen pelvis: Unremarkable liver/spleen/pancreas Mild elevated troponin, demand ischemia: Likely secondary to hypotension/acute hypoxemic respiratory failure, hemodynamic instability present on admission -- 0.07, 0.07, 0.09 No evidence of ACS Echo: As outlined as above, normal LV function, no wall motion abnormality History of diastolic congestive heart failure, Updated echo as above Diuretics dose adjusted to Lasix 20 mg daily History of breast lesion a couple of years ago -- will need outpatient ff up Malnutrition. The patient is thin and frail. With failure to thrive Nutrition consult. Inquired with patient regarding her dietary intake Patient eats she usually has 2-3 meals per day, occasionally not eating because she does not feel hungry She is fully aware of importance of proper nutrition, and consequences of not eating well Poor hygiene On admission patient was found to be very disheveled, unkempt, lice infestation, right foot wound : No evidence of any wound care, Lives at home with daughter and grandkids Office of aging involved, social service following Patient states bathroom is in the second floor, and this makes it difficult for her to shower every day Patient is fully aware of importance of proper hygiene and consequences of not observing proper daily hygiene Lice infestation Secondary to lack of hygiene home Ordered for permethrin 5% cream treatment We will repeat treatment prior to discharge to skilled rehab Hypertension. Blood pressure stable, Resume beta-tiffanie, continue Lasix Tobacco abuse disorder, Smoking cessation counseling Pressure wounds: per Dr. Ornelas notes stage II pressure ulcer on lower lumbar vision present on admission, Appreciate input from wound care, continue local wound care with clean with saline, cover with OptiForm, change every 3 days and as needed Change of position every 2 hours, encouraged patient to be out of bed to chair as much as possible PT OT evaluation appreciated, patient will need to skilled rehab Local wound care will be continued at rehab when patient is transferred when clinically stable Right toes/foot wound Noted to have erythematous/on right great toe, with serous drainage Appreciate input from wound care team: History of moderate peripheral artery disease, Dependent edema, blister formed secondary to volume overload, diastolic dysfunction Appreciate decreased from wound care Wound with saline, cover with OptiForm, Change dressing every other day more frequent if needed Keep limb elevated, waffle boots ordered for offloading of heels/prevent further pressure wounds DVT prophylaxis INR 3.3 HOLD coumadin CODE STATUS: Full code Disposition: PT/OT evaluation recommending detention facility Patient's overall prognosis remains very poor, unable to get transferred out of bed for severe deconditioning Palliative care hospice would be appropriate Patient is still not receptive far hospice care will continue to 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, 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-for concern for poor care /hygiene issues and failure to thrive at home Subjective ff up for respiratory failure seen resting in bed, comfortable, watching TV on 4 L NC states she feels about the same no changes with breathing, no cough no chest pain no leg pain denies other symptoms Review of Systems Review of Systems: All systems reviewed & are unremarkable except as noted in HPI & below Physical Exam Physical Exam: General- oriented x 3, not in distress, speaks in sentences with no effort or accessory muscle use Eyes- anicteric Neck- no JVD Lungs- diminished but clear breath sounds bilaterally Heart- normal rate, regular rhythm; no murmurs Abdomen- normal bowel sounds, nondistended, soft, nontender Extremities- no pretibial edema, no calf tenderness Neuro- alert, oriented x 3; no gross focal neurologic deficits Skin- warm & dry Results & Data Vital Signs (Past 12 Hours) Vital Signs Temp Pulse Pulse Resp BP Pulse Ox 12/15/18 07:38 36.6 C 95 H 20 123/71 100 12/15/18 03:28 36.8 C 86 22 108/64 96 12/14/18 23:06 86 12/14/18 22:59 36.9 C 86 20 112/67 96 Laboratory Results Laboratory Results - last 24 hr 12/15/18 05:20 PT 36.6 H INR 3.9 H
[2018-12-15] MEDS: FUROSEMIDE 20 MG TAB PO SCH (09:19)
[2018-12-15] MEDS: FOLIC ACID 1 MG TAB PO SCH (09:19)
[2018-12-15] MEDS: PANTOprazole 40 MG TAB PO SCH ×2 (09:19→20:33)
[2018-12-15] MEDS: guaiFENesin 600 MG TABCR PO SCH ×2 (09:19→20:27)
[2018-12-15] MEDS: BUDESONIDE/FORMOTEROL FUMARATE 80/4.5 60 PUFFS/INHALER INH SCH ×2 (09:20→20:34)
[2018-12-15] MEDS: LIDOCAINE 5% 1 PATCH TD SCH (09:20)
[2018-12-15] MEDS: METOPROLOL SUCC 50MG EXT REL TAB PO SCH (09:20)
--- NOTE | 2018-12-15 09:40 | XRay Report ---
XR chest 1V portable CLINICAL HISTORY: hypoxia COMPARISON STUDY: Chest radiograph December 07, 2018. FINDINGS: There has been interval development of near complete opacification of the left lung since e xam of December 07, 2018. Associated volume loss is noted with leftward shift of mediastinal structure s. There is minimal aeration of the left upper lobe. Right internal jugular central line remains in p lace. There is evidence for pulmonary edema within the right lung. A small to moderate right pleural effusion with right basilar opacity has slightly increased. There is no pneumothorax. IMPRESSION: 1. Interval development of near complete opacification of the left lung with volume loss. This sugges ts subtotal left lung collapse, possibly due to a mucous plug. Discussed with Dr. Rothman at time of dictation. 2. Bilateral pleural effusions. Small to moderate right pleural effusion with right basilar opacity w hich may reflect pneumonia or atelectasis. 3. Mild pulmonary edema. Electronically signed by: Ferny Szymanski M.D. 12/15/2018 9:39 AM
[2018-12-15 10:00] LABS: BUN Creatinine Ratio 20.7 (10-20); Calcium 9.4 mg/dl (8.5-10.1); Creatinine Clr Calc Pharmacy 71.9 ml/min; Potassium 4.2 mmol/L (3.5-5.1)
[2018-12-15 10:17] LABS: Hematocrit (blood only) 33.3 % (37-47); Hemoglobin 9.3 g/dL (12.0-16.0); Mean Corpuscular Hemoglobin 26.4 pg (25-34); Mean Corpuscular Hgb Conc 27.9 g/dL (32-36); Mean Corpuscular Volume 94.6 fL (80-100); Mean Platelet Volume 10.5 fL (7.4-10.4); Platelet Count 404 K/uL (130-400); RDW Coefficient of Variation 20.1 % (11.5-14.5); RDW Standard Deviation 69.8 fL (36.4-46.3); Red Blood Count 3.52 M/uL (4.2-5.4); White Blood Count 16.43 K/uL (4.8-10.8)
[2018-12-15 10:30] LABS: Basophilic Stippling 1+; Basophils # (auto) 0.03 K/uL (0-0.2); Basophils % (auto) 0.2 %; Eosinophils # (auto) 0.27 K/uL (0-0.5); Eosinophils % (auto) 1.6 %; Hypochromasia Present; Immature Granulocytes # (auto) 0.07 K/uL (0.00-0.02); Immature Granulocytes % (auto) 0.4 %; Lymphocytes # (auto) 0.66 K/uL (1.2-3.4); Monocytes # (auto) 1.74 K/uL (0.11-0.59); Monocytes % (auto) 10.6 %; Neutrophils # (auto) 13.66 K/uL (1.4-6.5); Neutrophils % (auto) 83.2 %
--- NOTE | 2018-12-15 11:28 | Pulmonology Progress Note ---
Date of Service December 15, 2018 Assessment & Plan (1) Atelectasis: 63-year-old female with history of acute on chronic hypercapnic/hypoxemic respiratory failure. She was intubated earlier in this admission and also had a bronchoscopy due to a mucous plug. She is severely malnourished and has minimal reserves. Apparently she has been refusing nebulizer treatments and vacillating on her CODE STATUS. Currently she is listed as a full code. Apparently at one point she was okay for CPR but not okay for intubation. Palliative care has been discussing with her extensively, but it appears that she has had limited desire to speak with them. I did discuss with her and she indicated to me she would not be interested in a bronchoscopy or intubation at this time. She also indicated that she would likely not want CPR. I discussed with the hospitalist and asked them to readd ress this issue with her regarding her CODE STATUS. She does have significant mucus plugging on the left with near total whiteout of the left lung. I discussed the seriousness of the situation with her and she indicated to me that she would not want a bronchoscopy and just wants to be left alone at this time. She is somewhat tachypneic and hypoxic. I discussed with respiratory therapy and they indicated to me that we do have a CoughAssist device. Recommend giving her CoughAssist 3 times a day with a positive pressure of 35 cm H2O and a negative pressure of 35 cm H2O. Hopefully this will help clear up some of the left lung. Also I discussed starting her on vest therapy 3 times a day at least 15 minutes to help clear secretions. I am not certain that she will comply with such therapy, but we can give it a try. She also has severe hypercapnic respiratory failure that is chronic and would benefit from noninvasive ventilation such as AVAPS. Patient is severely malnourished and very frail and her reserves are quite limited. Again, I think that a more conservative approach focusing on her comfort towards the end of her life would be more appropriate than performing more invasive procedures. (2) Hypoxemic respiratory failure, chronic: (3) COPD (chronic obstructive pulmonary disease): COPD type: COPD with acute exacerbation Qualified Code(s): J44.1 - Chronic obstructive pulmonary disease with (acute) exacerbation Subjective Patient is lying in bed with an oxygen mask on nasal cannula. She denies shortness of breath but she does look tachypneic. She is coughing frequently. She denies any current chest pain or nausea. She denies any abdominal pain. No recent fevers or chills. Physical Exam Constitutional: + frail appearing Eyes: PERRL, conjunctivae normal, anicteric sclerae ENMT: Mallampati Class: II Respiratory: + tachypneic Rhonchi throughout the left lung. Cardiovascular: RRR, no murmur, no edema Gastrointestinal (Abdomen): normal bowel sounds, soft, nontender, no hepatosplenomegaly Skin: no rashes, warm and dry Psychiatric: Orientation: alert Results & Data Vital Signs (Past 12 Hours) Vital Signs Temp Pulse Resp BP Pulse Ox 12/15/18 07:38 97.9 F 95 H 20 123/71 100 12/15/18 03:28 98.2 F 86 22 108/64 96 PG Care Time/CCT Total # of Minutes Spent Total Time Spent with Patient: Total time spent is greater than 50% in coordination of care (as documented) at patient's floor/unit and/or counseling patient:
[2018-12-16 02:35] LABS: Bacteria Urine Automated Negative (Negative); Bilirubin Urine Negative (Negative); Blood Urine 3+ (Negative); Glucose Urine UA Negative (Negative); Ketones Urine Negative (Negative); Leukocyte Esterase Urine 1+ (Negative); Nitrite Urine Negative (Negative); Protein Urine 2+ (Negative); Specific Gravity Urine 1.023 (1.000-1.030); Urobilinogen Urine Negative (Negative); WBC Urine Automated >30 /hpf (0-5)
[2018-12-16 02:36] LABS: Appearance Urine Turbid (Clear); Color Urine Red
[2018-12-16 02:41] LABS: Basophils # (auto) 0.04 K/uL (0-0.2); Basophils % (auto) 0.3 %; Eosinophils # (auto) 0.24 K/uL (0-0.5); Eosinophils % (auto) 1.8 %; Hematocrit (blood only) 31.9 % (37-47); Hemoglobin 9.1 g/dL (12.0-16.0); Immature Granulocytes # (auto) 0.04 K/uL (0.00-0.02); Immature Granulocytes % (auto) 0.3 %; Lymphocytes # (auto) 0.65 K/uL (1.2-3.4); Mean Corpuscular Hemoglobin 26.8 pg (25-34); Mean Corpuscular Hgb Conc 28.5 g/dL (32-36); Mean Corpuscular Volume 93.8 fL (80-100); Mean Platelet Volume 9.5 fL (7.4-10.4); Monocytes # (auto) 1.07 K/uL (0.11-0.59); Monocytes % (auto) 8.2 %; Neutrophils # (auto) 11.06 K/uL (1.4-6.5); Neutrophils % (auto) 84.4 %; Platelet Count 341 K/uL (130-400); RDW Coefficient of Variation 19.7 % (11.5-14.5); RDW Standard Deviation 67.5 fL (36.4-46.3)
[2018-12-16 02:43] LABS: Prothrombin Time 37.2 Seconds (9.0-12.0)
[2018-12-16 02:46] LABS: RBC Urine Automated >30 /hpf (0-4)
[2018-12-16 02:50] LABS: BUN Creatinine Ratio 19.2 (10-20); Calcium 9.3 mg/dl (8.5-10.1); Creatinine Clr Calc Pharmacy 74.8 ml/min; Est GFR (African American) 118.5; Est GFR (Non-African American) 102.3
--- NOTE | 2018-12-16 02:59 | Communication Note ---
Date of Service: December 16, 2018 Made aware by RN of hematuria noted in [place] catheter/bag. Patient asymptomatic. AP Hematuria Rule out UTI Check UA Hold Coumadin for now.
[2018-12-16] MEDS ORDERED: XOPENEX/ATROVENT 1.25mg/0.5MG NEB COMBO NEB STA (03:00)
[2018-12-16] MEDS ORDERED: LEVALBUTEROL 1.25MG/0.5ML NEB INH STA (03:02)
[2018-12-16] MEDS ORDERED: IPRATROPIUM BROMIDE NEB SOLN 0.02% 2.5 ML VIAL INH STA (03:02)
[2018-12-16] MEDS ORDERED: PHYTONADIONE 2.5 MG in SODIUM CHLORIDE 0.9% 50 ML IV ONE (03:15)
[2018-12-16] MEDS ORDERED: methylPREDNISolone 20 MG in SYRINGE 0 ML IV ONE (03:15)
[2018-12-16] MEDS ORDERED: FUROSEMIDE 20 MG in SYRINGE 0 ML IV ONE (03:15)
[2018-12-16 08:26] LABS: Hematocrit (blood only) 32.8 % (37-47); Hemoglobin 9.2 g/dL (12.0-16.0)
--- NOTE | 2018-12-16 08:33 | Hospitalist Progress Note ---
Date of Service December 16, 2018 Assessment & Plan (1) Acute respiratory failure with hypercapnia: Acute respiratory failure, multifactorial: Atelectasis from mucus plugging - repeat CXR: left lung collapse, likely from mucus plugging re-consulted Dr. Gary, discussed case with him recommending Bronchoscopy but patient declines also, after his discussion with patient, patient has decided to transition to DNR status - not tolerating nebs cough assist device ordered vest therapy also ordered - continue Symbicort -- remains on 5 l oxymask monitor Mild Volume Overload - CXR small-moderate pleural effusion - Lasix 20mg IV given on Lasix 20mg po daily -- monitor COPD, Advanced - management per #1 - per Pulmonary: would benefit from a noninvasive ventilator such as trilogy. Due to the patient's severe COPD and patient's chronic respiratory failure, she requires a noninvasive ventilator to decrease her carbon dioxide and prevent future hospitalizations. Without this device the patient is at risk for harm or even . -declines nebs, mucomyst-- causes dyspnea as per patient stable overall Pulmonary hypertension/with right heart failure/cor pulmonale per Dr. Ornelas notes: Presented with volume overload, with lower extremity dependent edema Symptom improved with IV Lasix Echo shows: Pulmonary hypertension with PASP of 46mm Hg Right ventricular reduced systolic function Mild tricuspid regurgitation, Normal LV chamber size and wall thickness, hyperdynamic LV systolic function: EF>70% No segmental left ventricular wall motion abnormalities noted, grade 1 diastolic dysfunction -- Lasix IV given diuresing so far monitor Acute respiratory failure with hypercapnia and hypoxemia, POA Altered mental status and lethargy, metabolic encephalopathy per Dr. Ornelas notes Presented with acute on chronic hypoxemic respiratory failure mostly secondary to COPD exacerbation: Leading to CO2 retention/leading to lethargy/metabolic encephalopathy --History of advanced COPD with chronic heavy tobacco smoking(patient is a current smoker) Admitted with respiratory acidosis: pH 7.14/PCO2 85 Required mechanical ventilation/ICU admission --CT chest on 11/28/18 1. Pulmonary emphysema 2. No evidence of focal pulmonary consolidation 3. No evidence of pathologic adenopathy 4. Severe T11 and L1 vertebral body compression fractures, new when compared with the prior July [address] -Patient was-Extubated 12/01/2018 Ventricular tachycardia No recurrence Possible secondary to hypoxia/respiratory failure Continue on beta-tiffanie Keep potassium above 4, magnesium above 2 to prevent cardiac arrhythmia Hypotension Possible Sepsis due to lower extremity cellulitis, POA Resolved: Blood pressure stable, continue on Lasix for volume overload, right heart failure --Blood cultures: Negative Urine culture:Negative -- received Empiric Zosyn x 2 days, transitioned to Ceftriaxone IV was also given p.o. Zithromax by pulmonology for COPD Acute kidney injury on chronic kidney disease stage III. Secondary to above: Acute renal failure resolved, Creatinine improved to baseline 0.8 Continue Lasix 20 mg daily Anemia(hemoglobin dropped to 6.6) possible GI Bleed --Required 2 units of PRBC transfusion H&H stable at -- Hemoccult positive stools in the ER, but there has been no signs of obvious bleeding. ( no black /tarry stool , no hematemesis ) Protonix twice daily GI consulted, no plans for EGD/Colonoscopy -given acute respiratory failure/no evidence of active GI bleed/stable H&H and hemodynamics Right popliteal DVT --INR 4 (+) hematuria noted on Noonan cath given Vitamin K HOLD coumadin INR daily Moderate to Severe PAD -- Arterial Doppler US: 1. Decreased ankle brachial indices of the left lower extremity compatible with moderate to severe peripheral arterial disease. 2. Segmental pressures of the right lower extremity were not conducted secondary to deep venous thrombosis of the popliteal vein. 3. Elevated peak systolic velocities within the right profunda femoris vein are suggestive of luminal narrowing secondary to atherosclerotic vascular disease. --Patient input from vascular surgery, no intervention needed --On aspirin, will be kept on hold for coagulopathy Transaminitis, most likely secondary to hypotension. --Normalized-possible secondary to sepsis, hypotension -AST : [id number] -[id number] ALT: [phone] CT abdomen pelvis: Unremarkable liver/spleen/pancreas Mild elevated troponin, demand ischemia: Likely secondary to hypotension/acute hypoxemic respiratory failure, hemodynamic instability present on admission -- 0.07, 0.07, 0.09 No evidence of ACS Echo: As outlined as above, normal LV function, no wall motion abnormality History of diastolic congestive heart failure, Updated echo as above Diuretics as noted above History of breast lesion a couple of years ago -- will need outpatient ff up Malnutrition. The patient is thin and frail. With failure to thrive Nutrition consult. Inquired with patient regarding her dietary intake Patient eats she usually has 2-3 meals per day, occasionally not eating because she does not feel hungry She is fully aware of importance of proper nutrition, and consequences of not eating well Poor hygiene On admission patient was found to be very disheveled, unkempt, lice infestation, right foot wound : No evidence of any wound care, Lives at home with daughter and grandkids Office of aging involved, social service following Patient states bathroom is in the second floor, and this makes it difficult for her to shower every day Patient is fully aware of importance of proper hygiene and consequences of not observing proper daily hygiene Lice infestation Secondary to lack of hygiene home Ordered for permethrin 5% cream treatment We will repeat treatment prior to discharge to skilled rehab Hypertension. Blood pressure stable, Resume beta-tiffanie, continue Lasix Tobacco abuse disorder, Smoking cessation counseling Pressure wounds: per Dr. Ornelas notes stage II pressure ulcer on lower lumbar vision present on admission, Appreciate input from wound care, continue local wound care with clean with saline, cover with OptiForm, change every 3 days and as needed Change of position every 2 hours, encouraged patient to be out of bed to chair as much as possible PT OT evaluation appreciated, patient will need to skilled rehab Local wound care will be continued at rehab when patient is transferred when clinically stable Right toes/foot wound Noted to have erythematous/on right great toe, with serous drainage Appreciate input from wound care team: History of moderate peripheral artery disease, Dependent edema, blister formed secondary to volume overload, diastolic dysfunction Appreciate decreased from wound care Wound with saline, cover with OptiForm, Change dressing every other day more frequent if needed Keep limb elevated, waffle boots ordered for offloading of heels/prevent further pressure wounds DVT prophylaxis INR 4.0 given vit K CODE STATUS: Full code Disposition: PT/OT evaluation recommending long-term facility Patient's overall prognosis remains very poor, unable to get transferred out of bed for severe deconditioning Palliative care hospice would be appropriate Patient is still not receptive far hospice care will continue to discuss options 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, 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-for concern for poor care /hygiene issues and failure to thrive at home Subjective ff up for respiratory failure seen resting in bed, not in distress drowsy on 5 L NC awakens to verbal stimuli denies dyspnea, breathing about the same as yesterday noted to have hematuria overnight, vit k given no other symptoms Review of Systems Review of Systems: All systems reviewed & are unremarkable except as noted in HPI & below Physical Exam Physical Exam: General- oriented x 3, not in distress, speaks in sentences with no effort or accessory muscle use Eyes- anicteric Neck- no JVD Lungs- faint rhonchi at the bases no wheezing Heart- normal rate, regular rhythm; no murmurs Abdomen- normal bowel sounds, nondistended, soft, nontender Extremities- trace lower leg edema, no calf tenderness Neuro-drowsy; no gross focal neurologic deficits Skin- warm & dry Results & Data Vital Signs (Past 12 Hours) Vital Signs Temp Pulse Pulse Resp BP Pulse Ox 12/16/18 03:23 88 22 96 12/16/18 03:01 36.4 C L 88 22 107/66 98 12/15/18 23:48 36.7 C 90 26 H 122/72 100 12/15/18 22:56 81
[2018-12-16] MEDS: guaiFENesin 600 MG TABCR PO SCH ×2 (09:16→20:33)
[2018-12-16] MEDS: METOPROLOL SUCC 50MG EXT REL TAB PO SCH (09:16)
[2018-12-16] MEDS: FUROSEMIDE 20 MG TAB PO SCH (09:17)
[2018-12-16] MEDS: FOLIC ACID 1 MG TAB PO SCH (09:17)
[2018-12-16] MEDS: PANTOprazole 40 MG TAB PO SCH ×2 (09:18→20:36)
[2018-12-16] MEDS: LIDOCAINE 5% 1 PATCH TD SCH (09:18)
[2018-12-16] MEDS: BUDESONIDE/FORMOTEROL FUMARATE 80/4.5 60 PUFFS/INHALER INH SCH ×2 (09:21→20:34)
--- NOTE | 2018-12-16 10:08 | XRay Report ---
XR chest 1V portable CLINICAL HISTORY: follow up lung collapse dyspnea COMPARISON STUDY: 12/15/2018 FINDINGS: There is now near complete opacification left hemithorax. Right pleural effusion is unchang ed. There is central catheter in superior vena cava. IMPRESSION: 1. Near Complete opacification left hemithorax.. 2. Right pleural effusion stable compared to the prior exam. 3. No major change from the prior exam. The above report was generated using voice recognition software. It may contain grammatical, syntax or spelling errors. Electronically signed by: Bartolome Wooten M.D. 12/16/2018 10:07 AM
--- NOTE | 2018-12-16 13:23 | Pulmonology Progress Note ---
Date of Service December 16, 2018 Assessment & Plan (1) Atelectasis: I spoke with respiratory therapy and nursing and patient seems to be refusing most of her care. She pretty much lays in her bed all day and does not want to move. She does not want to undergo vest therapy or CoughAssist. She is not taking in very good p.o. intake. She continues to be severely malnourished. She essentially has end-stage disease. Her left lung is completely opacified from a likely mucous plug. She had a bronchoscopy earlier this admission with clearance of a mucous plug. Even if we go ahead and do a bronchoscopy, if she does not adhere to pulmonary clearance therapies, then she will likely collapse her lung again. Patient is now DNR/DNI. Her INR is also supratherapeutic which would be a contraindication for bronchoscopy at this current time. Regardless, she is not interested in a bronchoscopy. She appears comfortable on supplemental oxygen. Ideally, again we would recommend noninvasive ventilation such as AVAPS, but the patient is not interested in this. Recommend getting palliative care involved again on Monday and hopefully transitioning towards complete comfort/hospice care. Patient is severely malnourished and very frail and her reserves are quite limited. Again, I think that a more conservative approach focusing on her comfort towards the end of her life would be more appropriate than performing more invasive procedures. Per nursing she has multiple areas of skin breakdown on her bony prominences. I think she has a high likelihood of dying during this admission. Her prognosis is very poor. Pulmonary will follow peripherally. (2) Hypoxemic respiratory failure, chronic: (3) COPD (chronic obstructive pulmonary disease): COPD type: COPD with acute exacerbation Qualified Code(s): J44.1 - Chronic obstructive pulmonary disease with (acute) exacerbation (4) Palliative care encounter: Subjective Patient has very flat affect. Wound only answer with one or two words. Would not open eyes or make eye contact with me. Conversation was short and limited. Physical Exam Constitutional: + frail appearing Eyes: PERRL, conjunctivae normal, anicteric sclerae ENMT: Mallampati Class: II Respiratory: + tachypneic Rhonchi on the left Cardiovascular: RRR, no murmur, no edema Gastrointestinal (Abdomen): normal bowel sounds, soft, nontender, no hepatosplenomegaly Skin: no rashes, warm and dry Psychiatric: Orientation: alert Results & Data Vital Signs (Past 12 Hours) Vital Signs Temp Pulse Resp BP Pulse Ox 12/16/18 11:38 97.2 F L 94 H 18 115/62 100 12/16/18 03:23 88 22 96 12/16/18 03:01 97.5 F L 88 22 107/66 98 PG Care Time/CCT Total # of Minutes Spent Total Time Spent with Patient: Total time spent is greater than 50% in coordination of care (as documented) at patient's floor/unit and/or counseling patient:
[2018-12-17 05:55] LABS: Prothrombin Time 10.7 Seconds (9.0-12.0)
[2018-12-17 06:38] LABS: BUN Creatinine Ratio 23.3 (10-20); Calcium 9.4 mg/dl (8.5-10.1); Creatinine Clr Calc Pharmacy 69.6 ml/min; Est GFR (African American) 115.6; Est GFR (Non-African American) 99.7; Potassium 3.7 mmol/L (3.5-5.1)
[2018-12-17] MEDS: BUDESONIDE/FORMOTEROL FUMARATE 80/4.5 60 PUFFS/INHALER INH SCH ×2 (10:00→21:10)
[2018-12-17] MEDS: PANTOprazole 40 MG TAB PO SCH ×2 (10:00→21:10)
[2018-12-17] MEDS: FOLIC ACID 1 MG TAB PO SCH (10:01)
[2018-12-17] MEDS: guaiFENesin 600 MG TABCR PO SCH ×2 (10:01→21:10)
[2018-12-17] MEDS: LIDOCAINE 5% 1 PATCH TD SCH (10:01)
[2018-12-17] MEDS: METOPROLOL SUCC 50MG EXT REL TAB PO SCH (10:03)
--- NOTE | 2018-12-17 10:48 | XRay Report ---
XR chest 1V portable HISTORY: 63 years-old Female f/u follow-up study in a patient with left lung collapse COMPARISON: Chest radiograph 12/16/2017 TECHNIQUE: Portable AP view of the chest FINDINGS: Right IJ central venous catheter appears unchanged. Calcified plaque of the thoracic aortic arch. The cardiac silhouette is likely enlarged. There is improved aeration of the left upper lung. Unchanged pleural effusions with right midlung and right lung base opacities. Bilateral interstitial coarsening . No pneumothorax. Degenerative changes of the shoulders and spine. IMPRESSION: 1. Improved aeration of the left upper lung. 2. Unchanged bilateral pleural effusions with persistent right midlung and right lung base opacities. 3. Pulmonary vascular congestion. The above report was generated using voice recognition software. It may contain grammatical, syntax o r spelling errors. Electronically signed by: Jose Luis Gutierrez M.D. 12/17/2018 10:47 AM
--- NOTE | 2018-12-17 11:41 | Hospitalist Progress Note ---
Date of Service December 17, 2018 Assessment & Plan (1) Acute respiratory failure with hypercapnia: Acute respiratory failure, multifactorial: Atelectasis from mucus plugging - repeat CXR: left lung collapse, likely from mucus plugging re-consulted Dr. Gary, discussed case with him recommending Bronchoscopy but patient declines also, after his discussion with patient, patient has decided to transition to DNR status - not tolerating nebs cough assist device ordered, Patient declining at this time vest therapy Ordered - continue Symbicort -- remains on 5 l oxymask monitor --Palliative care will be re-Addressing goals of care with patient today Mild Volume Overload - CXR small-moderate pleural effusion - Additional Lasix 20mg IV given Today on Lasix 20mg po daily -- monitor COPD, Advanced - management per #1 - per Pulmonary: would benefit from a noninvasive ventilator such as trilogy. Due to the patient's severe COPD and patient's chronic respiratory failure, she requires a noninvasive ventilator to decrease her carbon dioxide and prevent future hospitalizations. Without this device the patient is at risk for harm or even . -declines nebs, mucomyst-- causes dyspnea as per patient Pulmonary hypertension/with right heart failure/cor pulmonale per Dr. Orneals notes: Presented with volume overload, with lower extremity dependent edema Symptom improved with IV Lasix Echo shows: Pulmonary hypertension with PASP of 46mm Hg Right ventricular reduced systolic function Mild tricuspid regurgitation, Normal LV chamber size and wall thickness, hyperdynamic LV systolic function: EF>70% No segmental left ventricular wall motion abnormalities noted, grade 1 diastolic dysfunction -- Lasix IV given Acute respiratory failure with hypercapnia and hypoxemia, POA Altered mental status and lethargy, metabolic encephalopathy per Dr. Ornelas notes Presented with acute on chronic hypoxemic respiratory failure mostly secondary to COPD exacerbation: Leading to CO2 retention/leading to lethargy/metabolic encephalopathy --History of advanced COPD with chronic heavy tobacco smoking(patient is a current smoker) Admitted with respiratory acidosis: pH 7.14/PCO2 85 Required mechanical ventilation/ICU admission --CT chest on 11/28/18 1. Pulmonary emphysema 2. No evidence of focal pulmonary consolidation 3. No evidence of pathologic adenopathy 4. Severe T11 and L1 vertebral body compression fractures, new when compared with the prior July [address] -Patient was-Extubated 12/01/2018 Ventricular tachycardia No recurrence Possible secondary to hypoxia/respiratory failure Continue on beta-tiffanie Keep potassium above 4, magnesium above 2 to prevent cardiac arrhythmia Hypotension Possible Sepsis due to lower extremity cellulitis, POA Resolved: Blood pressure stable, continue on Lasix for volume overload, right heart failure --Blood cultures: Negative Urine culture:Negative -- received Empiric Zosyn x 2 days, transitioned to Ceftriaxone IV was also given p.o. Zithromax by pulmonology for COPD Acute kidney injury on chronic kidney disease stage III. Secondary to above: Acute renal failure resolved, Creatinine improved to baseline 0.8 Continue1 dose IV Lasix in addition to Lasix 20 mg daily Anemia(hemoglobin dropped to 6.6) possible GI Bleed --Required 2 units of PRBC transfusion H&H stable at -- Hemoccult positive stools in the ER, but there has been no signs of obvious bleeding. ( no black /tarry stool , no hematemesis ) Protonix twice daily GI consulted, no plans for EGD/Colonoscopy -given acute respiratory failure/no evidence of active GI bleed/stable H&H and hemodynamics Right popliteal DVT --INR 1.0 (+) hematuria noted on Noonan cath given Vitamin K start coumadin 1 mg with Lovenox bridge INR daily Hematuria possible UTI Hg stable ff up urine culture start Ceftri IV Moderate to Severe PAD -- Arterial Doppler US: 1. Decreased ankle brachial indices of the left lower extremity compatible with moderate to severe peripheral arterial disease. 2. Segmental pressures of the right lower extremity were not conducted secondary to deep venous thrombosis of the popliteal vein. 3. Elevated peak systolic velocities within the right profunda femoris vein are suggestive of luminal narrowing secondary to atherosclerotic vascular disease. --Patient input from vascular surgery, no intervention needed --On aspirin, held for hematuria Transaminitis, most likely secondary to hypotension. --Normalized-possible secondary to sepsis, hypotension -AST : [id number] -173-23 ALT: [phone] CT abdomen pelvis: Unremarkable liver/spleen/pancreas Mild elevated troponin, demand ischemia: Likely secondary to hypotension/acute hypoxemic respiratory failure, hemodynamic instability present on admission -- 0.07, 0.07, 0.09 No evidence of ACS Echo: As outlined as above, normal LV function, no wall motion abnormality History of diastolic congestive heart failure, Updated echo as above Diuretics as noted above History of breast lesion a couple of years ago -- will need outpatient ff up Malnutrition. The patient is thin and frail. With failure to thrive Nutrition consult. Inquired with patient regarding her dietary intake Patient eats she usually has 2-3 meals per day, occasionally not eating because she does not feel hungry She is fully aware of importance of proper nutrition, and consequences of not eating well Poor hygiene On admission patient was found to be very disheveled, unkempt, lice infestation, right foot wound : No evidence of any wound care, Lives at home with daughter and grandkids Office of aging involved, social service following Patient states bathroom is in the second floor, and this makes it difficult for her to shower every day Patient is fully aware of importance of proper hygiene and consequences of not observing proper daily hygiene Lice infestation Secondary to lack of hygiene home Ordered for permethrin 5% cream treatment We will repeat treatment prior to discharge to skilled rehab Hypertension. Blood pressure stable, Resume beta-tiffanie, continue Lasix Tobacco abuse disorder, Smoking cessation counseling Pressure wounds: per Dr. Ornelas notes stage II pressure ulcer on lower lumbar vision present on admission, Appreciate input from wound care, continue local wound care with clean with saline, cover with OptiForm, change every 3 days and as needed Change of position every 2 hours, encouraged patient to be out of bed to chair as much as possible PT OT evaluation appreciated, patient will need to skilled rehab Local wound care will be continued at rehab when patient is transferred when clinically stable Right toes/foot wound Noted to have erythematous/on right great toe, with serous drainage Appreciate input from wound care team: History of moderate peripheral artery disease, Dependent edema, blister formed secondary to volume overload, diastolic dysfunction Appreciate decreased from wound care Wound with saline, cover with OptiForm, Change dressing every other day more frequent if needed Keep limb elevated, waffle boots ordered for offloading of heels/prevent further pressure wounds DVT prophylaxis INR 1.0 Lovenox + Coumadin CODE STATUS: Full code Disposition: PT/OT evaluation recommending long term facility Palliative care service to readdress goals of care with patient today Subjective Follow-up respiratory failure Seen resting in bed, on 5 L of O2 via nasal cannula Not in distress, has mild effort with speech, speaks in sentences States breathing is about the same as yesterday Appears weak No other symptoms Review of Systems Review of Systems: All systems reviewed & are unremarkable except as noted in HPI & below Physical Exam Physical Exam: General- oriented x 3, not in distress, speaks in sentences with Mild effort and accessory muscle use Eyes- anicteric Neck- no JVD Lungs- Positive mild rales bilateral bases, no wheezing, diminished breath sounds Heart- normal rate, regular rhythm; no murmurs Abdomen- normal bowel sounds, nondistended, soft, nontender Extremit(+) pretibial edema, no calf tenderness Neuro- alert, oriented x 3; no gross focal neurologic deficits Skin- warm & dry Results & Data Vital Signs (Past 12 Hours) Vital Signs Temp Pulse Pulse Resp BP BP Pulse Ox 12/17/18 07:39 36.5 C 80 20 110/68 100 12/17/18 03:35 36.4 C L 85 18 107/59 L 99
[2018-12-17] MEDS ORDERED: FUROSEMIDE 20 MG in SYRINGE 0 ML IV ONE (11:45)
[2018-12-17] MEDS: ENOXAPARIN INJ 40 MG/0.4 ML SYR SC SCH (13:42)
[2018-12-17] MEDS: cefTRIAXone SODIUM 2,000 MG in DEXTROSE 5% 50 ML IV SCH (13:43)
--- NOTE | 2018-12-17 13:57 | Pulmonology Progress Note ---
Date of Service December 17, 2018 Assessment & Plan (1) Hypoxemic respiratory failure, chronic: Patient with history of tobacco abuse Patient underwent bronchoscopy on 12/06/2018 was found to have a large mucous plug at the left main bronchus Chest x-ray this morning shows opacification of the lung again. Would suspect recurrent mucous plugging Patient with very poor cough. Unable to clear sputum Unable to safely do bronchoscopy as INR is now 4.0 Discussed course of treatment with the patient including custodial, palliative care, hospice Will continue work with physical therapy to get the patient out of bed and at least to bedside chair as well as increase ambulation and posture to hopefully clear some sputum and increased oxygenation Patient states that she has hopeless and frustrated that she cannot go home Continue with aggressive pulmonary toilet Continue to work on transition to custodial versus palliative care versus hospice care versus comfort care Patient would benefit from trilogy but at this point is not willing to try noninvasive ventilation We will continue work on overall status and continue this discussion over the next day or 2. (2) COPD (chronic obstructive pulmonary disease): Severe COPD per radiographic imaging. No PFTs available. Per Dr. Rubin's consultation note of 12/05/2018: * Azithromycin daily and transition to 3 times weekly at discharge * Ambulate patient * Add Spiriva daily * Continue pulmonary toilet including flutter valve, incentive spirometry, hypertonic saline nebs, Mucomyst, and guaifenesin May benefit to place patient in a right lateral recumbent position when at rest in bed COPD type: COPD with acute exacerbation Qualified Code(s): J44.1 - Chronic obstructive pulmonary disease with (acute) exacerbation (3) Atelectasis: Patient with persistent atelectasis Unable to coordinate incentive spirometry * Continue work with patient on incentive spirometry technique Out of bed to chair as tolerated Stand, ambulate as tolerated Work on deep breathing exercises when in bed Thank you for including us in the care of this patient. I did have long discussion with palliative care team and they are working on placement in a custodial versus hospice care At this point we will continue to encourage pulmonary toilet and other recommendations as above Patient is fairly recalcitrant to continue pulmonary care If the patient does get discharged with set up outpatient PFTs Please look to Dr. Martinez's addendum for further recommendations. Supervising Physician Co-Signing Physician Notes I saw and evaluated the patient with Jose Alberto Kroner, and agree with findings and plan as documented in the note. Patient seen and examined at bedside. In mild respiratory distress. Says she is not bringing up any phlegm. Denies any chest pain. Complains of generalized fatigue. Decreased appetite. No nausea or vomiting. Shortness of breath still persists. Patient has been lying on the left side at the time of examination. Importance of lying on the right side(good lung down) was explained to the patient in front of the nurse was also present in the room. Patient apparently has been refusing all treatment including chest PT. Importance of chest PT and CoughAssist explained to the patient. Patient had bronchoscopy done once during this admission for left lung collapse. Patient has been mucous plugging the left side but has been refusing any further bronchoscopy procedures. Had conversation with the patient that she might clinically deteriorated if she does not coordinate with the treatment plan. She understands but she does not want any invasive procedures which includes bronchoscopy.INR from today is 1. Recommend continuing with chest PT, CoughAssist, hypertonic saline nebulized, keep patient on the right side. Recommend palliative care/hospice eval. We will sign off, recall if needed. I have spent more than 50% of this encounter in counseling and/or coordination of care with patient. Subjective Attending: Dr. Martinez Patient seen and examined at bedside. She has no acute complaints other than shortness of breath. In discussion with physical therapy, nursing, palliative medicine the patient has been refusing all modalities of treatment. When I spoke with the patient at bedside, she was afraid of dying and afraid of placement in the custodial. We had a long discussion about hospice and how it works and that it can be managed from a custodial. She agreed to referral as she also agreed to continue with physical therapy as tolerated while inpatient. I spoke to physical therapy and met them at bedside. We were able to dangle patient's legs at bedside and ultimately have her stand for short periods. She was able shuffle 2 steps and then was placed back in bed. Nursing will work on getting her a recliner and have her out of bed to chair once each shift. Kayy maddox has agreed to work on standing and ambulation and sitting upright. I also spoke to infectious disease and she will be taken off isolation precautions and is much as she has been treated and is cleared of original lice found when admitted. Patient currently has no pain. She does feel short of breath and is frequently placing nasal cannula in her mouth. She is anorexic and has not had anything for lunch as she states that she just is not hungry. She is refusing her dietary supplements as well as regular menu. She has no nausea or vomiting. No abdominal pain. No diarrhea. Patient's primary complaints are malaise, fatigue, shortness of breath. She is unable to clear her sputum. She has a very weak cough. Review of Systems Review of Systems: All systems reviewed & are unremarkable except as noted in HPI & below Physical Exam Physical Exam: GENERAL : No acute distress. Flat affect. Depressed EYES: No icterus, gaze conjugate. NOSE: No evidence of epistaxis. Nasal cannula is in place MOUTH: No lesions or candidiasis. Mucosa is dry. Tongue is midline. NECK: Supple LUNGS: Breath sounds are very diminished globally. I hear no breath sounds at the left base. Patient does have a slight bronchospasm appreciated in her left upper lobe when she stands and takes a deep breath. Patient has poor spirometry. She has a very weak cough and is unable to clear any sputum. HEART: Regular, rate controlled at rest. Tachycardic in the low 100s with any activity. ABDOMEN: Soft, NT, ND, BS Present EXTREMITIES: No LE edema, pedal pulses intact. Noted atrophy of lower extremity muscles. In need of podiatry care. NEURO: A&OX3. Flat affect Results & Data Vital Signs (Past 12 Hours) Vital Signs Temp Pulse Pulse Resp BP BP Pulse Ox 12/17/18 07:39 36.5 C 80 20 110/68 100 12/17/18 03:35 36.4 C L 85 18 107/59 L 99 Laboratory Results 12/16/18 08:04 12/17/18 05:35 Laboratory Tests 12/16/18 02:13 INR 4.0 H Diagnostic Findings Persistent opacification of the left lung most likely secondary to a mucous plug. PG Care Time/CCT Total # of Minutes Spent Total Time Spent with Patient: Total time spent is greater than 50% in coordination of care (as documented) at patient's floor/unit and/or counseling patient: 60 min
[2018-12-17] MEDS ORDERED: WARFARIN SOD 1 MG TAB PO SCH (16:00)
--- NOTE | 2018-12-17 16:25 | Palliative Care Progress Note ---
Date of Service December 17, 2018 Assessment & Plan (1) Goals of care, counseling/discussion: -Patient had issues over the weekend with mucous plugging. She is refusing mucomyst. Refusing Trilogy machine. Does not like the percussion vest. Patient discussed with research project coordinator that she wanted to be DNR/DNI, but wanted to continue treatment. -Revisited patient to discuss goals of care. Patient continues to have flat affect. She states she wants to "get better," but really just wants to be "left alone." In further discussion, patient states she doesn't want to do certain medical treatments, doesn't feel she is strong enough to get out of bed or be rehabbed, but is very afraid of dying. -Patient declines wanting to speech with any mandaen or spiritual person. Patient did not elaborate on what exactly she is afraid of. -Patient is upset that she has to go to skilled nursing after hospitalization, but understands she is not able to go back home. -Returned to patient's room and had further discussion with patient along with Gallo Loco PA-C. Patient is now willing to give PT a try, as she maintains that her goal is to "get better." Her main concerns is, "I want my breathing to be under control." We talked more about hospice care, she verbalizes understanding but still did not state that hospice is her goal. She wants to continue medical treatment at this time. -Referral has been made to [facility] who can accept patient once medically stable. -We will continue to follow along for medical decision making and discussion about goals of care. (2) Hypoxemic respiratory failure, chronic: (3) MOF (multiple organ failure): (4) Rheumatoid arthritis: Subjective -Patient is flat and feeling about the same today. Still SOB at rest and with any exertion, even just leaning forward in bed. Review of Systems Review of Systems: Denies pain, chest pain, N/V, abd pain. C/o SOB at rest and with exertion. C/o being tired. Physical Exam Constitutional: + thin and + cachectic ENMT: external ear and nose normal, oropharynx normal Respiratory: + pursed lip breathing Auscultation: + diminished lung sounds and + rhonchi Cardiovascular: Heart Sounds: normal S1, normal S2 and + murmur Gastrointestinal (Abdomen): normal bowel sounds, soft, nontender, no hepatosplenomegaly Neurologic: moves all extremities and awake Psychiatric: Orientation: oriented x 3 Affect: + flat affect Results & Data Vital Signs (Past 12 Hours) Vital Signs Temp Pulse Resp BP Pulse Ox 12/17/18 15:12 36.6 C 89 18 135/70 100 12/17/18 07:39 36.5 C 80 20 110/68 100 Time Spent Midlevel 65 minutes with >50% of the time spent at bedside with patient and other provider discussing condition and GOC.
[2018-12-17] MEDS ORDERED: TIOTROPIUM BROMIDE 5 PUFF/90 MCG INH INH SCH (18:15)
[2018-12-17] MEDS ORDERED: XOPENEX/ATROVENT 0.63mg/0.5MG NEB COMBO NEB PRN (18:41)
[2018-12-17] MEDS ORDERED: LEVALBUTEROL HCL 0.63 MG/3 ML NEB NEB SCH (19:00)
[2018-12-17] MEDS ORDERED: IPRATROPIUM BROMIDE NEB SOLN 0.02% 2.5 ML VIAL INH SCH (19:00)
[2018-12-17] MEDS: SODIUM CHLOR 7% 4 ML NEB NEB SCH (19:06)
[2018-12-17] MEDS ORDERED: methylPREDNISolone 20 MG in SYRINGE 0 ML IV STA (19:54)
[2018-12-17] MEDS ORDERED: FUROSEMIDE 40 MG in SYRINGE 0 ML IV ONE (20:00)
--- NOTE | 2018-12-17 20:38 | Hospitalist Progress Note ---
Date of Service December 17, 2018 Subjective CODE SEAN called around 9 PM. Patient found to be minimally responsive by RN and having agonal respiration. ABG pH 7.11, PCO2 130, PO2 107 Chest x-ray: 1. Interval decrease in the size of the left pleural effusion 2. Persistent small right pleural effusion 3. Basilar opacities likely representing compressive atelectatic change 4. Suspected mild underlying pulmonary vascular congestion. Suspected underlying emphysema AP Acute on chronic hypoxemic, hypercapnic respiratory failure hx BIPAP intolerance as per documentation multifactorial : COPD exacerbation CHF IV Solu-Medrol IV Lasix BIPAP if family agreeable vs comfort measures Patient daughter (Ms. Vickie Davila) updated of development over the phone. She requests for continued medical management for patient including BiPAP for now despite patient's known history intolerance for the mask. She agrees to sedation and restraints if necessary for patient to keep BiPAP on until family is able to convene tomorrow morning at the hospital with morning provider and Palliative Medicine to discuss goals of care. DNR status reaffirmed by patient's daughter. Will relay to AM provider. Results & Data Vital Signs (Past 12 Hours) Vital Signs Temp Pulse Pulse Resp BP Pulse Ox 12/17/18 19:07 97 H 19 100 12/17/18 18:59 36.5 C 88 20 120/78 100 12/17/18 16:00 86 12/17/18 15:12 36.6 C 89 18 135/70 100
--- NOTE | 2018-12-17 20:58 | XRay Report ---
XR chest 1V portable CLINICAL HISTORY: sob COMPARISON STUDY: 12/17/2018 FINDINGS: There is a right internal jugular central venous catheter unchanged in position. There are bilateral pleural effusions left larger than right with associated basilar atelectasis/consolidation. The left pleural effusion appears smaller than on the preceding study. Mild underlying pulmonary vas cular congestion is suspected.[ IMPRESSION: 1. Interval decrease in the size of the left pleural effusion 2. Persistent small right pleural effusion 3. Basilar opacities likely representing compressive atelectatic change 4. Suspected mild underlying pulmonary vascular congestion. Suspected underlying emphysema Electronically signed by: Zeferino Jeffries M.D. 12/17/2018 8:56 PM
[2018-12-17 21:11] LABS: Basophils # (auto) 0.09 K/uL (0-0.2); Basophils % (auto) 0.6 %; Eosinophils # (auto) 0.14 K/uL (0-0.5); Eosinophils % (auto) 0.9 %; Hematocrit (blood only) 33.1 % (37-47); Immature Granulocytes # (auto) 0.11 K/uL (0.00-0.02); Immature Granulocytes % (auto) 0.7 %; Lymphocytes # (auto) 0.86 K/uL (1.2-3.4); Lymphocytes % (auto) 5.5 %; Mean Corpuscular Hgb Conc 27.2 g/dL (32-36); Mean Corpuscular Volume 95.7 fL (80-100); Mean Platelet Volume 9.7 fL (7.4-10.4); Monocytes # (auto) 0.92 K/uL (0.11-0.59); Monocytes % (auto) 5.9 %; Neutrophils # (auto) 13.47 K/uL (1.4-6.5); Neutrophils % (auto) 86.4 %; Nucleated RBC # (auto) 0.03 K/uL (0-0); Nucleated RBC % (auto) 0.2 %; Platelet Count 496 K/uL (130-400); RDW Coefficient of Variation 19.4 % (11.5-14.5); RDW Standard Deviation 68.3 fL (36.4-46.3); Red Blood Count 3.46 M/uL (4.2-5.4); White Blood Count 15.59 K/uL (4.8-10.8)
[2018-12-17 21:12] LABS: Partial Thromboplastin Ratio 0.9; Partial Thromboplastin Time 23.9 Seconds (21.0-31.0)
[2018-12-17 21:43] LABS: BUN Creatinine Ratio 17.4 (10-20); Calcium 9.1 mg/dl (8.5-10.1); Creatinine Clr Calc Pharmacy 56.1 ml/min; Est GFR (African American) 107.7; Est GFR (Non-African American) 92.9; Magnesium 1.8 mg/dl (1.8-2.4); Potassium 3.6 mmol/L (3.5-5.1)
[2018-12-17] MEDS ORDERED: GLUCAGON FOR INJ 1 MG VIAL SQ PRN (21:46)
[2018-12-17] MEDS ORDERED: DEXTROSE 50% 50 ML SYRINGE IV PRN (21:46)
[2018-12-17] MEDS ORDERED: CARBOHYDRATES FOR HYPOGLYCEMIA PO PRN (21:46)
[2018-12-17] MEDS ORDERED: GLUCOSE 10 TABS/TUBE PO PRN (21:46)
[2018-12-17] MEDS ORDERED: GLUCOSE 40% GEL 15 GM TUBE PO PRN (21:46)
[2018-12-17] MEDS ORDERED: LANTUS PER UNIT CHARGE SC STA (21:46)
[2018-12-17] MEDS: MAGNESIUM SULFATE / D5W 1 GM/100 ML BAG IV SCH ×2 (22:25→23:38)
[2018-12-17] MEDS: POTASSIUM CHLORIDE / WTR 10 MEQ/100 ML PLCT IV SCH ×2 (22:25→23:38)
[2018-12-17] MEDS: INSULIN ASPART 100 UNITS/ML 3 ML PEN SC SCH (22:29)
[2018-12-17] MEDS ORDERED: methylPREDNISolone 20 MG in SYRINGE 0 ML IV ONE (22:30)
[2018-12-17] MEDS: LEVALBUTEROL 1.25MG/0.5ML NEB INH SCH (23:23)
[2018-12-17] MEDS: IPRATROPIUM BROMIDE NEB SOLN 0.02% 2.5 ML VIAL INH SCH (23:23)
[2018-12-17 23:24] LABS: Allen Test POS (Pos); Base Excess ABG 18.1 mEq/L (-9-1.8); HCO3 ABG 49 mmol/L (19-24); Oxygen Saturation ABG 94.2 % (90-95); PCO2 ABG 107 mmHg (35-46); PO2 ABG 83 mm/Hg (80-95); pH ABG 7.28 (7.35-7.45)
[2018-12-18] MEDS ORDERED: XOPENEX/ATROVENT 1.25mg/0.5MG NEB COMBO NEB SCH
[2018-12-18] MEDS: POTASSIUM CHLORIDE / WTR 10 MEQ/100 ML PLCT IV SCH ×2 (00:35→01:15)
[2018-12-18] MEDS: ENOXAPARIN INJ 40 MG/0.4 ML SYR SC SCH ×2 (01:16→12:57)
[2018-12-18] MEDS ORDERED: OLANZapine 10 MG/2.1 ML SDV IM PRN (01:27)
[2018-12-18] MEDS ORDERED: CEFEPIME CONSULT ACTIVE ONE (03:23)
[2018-12-18] MEDS: LEVALBUTEROL 1.25MG/0.5ML NEB INH SCH ×3 (03:50→11:19)
[2018-12-18] MEDS: IPRATROPIUM BROMIDE NEB SOLN 0.02% 2.5 ML VIAL INH SCH ×3 (03:51→11:19)
[2018-12-18] MEDS ORDERED: METOPROLOL TARTRATE 1 MG/ML VIAL IV STA (05:38)
[2018-12-18] MEDS ORDERED: methylPREDNISolone 40 MG in SYRINGE 0 ML IV SCH ×2 (05:45→09:00)
[2018-12-18 06:42] LABS: HCO3 ABG 47 mmol/L (19-24); Oxygen Saturation ABG 98.9 % (90-95); PCO2 ABG 117 mmHg (35-46); PO2 ABG 222 mm/Hg (80-95); pH ABG 7.22 (7.35-7.45)
[2018-12-18 06:43] LABS: Allen Test Pos (Pos)
[2018-12-18 06:53] LABS: Prothrombin Time 10.3 Seconds (9.0-12.0)
[2018-12-18] MEDS: SODIUM CHLOR 7% 4 ML NEB NEB SCH (07:29)
[2018-12-18 07:35] LABS: BUN Creatinine Ratio 22.1 (10-20); Calcium 9.4 mg/dl (8.5-10.1); Creatinine Clr Calc Pharmacy 65.8 ml/min; Est GFR (African American) 111.6; Est GFR (Non-African American) 96.3
[2018-12-18 08:38] LABS: Potassium 4.5 mmol/L (3.5-5.1)
[2018-12-18] MEDS: FOLIC ACID 1 MG TAB PO SCH (08:39)
[2018-12-18] MEDS: cefTRIAXone SODIUM 2,000 MG in DEXTROSE 5% 50 ML IV SCH (08:40)
[2018-12-18] MEDS: guaiFENesin 600 MG TABCR PO SCH (08:40)
[2018-12-18] MEDS: PANTOprazole 40 MG TAB PO SCH (08:40)
[2018-12-18] MEDS: LIDOCAINE 5% 1 PATCH TD SCH (08:50)
--- NOTE | 2018-12-18 08:59 | Hospitalist Progress Note ---
Date of Service December 18, 2018 Assessment & Plan (1) Acute respiratory failure with hypercapnia: Acute respiratory failure, multifactorial Hypoxic and hypercapnic - Patient was intubated and admitted to the ICU initially Successfully extubated -While on telemetry, patient developed progressive hypoxia and was found to have mucous plugging Patient then underwent bronchoscopy with improvement of oxygenation -Subsequent deconditioning and weakness noted since admission Remained on at least 3 to 5 L of oxygen via nasal cannula Palliative care service consulted for recommendation of pulmonary service -Weekend patient again developed worsening of hypoxia letter to atelectasis from mucous plugging Patient then declined bronchoscopy, was also declining several interventions such as nebulizer treatments, CoughAssist device after his discussion with patient, patient has decided to transition to DNR status - Overnight the patient developed unresponsiveness, secondary to respiratory acidosis from hypercapnia BiPAP placed after discussion with patient's daughters over the phone Lasix IV, Solu-Medrol given -Patient arrived around noontime, and had a meeting with palliative care service They have decided to transition patient to comfort measures status only Volume Overload - CXR small-moderate pleural effusion - will order Lasix 20mg IV for congestion on Lasix 20mg po daily COPD, Advanced - management per #1 Pulmonary hypertension/with right heart failure/cor pulmonale Echo shows: Pulmonary hypertension with PASP of 46mm Hg Right ventricular reduced systolic function Mild tricuspid regurgitation, Normal LV chamber size and wall thickness, hyperdynamic LV systolic function: EF>70% No segmental left ventricular wall motion abnormalities noted, grade 1 diastolic dysfunction -- Lasix IV given PRN in addition to usual PO Lasix Acute respiratory failure with hypercapnia and hypoxemia, POA Altered mental status and lethargy, metabolic encephalopathy Presented with acute on chronic hypoxemic respiratory failure mostly secondary to COPD exacerbation: Leading to CO2 retention/leading to lethargy/metabolic encephalopathy --History of advanced COPD with chronic heavy tobacco smoking(patient is a current smoker) -- mental status back to baseline since extubation in the IC Ventricular tachycardia No recurrence Possible secondary to hypoxia/respiratory failure Continue on beta-tiffanie Hypotension Possible Sepsis due to lower extremity cellulitis, POA Resolved: Blood pressure stable, continue on Lasix for volume overload, right heart failure --Blood cultures: Negative Urine culture:Negative -- received Empiric Zosyn x 2 days, transitioned to Ceftriaxone IV was also given p.o. Zithromax by pulmonology for COPD Acute kidney injury on chronic kidney disease stage III. Secondary to above: Acute renal failure resolved, Creatinine improved to baseline 0.8 Anemia(hemoglobin dropped to 6.6) possible GI Bleed --Required 2 units of PRBC transfusion H&H stable at -- Hemoccult positive stools in the ER, but there has been no signs of obvious bleeding. ( no black /tarry stool , no hematemesis ) Protonix twice daily GI consulted, no plans for EGD/Colonoscopy -given acute respiratory failure/no evidence of active GI bleed/stable H&H and hemodynamics Right popliteal DVT --Was placed on Coumadin Hematuria possible UTI Hg stable Ceftriaxone was given in light of possible UTI Moderate to Severe PAD -- Arterial Doppler US: 1. Decreased ankle brachial indices of the left lower extremity compatible with moderate to severe peripheral arterial disease. 2. Segmental pressures of the right lower extremity were not conducted secondary to deep venous thrombosis of the popliteal vein. 3. Elevated peak systolic velocities within the right profunda femoris vein are suggestive of luminal narrowing secondary to atherosclerotic vascular disease. --Consulted vascular surgery, no intervention needed Transaminitis, most likely secondary to hypotension. --Normalized-possible secondary to sepsis, hypotension -AST : [id number] ALT: [phone] CT abdomen pelvis: Unremarkable liver/spleen/pancreas Mild elevated troponin, demand ischemia: Likely secondary to hypotension/acute hypoxemic respiratory failure, hemodynamic instability present on admission -- 0.07, 0.07, 0.09 No evidence of ACS Echo: As outlined as above, normal LV function, no wall motion abnormality History of diastolic congestive heart failure, Diuretics as noted above History of breast lesion a couple of years ago Malnutrition. Nutrition consulted Lice infestation Ordered for permethrin 5% cream treatment Hypertension. beta-tiffanie, Lasix given Tobacco abuse disorder Smoking cessation counseling Pressure wounds: per Dr. Ornelas notes stage II pressure ulcer on lower lumbar vision present on admission, continue local wound care with clean with saline, cover with OptiForm, change every 3 days and as needed Right toes/foot wound Noted to have erythematous/on right great toe, with serous drainage Appreciate input from wound care team History of moderate peripheral artery disease Dependent edema, blister formed secondary to volume overload, diastolic dysfunction Wound care consulted DVT prophylaxis was on Lovenox + Coumadin Disposition: transitioned to Comfort Measures status only Subjective Follow-up for hypoxic and hypercapnic respiratory failure Overnight, the patient was noted to be unresponsive, ABG revealed hypercapnia and respiratory acidosis Family/daughter was contacted, they were agreeable to initiate BiPAP therapy This morning the patient remains on BiPAP, lethargic, not in respiratory distress Discussed with pulmonary and palliative care services Palliative care service contacted patient's daughters, they requested to have patient remain on BiPAP, until they arrive The afternoon, the patient's daughters arrived, had a meeting with palliative care service, and transition to comfort measures status only Review of Systems Review of Systems: All systems reviewed & are unremarkable except as noted in HPI & below Physical Exam Physical Exam: General-lethargic, not in distress, minimal accessory muscle use Eyes- anicteric Neck- no JVD Lungs-positive minimal rales bilateral bases, no wheezing, diminished breath sounds bilateral Heart- normal rate, regular rhythm; no murmurs Abdomen- normal bowel sounds, nondistended, soft, nontender Extremities-minimal pretibial edema, no calf tenderness Neuro-patient is lethargic Skin- warm & dry Results & Data Vital Signs (Past 12 Hours) Vital Signs Temp Pulse Pulse Pulse Resp BP Pulse Ox 12/18/18 07:30 77 77 30 H 94 12/18/18 07:18 36.2 C L 87 18 112/75 96 12/18/18 04:34 112 H 12/18/18 03:52 88 32 H 99 12/18/18 03:51 81 30 H 99 12/18/18 02:26 36.2 C L 100 H 22 116/68 99 12/18/18 01:23 89 32 H 90 12/17/18 23:26 97 H 30 H 12/17/18 23:22 36.1 C L 105 H 20 110/63 97 12/17/18 22:38 104 H 97 12/17/18 22:31 121 H 30 H 86 L 12/17/18 21:29 116 H 31 H 96 12/17/18 21:24 107 H 32 H 96 Laboratory Results Laboratory Results - last 24 hr 12/17/18 12/17/18 12/17/18 20:47 20:47 20:47 WBC 15.59 H RBC 3.46 L Hgb 9.0 L Hct 33.1 L MCV 95.7 MCH 26.0 MCHC 27.2 L RDW Std Deviation 68.3 H RDW Coeff of Melecio 19.4 H Plt Count 496 H MPV 9.7 Immature Gran % (Auto) 0.7 Neut % (Auto) 86.4 Lymph % (Auto) 5.5 [place] % (Auto) 5.9 Eos % (Auto) 0.9 Baso % (Auto) 0.6 Immature Gran # (Auto) 0.11 H Neut # (Auto) 13.47 H Lymph # (Auto) 0.86 L [place] # (Auto) 0.92 H Eos # (Auto) 0.14 Baso # (Auto) 0.09 Absolute Nucleated RBC 0.03 H Nucleated RBC % (auto) 0.2 PT INR APTT 23.9 PTT Ratio 0.9 ABG pH ABG pCO2 ABG pO2 ABG HCO3 ABG O2 Saturation ABG Base Excess Dick Test Barometric Pressure Oxygen Given Sodium 147 H Potassium 3.6 Chloride 96 L Carbon Dioxide 55 H* Anion Gap -4.0 L BUN 12 Creatinine 0.67 Est Cr Clr Drug Dosing 56.1 Est GFR ( Amer) 107.7 Est GFR (Non-Af Amer) 92.9 BUN/Creatinine Ratio 17.4 Glucose 199 H POC Glucose Calcium 9.1 Magnesium 1.8 NT-Pro-B Natriuret Pep 6082 H 12/17/18 12/17/18 12/18/18 22:28 23:05 06:25 WBC RBC Hgb Hct MCV MCH MCHC RDW Std Deviation RDW Coeff of Melecio Plt Count MPV Immature Gran % (Auto) Neut % (Auto) Lymph % (Auto) [place] % (Auto) Eos % (Auto) Baso % (Auto) Immature Gran # (Auto) Neut # (Auto) Lymph # (Auto) [place] # (Auto) Eos # (Auto) Baso # (Auto) Absolute Nucleated RBC Nucleated RBC % (auto) PT 10.3 INR 1.0 APTT PTT Ratio ABG pH 7.28 L ABG pCO2 107 H ABG pO2 83 ABG HCO3 49 H ABG O2 Saturation 94.2 ABG Base Excess 18.1 H Dick Test POS Barometric Pressure 736.4 Oxygen Given 60% Sodium Potassium Chloride Carbon Dioxide Anion Gap BUN Creatinine Est Cr Clr Drug Dosing Est GFR ( Amer) Est GFR (Non-Af Amer) BUN/Creatinine Ratio Glucose POC Glucose 156 H Calcium Magnesium NT-Pro-B Natriuret Pep 12/18/18 12/18/18 12/18/18 06:25 06:32 07:39 WBC RBC Hgb Hct MCV MCH MCHC RDW Std Deviation RDW Coeff of Melecio Plt Count MPV Immature Gran % (Auto) Neut % (Auto) Lymph % (Auto) [place] % (Auto) Eos % (Auto) Baso % (Auto) Immature Gran # (Auto) Neut # (Auto) Lymph # (Auto) [place] # (Auto) Eos # (Auto) Baso # (Auto) Absolute Nucleated RBC Nucleated RBC % (auto) PT INR APTT PTT Ratio ABG pH 7.22 L ABG pCO2 117 H ABG pO2 222 H ABG HCO3 47 H ABG O2 Saturation 98.9 H ABG Base Excess 16.0 H Dick Test Pos Barometric Pressure 736.8 Oxygen Given 85% FiO2 Sodium 141 Potassium 4.5 D Chloride 94 L Carbon Dioxide 43 H* Anion Gap 4.0 BUN 13 Creatinine 0.60 Est Cr Clr Drug Dosing 65.8 Est GFR ( Amer) 111.6 Est GFR (Non-Af Amer) 96.3 BUN/Creatinine Ratio 22.1 H Glucose 102 H POC Glucose 88 Calcium 9.4 Magnesium NT-Pro-B Natriuret Pep 12/18/18 12/18/18 09:30 11:30 WBC RBC Hgb Hct MCV MCH MCHC RDW Std Deviation RDW Coeff of Melecio Plt Count MPV Immature Gran % (Auto) Neut % (Auto) Lymph % (Auto) [place] % (Auto) Eos % (Auto) Baso % (Auto) Immature Gran # (Auto) Neut # (Auto) Lymph # (Auto) [place] # (Auto) Eos # (Auto) Baso # (Auto) Absolute Nucleated RBC Nucleated RBC % (auto) PT INR APTT PTT Ratio ABG pH 7.33 L ABG pCO2 91 H ABG pO2 76 L ABG HCO3 46 H ABG O2 Saturation 93.6 ABG Base Excess 17.2 H Dick Test Pos Barometric Pressure 737.4 Oxygen Given 60% Sodium Potassium Chloride Carbon Dioxide Anion Gap BUN Creatinine Est Cr Clr Drug Dosing Est GFR ( Amer) Est GFR (Non-Af Amer) BUN/Creatinine Ratio Glucose POC Glucose 94 Calcium Magnesium NT-Pro-B Natriuret Pep
[2018-12-18] MEDS ORDERED: INSULIN GLARGINE SOLOSTAR 100 UNITS/ML 3 ML PEN SC SCH (09:00)
[2018-12-18] MEDS: INSULIN ASPART 100 UNITS/ML 3 ML PEN SC SCH ×2 (09:05→12:30)
--- NOTE | 2018-12-18 09:41 | XRay Report ---
XR chest 1V portable CLINICAL HISTORY: increased hypoxia dyspnea COMPARISON STUDY: 12/17/2018 FINDINGS: No significant cardiac enlargement. Slightly improved left pleural effusion. Increasing density right mid to lower lung. This potentially relates to developing pleural fluid vers us atelectatic change. IMPRESSION: 1. Progressive increase in density right mid to lower lung. 2. This may relate to developing volume loss/and/or developing right effusion. 3. Left pleural effusion slightly diminished in volume from the prior study. The above report was generated using voice recognition software. It may contain grammatical, syntax or spelling errors. Electronically signed by: Bartolome Wooten M.D. 12/18/2018 9:39 AM
[2018-12-18 09:42] LABS: Allen Test Pos (Pos); Base Excess ABG 17.2 mEq/L (-9-1.8); HCO3 ABG 46 mmol/L (19-24); Oxygen Saturation ABG 93.6 % (90-95); PCO2 ABG 91 mmHg (35-46); PO2 ABG 76 mm/Hg (80-95); pH ABG 7.33 (7.35-7.45)
--- NOTE | 2018-12-18 10:18 | Palliative Care Progress Note ---
Date of Service December 18, 2018 Assessment & Plan (1) Goals of care, counseling/discussion: -Reviewed records from last evening. Patient was a code purple for unresponsiveness. CXR and ABG obtained. Left lung mucous plugging actually was improved on xray. ABG showed severe respiratory acidosis with ABG pH 7.11, PCO2 130, PO2 [address] Prado's note. Patient was placed on bipap. Her ABGs actually worsened with uncompensated respiratory acidosis. -Went to patient's room this morning with Gallo Loco, pulmonary/critical care JEANNE Wu. Patient is obtunded on bipap. Respiratory therapist in room as well. Stat CXR ordered, Dr. Rothman ordered repeat ABGs. CXR showed increase in right mid-to- lower lung density and volume loss. ABGs mildly improved with pH 7.33, PCO2 91. Patient remains obtunded. Settings on bipap adjusted per Claudy. -Contacted patient's daughter, Vickie, regarding poor prognosis. She states that the patient would not want to escalate care any further and did not want to wear the bipap. Vickie states that her sister is coming in from [place] today. Once she arrives, plan will be to take bipap off and give comfort medications. Allow natural to occur. -Support given. Instructed family that once they are present, please let us know and we will convert to comfort measures only. (2) Hypoxemic respiratory failure, chronic: (3) MOF (multiple organ failure): (4) Rheumatoid arthritis: Subjective Patient now obtunded on bipap. See A&P. Review of Systems Review of Systems: Unobtainable due to reduced consciousness Physical Exam Constitutional: + ill appearing, + cachectic and + frail appearing ENMT: external ear and nose normal, oropharynx normal Respiratory: + labored breathing (on bipap) Cardiovascular: RRR, no murmur, no edema Gastrointestinal (Abdomen): Inspection/Auscultation: normal bowel sounds Percussion/Palpation: abdomen soft Skin: + mottling (BL knees) Neurologic: + obtunded Results & Data Vital Signs (Past 12 Hours) Vital Signs Temp Pulse Pulse Pulse Resp BP Pulse Ox 12/18/18 09:39 92 H 35 H 94 12/18/18 07:30 77 77 30 H 94 12/18/18 07:18 36.2 C L 87 18 112/75 96 12/18/18 04:34 112 H 12/18/18 03:52 88 32 H 99 12/18/18 03:51 81 30 H 99 12/18/18 02:26 36.2 C L 100 H 22 116/68 99 12/18/18 01:23 89 32 H 90 12/17/18 23:26 97 H 30 H 12/17/18 23:22 36.1 C L 105 H 20 110/63 97 12/17/18 22:38 104 H 97 12/17/18 22:31 121 H 30 H 86 L Time Spent Midlevel 65 minutes with >50% of time spent at bedside with patient, providers, and on phone with family discussing GOC, EOL issues, and comfort care.
[2018-12-18] MEDS ORDERED: METOPROLOL TARTRATE 1 MG/ML VIAL IV SCH (12:00)
[2018-12-18] MEDS ORDERED: LORazepam 0.5 MG/1 ML VIAL IV PRN (13:30)
[2018-12-18] MEDS ORDERED: LEVALBUTEROL 1.25MG/0.5ML NEB INH PRN (13:35)
[2018-12-18] MEDS: ATROPINE SULFATE 1% OP SOLN 5 ML BTL SL PRN ×2 (14:29→17:20)
[2018-12-18] MEDS: MoRPHine SULFATE 2 MG/ML CARP IV PRN ×2 (17:19→17:31)
[2018-12-18 18:19] LABS: iSTAT FiO2 100 %; iSTAT Sample Type VEN
[2018-12-18 18:20] LABS: iSTAT Site Art Line
[2018-12-18 18:31] LABS: iSTAT Allen Test Pass; iSTAT Arterial Blood Gas pCO2 < 10 mmHg (35-46); iSTAT Arterial Blood Gas pH 7.12 (7.35-7.45); iSTAT Arterial Blood Gas pO2 107 mmHg (80-95); iSTAT Carbon Dioxide < 5 mEq/l (24-31); iSTAT FiO2 60 %; iSTAT Site R Radial
[2018-12-19] MEDS: MoRPHine SULFATE 2 MG/ML CARP IV PRN (07:45)
[2018-12-19] MEDS: FUROSEMIDE 20 MG TAB PO SCH (07:45)
[2018-12-19] MEDS: LIDOCAINE 5% 1 PATCH TD SCH (08:19)
--- NOTE | 2018-12-19 09:36 | Discharge Summary ---
Date of Service December 19, 2018 Admission HPI Per Admitting Provider 63-year-old female with past medical history significant for COPD, left pulmonary nodule, left ventricular hypertrophy, diastolic dysfunction, cerebral microvascular disease, chronic kidney disease stage III, generalized osteoarthritis, rheumatoid arthritis, tobacco use disorder, lump of the right breast, underweight, colonoscopy refused, who lives with her daughter, who was brought in because she was not getting up from the bed for the last few days. As per daughter for the last 4 days, every day morning she sees her mother sleeping and when she comes from work, she is still sleeping and she does not think that she is eating and drinking much, not getting up from the bed. She generally walks to the bathroom and comes back, but seems to be not getting around and she also noticed some leg swelling for last 2 days and there are some erythematous changes in the right lower extremity and that seems to be most likely chronic changes with elongated nails. Daughter says that the patient smokes and the last few days she did not smoke. So she thought something is wrong and she brought her to the hospital. When the patient came to the hospital, systolic blood pressure was 60s. Received 2 liters of fluids and blood pressure came up. Random lactic acid was normal. White count was 22,000, but last month she received prednisone.He hemoglobin is 8.4. In the ER, the hemoccult was positive and creatinine was 2.4, baseline around 1. Troponin 0.074. UA is negative. Chest x-ray, no obvious infiltrates. AST and ALT was in 400s. ABG was done and showed pH of 7.1, pCO2 of 71, pO2 of 85% on 4 liters. The patient is currently placed on BiPAP. Daughter thinks her lower extremities are cold to touch, they are cold for the last couple of days, but to the ER the patient told they are cold for the last couple of weeks. The patient is somewhat lethargic and drowsy but currently on BiPAP, but able to tell her name, is able to tell her date of , knows that she is in the hospital, knows today's month and year, but voice is feeble .Daughter thought that her voice was feeble at home today also.As per daughter patient was fine 4 days ago, she was talking fine and eating fine. She eats a regular diet. No obvious cough. The patient denies any chest pain. Currently she is feeling better. Denies any shortness of breath. Denies any abdominal pain. When asked about any leg pain says not much. Denies any diarrhea, denies any burning micturition. Could not get much history from the patient as the patient was mostly drowsy. Admission Exam Per Admitting Provider GENERAL: The patient is thin and frail, lethargic. VITAL SIGNS: Temperature 36.4, pulse 75, blood pressure when she came in was 69/50, currently 111/72, oxygen when she came in was 88%, currently 93% on BiPAP. HEENT: No pallor, no icterus. Pupils equal, round, reactive to light. NECK: No JVD, no neck masses, no carotid bruits. CARDIOVASCULAR: S1, S2 heard, regular rate and rhythm, no murmur, no gallop. RESPIRATORY SYSTEM: Normal AP diameter. No accessory muscle use. No wheezing, no crackles. ABDOMEN: Soft, bowel sounds present, nontender. No distention. CENTRAL NERVOUS SYSTEM: Lethargic, but alert and oriented x3. On command, tries to move extremities, but there is minimal movement. EXTREMITIES: Bilateral lower extremities are cold on palpation and +2 edema present and right lower extremity is somewhat erythematous.Elongated nails seen and poor hygiene of lower extremities. Principal Diagnosis Acute on chronic hypoxic and hypercapneic respiratory failure Advanced COPD Pulmonary hypertension Discharge Exam Patient prior to evaluation today Discharge Data Allergies Allergy/AdvReac Type Severity Reaction Status Date / Time Pork/Porcine Containing Allergy Intermediate Hives Verified 11/27/18 20:32 Products Consultations 11/27/18 22:31 ED Decision to Admit Stat 11/28/18 00:44 Consult Case Management - Discharge Planning Routine 11/28/18 05:55 Consult Case Management - Discharge Planning Routine 11/28/18 06:03 Consult Equipment Installer Routine 11/28/18 08:00 Consult Gastroenterology Routine 11/28/18 10:25 Consult Orthopedic Surgery Routine 12/02/18 15:49 Consult Vascular Surgery Routine 12/05/18 07:47 Consult Pulmonology Routine 12/10/18 12:55 Consult Case Management - Discharge Planning Routine 12/11/18 21:41 Consult Palliative Care Routine Ordered Studies 11/28/18 00:44 CT abd pelvis wo con Urgent 1. 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 No ureteral calculi or obstructive uropathy identified. 2. No bowel obstruction or bowel wall thickening. 3. Nonvisualization of the appendix. 4. Mild wall thickening with partial distention of the urinary bladder. Correlate with urinalysis. 5. L1 compression deformity with greater than 50% loss of the central vertebral body height demonstrates 4 mm retropulsion. This is age-indeterminate, new from 08/07/2016. Correlate clinically. CT chest wo con Urgent 1. Pulmonary emphysema 2. No evidence of focal pulmonary consolidation 3. No evidence of pathologic adenopathy 4. Severe T11 and L1 vertebral body compression fractures, new when compared with the prior July [address] US arterial duplex LE BI Urgent 1. Decreased ankle brachial indices of the left lower extremity compatible with moderate to severe peripheral arterial disease. 2. Segmental pressures of the right lower extremity were not conducted secondary to deep venous thrombosis of the popliteal vein. 3. Elevated peak systolic velocities within the right profunda femoris vein are suggestive of luminal narrowing secondary to atherosclerotic vascular disease. 11/28/18 06:24 US point of care ultrasound Urgent 11/29/18 00:32 CT abd pelvis wo con Urgent 1. Small amount of nonspecific abdominopelvic ascites. Ascites is likely related to volume overload. The presence of bilateral small pleural effusions and anasarca. An inflammatory etiology is considered unlikely. 2. Distended gallbladder. This may be on a physiologic basis, however, correlate for right upper quadrant symptoms and consider ultrasound for further evaluation. 3. 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 No hydronephrosis. 4. Lines and tubes appropriately positioned. 5. Emphysema. CT cervical spine wo con Urgent CT head/brain wo con Urgent CT lumbar spine wo con Urgent CT thoracic spine wo con Urgent 11/29/18 00:41 CT chest wo con Urgent 11/29/18 11:03 US liver Urgent 11/30/18 03:16 MR brain wo con Routine No significant change compared to the prior study. No acute intracranial abnormality. Atrophy and advanced microvascular ischemic changes are again noted Hospital Course (1) Acute respiratory failure with hypercapnia: Acute respiratory failure, multifactorial Hypoxic and hypercapnic Advanced COPD Altered Mental Status Patient was intubated and admitted to the ICU initially Successfully extubated While on telemetry, patient developed progressive hypoxia and was found to have mucous plugging Patient then underwent bronchoscopy with improvement of oxygenation Subsequent deconditioning and weakness noted since admission Remained on at least 3 to 5 L of oxygen via nasal cannula Palliative care service consulted on recommendation of pulmonary service Patient again developed worsening of hypoxia due to atelectasis from mucous plugging Patient then declined bronchoscopy, was also declining several interventions such as nebulizer treatments, CoughAssist device After discussion with patient, patient has decided to transition to DNR status Patient subsequently became unresponsiveness, secondary to respiratory acidosis from hypercapnia BiPAP placed after discussion with patient's daughters over the phone After further discussion and meeting with palliative care service, patient family and primary team, family decided to transition patient to comfort measures status only Volume Overload CXR small-moderate pleural effusion Received diuretics Pulmonary hypertension/with right heart failure/cor pulmonale Echo shows: Pulmonary hypertension with PASP of 46mm Hg Right ventricular reduced systolic function Mild tricuspid regurgitation Normal LV chamber size and wall thickness, hyperdynamic LV systolic function: EF>70% No segmental left ventricular wall motion abnormalities noted, grade 1 diastolic dysfunction Hypotension Possible Sepsis due to lower extremity cellulitis, POA Resolved: Blood pressure stable, continue on Lasix for volume overload, right heart failure Blood cultures: Negative Urine culture:Negative Received Empiric Zosyn x 2 days, transitioned to Ceftriaxone IV was also given p.o. Zithromax by pulmonology for COPD Acute kidney injury on chronic kidney disease stage III. Secondary to above Acute renal failure resolved, Creatinine improved to baseline 0.8 Anemia(hemoglobin dropped to 6.6) possible GI Bleed Required 2 units of PRBC transfusion during hospitalization H&H stable at 10/33 Hemoccult positive stools in the ER, but there has been no signs of obvious bleeding. Protonix twice daily GI evaluated but no plans for EGD/Colonoscopy due to acute respiratory failure and no evidence of active GI bleed/stable H&H and hemodynamics Right popliteal DVT Was placed on Coumadin Hematuria possible UTI Hg stable Ceftriaxone was given in light of possible UTI Moderate to Severe PAD As on Arterial Doppler US (report noted above): Evaluated by vascular surgery but no intervention needed Transaminitis, most likely secondary to hypotension. Normalized-possible secondary to hypotension CT abdomen pelvis: Unremarkable liver/spleen/pancreas Mild elevated troponin, demand ischemia: Likely secondary to hypotension/acute hypoxemic respiratory failure, hemodynamic instability present on admission --> 0.07, 0.07, 0.09 No evidence of ACS Echo: As outlined as above, normal LV function, no wall motion abnormality PATIENT WAS PRONOUNCED BY RN CERTIFICATE FILLED OUT Total Time Total Time Spent Total Time Spent (In Minutes): 15 Total Time Includes: Other Discharge Plan Discharge Items Patient Disposition: Discharge Diagnosis: Acute on chronic hypoxic and hypercapneic respiratory failure Advanced COPD Pulmonary hypertension Addtl Attending Provider Instructions: WOUND CARE DISCHARGE INSTRUCTIONS: Right toes/foot: Clean with saline. Cover with OPTi foam. Change every other day and as needed Behind right ear: Clean with saline. Leave open to air Left wild: Cover blister with OPTi foam. Change every 3 days and as needed Lower lumbar spine clean with saline. Cover with OPTi foam. Change every 3 days and as needed Admission Data Admit Date/Time: 11/27/18 23:20 Other DC Date/Time DO NOT enter until pt leaves facility: 12/19/18 08:45
== END 2018-12-19 08:45 | disposition expired | DRG 208 ==
LOC: ED 19:13 → SUATTDRO 23:20 → 2S 23:20 → 1E 11-28 04:55 → 2E 12-02 16:49 → 1E 12-06 08:10 → 2W 12-06 12:39